=== PATIENT | male | born 1960 | race Caucasian/White ===

== ENCOUNTER 2023-02-22 21:52 | Inpatient (IN) | payer OTHER, MEDICAID, SELFPAY ==
[2023-02-22 21:55] VITALS: BP 183/88; PULSE 87; RESP 20; TEMP 36.4; O2SAT 98; BMI 38.7
[2023-02-22 22:08] VITALS: BP 125/80; PULSE 72; RESP 19; O2SAT 96
--- NOTE | 2023-02-22 22:08 | ED.VIS.DYS ---
HPI History of Present Illness Chief Complaint: Shortness of Breath Narrative Narrative: Patient presents with exertional dyspnea for the past few months its been slowly getting worse. Every time he walks he has dyspnea, he gets diaphoretic and he has chest discomfort, he tells me its not pain just discomfort and it radiates to his jaw. He has no fever or chills. No back pain. No tearing sensation. He has not noticed some slight lower extremity edema recently it is bilateral. PFSH PFSH Allergy/AdvReac Type Severity Reaction Status Date / Time No Known Allergies Allergy Verified 02/22/23 21:55 Social History Smoking Status: Current every day smoker tobacco type: cigarettes ROS ROS ED ROS Narrative Past medical history: Reviewed Medications: Reviewed Social history: Noncontributory Review of systems: General: No fever Eyes: No visual changes ENT: No upper airway congestion, normal voice Neck: No neck pain Cardiovascular: No chest pain, he claims he gets discomfort Respiratory: Exertional dyspnea Gastrointestinal: No abdominal pain, nausea vomiting or diarrhea Genitourinary: No dysuria Musculoskeletal: Denies myalgias no difficulty with ambulation Skin: No rash Neurological: No memory loss, confusion or any focal weakness Psych: No recent behavioral changes Hematologic: No easy bleeding or easy bruising EXAM Physical Exam Narrative Exam Narrative: Physical exam General: Well nourished, Well developed, No Acute Distress Head: Normocephalic, Atraumatic Eyes: Conjunctiva not pale ENT: Moist mucous membranes Neck: Supple, Nontender, No lymphadenopathy Cardiovascular: Regular rate, Regular rhythm Respiratory: No distress, CTA bilaterally Abdomen: Soft, Nontender, Nondistended Back: Nontender, Normal Inspection. Negative for: CVA tenderness Extremities: Nontender, No edema Skin: Normal color, No rash Neurological: Alert, Normal Strength, Normal Sensation Psychological: Normal affect Const Vital Signs: 02/22/23 21:55 02/22/23 22:02 02/22/23 22:08 Temperature 97.6 F L Temperature Source Temporal Pulse Rate 87 Respiratory Rate 20 H Respiratory Effort Normal Respiratory Pattern Normal Blood Pressure 183/88 H Blood Pressure Mean 119 Pulse Ox 98 Oxygen Delivery Method Room Air Room Air 02/22/23 22:08 02/22/23 22:09 Temperature Temperature Source Pulse Rate 72 Respiratory Rate 19 H Respiratory Effort Short of Breath Respiratory Pattern Normal Blood Pressure 125/80 H Blood Pressure Mean 95 Pulse Ox 96 Oxygen Delivery Method Room Air MDM MDM MDM Narrative Medical decision making narrative: Patient has exertional chest discomfort with diaphoresis and dyspnea and radiation to his jaw. In talking to him he has no medical problems however his tells me that he has been diagnosed with hypertriglyceridemia and he is not on any medications for it. He also has obstructive sleep apnea and he had hypertension initially in the ED, he may have some undiagnosed hypertension if he does have hypertension his heart score be a 5 if he does not have before either way he is high risk due to his history and I cannot use the troponin rule out to send him home. Patient will be admitted for stress test. I talked to him and his . I am not worried about pulmonary embolism, he has no pleuritic chest pain he has no risk factors. He has no evidence of pneumonia or any other lung etiologies and his lungs sound clear therefore I do not believe this is a lung issue. Lab Data Labs: Laboratory Results - last 24 hr 02/22/23 22:10 WBC 6.0 RBC 4.34 L Hgb 13.6 Hct 41.0 MCV 94.5 H MCH 31.3 MCHC 33.2 RDW Std Deviation 45.8 H RDW Coeff of Tracie 13.2 Plt Count 229 MPV 9.3 Immature Gran % (Auto) 0.200 Neut % (Auto) 52.5 Lymph % (Auto) 33.2 [place] % (Auto) 9.6 Eos % (Auto) 3.8 Baso % (Auto) 0.7 Absolute Neuts (auto) 3.2 Absolute Lymphs (auto) 2.00 Nucleated RBC % 0 Sodium 141 Potassium 3.8 Chloride 113 H Carbon Dioxide 24.0 Anion Gap 4 L BUN 18 Creatinine 0.96 Estim Creat Clear Calc 82.80 Est GFR (MDRD) Af Amer 102 Est GFR (MDRD) Non-Af 84 BUN/Creatinine Ratio 18.8 Glucose 123 H Calcium 8.3 L Troponin I High Sens 21 Radiography Diagnostic Testing: Clinical Impression(s) from Imaging Studies Chest X-Ray 02/22/23 22:45 IMPRESSION: No active disease. Electronically Signed: Ricardo Khoury MD at 22:55 EDT , Chest x-ray interpreted by me as normal. Rhythm Strip Rhythm Strip: Sinus Rhythm Rate: 70 Ectopy: None EKG Initial EKG: Comments: Sinus rhythm with a rate of 70. Normal VA and QTc intervals. Nonspecific intraventricular conduction delay. No acute ischemic changes. Interpreted by emergency doctor Discharge Plan Triage Chief Complaint: Shortness of Breath ED Provider: Garrett Calhoun Dx/Rx/DC Orders Clinical Impression: MOHIT (obstructive sleep apnea), Acute dyspnea, Chest pain Primary Care Provider: Ho Clark Referrals: Ho Clark DO [Primary Care Provider] - Disposition Disposition: Acute Care Hospital [facility]
[2023-02-22] MEDS: Aspirin 81 MG TAB.CHEW 324 MG PO (22:15)
[2023-02-22 22:16] LABS: Absolute Neutrophil Count 3.2 X10^3/uL (2.0-7.7); Basophil# 0.04 X10^3/uL; Basophil% 0.7 % (0-1); Eosinophil# 0.23 X10^3/uL; Eosinophils% 3.8 % (0-5); Hemoglobin 13.6 g/dL (13.0-16.5); Lymphocyte % 33.2 % (19-41); Mean Corp Hgb Conc 33.2 g/dL (32-36); Mean Corpuscular Hgb 31.3 pg (27.0-32.0); Mean Corpuscular Volume 94.5 fL (80-94); Mean Platelet Vol. 9.3 fl (6.2-12.0); Monocyte# 0.58 X10^3/uL; Monocyte% 9.6 % (0-10); NRBC Flagged by Analyzer 0 % (0-5); Neutrophil # 3.17 X10^3/uL (2.7-7.7); Neutrophil % 52.5 % (47-70); Platelet Count 229 K/mm3 (150-450); RBC Distribution Width CV 13.2 % (11.6-14.6); RBC Distribution Width SD 45.8 fl (35.1-43.9); Red Blood Count 4.34 M/mm3 (4.6-6.2)
[2023-02-22 22:37] LABS: Anion Gap 4 (5-15); BUN 18 mg/dL (7-18); BUN/Creat Ratio 18.8 RATIO (10-20); Calcium,Total 8.3 mg/dL (8.5-10.1); Chloride 113 mmol/L (98-107); Creatinine, Serum 0.96 mg/dL (0.70-1.30); EST Glomerular Filtration Rate 84 mL/min (>60); Est Glom Filt Rate - Afr Amer 102 mL/min (>60); Glucose 123 mg/dL (74-106); Potassium 3.8 mmol/L (3.5-5.1); Sodium Level 141 mmol/L (136-145); Troponin-I HS (w/2H Reflex) 21 pg/mL (3.0-78.0)
--- NOTE | 2023-02-22 22:45 | RAD_ITS ---
STUDY: X-RAY CHEST REASON FOR EXAM: Male, 63 years old. chest pain TECHNIQUE: Single AP portable view of the chest. COMPARISON: None. FINDINGS: Electronic device in the right side of the chest. The lungs are clear and expanded. There is no demonstrated pleural abnormality. Normal size heart. Normal mediastinum and shandra. Normal visualized pulmonary arteries. Normal visualized aortic arch and descending thoracic aorta. Normal visualized thoracic spine. Normal visualized ribs, clavicles, and shoulders. There is no demonstrated abnormality of the visualized soft tissue structures of the upper abdomen. RAD/Chest 1 View (Portable) IMPRESSION: No active disease. Electronically Signed: Ricardo Khoury MD at 22:55 EDT ,
--- NOTE | 2023-02-22 23:39 | EKG12_ITS ---
Test Reason : CP ADMIT Blood Pressure : / mmHG Vent. Rate : 059 BPM Atrial Rate : 059 BPM P-R Int : 172 ms QRS Dur : 122 ms QT Int : 402 ms P-R-T Axes : 047 020 054 degrees QTc Int : 397 ms Sinus bradycardia Non-specific intra-ventricular conduction delay Nonspecific T wave abnormality Abnormal ECG When compared with ECG of 13-FEB-2014 10:16, Non-specific intra-ventricular conduction delay has replaced Incomplete right bundle branch block Confirmed by DAX GROVE, NASRIN ([id number]), medical transcription editor JULIA GARNICA ([id number]) on 02/24/2023 7:16:48 AM Referred By: DR MONTESINOS Confirmed By:NASRIN VERDUZCO MD
--- NOTE | 2023-02-22 23:42 | HP.PCM.HOS_ITS ---
HPI - General General Date of Admission: 02/22/23 Date of Service: 02/22/23 Chief Complaint: Shortness of breath HPI Narrative GUALBERTO SHARP, is a 63 M with a significant history of sleep apnea; tobacco abuse and hypercholesterolemia who presents to emergency department with a 6- month history of progressively worsening shortness of breath. Shortness of breath increases markedly with mild exertion. Associated with symptom is fatigue, and lightheadedness. Also in the past 3 weeks he has been flushed in his face. Further he has a pressure in his head. He categorically denies any chest pain. [facility] Medical History History of skin cancer Sleep apnea Home Medications flaxseed oil 1,000 mg capsule 1,000 mg PO DAILY 02/23/23 [History Last Taken Unknown] modafinil 200 mg tablet 400 mg PO DAILY 02/23/23 [History Last Taken 02/22/23] Allergy/AdvReac Type Severity Reaction Status Date / Time No Known Allergies Allergy Verified 02/22/23 21:55 Family History Other Heart disease no significant family history Surgical History History of knee surgery Social History Smoking Status: Current every day smoker tobacco type: cigarettes ROS ROS Narrative Pertinent positives and pertinent negatives as noted in HPI. All other systems were reviewed and are negative Vital Signs Vital Signs Vital Signs: 02/22/23 21:55 02/22/23 22:02 02/22/23 22:08 Temperature 97.6 F L Temperature Source Temporal Pulse Rate 87 Respiratory Rate 20 H Respiratory Effort Normal Respiratory Pattern Normal Blood Pressure 183/88 H Blood Pressure Mean 119 Pulse Ox 98 Oxygen Delivery Method Room Air Room Air 02/22/23 22:08 02/22/23 22:09 Temperature Temperature Source Pulse Rate 72 Respiratory Rate 19 H Respiratory Effort Short of Breath Respiratory Pattern Normal Blood Pressure 125/80 H Blood Pressure Mean 95 Pulse Ox 96 Oxygen Delivery Method Room Air Weight Weight: 125.872 kg Body Mass Index (BMI) 38.7 Physical Exam Narrative Physical exam: General: Well-nourished, well-developed. Head: Normocephalic, atraumatic, no tenderness Eyes: Vision is grossly intact. EOMI ENT, no trauma, moist mucous membranes, no rhinorrhea Neck: Nontender, No thyromegaly. CVS: Regular rate and rhythm. S1-S2 present. No murmur, gallop or rub. Respiratory : Increased work of breathing. Clear to auscultation bilaterally, chest wall nontender Abdomen: Soft, nontender, nondistended, normal bowel sounds, no masses : Deferred Back: Nontender, no CVA tenderness, no midline spinal tenderness, deformities, step-offs Extremities: Nontender full range of motion, no trauma Skin: Normal color, no trauma, abrasions Neuro: Alert, oriented, cranial nerves II through XII grossly intact. Psychiatry: Normal mood. Normal affect. Not depressed. Not anxious. Results Lab / Micro Data 02/22/23 22:10 02/22/23 22:10 Labs: Laboratory Results - last 24 hr 02/22/23 22:10: WBC 6.0, RBC 4.34 L, Hgb 13.6, Hct 41.0, MCV 94.5 H, MCH 31.3, MCHC 33.2, RDW Std Deviation 45.8 H, RDW Coeff of Tracie 13.2, Plt Count 229, MPV 9.3, Immature Gran % (Auto) 0.200, Neut % (Auto) 52.5, Lymph % (Auto) 33.2, [place] % (Auto) 9.6, Eos % (Auto) 3.8, Baso % (Auto) 0.7, Absolute Neuts (auto) 3.2, Absolute Lymphs (auto) 2.00, Nucleated RBC % 0, Sodium 141, Potassium 3.8, Chloride 113 H, Carbon Dioxide 24.0, Anion Gap 4 L, BUN 18, Creatinine 0.96, Estim Creat Clear Calc 82.80, Est GFR (MDRD) Af Amer 102, Est GFR (MDRD) Non-Af 84, BUN/Creatinine Ratio 18.8, Glucose 123 H, Calcium 8.3 L, Troponin I High Sens 21 Rhythm Strip Rhythm Strip: Sinus Rhythm Rate: 70 Ectopy: None Radiology Impression Chest X-Ray 02/22/23 22:45 IMPRESSION: No active disease. Electronically Signed: Ricardo Khoury MD at 22:55 EDT , Assessment & Plan Assessment/Plan (1) Acute dyspnea: PLAN: Acute dyspnea BNP ordered Radiologist interpretation of chest x-ray: No active disease Actual CXR image was independently visualized. No acute cardiopulmonary process was noted. Initial blood pressure elevation of 183/88 at the ED Sodium of 141 on presentation. Chloride 113. ASA 81 mg p.o. daily ordered We will check lipid panel. Check TSH. Trend CBC and BMP. Initial high sensitivity troponin was unremarkable. Trend Stat EKG as needed for chest pain Chemical stress test in the AM if the cardiac enzymes are negative. Of note a candidate of treadmill stress test since he has had knee surgery placement x2. DVT prophylaxis ordered. Time spent in the patient's overall evaluation,decision-making process, review of diagnostic data, adjustment of management, discussion with other providers, nursing nursing and ancillary staff involved in patient's care documentation, 450minutes. Charges/Coding Visit Charges Inpatient E&M: 35843 Init Hosp L2
[2023-02-22 23:44] VITALS: BP 121/73; PULSE 65; RESP 18; TEMP 36.2; O2SAT 95
--- NOTE | 2023-02-23 00:12 | EKG12_ITS ---
Test Reason : SOB Blood Pressure : / mmHG Vent. Rate : 070 BPM Atrial Rate : 070 BPM P-R Int : 168 ms QRS Dur : 120 ms QT Int : 380 ms P-R-T Axes : 040 023 050 degrees QTc Int : 410 ms Normal sinus rhythm Non-specific intra-ventricular conduction delay Borderline ECG Confirmed by DAX GROVE, NASRIN ([id number]), newspaper editor JULIA GARNICA ([id number]) on 02/25/2023 9:11:04 AM Referred By: Confirmed By:NASRIN VERDUZCO MD
--- NOTE | 2023-02-23 00:12 | ECHOCS_ITS ---
Reason For Study: CHEST PAIN Procedure This was a 2D Doppler, Color Flow transthoracic echocardiogram. The study was technically difficult. Contrast injection was performed. Exam performed portable in patient room. Left Ventricle Normal LV size. Mild concentric left ventricular hypertrophy. Left ventricular systolic function is normal. The estimated ejection fraction is 65 %. No regional wall motion abnormalities noted. Right Ventricle Normal RV size. Normal systolic function. Atria Normal left atrium. Normal right atrium. Mitral Valve Normal mitral valve. Tricuspid Valve Normal tricuspid valve. Mild tricuspid valve insufficiency. Pulmonary artery systolic pressure is 24 mmHg. Aortic Valve Trisinus/trileaflet aortic valve. Pulmonic Valve The pulmonic valve is not well visualized. Great Vessels Normal aortic root. The pulmonary artery is normal size. Normal inferior vena cava. Pericardium/Pleural No pericardial effusion. Medication Diluted definity 2ml given slow IV push to enhance endocardial definition. MMode/2D Measurements & Calculations LVIDd: 5.2 cm IVSd: 1.2 cm Ao root diam: 3.6 cm LVIDs: 3.1 cm LVPWd: 1.4 cm RVDd: 3.5 cm FS: 40.2 % LAV(MOD-bp): 78.0 ml LVAd ap4: 41.7 cm2 SV(MOD-sp4): 101.3 ml LAV(MOD-bp) Indexed: 32.3 ml/m2 LVLd ap4: 9.2 cm LAV(MOD-sp2): 68.5 ml EDV(MOD-sp4): 153.4 ml LAV(MOD-sp4): 84.0 ml EDV(sp4-el): 160.1 ml LVAs ap4: 21.8 cm2 LVLs ap4: 7.6 cm ESV(MOD-sp4): 52.1 ml ESV(sp4-el): 53.3 ml EF(MOD-sp4): 66.0 % EF(sp4-el): 66.7 % SV(sp4-el): 106.9 ml LA A4 area: 23.8 cm2 LA dimension(2D): 5.1 cm RA A4 area: 23.4 cm2 TAPSE: 2.2 cm Time Measurements MV dec time: 0.21 sec Doppler Measurements & Calculations MV E max jose david: 102.3 cm/sec Lat Peak E' Jose David: 10.8 cm/sec Med Peak E' Jose David: 6.5 cm/sec MV A max jose david: 87.9 cm/sec E/E' lat: 9.5 E/E' med: 15.8 MV E/A: 1.2 MV V2 max: 106.6 cm/sec MV dec slope: 488.1 cm/sec2 Ao V2 max: 169.5 cm/sec MV max P.6 mmHg Ao max P.5 mmHg MV V2 mean: 63.2 cm/sec Ao V2 mean: 108.6 cm/sec MV mean P.9 mmHg Ao mean P.5 mmHg MV V2 VTI: 40.0 cm Ao V2 VTI: 37.6 cm AV (velocity ratio): 0.97 LV V1 max: 159.8 cm/sec PA V2 max: 96.8 cm/sec TR max jose david: 233.7 cm/sec LV V1 max P.2 mmHg PA V2 mean: 69.7 cm/sec TR max P.8 mmHg LV V1 mean P.9 mmHg LV V1 mean: 104.0 cm/sec LV V1 VTI: 36.5 cm ECHO/Echo Complete W/ Contrast Interpretation Summary Normal LV size. Mild concentric left ventricular hypertrophy. Left ventricular systolic function is normal. The estimated ejection fraction is 65 %. Contrast injection was performed. Ordering Physician: Schuyler Davila Referring Physician: HILARY MARIE Performed By: [facility]
[2023-02-23 00:14] LABS: Reflex Troponin-HS? (from REC) Y
[2023-02-23 00:15] VITALS: BP 129/78; PULSE 63; RESP 17; TEMP 36.6; O2SAT 96
[2023-02-23 00:33] VITALS: BMI 38.3
[2023-02-23 01:09] LABS: Troponin-I HS 24 pg/mL (3.0-78.0)
[2023-02-23 04:52] LABS: Absolute Lymphocyte Count 2.01 X10^3/uL (0.83-4.51); Absolute Neutrophil Count 2.9 X10^3/uL (2.0-7.7); Basophil# 0.04 X10^3/uL; Basophil% 0.7 % (0-1); Eosinophils% 3.5 % (0-5); Hematocrit 42.7 % (40-54); Hemoglobin 13.8 g/dL (13.0-16.5); Lymphocyte # 2.01 X10^3/ul (0.83-4.51); Lymphocyte % 35.1 % (19-41); Mean Corp Hgb Conc 32.3 g/dL (32-36); Mean Corpuscular Hgb 30.5 pg (27.0-32.0); Mean Corpuscular Volume 94.3 fL (80-94); Mean Platelet Vol. 9.2 fl (6.2-12.0); Monocyte# 0.52 X10^3/uL; Monocyte% 9.1 % (0-10); NRBC Flagged by Analyzer 0 % (0-5); Neutrophil # 2.93 X10^3/uL (2.7-7.7); Neutrophil % 51.3 % (47-70); Platelet Count 210 K/mm3 (150-450); RBC Distribution Width CV 13.4 % (11.6-14.6); RBC Distribution Width SD 46.4 fl (35.1-43.9); Red Blood Count 4.53 M/mm3 (4.6-6.2); White Blood Count 5.7 K/mm3 (4.4-11.0)
[2023-02-23 05:18] LABS: Troponin-I HS 25 pg/mL (3.0-78.0)
[2023-02-23] MEDS: Aspirin E.C. 81 MG Tablet PO (05:27)
[2023-02-23 05:52] LABS: Anion Gap 4 (5-15); BUN 18 mg/dL (7-18); Calcium,Total 8.3 mg/dL (8.5-10.1); Chloride 113 mmol/L (98-107); Cholesterol 172 mg/dL (200); Creatinine, Serum 0.78 mg/dL (0.70-1.30); EST Glomerular Filtration Rate 106 mL/min (>60); Est Glom Filt Rate - Afr Amer 128 mL/min (>60); Glucose 119 mg/dL (74-106); High Density Lipoprotein 31 mg/dL; Potassium 4.3 mmol/L (3.5-5.1); Sodium Level 141 mmol/L (136-145); Thyroid Stim Hormone (TSH) 1.36 uIU/mL (0.358-3.74); Triglycerides 93 mg/dL; Very Low Density Lipoprotein 19 mg/dL (5-40)
[2023-02-23 06:22] VITALS: BP 125/85; PULSE 60; RESP 18; TEMP 36.3; O2SAT 95
[2023-02-23] MEDS: 0.9% Saline Lock 10 ML Syringe IV (06:29)
[2023-02-23 06:56] VITALS: O2SAT 96
--- NOTE | 2023-02-23 07:13 | PN.HOSP_ITS ---
Reason for Visit Reason for Visit: Diagnoses Dyspnea, unspecified (02/22/23) Subjective Subjective Patient denies any acute events overnight per self or per nursing report. Patient denies any further chest discomfort or exertional dyspnea has not been exerting himself since his presentation. Reviewed current work-up which included unremarkable cardiac enzymes as well as stable telemetry monitoring with plan for a.m. cardiac stress testing still underway. Patient denies fevers, chills, nausea, emesis, abdominal pain, chest pain or dyspnea. Objective Data Objective Data Vital Signs: Vital Signs Temp Pulse Resp BP Pulse Ox O2 Del Method 97.3 F L 60 18 125/85 H 95 Room Air 02/23/23 06:22 02/23/23 06:22 02/23/23 06:22 02/23/23 06:22 02/23/23 06:22 02/23/23 06:22 Oxygen Delivery Method Room Air Weight: 274 lb 14.663 oz Body Mass Index (BMI) 38.3 Lab / Micro Data 02/23/23 04:35 02/23/23 04:35 Labs: Laboratory Results - last 24 hr 02/22/23 22:10: WBC 6.0, RBC 4.34 L, Hgb 13.6, Hct 41.0, MCV 94.5 H, MCH 31.3, MCHC 33.2, RDW Std Deviation 45.8 H, RDW Coeff of Tracie 13.2, Plt Count 229, MPV 9.3, Immature Gran % (Auto) 0.200, Neut % (Auto) 52.5, Lymph % (Auto) 33.2, [place] % (Auto) 9.6, Eos % (Auto) 3.8, Baso % (Auto) 0.7, Absolute Neuts (auto) 3.2, Absolute Lymphs (auto) 2.00, Nucleated RBC % 0, Sodium 141, Potassium 3.8, Chloride 113 H, Carbon Dioxide 24.0, Anion Gap 4 L, BUN 18, Creatinine 0.96, Estim Creat Clear Calc 82.80, Est GFR (MDRD) Af Amer 102, Est GFR (MDRD) Non-Af 84, BUN/Creatinine Ratio 18.8, Glucose 123 H, Calcium 8.3 L, Troponin I High Sens 02/23/23 00:34: Troponin I High Sens 02/23/23 04:35: WBC 5.7, RBC 4.53 L, Hgb 13.8, Hct 42.7, MCV 94.3 H, MCH 30.5, MCHC 32.3, RDW Std Deviation 46.4 H, RDW Coeff of Tracie 13.4, Plt Count 210, MPV 9.2, Immature Gran % (Auto) 0.300, Neut % (Auto) 51.3, Lymph % (Auto) 35.1, [place] % (Auto) 9.1, Eos % (Auto) 3.5, Baso % (Auto) 0.7, Absolute Neuts (auto) 2.9, Absolute Lymphs (auto) 2.01, Nucleated RBC % 0, Sodium 141, Potassium 4.3, Chloride 113 H, Carbon Dioxide 24.0, Anion Gap 4 L, BUN 18, Creatinine 0.78, Estim Creat Clear Calc 101.90, Est GFR (MDRD) Af Amer 128, Est GFR (MDRD) Non-Af 106, BUN/Creatinine Ratio 23.0 H, Glucose 119 H, Calcium 8.3 L, Troponin I High Sens 25, Triglycerides 93, Cholesterol 172, LDL Cholesterol 122, VLDL Cholesterol 19, HDL Cholesterol 31 L, TSH 1.36 Radiography Diagnostic Testing: Radiology Impression Chest X-Ray 02/22/23 22:45 IMPRESSION: No active disease. Electronically Signed: Ricardo Khoury MD at 22:55 EDT , Rhythm Strip Rhythm Strip: Sinus Rhythm Rate: 70 Ectopy: None Physical Exam Narrative Physical Examination: General: Awake, alert, oriented x 3 and cooperative, laying in the PCU bed, no acute distress, denies any current chest pain or dyspnea. Skin: Normal color, normal turgor, no icterus, no cyanosis. HEENT: AT/NC, EOMI, PERRLA, MMM. Lungs: CTA bilaterally, moderate effort, mild decrease BL bases, no rales, ronchi or wheezing. Heart: Regular rate and rhythm; no gallop, rub audible. Abdomen: Soft, obese, NTTP, ND, mildly hyperactive BS. Extremities: No cyanosis, no clubbing nor any peripheral edema noted despite patient concern for swelling. Neurological: Patient awake, alert, oriented as noted, cognitive function intact; pupils equally reactive to light and accommodation, cranial nerves II- XII grossly normal, moving all 4 extremities, no focal deficits, strength preserved. Psychiatric: Affect appears normal, no acute evidence of depressive or anxiety feelings. Assessment & Plan Assessment/Plan (1) Chest pain: PLAN: Plan The patient is a 63 y/o M w/ PMHx: Obesity, Tobacco use who presents to the [facility] ED on 02/22/23 with history of onset of exertional dyspnea progressively worseni ng for the last few months more pronounced over the last week now with notable diaphoresis as well as chest discomfort with radiation toward his jaw and recent mild lower extremity swelling per his spouse prompting eventual ED evaluation. #1. Exertional dyspnea, chest pain, bilateral lower extremity swelling concerning for angina: EKG in ED sinus rhythm with no acute evidence of ischemia, CXR w/ no acute cardiopulmonary findings, initial trop 21. Admitted to PCU, maintained on a monitored bed to assure no acute myocardial infarction with serial cardiac enzymes and EKGs with initial troponin as noted 21-> 24-> 25. Given repeat serial cardiac enzymes and EKGs remain unremarkable pending a. m. cardiac stress testing. FLP with HDL 31 otherwise total cholesterol 172, LDL 122, VLDL 19, triglycerides 93. ASA. If cardiac stress testing is negative for usable ischemia would plan discharge to home with follow-up with PCP for further evaluation outpatient. #2. Tobacco Abuse: Encouraged cessation, inpatient consultation per RT, NR if desired. #3. Obesity: Weight loss and lifestyle changes encouraged. #4. MOHIT: CPAP nightly. #5. DVT prophylaxis: Low risk given observation admission, encourage ambulation. Charges/Coding Visit Charges Inpatient E&M: 21397 Init Hosp L2
--- NOTE | 2023-02-23 11:36 | DCINST_ITS ---
Discharge Instructions Diet Discharge Diet: Low fat / Low cholesterol Activity Discharge Activity: - (Recommended continued outpatient evaluation of your complaints with your primary care and activity as tolerated.) May resume sexual activity in: No Restrictions Dressing / Incision Call your doctor if you observe: Fever of 101 or Higher, Numbness or Tingling, Inability to urinate, Shortness of breath, Dizziness, Fainting spells, Swelling in the ankles, Chest pain, Prolonged hiccupping, Increased palpitations (irregular heartbeat), Calf discomfort and Uncontrolled pain Follow Up Care Test Results: Test results from this visit will be discussed in further detail at your follow- up appointment, if applicable. Discharge Plan Admission Admit Date/Time: 02/22/23 23:26 Primary Reason for Your Visit: Chest pain, exertional dyspnea Attending Provider: Demetria Johnson Primary Care Provider: Ho Clark Consulting Providers: Schuyler Davila Instructions Additional Instructions / Restrictions: ADDITIONAL FOLLOW-UP/DISCHARGE INSTRUCTIONS: The chest pain you experienced is not from your heart. The stress test is negative and your heart squeezed normally. The cardiac rehabilitation program director you wore showed no problem with the rhythm of your heart. Additionally, the cardiac enzyme series performed remained normal. Sometimes chest pain can come from a problem with the muscles or skeleton and/or associated with straining or doing some strenuous activity you do not normally perform. Generally Aleve or Motrin will help alleviate this discomfort if these medications are appropriate for you to take. Chest pain can also be associated with anxiety and with this you frequently have racing heart, trouble sleeping and irritability. It can also come from gastroesophageal reflux disease or heartburn. People who smoke experience increased heartburn because nicotine decreases the pressure in the lower esophageal sphincter and causes reflux. This type of discomfort is well treated with drinking a large glass of cold water which strips the acid out of the esophagus or taking Mylanta, Maalox or Pepto-Bismol. Other foods to avoid if you have reflux are chocolate, peppermint and calcium containing products such as Tums. Discharge Orders/Prescriptions Prescriptions: New aspirin 81 mg Tablet,Delayed Release (Dr/Ec) 81 mg PO BREAKFAST 30 Days Qty: 30 0RF Continued flaxseed oil 1,000 mg capsule 1,000 mg PO DAILY modafinil 200 mg tablet 400 mg PO DAILY Patient Comments: TAKE 2 TABLETS BY MOUTH EVERY DAY Referrals / Follow Up: Ho lCark DO [Primary Care Provider] - (Follow-up to review admission and continued outpatient evaluation for symptoms within 3-5 days.) Disposition Disposition (needs filled in before D/C Order can be placed): Home, Self Care
--- NOTE | 2023-02-23 11:38 | PCM.DC.SUM ---
Providers Date of Admission: 02/22/23 Date of Discharge: 02/23/23 Primary Care Physician: Dr. Ho Clark DO Reason For Visit: STABLE ANGINA Diagnosis Discharge Diagnosis (1) Chest pain: Status: Acute Code(s): R07.9 - Chest pain, unspecified Plan: Discharge Diagnoses: #1. Exertional dyspnea, chest pain with negative stress testing #2. Tobacco Abuse #3. Obesity #4. MOHIT Medications at Discharge Home Medications aspirin 81 mg tablet,delayed release 81 mg PO BREAKFAST 30 days #30 tabs 02/23/23 flaxseed oil 1,000 mg capsule 1,000 mg PO DAILY 02/23/23 modafinil 200 mg tablet 400 mg PO DAILY 02/23/23 Hospital Course Operations None Procedures EKG and Stress test Summary of Care Provided Minutes Spent on Discharge: 35 Hospital Course: The patient is a 63 y/o M w/ PMHx: Obesity, Tobacco use who presented to the [facility] ED on 02/22/23 with history of onset of exertional dyspnea progressively worsening for the last few months more pronounced over the last week now with notable diaphoresis as well as chest discomfort with radiation toward his jaw and recent mild lower extremity swelling per his spouse prompting eventual ED evaluation. In the ED work-up included EKG sinus rhythm without evidence of acute ischemia, CXR without acute process, unremarkable CBC and chemistry, cardiac enzyme set x 1 normal. The patient was admitted to PCU, maintained on cardiac telemetry, serial cardiac enzymes were obtained as well as serial EKGs which remained unremarkable. Patient underwent AM cardiac stress testing which was noted to be negative for inducible ischemia. FLP was obtained during admission and noted to be not marked appearing aside HDL mildly decreased 31. Patient was discharged to home in stable condition with recommendation for follow-up with primary care physician within 3-5 days. Weight / BMI Weight Weight: 274 lb 14.663 oz Body Mass Index (BMI) 38.3 ABG / Lab / Microbiology Data 02/23/23 04:35 02/23/23 04:35 Laboratory: Laboratory Results - last 24 hr 02/22/23 22:10: WBC 6.0, RBC 4.34 L, Hgb 13.6, Hct 41.0, MCV 94.5 H, MCH 31.3, MCHC 33.2, RDW Std Deviation 45.8 H, RDW Coeff of Tracie 13.2, Plt Count 229, MPV 9.3, Immature Gran % (Auto) 0.200, Neut % (Auto) 52.5, Lymph % (Auto) 33.2, [place] % (Auto) 9.6, Eos % (Auto) 3.8, Baso % (Auto) 0.7, Absolute Neuts (auto) 3.2, Absolute Lymphs (auto) 2.00, Nucleated RBC % 0, Sodium 141, Potassium 3.8, Chloride 113 H, Carbon Dioxide 24.0, Anion Gap 4 L, BUN 18, Creatinine 0.96, Estim Creat Clear Calc 82.80, Est GFR (MDRD) Af Amer 102, Est GFR (MDRD) Non-Af 84, BUN/Creatinine Ratio 18.8, Glucose 123 H, Calcium 8.3 L, Troponin I High Sens 02/23/23 00:34: Troponin I High Sens 02/23/23 04:35: WBC 5.7, RBC 4.53 L, Hgb 13.8, Hct 42.7, MCV 94.3 H, MCH 30.5, MCHC 32.3, RDW Std Deviation 46.4 H, RDW Coeff of Tracie 13.4, Plt Count 210, MPV 9.2, Immature Gran % (Auto) 0.300, Neut % (Auto) 51.3, Lymph % (Auto) 35.1, [place] % (Auto) 9.1, Eos % (Auto) 3.5, Baso % (Auto) 0.7, Absolute Neuts (auto) 2.9, Absolute Lymphs (auto) 2.01, Nucleated RBC % 0, Sodium 141, Potassium 4.3, Chloride 113 H, Carbon Dioxide 24.0, Anion Gap 4 L, BUN 18, Creatinine 0.78, Estim Creat Clear Calc 101.90, Est GFR (MDRD) Af Amer 128, Est GFR (MDRD) Non-Af 106, BUN/Creatinine Ratio 23.0 H, Glucose 119 H, Calcium 8.3 L, Magnesium 2.0, Troponin I High Sens 25, Triglycerides 93, Cholesterol 172, LDL Cholesterol 122, VLDL Cholesterol 19, HDL Cholesterol 31 L, TSH 1.36 Radiography Diagnostic Testing: Radiology Impression Chest X-Ray 02/22/23 22:45 IMPRESSION: No active disease. Electronically Signed: Ricardo Khoury MD at 22:55 EDT , D/C Instructions Discharge Diet: Low fat / Low cholesterol May resume sexual activity in: No Restrictions Call your doctor if you observe: Fever of 101 or Higher, Numbness or Tingling, Inability to urinate, Shortness of breath, Dizziness, Fainting spells, Swelling in the ankles, Chest pain, Prolonged hiccupping, Increased palpitations (irregular heartbeat), Calf discomfort and Uncontrolled pain Meaningful Use Info Meaningful Use Diagnoses (Choose all that apply): None applicable Discharge Plan Admission Admit Date/Time: 02/22/23 23:26 Primary Reason for Your Visit: Chest pain, exertional dyspnea Attending Provider: Demetria Johnson Primary Care Provider: Ho Clark Consulting Providers: Schuyler Davila Instructions Additional Instructions / Restrictions: ADDITIONAL FOLLOW-UP/DISCHARGE INSTRUCTIONS: The chest pain you experienced is not from your heart. The stress test is negative and your heart squeezed normally. The archivist you wore showed no problem with the rhythm of your heart. Additionally, the cardiac enzyme series performed remained normal. Sometimes chest pain can come from a problem with the muscles or skeleton and/or associated with straining or doing some strenuous activity you do not normally perform. Generally Aleve or Motrin will help alleviate this discomfort if these medications are appropriate for you to take. Chest pain can also be associated with anxiety and with this you frequently have racing heart, trouble sleeping and irritability. It can also come from gastroesophageal reflux disease or heartburn. People who smoke experience increased heartburn because nicotine decreases the pressure in the lower esophageal sphincter and causes reflux. This type of discomfort is well treated with drinking a large glass of cold water which strips the acid out of the esophagus or taking Mylanta, Maalox or Pepto-Bismol. Other foods to avoid if you have reflux are chocolate, peppermint and calcium containing products such as Tums. Discharge Orders/Prescriptions Prescriptions: New aspirin 81 mg Tablet,Delayed Release (Dr/Ec) 81 mg PO BREAKFAST 30 Days Qty: 30 0RF Continued flaxseed oil 1,000 mg capsule 1,000 mg PO DAILY modafinil 200 mg tablet 400 mg PO DAILY Patient Comments: TAKE 2 TABLETS BY MOUTH EVERY DAY Referrals / Follow Up: Ho Clark DO [Primary Care Provider] - (Follow-up to review admission and continued outpatient evaluation for symptoms within 3-5 days.) Disposition Disposition (needs filled in before D/C Order can be placed): Home, Self Care Charges/Coding Visit Charges Inpatient E&M: 16549 Disch Hosp >30min
--- NOTE | 2023-02-23 12:05 | PHA.DC_ITS ---
Pharmacy [facility] Pharm[facility] Service has performed discharge medication reconciliation and counseling for this patient. 1. ASPIRIN 81MG PO BREAKFAST The patient's discharge medication list was reviewed for discrepancies and discrepancies were resolved. The patient was counseled on the following discharge medications and changes in medications for homegoing were reviewed. The Reason for Use, instructions for use, and potential side effects were reviewed for all new medications. The patient's questions regarding all of their medications were answered. The patient was able to verbally demonstrate an understanding of their discharge medications. Patient counseled by pharmacy benefit managerJose Ramon. Medications at Discharge Home Medications aspirin 81 mg tablet,delayed release 81 mg PO BREAKFAST 30 days #30 tabs 02/23/23 flaxseed oil 1,000 mg capsule 1,000 mg PO DAILY 02/23/23 modafinil 200 mg tablet 400 mg PO DAILY 02/23/23
--- NOTE | 2023-02-23 12:05 | STRESSREP ---
Stress Test Report In pharmacologic myocardial perfusion stress test. 63-year-old man with a history of chest pain Resting EKG demonstrates sinus rhythm with a rate of 62 bpm. Resting blood pressure is 130/78 mmHg. 0.4 mg of regadenoson was infused per usual protocol followed by rapid intravenous saline flush injection. Continuous EKG monitoring was performed. The maximum heart rate was 83 bpm which was 53% of max impacted heart rate the maximum workload was 1 metabolic equivalent. At rest there were no ST or T wave changes noted to suggest ischemia and at peak infusion nonspecific ST changes were noted which did not meet the criteria for ischemia. No clinical angina is noted. The final blood pressure was 122/78 mmHg. Myocardial perfusion protocol. 14.7 mCi of technetium 99m sestamibi was injected at rest. 0.4 mg of regadenoson was infused per usual protocol. At peak infusion 45 mCi of technetium 99m sestamibi was injected stress images were obtained stress and rest images were reconstructed and compared in the short axis vertical long and horizontal long axis. Gated images were also obtained. Perfusion SPECT analysis: Review of the stress images demonstrate normal uptake of tracer noted in all areas of the myocardium except for the mid to distal anterior wall with a medium size perfusion defect.. The resting images similar demonstrated improvement in uptake in the anterior wall suggesting mid to distal anterior ischemia and a medium sized zone. A previous apical infarct cannot be completely excluded. Gated SPECT analysis: The gated ejection fraction is 64%. Conclusion: Abnormal pharmacologic myocardial perfusion stress test with a medium size anterior apical perfusion defect. Preserved ejection fraction.
--- NOTE | 2023-02-23 12:15 | CASEMGMT ---
IVON BARAJAS met with pt and his at bedside, introduced self and role at [facility]. Pt alert, oriented and appropriate. 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 Pt denies any discharge needs at this time and plans to return home with the support of his . Will continue to monitor and assist with DC needs as identified. Fatmata Lemos RN CM
--- NOTE | 2023-02-23 14:46 | PCM.CONS.C ---
Assessment & Plan Assessment/Plan (1) Abnormal stress test: PLAN: Patient presents with atypical symptoms and is noted to have an abnormal stress test involving anterior ischemia. My recommendation is for him to pursue a left heart catheterization. The risk benefits alternatives have been explained to him he understands and agrees to proceed. Depending on the findings further recommendations will be made. Thank you for allowing me to participate in the care of your patient. Please don't hesitate to call if any issues arise. HPI Consult Data Date of Consult: 02/23/23 HPI Narrative HPI Narrative: GUALBERTO SHARP, is a 63 M who presents to the emergency room complaining of facial pain. He had also had some shortness of breath with exertion which he says has been going on for the last few months. He decided to present to the emergency room on a Thursday because his made him. His EKG in the emergency room was unremarkable blood work and enzymes were noted to be normal. He was scheduled for and underwent a pharmacologic myocardial perfusion stress test which demonstrated evidence of anterior ischemia and cardiology was called for further evaluation and management. He denies any neck arm or jaw discomfort suggest angina no dizziness or diaphoresis no near syncope or syncope. [facility] Medical History History of skin cancer Sleep apnea Home Medications aspirin 81 mg tablet,delayed release 81 mg PO BREAKFAST 30 days #30 tabs 02/23/23 [Rx Last Taken Unknown] flaxseed oil 1,000 mg capsule 1,000 mg PO DAILY 02/23/23 [History Last Taken Unknown] modafinil 200 mg tablet 400 mg PO DAILY 02/23/23 [History Last Taken 02/22/23] Allergy/AdvReac Type Severity Reaction Status Date / Time No Known Allergies Allergy Verified 02/22/23 21:55 Family History Other Heart disease Family History no significant family his Surgical History History of knee surgery Social History Smoking Status: Current every day smoker tobacco type: cigarettes ROS Constitutional Constitutional: Denies fever(s) or weight loss Eyes Eyes: Reports systems reviewed and no addt'l complaints, except as documented ENT HEENT: Reports systems reviewed and no addt'l complaints, except as documented Cardiovascular Cardiovascular: Denies chest pain at rest, chest pain with activity, dyspnea at rest, dyspnea on exertion, edema, palpitations or paroxysmal nocturnal dyspnea Respiratory/Chest Respiratory/Chest: Denies dyspnea on exertion, productive cough, shortness of breath at rest or shortness of breath with exertion Gastrointestinal Gastrointestinal: Denies change in bowel habits, nausea, vomiting or weight changes Genitourinary Genitourinary: Denies difficulty urinating Musculoskeletal Musculoskeletal: Denies joint stiffness or muscle weakness Integumentary Integumentary: Denies lesions Neurologic Neurologic: Denies dizziness or syncope Psychiatric Psychiatric: Denies anxiety Endocrine Endocrinology: Denies excessive sweating or fatigue Hematologic/Lymphatic Hematologic/Lymphatic: Denies anemia Allergic/Immunologic Allergic/Immunologic: Denies seasonal rhinorrhea Physical Exam Const alert, oriented x3 and no apparent distress General Appearance: cooperative HEENT hearing grossly normal bilaterally Head and Scalp: atraumatic Eyes EOMs intact bilaterally Neck General: normal visual inspection Chest inspection of chest normal and palpation of chest normal Resp normal respiratory effort Auscultation: clear to auscultation bilaterally Cardio regular rate, regular rhythm, S1 normal heart sound and S2 normal heart sound Jugular Venous Distention: JVD GI normal to inspection, nondistended, normoactive bowel sounds Extremity normal capillary refill and no pedal edema Peripheral Pulses: Yes pulses 2+ throughout and femoral pulses present Skin no rashes or lesions noted Neuro oriented x3 and CN's II-XII intact bilaterally Psych Appearance: grossly normal and appropriate Risk Stratification Risk Stratification Applicable: Yes Age >/= 65: No >/= 3 CAD Risk Factors (HTN, HLD, DM, family hx of CAD, or current smoker): No Aspirin Use in the Past 7 Days: No Severe Angina (>/= episodes in 24 hours): No EKG ST Changes >/= 0.5mm: No Positive Cardiac Marker: No CHADD Risk Stratification Score: 0 CHADD % Risk: 5% Risk Objective Data Vital Signs: Vital Signs Temp Pulse Resp BP Pulse Ox O2 Del Method 97.3 F L 60 18 125/85 H 96 Room Air 02/23/23 06:22 02/23/23 06:22 02/23/23 06:22 02/23/23 06:22 02/23/23 06:56 02/23/23 06:56 Oxygen Delivery Method Room Air Weight: 274 lb 14.663 oz Body Mass Index (BMI) 38.3 Intake & Output: Intake and Output for Last 24 Hours 02/21/23 02/22/23 02/23/23 23:59 23:59 23:59 Intake Total 360 / 360 Balance 360 / 360 Lab / Micro Data 02/23/23 04:35 02/23/23 04:35 Labs: Laboratory Results - last 24 hr 02/22/23 22:10: WBC 6.0, RBC 4.34 L, Hgb 13.6, Hct 41.0, MCV 94.5 H, MCH 31.3, MCHC 33.2, RDW Std Deviation 45.8 H, RDW Coeff of Tracie 13.2, Plt Count 229, MPV 9.3, Immature Gran % (Auto) 0.200, Neut % (Auto) 52.5, Lymph % (Auto) 33.2, [place] % (Auto) 9.6, Eos % (Auto) 3.8, Baso % (Auto) 0.7, Absolute Neuts (auto) 3.2, Absolute Lymphs (auto) 2.00, Nucleated RBC % 0, Sodium 141, Potassium 3.8, Chloride 113 H, Carbon Dioxide 24.0, Anion Gap 4 L, BUN 18, Creatinine 0.96, Estim Creat Clear Calc 82.80, Est GFR (MDRD) Af Amer 102, Est GFR (MDRD) Non-Af 84, BUN/Creatinine Ratio 18.8, Glucose 123 H, Calcium 8.3 L, Troponin I High Sens 02/23/23 00:34: Troponin I High Sens 02/23/23 04:35: WBC 5.7, RBC 4.53 L, Hgb 13.8, Hct 42.7, MCV 94.3 H, MCH 30.5, MCHC 32.3, RDW Std Deviation 46.4 H, RDW Coeff of Tracie 13.4, Plt Count 210, MPV 9.2, Immature Gran % (Auto) 0.300, Neut % (Auto) 51.3, Lymph % (Auto) 35.1, [place] % (Auto) 9.1, Eos % (Auto) 3.5, Baso % (Auto) 0.7, Absolute Neuts (auto) 2.9, Absolute Lymphs (auto) 2.01, Nucleated RBC % 0, Sodium 141, Potassium 4.3, Chloride 113 H, Carbon Dioxide 24.0, Anion Gap 4 L, BUN 18, Creatinine 0.78, Estim Creat Clear Calc 101.90, Est GFR (MDRD) Af Amer 128, Est GFR (MDRD) Non-Af 106, BUN/Creatinine Ratio 23.0 H, Glucose 119 H, Calcium 8.3 L, Magnesium 2.0, Troponin I High Sens 25, Triglycerides 93, Cholesterol 172, LDL Cholesterol 122, VLDL Cholesterol 19, HDL Cholesterol 31 L, TSH 1.36 Rhythm Strip Rhythm Strip: Sinus Rhythm Rate: 70 Ectopy: None Cardiology Labs/Tests 02/22/23 22:10: WBC 6.0, RBC 4.34 L, Hgb 13.6, Hct 41.0, MCV 94.5 H, MCH 31.3, MCHC 33.2, Plt Count 229, MPV 9.3, Immature Gran % (Auto) 0.200, Neut % (Auto) 52.5, Lymph % (Auto) 33.2, [place] % (Auto) 9.6, Eos % (Auto) 3.8, Baso % (Auto) 0.7, Absolute Neuts (auto) 3.2, Nucleated RBC % 0, Sodium 141, Potassium 3.8, Chloride 113 H, Carbon Dioxide 24.0, Anion Gap 4 L, BUN 18, Creatinine 0.96, Est GFR (MDRD) Af Amer 102, Est GFR (MDRD) Non-Af 84, BUN/Creatinine Ratio 18.8, Glucose 123 H, Calcium 8.3 L 02/23/23 04:35: WBC 5.7, RBC 4.53 L, Hgb 13.8, Hct 42.7, MCV 94.3 H, MCH 30.5, MCHC 32.3, Plt Count 210, MPV 9.2, Immature Gran % (Auto) 0.300, Neut % (Auto) 51.3, Lymph % (Auto) 35.1, [place] % (Auto) 9.1, Eos % (Auto) 3.5, Baso % (Auto) 0.7, Absolute Neuts (auto) 2.9, Nucleated RBC % 0, Sodium 141, Potassium 4.3, Chloride 113 H, Carbon Dioxide 24.0, Anion Gap 4 L, BUN 18, Creatinine 0.78, Est GFR (MDRD) Af Amer 128, Est GFR (MDRD) Non-Af 106, BUN/Creatinine Ratio 23.0 H, Glucose 119 H, Calcium 8.3 L, Magnesium 2.0, Triglycerides 93, Cholesterol 172, LDL Cholesterol 122, VLDL Cholesterol 19, HDL Cholesterol 31 L Rhythm: EKG: ECHO: Stress Test: Cardiac Cath: PCI: CT Surgery: Holter monitor: EPS: PPM: CXR: Chest CT Scan: Radiography Diagnostic Testing: Radiology Impression Chest X-Ray 02/22/23 22:45 IMPRESSION: No active disease. Electronically Signed: Ricardo Khoury MD at 22:55 EDT , Echocardiogram 02/23/23 00:12 Interpretation Summary Normal LV size. Mild concentric left ventricular hypertrophy. Left ventricular systolic function is normal. The estimated ejection fraction is 65 %. Contrast injection was performed. Ordering Physician: Schuyler Davila Referring Physician: HILARY CYNTHIA Performed By: [facility] RCS
--- NOTE | 2023-02-23 15:33 | CASEMGMT ---
In-network tertiary facilities per [facility] website: [facility] Fatmata Lemos RN CM
--- NOTE | 2023-02-23 15:42 | CASEMGMT ---
Patient has a Healthcare Power of Vp Strategy, however they are not on file at [facility]. Patient is aware documents are not on file. [facility]
[2023-02-23 20:53] VITALS: BP 124/70; PULSE 64; RESP 16; TEMP 36.8; O2SAT 97
[2023-02-23 21:52] VITALS: O2SAT 98
[2023-02-24] VITALS (14 sets, daily range): BP systolic 114–162; BP diastolic 72–99; PULSE 64–83; RESP 16–18; TEMP 36.1–36.7; O2SAT 94–100
[2023-02-24] MEDS: 0.9% Normal Saline 1,000 ML 75 ML IV (00:26)
[2023-02-24] MEDS: 0.9% Saline Lock 10 ML Syringe IV (00:26)
[2023-02-24 04:47] LABS: Absolute Lymphocyte Count 1.74 X10^3/uL (0.83-4.51); Absolute Neutrophil Count 4.2 X10^3/uL (2.0-7.7); Basophil# 0.04 X10^3/uL; Basophil% 0.6 % (0-1); Eosinophils% 2.9 % (0-5); Hematocrit 43.8 % (40-54); Hemoglobin 14.2 g/dL (13.0-16.5); Lymphocyte # 1.74 X10^3/ul (0.83-4.51); Lymphocyte % 25.4 % (19-41); Mean Corp Hgb Conc 32.4 g/dL (32-36); Mean Corpuscular Hgb 30.7 pg (27.0-32.0); Mean Corpuscular Volume 94.6 fL (80-94); Mean Platelet Vol. 9.2 fl (6.2-12.0); Monocyte# 0.63 X10^3/uL; Monocyte% 9.2 % (0-10); NRBC Flagged by Analyzer 0 % (0-5); Neutrophil # 4.21 X10^3/uL (2.7-7.7); Neutrophil % 61.5 % (47-70); Platelet Count 219 K/mm3 (150-450); RBC Distribution Width CV 13.4 % (11.6-14.6); RBC Distribution Width SD 46.5 fl (35.1-43.9); Red Blood Count 4.63 M/mm3 (4.6-6.2); White Blood Count 6.9 K/mm3 (4.4-11.0)
[2023-02-24 05:14] LABS: ALB/GLOB Ratio 1.1 RATIO (0.9-2.4); AST(SGOT) 20 U/L (15-37); Alanine Aminotransfer ALT/SGPT 27 U/L (16-61); Albumin, Serum 3.1 g/dL (3.2-5.0); Alkaline Phosphatase 66 U/L (45-117); Anion Gap 5 (5-15); BUN 15 mg/dL (7-18); BUN/Creat Ratio 16.5 RATIO (10-20); Calcium,Total 7.8 mg/dL (8.5-10.1); Chloride 109 mmol/L (98-107); Creatinine, Serum 0.91 mg/dL (0.70-1.30); EST Glomerular Filtration Rate 90 mL/min (>60); Est Glom Filt Rate - Afr Amer 108 mL/min (>60); Estimated Creatinine Clearance 87.34 ml/min; Globulin 2.9 g/dL (2.2-4.2); Glucose 114 mg/dL (74-106); Sodium Level 140 mmol/L (136-145); Total Bilirubin < 0.10 mg/dL (0.20-1.00)
--- NOTE | 2023-02-24 05:55 | EKG12_ITS ---
Test Reason : PRE PCI Blood Pressure : / mmHG Vent. Rate : 067 BPM Atrial Rate : 067 BPM P-R Int : 166 ms QRS Dur : 116 ms QT Int : 412 ms P-R-T Axes : 039 003 056 degrees QTc Int : 435 ms Normal sinus rhythm Normal ECG When compared with ECG of 23-FEB-2023 00:48, MANUAL COMPARISON REQUIRED, DATA IS UNCONFIRMED Confirmed by DAX GROVE, NASRIN ([id number]), legal editor JULIA GARNICA ([id number]) on 02/25/2023 9:34:05 AM Referred By: JANAE Confirmed By:NASRIN VERDUZCO MD
[2023-02-24] MEDS: Aspirin E.C. 81 MG Tablet PO (06:05)
--- NOTE | 2023-02-24 11:45 | EKG12_ITS ---
Test Reason : Blood Pressure : / mmHG Vent. Rate : 072 BPM Atrial Rate : 072 BPM P-R Int : 170 ms QRS Dur : 118 ms QT Int : 394 ms P-R-T Axes : 031 -02 041 degrees QTc Int : 431 ms Normal sinus rhythm Non-specific intra-ventricular conduction delay Borderline ECG When compared with ECG of 25-FEB-2023 05:33, MANUAL COMPARISON REQUIRED, DATA IS UNCONFIRMED Confirmed by DAX GROVE, NASRIN ([id number]), video editor JULIA GARNICA ([id number]) on 02/26/2023 1:35:09 PM Referred By: Confirmed By:NASRIN VERDUZCO MD
--- NOTE | 2023-02-24 11:46 | CRPHASE1 ---
Patient Communication Patient Information PHII Cardiac Rehab Discussed with Patient:: Yes Guide to Cardiac Rehab Given to Patient:: Yes Cardiac Rehab Facility Choice List Given to Patient:: Yes Communication to Cardiac Rehab Choice Program [facility] CR PHII:: Communication Given to CR Choice Program Other:: Communication Given to CR Barking Machine Feeder:: Beka Hernandez Refer Phase II Cardiac Rehab:: Yes Sessions:: 36 sessions - 3 days/wk, 12 weeks Cardiac Rehabilitation Info Program Information Cardiac Rehabilitation Program Information: Cardiac Rehab The cardiac rehab team at [facility] consists of highly skilled exercise physiologists, nurses, respiratory therapists and physicians working together with you. Our purpose is to help you have a full recovery and achieve the goals you set for yourself. Over the years many of our patients have returned to activities they assumed they would never do again! We can help restore your confidence and motivation to make lifestyle changes that can have a significant impact on your health and quality of life! We can help answer questions and concerns you may have about exercise, lifestyle, medications, diet, stress and anxiety which are common following a hospitalization. WE monitor ECG and vital signs during exercise and discuss your progress with you and report to your physician(s). Cardiac Rehab is proven to help reduce readmissions, improve functional capacity and lower recurrence of problems with your heart. Our Cardiac Rehab program is Certified by the [place] [employer] Pulmonary [employer] (AACVPR) and Accredited by the [place] [employer] through our [facility]. You can contact us at . We invite you to call us with your questions or to get started in our program. If you have other questions or concerns be sure to ask your physician/provider during your follow-up visit. WE look forward to seeing you!
--- NOTE | 2023-02-24 11:48 | CRPH1.INSTRU ---
General Education Discussed with Patient CAD and cardiac anatomy and function:: Patient communicates acknowledgment Explanation of diagnoses and procedures:: Patient communicates acknowledgment Sign/Symptoms of NH:: Patient communicates acknowledgment Antiplatelet therapy: Patient communicates acknowledgment Proper use of NTG-SL: Patient communicates acknowledgment Emergency procedures and activation of EMS: Patient communicates acknowledgment Compliance of all prescribed medications: Patient communicates acknowledgment Smoking Risk Factors Patient Nicotine/Smoking Risk Factors Are:: Never smoked Dyslipidemia Response Code Dyslipidemia Response Code:: Not instructed Overweight/Obesity Response Code Overweight/Obesity:: Patient communicates acknowledgment Hypertension Response Code Hypertension:: Not instructed Heart Disease Response Code Heart Disease Response Code:: Patient communicates acknowledgment Diabetes Response Code Diabetes:: Not instructed Metabolic Syndrome Response Code Metabolic Syndrome Response Code:: Not instructed Sedentary Recommendations Recommendations Include:: Aerobic exercise 5-7 times/week for 20-30 minutes continuously Response Code Sedentary Response Code:: Patient communicates acknowledgment Stress Risk Factors Patient Stress Risk Factors Are:: Patient denies stress as a risk factor Recommendations Recommendations Include:: Identification of stressors, and assessment of coping skills Response Code Stress Response Code:: Patient communicates acknowledgment
--- NOTE | 2023-02-24 12:08 | CL.D_ITS ---
Patient Name: GUALBERTO SHARP Study Date: 02/24/2023 Performing: Yakov Go MD Ht: 71 inches 180.34 cm : 1960 Wt: 275.3 lbs 124.7 kg Age: 63 Gender: male BSA: 2.41 PROCEDURE(S) PERFORMED DC01-(43606)LHC/COR/LV IC12-(98982/C9600)TRACY W/WO PTCA, SINGLE CORONARY ARTERY IC12-(19593/C9600)TRACY W/WO PTCA, SINGLE CORONARY ARTERY CLINICAL PROFILE AND INDICATIONS Indications: Suspected CAD Heart Failure: None Stress/Imaging Date: 02/22/23Stress Test with SPECT MPI: Positive High Risk CAD Presentations: Symptom unlikely to be ischemic. CONCLUSIONS Severe two-vessel disease involving LAD and obtuse marginal vessel RECOMMENDATIONS Referred for immediate PCI DESCRIPTION OF PROCEDURE The patient arrived to the procedure lab. The risks and benefits of the procedure as well as a full description of our services here and current unavailability of surgical backup were fully explained to the patient and/or their significant other prior to the catheterization. The Timeout was completed, verifying the correct patient and procedure. The patient's procedural site was prepped and draped in the usual fashion. Local anesthetic was given subcutaneously to right radial region with Lidocaine 2%. Using a modified Seldinger technique, arterial access was obtained via the right radial artery, a 6Fr sheath was inserted. Left Coronary Artery selective angiography was performed in multiple views using a 5 Fr. 4.0 [place] catheter. Right Coronary Artery selective angiography was then performed in multiple views using a 5 Fr. 4.0 [place] catheter. Left Ventriculography was performed in [place] projection using a 5 Fr. Pigtail catheter. LV to AO pullback pressures were then recorded.The arterial sheath was pulled and a TR Band was applied for hemostasis w/ 13 ml air CORONARY ANGIOGRAPHY DOMINANCE: Right Dominant LEFT HEART ASSESSMENT Left Ventricular Ejection Fraction: by LV Gram 60 % Normal LV wall motion Normal Left Ventricular systolic function LEFT MAIN: Angiographically normal LEFT ANTERIOR DESCENDING ARTERY: Mid LAD demonstrating mild calcification and 95% stenosis and mild to moderate diffuse distal stenosis noted. CIRCUMFLEX ARTERY: Nondominant vessel with large first obtuse marginal branch with long 80% stenosis in the proximal to mid region. RIGHT CORONARY ARTERY: Mild diffuse disease noted and moderate mid segment luminal irregularities up to 50% noted COMPLICATIONS No Complications PROCEDURE MEDICATIONS Versed 1 mg IV Fentanyl 50 mcg IV Versed 1 mg IV Oxygen: 2 L/min via nasal cannula Brilinta 180 mg PO @ 02/24/2023 10:46:49 Heparin given IA 02/24/2023 10:20:44 Heparin 6000 unit(s) IV 02/24/2023 10:51:43 Verapamil 2.5mg, Ntg 100mcgs, 3000 units of Heparin given IA 02/24/2023 10:20:44 SUMMARY OF HEMODYNAMIC DATA Time AIR REST ECG 10:02:07 Art 125/76 (93) 10:20:30 AO 139/84 (105) SA 10:39:11 LV 120/14, 18 10:45:06 LV 120/13, 19 10:45:12 LV 127/9, 16 10:45:53 LV 125/10, 18 10:46:00 LVp 127/18, 24 10:46:04 AOp 132/78 (102) 10:46:09 Signed By Yakov Go MD On 02/24/2023 12:08:56 Signed By Yakov Go MD On 02/24/2023 12:07:58 Yakov Go MD
[2023-02-24] MEDS: Modafinil 200 MG Tablet 400 MG PO (12:40)
--- NOTE | 2023-02-24 13:13 | CL.I_ITS ---
Patient Name: GUALBERTO SHARP Study Date: 02/24/2023 Performing: Lauren Hernandez MD Ht: 71 inches 180.34 cm : 1960 Wt: 275.3 lbs 124.7 kg Age: 63 Gender: male BSA: 2.41 PROCEDURE(S) PERFORMED IC12-(15728/C9600)TRACY W/WO PTCA, SINGLE CORONARY ARTERY IC12-(51801/C9600)TRACY W/WO PTCA, SINGLE CORONARY ARTERY CLINICAL PROFILE AND CO-MORBIDITIES Indications: Suspected CAD Heart Failure: None Stress/Imaging Date: 02/22/23 Stress Test with SPECT MPI: Positive High Risk CAD Presentations: Symptom unlikely to be ischemic. CONCLUSIONS Successful TRACY to mLAD and proximal OM1 RECOMMENDATIONS DESCRIPTION OF PROCEDURE The patient arrived to the procedure lab. The risks and benefits of the procedure as well as a full description of our services here and current unavailability of surgical backup were fully explained to the patient and/or their significant other prior to the catheterization. The Timeout was completed, verifying the correct patient and procedure. The patient's procedural site was prepped and draped in the usual fashion. Local anesthetic was given subcutaneously to right radial region with Lidocaine 2% Using a modified Seldinger technique,arterial access was obtained via the right radial artery, a 6Fr sheath was inserted. Left Coronary Artery selective angiography was performed in multiple views using a 5 Fr. 4.0 [place] catheter. Right Coronary Artery selective angiography was then performed in multiple views using a 5 Fr. 4.0 [place] catheter. Left Ventriculography was performed in [place] projection using a 5 Fr. Pigtail catheter. LV to AO pullback pressures were then recorded.The images were reviewed and options discussed. A decision was then made to proceed with an Intervention, IVUS or other adjunct procedure. XB 3.0 Guide catheter was inserted and engaged into the LCA. BMW Guide wire was advanced to the LAD. Emerge 2.50x15 Balloon catheter was inserted. PTCA balloon inflated at 6 atms for 7 secs. PTCA balloon inflated at 12 atms for 13 secs. Angiogram performed post balloon dilatation. Resolute [place] 3.0x18 Drug Eluting stent was inserted. Angiogram performed post stent deployment. Guide wire was repositioned to the 1st OM Resolute [place] 2.75x22 Drug Eluting stent was inserted. Angiogram performed post stent deployment. The arterial sheath was pulled and a TR Band was applied for hemostasis w/ 13 ml air INTERVENTION INFORMATION LESION SITE: LAD (Mid) Lesion Complexity: High/C, chronic total occlusion: No, lesion at bifurcation: No, thrombus present: No, lesion length: 15 mm, culprit lesion: Yes, Previously treated lesion: No Pre Stenosis: 95 % Pre intervention CHADD flow: 3 PROCEDURE: Drug Eluting Stent with pre dilatation. Post Stenosis: 0 % Post intervention CHADD flow: 3 Lesion Devices: Cordis 6 Fr XB3.0 100cm Guide Catheter [place] .014 190cm BMW Crimora Straight Ethan Sci EMERGE MR 2.50x15 BALLOON Medtronic Resolute [place] RX TRACY 3.0x18 LESION SITE: 1st OM (Proximal) Lesion Complexity: High/C, chronic total occlusion: No, lesion at bifurcation: Yes, thrombus present: No, lesion length: 20 mm, culprit lesion: Yes, Previously treated lesion: No Pre Stenosis: 80 % Pre intervention CHADD flow: 3 PROCEDURE: Drug Eluting Stent Post Stenosis: 0 % Post intervention CHADD flow: 3 Lesion Devices: Cordis 6 Fr XB3.0 100cm Guide Catheter [place] .014 190cm BMW Crimora Straight Medtronic Resolute [place] RX TRACY 2.75x22 COMPLICATIONS No Complications PROCEDURE MEDICATIONS Versed 1 mg IV Fentanyl 50 mcg IV Versed 1 mg IV Oxygen: 2 L/min via nasal cannula Brilinta 180 mg PO @ 02/24/2023 10:46:49 Heparin given IA 02/24/2023 10:20:44 Heparin 6000 unit(s) IV 02/24/2023 10:51:43 Verapamil 2.5mg, Ntg 100mcgs, 3000 units of Heparin given IA 02/24/2023 10:20:44 SUMMARY OF HEMODYNAMIC DATA Time AIR REST ECG 10:02:07 Art 125/76 (93) 10:20:30 AO 139/84 (105) SA 10:39:11 LV 120/14, 18 10:45:06 LV 120/13, 19 10:45:12 LV 127/9, 16 10:45:53 LV 125/10, 18 10:46:00 LVp 127/18, 24 10:46:04 AOp 132/78 (102) 10:46:09 Signed By Lauren Hernandez MD On 02/24/2023 13:12:48 Lauren Hernandez MD
[2023-02-24] MEDS: 0.9% Normal Saline 1,000 ML 100 ML IV (13:46)
--- NOTE | 2023-02-24 14:44 | PN_ITS ---
Subjective Subjective Patient seen and examined. He had no complaints today. His was by his bedside. He had an uneventful night and review of systems otherwise negative. He is for cardiac cath today. Objective Data Objective Data Vital Signs: Vital Signs Temp Pulse Resp BP Pulse Ox O2 Del Method 97.5 F L 72 18 156/87 H 98 Room Air 02/24/23 13:25 02/24/23 13:25 02/24/23 13:25 02/24/23 13:25 02/24/23 13:25 02/24/23 13:25 Oxygen Delivery Method Room Air Weight: 274 lb 14.663 oz Body Mass Index (BMI) 38.3 Intake & Output: Intake and Output for Last 24 Hours 02/22/23 02/23/23 02/24/23 23:59 23:59 23:59 Intake Total 720 / 1220 1437.5 / 1437.5 Balance 720 / 1220 1437.5 / 1437.5 Lab / Micro Data 02/24/23 04:40 02/24/23 04:40 Labs: Laboratory Results - last 24 hr 02/24/23 04:40: WBC 6.9, RBC 4.63, Hgb 14.2, Hct 43.8, MCV 94.6 H, MCH 30.7, MCHC 32.4, RDW Std Deviation 46.5 H, RDW Coeff of Tracie 13.4, Plt Count 219, MPV 9.2, Immature Gran % (Auto) 0.400, Neut % (Auto) 61.5, Lymph % (Auto) 25.4, [place] % (Auto) 9.2, Eos % (Auto) 2.9, Baso % (Auto) 0.6, Absolute Neuts (auto) 4.2, Absolute Lymphs (auto) 1.74, Nucleated RBC % 0, Sodium 140, Potassium 4.0, Chloride 109 H, Carbon Dioxide 26.0, Anion Gap 5, BUN 15, Creatinine 0.91, Estim Creat Clear Calc 87.34, Est GFR (MDRD) Af Amer 108, Est GFR (MDRD) Non-Af 90, BUN/Creatinine Ratio 16.5, Glucose 114 H, Calcium 7.8 L, Total Bilirubin < 0.10 L, AST 20, ALT 27, Alkaline Phosphatase 66, Total Protein 6.0 L, Albumin 3.1 L, Globulin 2.9, Albumin/Globulin Ratio 1.1 Rhythm Strip Rhythm Strip: Sinus Rhythm Rate: 70 Ectopy: None Physical Exam Const alert, oriented x3 and no apparent distress General Appearance: cooperative HEENT normocephalic, head/scalp atraumatic and moist oral mucous membranes Eyes PERRL and EOMs intact bilaterally Neck no lymphadenopathy and supple Lymph Lymphatic: no lymphadenopathy noted and no lymphedema noted Resp normal respiratory effort, normal air movement and clear to auscultation bilaterally Cardio regular rate, regular rhythm, S1 normal heart sound, S2 normal heart sound and no murmurs GI normal to inspection, nondistended, normoactive bowel sounds, soft to palpation, non-tender and non-distended Extremity normal capillary refill and no clubbing, cyanosis or edema General Extremity: no tenderness to palpation of joints or extremities Skin General Skin Exam: no breakdown and turgor normal Neuro CN's II-XII intact bilaterally, no focal motor deficits, no sensory deficits n oted and deep tendon reflexes 2+ bilaterally Motor Exam: strength 5/5 throughout Psych thought process normal, cooperative and affect normal Appearance: appropriate Assessment & Plan Assessment/Plan (1) Chest pain: (2) Abnormal stress test: PLAN: Plan #CAD * admitted with exertional chest pain and shortness of breath. * Stress test as abnormal and showed a reversible anterior wall defect * for cardiac cath today: cardiac cath showed a 95% steosis of the mid LAD and 80% stenosis of the first obtuse marginal branch in the proximal to mid region.He had PCI with insertion of Drug eluting stent in the mid LAD and first obtuse marginal artery * on aspirin 81mg daily and high intensity statin as well as brilinta * #Nicotine dependence: counseled to quit. NIcotine patch 21mg daily #MOHIT: CPAP qhs DVT prophylaxis: lovenox Charges/Coding Visit Charges Inpatient E&M: 12698 Subs Hosp L2
--- NOTE | 2023-02-24 14:49 | CASEMGMT ---
IVON BARAJAS Discharge Planning Assessment: Face to Face with pt for initial transition planning/care coordination assessment. IVON BARAJAS introduced self and role at [facility], pt voices understanding and consents to assessment. Pt is A/O x4 and answers all questions appropriately at this time. Care providers, pharmacy, and demographics verified/updated. Admitting Dx: Angina, CAD PCP: Amber Specialists: none Preferred Pharmacy: [facility] Insurance: [employer], [facility] Prescription Benefit: yes LNOK: Uzma Living Arrangements: Pt lives with his and states he is independent with all ADLs. 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 Transportation: Pt drives self and denies concerns with transportation. DME/HHC/SNF: none Pt states no concerns with going home at time of dc. Pt states no further concerns/needs. CM to follow. Advised pt to ask CM if any further question/concerns/needs arise, voices understanding. Pt Goal: return home Plan: Return home with support of his . [email or web address] savings card provided. Will continue to monitor and assist with DC needs as identified. Fatmata Lemos RN CM
[2023-02-24] MEDS: TICAGRELOR 90 MG TABLET PO (22:18)
[2023-02-24] MEDS: Atorvastatin Calcium 40 MG Tablet PO (22:19)
[2023-02-25 04:11] VITALS: BP 134/80; PULSE 80; RESP 16; TEMP 36.6; O2SAT 97
[2023-02-25 06:10] LABS: Hematocrit 43.5 % (40-54); Hemoglobin 14.2 g/dL (13.0-16.5); Mean Corp Hgb Conc 32.6 g/dL (32-36); Mean Corpuscular Hgb 30.7 pg (27.0-32.0); Mean Corpuscular Volume 94.2 fL (80-94); Mean Platelet Vol. 9.6 fl (6.2-12.0); Platelet Count 230 K/mm3 (150-450); RBC Distribution Width CV 13.3 % (11.6-14.6); Red Blood Count 4.62 M/mm3 (4.6-6.2); White Blood Count 8.1 K/mm3 (4.4-11.0)
[2023-02-25 06:58] VITALS: PULSE 41
--- NOTE | 2023-02-25 07:16 | PN.CARD_ITS ---
Subjective Subjective Patient seen and evaluated. Appears to be doing well. Underwent PCI yesterday. Objective Data Vital Signs: Vital Signs Temp Pulse Resp BP Pulse Ox O2 Del Method 98 F 80 16 134/80 H 97 CPAP 02/25/23 04:11 02/25/23 04:11 02/25/23 04:11 02/25/23 04:11 02/25/23 04:11 02/25/23 04:11 Oxygen Delivery Method CPAP Weight: 274 lb 14.663 oz Body Mass Index (BMI) 38.3 Intake & Output: Intake and Output for Last 24 Hours 02/23/23 02/24/23 02/25/23 23:59 23:59 23:59 Intake Total 720 / 1220 2780.83 / 2780.83 0 / 0 Balance 720 / 1220 2780.83 / 2780.83 0 / 0 Lab / Micro Data 02/25/23 05:04 02/24/23 04:40 Labs: Laboratory Results - last 24 hr 02/25/23 05:04: WBC 8.1, RBC 4.62, Hgb 14.2, Hct 43.5, MCV 94.2 H, MCH 30.7, MCHC 32.6, RDW Std Deviation 46.0 H, RDW Coeff of Tracie 13.3, Plt Count 230, MPV 9.6 Rhythm Strip Rhythm Strip: Sinus Rhythm Rate: 70 Ectopy: None Cardiology Labs/Tests 02/25/23 05:04: WBC 8.1, RBC 4.62, Hgb 14.2, Hct 43.5, MCV 94.2 H, MCH 30.7, MCHC 32.6, Plt Count 230, MPV 9.6 Rhythm: EKG: ECHO: Stress Test: Cardiac Cath: PCI: CT Surgery: Holter monitor: EPS: PPM: CXR: Chest CT Scan: Physical Exam Const alert, oriented x3 and no apparent distress General Appearance: cooperative HEENT hearing grossly normal bilaterally Head and Scalp: atraumatic Eyes EOMs intact bilaterally Neck General: normal visual inspection Chest inspection of chest normal and palpation of chest normal Resp normal respiratory effort Auscultation: clear to auscultation bilaterally Cardio regular rate, regular rhythm, S1 normal heart sound and S2 normal heart sound Jugular Venous Distention: JVD GI normal to inspection, nondistended, normoactive bowel sounds Extremity normal capillary refill and no pedal edema Peripheral Pulses: Yes pulses 2+ throughout and femoral pulses present Skin no rashes or lesions noted Neuro oriented x3 and CN's II-XII intact bilaterally Psych Appearance: grossly normal and appropriate Assessment & Plan Assessment/Plan (1) Abnormal stress test: PLAN: Patient presents with atypical symptoms and is noted to have an abnormal stress test involving anterior ischemia. Cardiac catheterization demonstrated a high-grade LAD lesion as well as a moderately severe left circumflex OM lesion. Both were angioplastied and stented. He has done well overnight and the plan to be for him to continue the current m edical therapy including dual antiplatelet agents statin and beta-vincent. He can be discharged for outpatient follow-up in my office in 4 to 6 weeks. Cardiac rehabilitation recommended. Thank you for allowing me to participate in the care of your patient. Please don't hesitate to call if any issues arise.
[2023-02-25 07:35] LABS: ALB/GLOB Ratio 1.1 RATIO (0.9-2.4); AST(SGOT) 18 U/L (15-37); Alanine Aminotransfer ALT/SGPT 29 U/L (16-61); Albumin, Serum 3.2 g/dL (3.2-5.0); Alkaline Phosphatase 62 U/L (45-117); Anion Gap 4 (5-15); BUN 14 mg/dL (7-18); BUN/Creat Ratio 14.5 RATIO (10-20); Calcium,Total 8.5 mg/dL (8.5-10.1); Chloride 111 mmol/L (98-107); Creatinine, Serum 0.97 mg/dL (0.70-1.30); EST Glomerular Filtration Rate 83 mL/min (>60); Est Glom Filt Rate - Afr Amer 101 mL/min (>60); Estimated Creatinine Clearance 81.94 ml/min; Glucose 124 mg/dL (74-106); Potassium 3.9 mmol/L (3.5-5.1); Protein, Total 6.2 g/dL (6.4-8.2); Sodium Level 141 mmol/L (136-145)
[2023-02-25 08:51] VITALS: BP 148/81; PULSE 77; RESP 16; TEMP 36.7; O2SAT 98
[2023-02-25 08:58] VITALS: PULSE 77
[2023-02-25] MEDS: Metoprolol(XL)Succ 25 MG Tablet PO (08:58)
[2023-02-25] MEDS: Aspirin E.C. 81 MG Tablet PO (08:58)
[2023-02-25] MEDS: Modafinil 200 MG Tablet 400 MG PO (08:58)
[2023-02-25] MEDS: TICAGRELOR 90 MG TABLET PO (08:58)
--- NOTE | 2023-02-25 09:21 | EKG12_ITS ---
Test Reason : PCI Blood Pressure : / mmHG Vent. Rate : 069 BPM Atrial Rate : 069 BPM P-R Int : 166 ms QRS Dur : 116 ms QT Int : 400 ms P-R-T Axes : 042 017 040 degrees QTc Int : 428 ms Normal sinus rhythm Normal ECG When compared with ECG of 24-FEB-2023 05:54, MANUAL COMPARISON REQUIRED, DATA IS UNCONFIRMED Confirmed by DAX GROVE, NASRIN ([id number]), features editor JULIA GARNICA ([id number]) on 02/26/2023 1:36:48 PM Referred By: JANAE Confirmed By:NASRIN VERDUZCO MD
--- NOTE | 2023-02-25 10:00 | EKG12_ITS ---
Test Reason : AM EKG Blood Pressure : / mmHG Vent. Rate : 063 BPM Atrial Rate : 063 BPM P-R Int : 176 ms QRS Dur : 114 ms QT Int : 398 ms P-R-T Axes : 045 -03 048 degrees QTc Int : 407 ms Normal sinus rhythm Incomplete right bundle branch block Borderline ECG When compared with ECG of 24-FEB-2023 13:16, MANUAL COMPARISON REQUIRED, DATA IS UNCONFIRMED Confirmed by DAX GROVE, NASRIN ([id number]), news assignment editor JULIA GARNICA ([id number]) on 02/26/2023 1:35:32 PM Referred By: Confirmed By:NASRIN VERDUZCO MD
--- NOTE | 2023-02-25 10:23 | DS.PCM_ITS ---
Providers Date of Admission: 02/23/23 Date of Discharge: 02/25/23 Primary Care Physician: Dr. Ho Clark, Consultations 02/23/23 12:10 Consult: Cardiology Routine Consulting Provider: Yakov Go Reason for Consult: Abnormal stress testing, admitted with CP EMERGENT Consult: No MD Notified: Yes Date Notified: 02/23/23 Time Notified: 12:10 Method of Notification: Verbal Reason For Visit: STABLE ANGINA Diagnosis Discharge Diagnosis (1) Abnormal stress test: Status: Acute Code(s): R94.39 - Abnormal result of other cardiovascular function study Plan #CAD * admitted with exertional chest pain and shortness of breath. * Stress test as abnormal and showed a reversible anterior wall defect * for cardiac cath today: cardiac cath showed a 95% steosis of the mid LAD and 80% stenosis of the first obtuse marginal branch in the proximal to mid region.He had PCI with insertion of Drug eluting stent in the mid LAD and first obtuse marginal artery * on aspirin 81mg daily and high intensity statin as well as brilinta * #Nicotine dependence: counseled to quit. NIcotine patch 21mg daily #MOHIT: CPAP qhs DVT prophylaxis: lovenox Medications at Discharge Home Medications aspirin 81 mg tablet,delayed release 81 mg PO BREAKFAST 30 days #30 tabs 02/23/23 flaxseed oil 1,000 mg capsule 1,000 mg PO DAILY 02/23/23 modafinil 200 mg tablet 400 mg PO DAILY 02/23/23 atorvastatin 40 mg tablet 40 mg PO QHS #30 tabs 02/25/23 metoprolol succinate 25 mg tablet,extended release 24 hr 25 mg PO DAILY #30 tabs 02/25/23 ticagrelor 90 mg tablet (Brilinta) 90 mg PO BID #60 tabs 02/25/23 Hospital Course Operations None Procedures 2-D Echocardiogram and Cardiac catheterization Summary of Care Provided Minutes Spent on Discharge: 50 Hospital Course: Patient is a 63 y/o male with a PMH as outlined which includes nicotine dependence, sleep apnea and hypercholesterolemia. He presented to the ED with a complaint of 6 month history of progressively worsening shortness of breath which worsened with exertion. He had associated fatigue and weakness as well as lightheadedness. He denied any chest pain. Review of systems is otherwise nega tive. He was admitted and managed for shortness of breath assumed to be an angina equivalent. CXR showed no acute cardiopulmonary pathology and EKG showed no acute ST changes. initial high sensitivity troponin was also negative. He had a stress test which showed evidence of a reversible anterior wall defect. 2D echo showed EF of 65%, with normal LV size and mild concentric LV hypertrophy and no regional motion abnormalities noted. Cardiology was consulted and he had a cardiac cath which showed a 95% steosis of the mid LAD and 80% stenosis of the first obtuse marginal branch in the proximal to mid region.He had PCI with insertion of Drug eluting stent in the mid LAD and first obtuse marginal artery. He was placed on aspirin, brilinta, metoprolol and high intensity statin. He was counseled to quit smoking. Hospital cause was complicated by mild transient bradycardia, with HR going to the 40s just once. EKG showed normal sinus rhythm and HR was 71. This was discussed with cardiology (Dr Go) who was ok with patient being discharged on PO metoprolol XL 25mg daily. He is to follow up with his PCP and cardiology within 1-2 weeks. Patient seen and examined prior to discharge. He had no complaints and had no active complaints. Review of systems is otherwise negative. Labs and vitals r eviewed, home meds reviewed and reconciled. Physical Exam Const alert, oriented x3 and no apparent distress General Appearance: cooperative and comfortable HEENT normocephalic, head/scalp atraumatic, hearing grossly normal bilaterally and moist oral mucous membranes Mouth: oral and palatal mucosa normal Eyes PERRL and EOMs intact bilaterally Neck no lymphadenopathy and supple Lymph Lymphatic: no lymphadenopathy noted and no lymphedema noted Resp normal respiratory effort, normal air movement, no retractions and clear to auscultation bilaterally Cardio regular rate, regular rhythm, S1 normal heart sound, S2 normal heart sound and no murmurs GI normal to inspection, nondistended, normoactive bowel sounds, soft to palpation, non-tender and non-distended Extremity normal capillary refill and no clubbing, cyanosis or edema General Extremity: no tenderness to palpation of joints or extremities Skin no rashes or lesions noted General Skin Exam: no breakdown and turgor normal Neuro oriented x3, CN's II-XII intact bilaterally, moves all extremities, no focal motor deficits, no sensory deficits noted and deep tendon reflexes 2+ bilaterally Sensorium / Orientation: awake and alert Motor Exam: strength 5/5 throughout Psych thought process normal, cooperative and affect normal Appearance: appropriate Weight / BMI Weight Weight: 274 lb 14.663 oz Body Mass Index (BMI) 38.3 ABG / Lab / Microbiology Data 02/25/23 05:04 02/25/23 05:04 Laboratory: Laboratory Results - last 24 hr 02/25/23 05:04: WBC 8.1, RBC 4.62, Hgb 14.2, Hct 43.5, MCV 94.2 H, MCH 30.7, MCHC 32.6, RDW Std Deviation 46.0 H, RDW Coeff of Tracie 13.3, Plt Count 230, MPV 9.6, Sodium 141, Potassium 3.9, Chloride 111 H, Carbon Dioxide 26.0, Anion Gap 4 L, BUN 14, Creatinine 0.97, Estim Creat Clear Calc 81.94, Est GFR (MDRD) Af Amer 101, Est GFR (MDRD) Non-Af 83, BUN/Creatinine Ratio 14.5, Glucose 124 H, Calcium 8.5, Total Bilirubin 0.30, AST 18, ALT 29, Alkaline Phosphatase 62, Total Protein 6.2 L, Albumin 3.2, Globulin 3.0, Albumin/Globulin Ratio 1.1 D/C Instructions Discharge Diet: Low fat / Low cholesterol Discharge Activity: Return to Normal Activity Weight Bearing Status: Weight bearing as tolerated Call your doctor if you observe: Fever of 101 or Higher, Shortness of breath, Dizziness, Swelling in the ankles and Chest pain Meaningful Use Info Meaningful Use Diagnoses (Choose all that apply): AMI AMI/Post PCI/Angioplasty Aspirin given w/in 24hrs of arrival?: Yes ASA at discharge?: Yes Antiplatelet Therapy at Discharge:: Yes Statins at discharge?: Yes Austen/ARB at discharge?: No Reason Austen/ARB not ordered:: Not indicated Beta Timoteo at discharge?: Yes Done w/ Acute MN measure.: Yes Documented LVEF (%): 65 Discharge Plan Admission Admit Date/Time: 02/23/23 12:10 Primary Reason for Your Visit: Chest pain, exertional dyspnea Attending Provider: Shannon Landry Primary Care Provider: Ho Clark Consulting Providers: Schuyler Davila; Yakov Go; Demetria Johnson Instructions Patient Instructions: Heart Attack Dc, Heart Attack Meds Discharge Orders/Prescriptions Prescriptions: New aspirin 81 mg Tablet,Delayed Release (Dr/Ec) 81 mg PO BREAKFAST 30 Days Qty: 30 0RF atorvastatin 40 mg Tablet 40 mg PO QHS Qty: 30 2RF Brilinta 90 mg Tablet 90 mg PO BID Qty: 60 2RF metoprolol succinate 25 mg Tablet Extended Release 24 Hr 25 mg PO DAILY Qty: 30 2RF Continued flaxseed oil 1,000 mg capsule 1,000 mg PO DAILY modafinil 200 mg tablet 400 mg PO DAILY Patient Comments: TAKE 2 TABLETS BY MOUTH EVERY DAY Referrals / Follow Up: Ho Clark DO [Primary Care Provider] - Within 2 Weeks (Follow-up to review admission and continued outpatient evaluation for symptoms within 3-5 days.) Yakov Go MD [Med Staff - Active Staff] - Within 2 Weeks Disposition Disposition (needs filled in before D/C Order can be placed): Home, Self Care Charges/Coding Visit Charges Inpatient E&M: 12872 Disch Hosp >30min
== END 2023-02-25 12:25 | disposition home or self-care (01) | DRG 247 ==
LOC: ED 23:06 → PCU 23:46
PROVIDERS: Family Medicine; Specialist; Admitting Provider Hospitalist; Emergency Provider Emergency Medicine; PCP Family Medicine; Visit Provider Student in an Organized Health Care Education/Training Program
DX: R07.9 Chest pain, unspecified (principal); E78.00 Pure hypercholesterolemia, unspecified; I25.10 Atherosclerotic heart disease of native coronary artery without angina pectoris; F17.210 Nicotine dependence, cigarettes, uncomplicated; G47.33 Obstructive sleep apnea (adult) (pediatric); R06.00 Dyspnea, unspecified; Z79.82 Long term (current) use of aspirin; Z95.5 Presence of coronary angioplasty implant and graft; R94.39 Abnormal result of other cardiovascular function study
CPT/HCPCS: 36415; 71045; 78452; 80048; 80053; 80061; 83735; 84443; 84484; 85025; 85027; 92928; 93005; 93017; 93306; 93458; 99152; 99153; 99285; 99406; A9500; J7030; J7040; Q9957; Q9967; A4216; C1725; C1769; C1874; C1887; C1894; C8929; C9600; J1327; J2785

== ENCOUNTER 2023-02-28 20:20 | Emergency (ER) | payer OTHER, MEDICAID, SELFPAY ==
[2023-02-28 20:20] VITALS: BP 126/80; PULSE 69; RESP 16; TEMP 36.5; O2SAT 97; BMI 38.7
--- NOTE | 2023-02-28 20:45 | EKG12_ITS ---
Test Reason : CP Blood Pressure : / mmHG Vent. Rate : 067 BPM Atrial Rate : 067 BPM P-R Int : 168 ms QRS Dur : 108 ms QT Int : 390 ms P-R-T Axes : 034 -04 047 degrees QTc Int : 412 ms Normal sinus rhythm Normal ECG Confirmed by SANTIAGO GROVE, JOSHUA ([id number]), international editorial producer JULIA GARNICA ([id number]) on 03/05/2023 8:32:52 AM Referred By: TERRI Confirmed By:CHELSEA HENDERSON MD
[2023-02-28] MEDS: 0.9% Normal Saline 1,000 ML 150 ML IV (21:02)
[2023-02-28] MEDS: Aspirin 81 MG TAB.CHEW 324 MG PO (21:02)
[2023-02-28 21:12] LABS: Absolute Lymphocyte Count 2.16 X10^3/uL (0.83-4.51); Absolute Neutrophil Count 5.2 X10^3/uL (2.0-7.7); Basophil# 0.05 X10^3/uL; Basophil% 0.6 % (0-1); Eosinophil# 0.27 X10^3/uL; Eosinophils% 3.1 % (0-5); Hemoglobin 14.3 g/dL (13.0-16.5); Lymphocyte # 2.16 X10^3/ul (0.83-4.51); Lymphocyte % 25.1 % (19-41); Mean Corp Hgb Conc 32.5 g/dL (32-36); Mean Corpuscular Hgb 30.2 pg (27.0-32.0); Mean Platelet Vol. 9.2 fl (6.2-12.0); Monocyte% 10.5 % (0-10); NRBC Flagged by Analyzer 0 % (0-5); Neutrophil # 5.21 X10^3/uL (2.7-7.7); Neutrophil % 60.5 % (47-70); Platelet Count 232 K/mm3 (150-450); RBC Distribution Width CV 13.2 % (11.6-14.6); RBC Distribution Width SD 45.1 fl (35.1-43.9); Red Blood Count 4.73 M/mm3 (4.6-6.2); White Blood Count 8.6 K/mm3 (4.4-11.0)
--- NOTE | 2023-02-28 21:15 | RAD_ITS ---
EXAM: XR CHEST, 1 VIEW CLINICAL INDICATION: chest pain TECHNIQUE: Frontal view of the chest. COMPARISON: February 22, 2023 FINDINGS: LUNGS AND PLEURAL SPACES: Unremarkable. No consolidation or edema. No pneumothorax. No effusion. HEART: Unremarkable. Cardiac silhouette not enlarged. MEDIASTINUM: Central airways and mediastinal contour are unremarkable. BONES/JOINTS: Unremarkable. SOFT TISSUES: Grouping of surgical clips projects over the left lateral chest wall. RAD/Chest 1 View (Portable) IMPRESSION: No radiographic evidence of acute cardiopulmonary disease. Electronically Signed: Owen Trujillo MD at 22:17 EDT ,
[2023-02-28 21:20] VITALS: BP 130/76; PULSE 63; RESP 19
[2023-02-28 21:29] LABS: Anion Gap 4 (5-15); BUN 13 mg/dL (7-18); BUN/Creat Ratio 16.2 RATIO (10-20); Calcium,Total 8.1 mg/dL (8.5-10.1); Chloride 111 mmol/L (98-107); EST Glomerular Filtration Rate 103 mL/min (>60); Est Glom Filt Rate - Afr Amer 125 mL/min (>60); Estimated Creatinine Clearance 99.35 ml/min; Glucose 108 mg/dL (74-106); Potassium 4.1 mmol/L (3.5-5.1); Sodium Level 141 mmol/L (136-145); Troponin-I HS (w/2H Reflex) 86 pg/mL (3.0-78.0)
[2023-02-28 21:38] LABS: BNP,B-Type NATRIURETIC PEPTIDE 34.4 pg/mL (0-100)
--- NOTE | 2023-02-28 21:57 | EX.ED.DYSGE1 ---
HPI History of Present Illness Chief Complaint: Chest Pain Narrative Narrative: Patient is a 63-year-old male who is presenting to the ER today with chief complaint of a fluttering feeling that started this morning. Patient also has had intermittent lightheaded dizziness, no vertigo throughout the day. Patient has had flushed cheeks. Patient says that he just has not felt right today. Patient just had [address] Go last week. Patient is currently taking a baby aspirin a day, has started Brilinta, takes metoprolol, and a statin. No other sick contacts at home. is at bedside. Patient has had no abdominal pain, nausea or vomiting. No diarrhea. Patient's been rubbing his chest throughout the evening, finally talked him into coming into the ER this evening for evaluation. No other acute complaints or concerns, no chest pain, tightness, no shortness of breath. [facility] Medical History History of skin cancer Sleep apnea Home Medications aspirin 81 mg tablet,delayed release 81 mg PO BREAKFAST 30 days #30 tabs 02/23/23 [Rx Last Taken Unknown] flaxseed oil 1,000 mg capsule 1,000 mg PO DAILY 02/23/23 [History Last Taken Unknown] modafinil 200 mg tablet 400 mg PO DAILY 02/23/23 [History Last Taken 02/22/23] atorvastatin 40 mg tablet 40 mg PO QHS #30 tabs 02/25/23 [Rx Last Taken Unknown] metoprolol succinate 25 mg tablet,extended release 24 hr 25 mg PO DAILY #30 tabs 02/25/23 [Rx Last Taken Unknown] ticagrelor 90 mg tablet (Brilinta) 90 mg PO BID #60 tabs 02/25/23 [Rx Last Taken Unknown] Allergy/AdvReac Type Severity Reaction Status Date / Time No Known Allergies Allergy Verified 02/28/23 20:24 Family History Other Heart disease Family History no significant family his Surgical History History of knee surgery Social History Smoking Status: Current every day smoker tobacco type: cigarettes ROS ROS ED ROS Narrative REVIEW OF SYSTEMS: Unless otherwise stated in this report the patient's positive and negative responses for review of systems for constitutional, eyes, ENT, cardiovascular, respiratory, gastrointestinal, neurological, , musculoskeletal, and integument systems and related systems to the presenting problem are either stated in the history of present illness or were not pertinent or were negative for the symptoms and/or complaints related to the presenting medical problem. EXAM Physical Exam Narrative Exam Narrative: Vital signs reviewed and patient is not hypoxic. General: The patient appears well and in no apparent distress. Patient is resting comfortably on cart. Not toxic, lethargic, or listless. Skin: Warm, dry, no pallor noted. There is no rash noted. Head: Normocephalic, atraumatic Eye: Normal conjunctiva, no drainage, EOMI. PERRL. Ears, Nose, Mouth, and Throat: oral mucosa is moist. Nares patent. Mouth without vesicles. Cardiovascular: Regular Rate and Rhythm, no murmurs, gallops, or rubs; no reproducible tenderness to palpation; Respiratory: Patient is in no distress, no accessory muscle use, lungs are clear to auscultation, no wheezing, rales or rhonchi Back: non-tender, no CVA tenderness bilaterally to percussion. NO CTLS midline or paraspinal tenderness to palpation. GI: Soft, obese, no tenderness to palpation, no masses appreciated. No rebound, guarding, or rigidity noted. Musculoskeletal: The patient has full range of motion of all extremities and joints with no difficulty. Patient has no motor, no sensory deficits. Neurological: A&O x4, normal speech, no focal neurological deficits. Psychiatric: Cooperative Const Vital Signs: 02/28/23 20:20 02/28/23 20:54 Temperature 97.7 F L Temperature Source Temporal Pulse Rate 69 Respiratory Rate 16 Blood Pressure 126/80 H Blood Pressure Mean 95 Pulse Ox 97 Oxygen Delivery Method Room Air Room Air MDM MDM MDM Narrative Medical decision making narrative: Patient had a mild headache. Patient was given Tylenol. Patient was given 1 L of IV fluid. Patient's EKG showed no acute changes. Patient's troponin was 86. 2200 Patient has a second troponin that will be run to compare to the first. [address] Go, he is currently unavailable and will call back when available. This message was given to ER at [phone]. [id number] Go, patient's initial troponin was 86, repeat troponin was 87. He stated this is normal after a cath, patient can be discharged with no other recommendations. Patient is aware of this, any other acute concerns they will call the senior it project manager on Thursday. Patient does feel slightly better after IV fluids and Tylenol. No questions at discharge. Chest x-ray and lab work shows no other acute changes Lab Data Attestation: I reviewed the patient's lab results. Labs: Laboratory Results - last 24 hr 02/28/23 02/28/23 21:00 22:14 WBC 8.6 RBC 4.73 Hgb 14.3 Hct 44.0 MCV 93.0 MCH 30.2 MCHC 32.5 RDW Std Deviation 45.1 H RDW Coeff of Tracie 13.2 Plt Count 232 MPV 9.2 Immature Gran % (Auto) 0.200 Neut % (Auto) 60.5 Lymph % (Auto) 25.1 [place] % (Auto) 10.5 H Eos % (Auto) 3.1 Baso % (Auto) 0.6 Absolute Neuts (auto) 5.2 Absolute Lymphs (auto) 2.16 Nucleated RBC % 0 Sodium 141 Potassium 4.1 Chloride 111 H Carbon Dioxide 26.0 Anion Gap 4 L BUN 13 Creatinine 0.80 Estim Creat Clear Calc 99.35 Est GFR (MDRD) Af Amer 125 Est GFR (MDRD) Non-Af 103 BUN/Creatinine Ratio 16.2 Glucose 108 H Calcium 8.1 L Troponin I High Sens 86 H 87 H B-Natriuretic Peptide 34.4 Radiography Diagnostic Testing: Clinical Impression(s) from Imaging Studies Chest X-Ray 02/28/23 21:15 IMPRESSION: No radiographic evidence of acute cardiopulmonary disease. Electronically Signed: Owen Trujillo MD at 22:17 EDT , EKG Initial EKG: Attestation: I personally reviewed and interpreted this EKG as follows: Comments: EKG #1. EKG interpretation. Normal sinus rhythm at 67 beats a minute. Normal axis deviation. No acute ST elevation, no acute ectopy. QTc 412 Discharge Plan Triage Chief Complaint: Chest Pain ED Provider: Abhishek Pavon Dx/Rx/DC Orders Clinical Impression: Facial flushing, Heart palpitations, Light-headedness Instructions: ED Palpitations Prescriptions: No Action flaxseed oil 1,000 mg capsule 1,000 mg PO DAILY modafinil 200 mg tablet 400 mg PO DAILY Patient Comments: TAKE 2 TABLETS BY MOUTH EVERY DAY aspirin 81 mg Tablet,Delayed Release (Dr/Ec) 81 mg PO BREAKFAST 30 Days Qty: 30 0RF atorvastatin 40 mg Tablet 40 mg PO QHS Qty: 30 2RF Brilinta 90 mg Tablet 90 mg PO BID Qty: 60 2RF metoprolol succinate 25 mg Tablet Extended Release 24 Hr 25 mg PO DAILY Qty: 30 2RF Primary Care Provider: Ho Clark Referrals: Ho Clark DO [Primary Care Provider] - Yakov Go MD [Med Staff - Active Staff] - Activity Restrictions/Additional Instructions: Your 2 sets of troponins were elevated but appropriate for just having a heart cath on Thursday. I have spoken to your senior it project manager, Dr Go; he recommended to continue to follow-up with your schedule appointment or call Thursday for any other acute concerns. Increase fluids. Continue taking medication as prescribed. Disposition Disposition: Home, Self Care
[2023-02-28] MEDS: Acetaminophen 325 MG Tablet 650 MG PO (22:15)
[2023-02-28 22:20] VITALS: BP 126/76; PULSE 61; RESP 16
[2023-02-28 22:38] LABS: Troponin-I HS 87 pg/mL (3.0-78.0)
[2023-02-28 23:08] LABS: Reflex Troponin-HS? (from REC) Y
== END 2023-02-28 23:16 | disposition home or self-care (01) ==
PROVIDERS: Emergency Provider Emergency Medicine; PCP Family Medicine; Visit Provider Emergency Medicine
DX: R00.2 Palpitations (principal); R42 Dizziness and giddiness; F17.210 Nicotine dependence, cigarettes, uncomplicated; G47.30 Sleep apnea, unspecified; Z79.899 Other long term (current) drug therapy; R51.9 Headache, unspecified; R23.2 Flushing
CPT/HCPCS: 71045; 80048; 83880; 84484; 85025; 93005; 96360; 96361; 99285; J7030; A4216

== ENCOUNTER 2023-08-05 00:19 | Emergency (ER) | payer OTHER, MEDICAID, SELFPAY ==
[2023-08-05 00:20] VITALS: BP 159/92; PULSE 83; RESP 17; TEMP 36.1; O2SAT 97; BMI 40.2
--- NOTE | 2023-08-05 00:29 | ED.VIS.CHEST ---
HPI History of Present Illness Chief Complaint: Chest Pain Informant: patient Onset/Context/Timing Onset: Yesterday Activity at onset: gradual Quality: Positive for Stabbing and Tightness Location: Substernal Current Severity: Gone Maximum Severity: Moderate Associated Symptoms: Positive for - (Radiation to left arm, tingling of left hand) Narrative Narrative: Patient presents secondary to chest pain. He was admitted to the hospital in January of last year for chest pain and had an abnormal stress test. His cardiac cath showed 2 blockages requiring stents, 95% blockage to the mid LAD and 80% blockage of the first OM. Patient states around 11 PM last evening he developed a rather sharp tight chest pressure in the substernal region. He felt that it radiated to his left arm and his left hand felt tingly. He believes the pressure itself lasted about 30 minutes. He did not do anything specific to make it go away. He states overall he did not feel well yesterday. 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) History of skin cancer MOHIT (obstructive sleep apnea) Sleep apnea Home Medications modafinil 200 mg tablet 400 mg PO DAILY 02/23/23 [History Last Taken 02/22/23] ticagrelor 90 mg tablet (Brilinta) 90 mg PO BID #180 tabs 03/20/23 [Rx Last Taken Unknown] atorvastatin 40 mg tablet 40 mg PO QHS #90 tabs 03/24/23 [Rx Last Taken Unknown] aspirin 81 mg tablet,delayed release 81 mg PO BREAKFAST #90 tabs 03/25/23 [Rx Last Taken Unknown] metoprolol succinate 25 mg tablet,extended release 24 hr 25 mg PO DAILY #90 tabs 05/25/23 [Rx Last Taken Unknown] multivitamin (Daily Multi-Vitamin tablet) 1 tab PO DAILY 06/17/23 [History Last Taken Unknown] Allergy/AdvReac Type Severity Reaction Status Date / Time No Known Allergies Allergy Verified 08/05/23 00:20 Family History Other Heart disease Surgical History History of knee surgery Stented coronary artery (02/24/23) Social History Smoking Status: Current every day smoker tobacco type: cigarettes ROS ROS ED Constitutional Constitutional ED: Denies chills or fever(s) Eyes Eyes: Denies change in vision or discharge from eye(s) ENT ENT ED: Denies discharge from eye(s), rhinorrhea or sore throat Cardiovascular Cardiovascular: Reports chest pain; Denies palpitations or racing heartbeat Respiratory/Chest Respiratory/Chest: Denies cough or dyspnea Gastrointestinal Gastrointestinal: Denies abdominal pain, nausea or vomiting Genitourinary Genitourinary ED: Denies dysuria Musculoskeletal Musculoskeletal: Reports extremity pain; Denies back pain Integumentary Denies Abrasions or rash Neurologic Neurologic: Reports paresthesias; Denies headache(s) or weakness Psychiatric Psychiatric: Denies anxiety or depression Allergic/Immunologic Allergic/Immunologic ED: Denies lip swelling or urticaria EXAM Physical Exam Const Vital Signs: 08/05/23 00:20 08/05/23 00:22 08/05/23 00:45 Temperature 97 F L Temperature Source Temporal Pulse Rate 83 Respiratory Rate 17 Respiratory Effort Normal Blood Pressure 159/92 H Blood Pressure Mean 114 Pulse Ox 97 Oxygen Delivery Method Room Air Positive well nourished and well developed General Appearance ED: well developed HEENT Reports moist mucous membranes Eyes EOMs intact bilaterally Chest Wall inspection of chest normal and palpation of chest normal Resp normal respiratory effort and clear to auscultation bilaterally Cardio regular rate and regular rhythm GI soft to palpation and non-tender Extremity normal to inspection Neuro oriented x3 and no sensory deficits noted Motor Exam: strength 5/5 throughout Psych mental status grossly normal Skin no rashes or lesions noted Heart Score History: Moderately Suspicious ECG: Normal Age: >45 - <65 years Risk Factors: >/= 3 Risk Factors or History of CAD Troponin: </= Normal Limit Score: 4 MDM MDM MDM Narrative Medical decision making narrative: Patient did take 1 baby aspirin at bedtime tonight. He is given 3 additional baby aspirin here. Patient is placed on motion picture set grip. IV line initiated. EKG obtained to evaluate for cardiac arrhythmia/ischemia. Chest x-ray obtained to evaluate for acute lung pathology, cardiac size, or mediastinal abnormality. Labwork obtained to evaluate for leukocytosis, anemia, and electrolyte derangement. History & Record Review Discussion w/independent historian: Patient and Family Additional record(s) reviewed:: Prior inpatient record, Prior outpatient record, Prior ED visit and Prior labs Lab Data Attestation: I reviewed the patient's lab results. Labs: Laboratory Results - last 24 hr 08/05/23 08/05/23 00:20 02:55 WBC 10.2 RBC 4.81 Hgb 14.4 Hct 44.2 MCV 91.9 MCH 29.9 MCHC 32.6 RDW Std Deviation 45.7 H RDW Coeff of Tracie 13.4 Plt Count 239 MPV 9.4 Immature Gran % (Auto) 0.400 Neut % (Auto) 63.3 Lymph % (Auto) 23.8 [place] % (Auto) 9.3 Eos % (Auto) 2.7 Baso % (Auto) 0.5 Absolute Neuts (auto) 6.5 Absolute Lymphs (auto) 2.42 Nucleated RBC % 0 Sodium 141 Potassium 4.1 Chloride 111 H Carbon Dioxide 27.0 Anion Gap 3 L BUN 17 Creatinine 1.44 H Estim Creat Clear Calc 55.20 Est GFR (MDRD) Af Amer 63 Est GFR (MDRD) Non-Af 52 L BUN/Creatinine Ratio 11.8 Glucose 100 Calcium 8.4 L Troponin I High Sens 7 7 Radiography Chest X-Ray - ED: 1 View, Read by ED Physician, Chronic Changes and No Infiltrates Diagnostic Testing: Clinical Impression(s) from Imaging Studies Chest X-Ray 08/05/23 00:35 IMPRESSION: Mild bilateral linear atelectasis/scarring. Electronically Signed: Dave Mazariegos MD at 3:16 EST , EKG Initial EKG: Attestation: I personally reviewed and interpreted this EKG as follows: Interpretation: Sinus Rhythm (Sinus 86 with no acute ischemia.) Treatment and Re-Evaluation :: CBC was normal white count of 10.2 with a hemoglobin of 14.4. Normal differential. Chemistry studies unremarkable other than a creatinine 1.44. This is increased when compared to prior value of 0.8 in January. Initial troponin is 7 with a 2-hour repeat of 7. Portable chest x-ray reveals chronic changes with no focal infiltrate per my interpretation. Radiology interpretation reviewed and agrees. On repeat evaluation patient resting comfortably. He has had no recurrent pain since being in the emergency room. With 2 negative troponins he does feel comfortable with discharge to home and close follow-up. He has been compliant with his medications including aspirin and Brilinta. He will call cardiology today for follow-up. Return instructions are given. Discharge Plan Triage Chief Complaint: Chest Pain ED Provider: Haylee Mcgrath Dx/Rx/DC Orders Clinical Impression: Chest pain Instructions: ED Chest Pain, Uncertain Cause Prescriptions: No Action Brilinta 90 mg tablet 90 mg PO BID Qty: 180 3RF multivitamin [Daily Multi-Vitamin] Tablet 1 tab PO DAILY modafinil 200 mg tablet 400 mg PO DAILY Patient Comments: TAKE 2 TABLETS BY MOUTH EVERY DAY atorvastatin 40 mg tablet 40 mg PO QHS Qty: 90 3RF aspirin 81 mg tablet,delayed release (DR/EC) 81 mg PO BREAKFAST Qty: 90 3RF metoprolol succinate 25 mg tablet extended release 24 hr 25 mg PO DAILY Qty: 90 3RF Primary Care Provider: Ho Clark Referrals: Ho Clark DO [Primary Care Provider] - Yakov Go MD [Med Staff - Active Staff] - 5-7 Days Disposition Disposition: Home, Self Care
--- OUTSIDE RECORDS SUMMARY | 2023-08-05 00:33 | XMS RPT_ITS | CCD ---
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 Name Role Phone Unavailable Primary Care Provider Unavailabl e AMBER DO, DR RICHARD A Primary Care Physician Ariana Ross PT Unavailable Unavailable AMBER DO, DR HILARY Jack Primary Care Physician AMBER DO, DR HILARY Jack Primary Care Physician [phone] Ariella Mas MD Primary Care Provider Amber DO, Hilary Eckert Primary Care Provider Ariella Mas MD Primary Care Provider 1( [phone] SELF Referring Unavailable AMBERHILARY Herrmann TATO Primary Care Unavailable ARIANA KOROMA Attending Unavailable AMBER [facility] Primary Care Unavailable NANCY PATEL Attending Unavailable Amber Hilary HALE Primary Care Provider [phone] MARIELA MIRANDA Admitting Unavailable MARIELA MIRANDA Attending Unavailable [facility] Primary Care Unavailable AMBER, HILARY Attending Unavailable MARIELA MIRANDA Referring Unavailable [facility] Primary Care Unavailable MARIELA MIRANDA Attending Unavailable [facility] Primary Care Unavailable MARIELA MIRANDA Attending Unavailable [facility] Primary Care Unavailable MARIELA MIRANDA Attending Unavailable [facility] Primary Care Unavailable FRED PAYNE Attending Unavailable MISBAH LIPSCOMB Referring Unavailable AMBER, [facility] Primary Care Unavailable MARIELA MIRANDA Attending Unavailable SANDRA DILL Referring Unavailable MARIELA MIRANDA Attending Unavailable MAREILA MIRANDA Referring Unavailable AMBER, [facility] Primary Care Unavailable AMBER DO, DR HILARY Jack Primary Care Unavailabl e SIVA AZEVEDO, MARCY Mock Attending Unavailabl anay PAYNE MD, FRED King Attending Unavailable AMBER DO, DR HILARY Jack Primary Care Unavailabl e AMBER DO, DR HILARY Jack Primary Care Unavailabl e AMBER DO, DR HILARY Jack Attending Unavailsanna HU MD, DR STEVENSON Attending Unavailabl e AMBER DO, DR HILARY Jack Primary Care Unavailabl e AMBER DO, DR HILARY Jack Primary Care Unavailsanna DILL MD, SANDRA Attending Unavailable AMBER DO, DR HILARY Jack Attending Unavailabl e AMBER DO, DR HILARY Jack Primary Care Unavailabl e AMBER DO, DR HILARY Jack Primary Care Unavailabl anay LUO MD, YA Attending Unavailable LEXIE MORAN MD Attending Unavailable AMBER DO, DR HILARY Jack Primary Care Unavailabl e AMBER DO, DR HILARY Jack Primary Care Unavailsanna DILL MD, SANDRA Attending Unavailable DAX GROVE, MR ALEXANDRA S Attending Unavailable AMBER DO, DR HILARY Jack Primary Care Unavailabl e AMBER DO, DR HILARY Jack Attending Unavailabl e AMBER DO, DR HILARY Jack Primary Care Unavailabl e Allergies Allergy Classification Reported Allergen(s) Allergy Type Date of Onset Reaction(s) Facility (4 sources) Cholestatin Propensity to adverse reactions 12-23-2022 Other [facility] (4 sources) Octacosanol Propensity to adverse reactions 12-23-2022 Other [facility] Medications Current Medications Medication Drug Class(es) Dates Sig (Normalized) Sig (Original) acetaminophen 325 mg / HYDROcodone bitartrate 5 mg oral tablet (3 sources) Opioid Agonist Start: 12-30-2022 End: 01-04-2023 take 1 tablet by mouth every six hours as needed for pain HYDROcodone-acet aminophen ([place]) 5-325 MG tablet Indications: Post-op pain Take 1 tablet by mouth every 6 hours as needed for severe pain (7-10) for up to 5 days. 20 tablet 0 12/30/2022 01/04/2023 Active acetaminophen 325 mg / oxyCODONE hydrochloride 5 mg oral tablet (2 sources) Opioid Agonist Start: 08-25-2022 End: 08-28-2022 take 1 tablet by mouth every six hours as needed for pain Percocet 5 mg-325 mg oral tablet Dose = 1 tab(s), Oral, q6h, PRN for pain, X 3 day(s), # 12 tab(s), 0 Refill(s), Knee joint injury, 126 Start Date: 08/25/22 Stop Date: 08/28/22 Status: Ordered amoxicillin 875 mg / clavulanate 125 mg oral tablet (1 source) Penicillin-class Antibacterial Start: 11-14-2022 End: 11-21-2022 take 1 tablet by mouth every twelve hours amoxicillin-clav ulanic acid (AUGMENTIN) 875-125 mg per tablet Indications: Acute bacterial sinusitis Take 1 tablet by mouth every 12 hours for 7 days. 14 tablet 0 11/14/2022 11/21/2022 Active Completed/Discontinued Medications Medication Drug Class(es) Dates Sig (Normalized) Sig (Original) acetaminophen 500 mg oral tablet (3 sources) Start: 12-30-2022 End: 12-30-2022 acetaminophen (Tylenol) tablet 1,000 mg Problems Active Problems Problem Classification Problem Date Documented Date Episodic/Chronic Acute and chronic tonsillitis (2 sources) Hypertrophy of tonsils; Translations: [Hypertrophy of tonsils] Onset: 10-01-2022 Chronic Bacterial infection; unspecified site (1 source) Other specified bacterial agents as the cause of diseases classified elsewhere; Translations: [Acute bacterial sinusitis] Onset: 11-14-2022 Episodic Blindness and vision defects (3 sources) Eye / vision finding; Translations: [Unspecified visual disturbance] Onset: 05-05-2023 05-05-2023 Episodic Coronary atherosclerosis and other heart disease (5 sources) Coronary arteriosclerosis 03-12-2023 Chronic Disorders of lipid metabolism (20 sources) Hypercholesterolemia; Translations: [Pure hypercholesterolemia, unspecified] Onset: 10-01-2022 05-03-2019 Chronic Disorders of teeth and jaw (2 sources) Toothache; Translations: [Other specified disorders of teeth and supporting structures] Onset: 01-28-2023 Episodic Essential hypertension (1 source) Essential hypertension; Translations: [Essential (primary) hypertension] Onset: 11-15-2022 Chronic Headache; including migraine (1 source) Headache; Translations: [Headache, unspecified] Onset: 11-15-2022 Episodic Headache; including migraine (2 sources) Headache; including migraine; Translations: [Headache, unspecified] Onset: 07-20-2023 Inflammation; infection of eye (except that caused by tuberculosis or sexually transmitteddisease) (2 sources) Bacterial conjunctivitis; Translations: [Unspecified conjunctivitis] Onset: 11-14-2022 Episodic Other aftercare (1 source) Surgical follow-up; Translations: [Encounter for follow-up examination after completed treatment for conditions other than malignant neoplasm] 01-07-2023 Episodic Other connective tissue disease (10 sources) Artificial knee joint present; Translations: [Presence of left artificial knee joint] Onset: 10-01-2022 Chronic Other connective tissue disease (1 source) Medial epicondylitis; Translations: [Medial epicondylitis, unspecified elbow] Episodic Other connective tissue disease (1 source) Medial epicondylitis, unspecified elbow; Translations: [Medial epicondylitis of elbow, unspecified laterality] Onset: 01-28-2023 Episodic Other nervous system disorders (2 sources) Postoperative pain ; Translations: [Other acute postprocedural pain] Episodic Other skin disorders (13 sources) Skin lesion 04-18-2020 Episodic Other upper respiratory infections (6 sources) Chronic sinusitis; Translations: [Chronic sinusitis, unspecified] Onset: 11-15-2022 Chronic Other upper respiratory infections (2 sources) Acute bacterial sinusitis; Translations: [Acute sinusitis, unspecified] Onset: 11-14-2022 Episodic Residual codes; unclassified (20 sources) Obstructive sleep apnea syndrome; Translations: [Obstructive sleep apnea (adult) (pediatric)] Onset: 08-19-2022 05-03-2019 Chronic Residual codes; unclassified (9 sources) Hypersomnia with sleep apnea; Translations: [Hypersomnia, unspecified] Onset: 08-19-2022 10-01-2022 Chronic Residual codes; unclassified (2 sources) Obstructive sleep apnea (adult) (pediatric); Translations: [Obstructive sleep apnea (adult) (pediatric)] Onset: 10-13-2022 Chronic Respiratory failure; insufficiency; arrest (adult) (20 sources) Dependence on continuous positive airway pressure ventilation; Translations: [Dependence on other enabling machines and devices] Onset: 10-01-2022 05-20-2021 Chronic Superficial injury; contusion (1 source) Injury of eye region; Translations: [Injury of conjunctiva and corneal abrasion without foreign body, unspecified eye, initial encounter] Onset: 06-08-2023 Episodic Unclassified (13 sources) Malignant melanoma, no ICD-O subtype (morphologic abnormality) Onset: 08-03-2019 05-01-2020 Past or Other Problems Problem Classification Problem Date Documented Date Episodic/Chronic Other injuries and conditions due to external causes (10 sources) Injury of lower leg; Translations: [Unspecified injury of unspecified lower leg, initial encounter] Onset: 08-25-2022 Episodic Other nervous system disorders (2 sources) Other acute postprocedural pain; Translations: [Other acute postprocedural pain] Onset: 12-30-2022 Episodic Other screening for suspected conditions (not mental disorders or infectious disease) (11 sources) Raised prostate specific antigen; Translations: [Elevated prostate specific antigen [PSA]] Onset: 05-28-2022 Episodic Results Test Name Value Interpretation Reference Range Facil ity Vital Signs Date Time Vital Sign Value Performing Clinician Facility 06-08-2023 21:54-[address] ELVA HU MD [facility] 06-08-2023 21:54-0500 Body height 180.[address] ELVA HU MD [facility] 06-08-2023 21:54-0500 Body temperature 98.24 [degF] DR ELVA HU MD [facility] 06-08-2023 21:54-0500 Body weight 120.[address] ELVA HU MD [facility] 06-08-2023 21:54-0500 Diastolic Blood Pressure Non-Invasive [address] ELVA HU MD [facility] 06-08-2023 21:54-0500 Heart rate 77 /min DR ELVA HU MD [facility] 06-08-2023 21:54-0500 Respiratory rate 18 /min DR ELVA HU MD [facility] 06-08-2023 21:54-0500 Systolic Blood Pressure Non-Invasive [address] ELVA HU MD [facility] 05-05-2023 09:32-0400 Body height 180.3 cm Mariela Miranda MD Work Phone: [facility] 05-05-2023 09:32-0400 Body mass index (BMI) [Ratio] 37.8 kg/m2 Mariela Miranda MD Work Phone: [facility] 05-05-2023 09:32-0400 Body weight 122.92 kg Mariela Miranda MD Work Phone: [facility] 01-28-2023 16:40-0400 Body temperature 98.29 [degF] Ariana Koroma DO Work Phone: [facility] 01-28-2023 16:40-0400 Body weight 124.29 kg Ariana Koroma DO Work Phone: [facility] 01-28-2023 16:40-0400 Diastolic blood pressure 78 mm[Hg] Ariana Koroma DO Work Phone: [facility] 01-28-2023 16:40-0400 Heart rate 89 /min Ariana Koroma DO Work Phone: [facility] 01-28-2023 16:40-0400 Respiratory rate 17 /min Ariana Koroma DO Work Phone: [facility] 01-28-2023 16:40-0400 SaO2% (BldA) [Mass fraction] 95 % Ariana Koroma DO Work Phone: [facility] 01-28-2023 16:40-0400 Systolic blood pressure 120 mm[Hg] Ariana Koroma DO Work Phone: [facility] 12-30-2022 15:00-0400 Diastolic blood pressure 77 mm[Hg] Mariela Miranda MD Work Phone: [facility] 12-30-2022 15:00-0400 Heart rate 72 /min Mariela Miranda MD Work Phone: [facility] 12-30-2022 15:00-0400 Respiratory rate 16 /min Mariela Miranda MD Work Phone: [facility] 12-30-2022 15:00-0400 SaO2% (BldA) [Mass fraction] 94 % Mariela Miranda MD Work Phone: [facility] 12-30-2022 15:00-0400 Systolic blood pressure 149 mm[Hg] Mariela Miranda MD Work Phone: [facility] 12-30-2022 13:22-0400 Body temperature 97.9 [degF] Mariela Miranda MD Work Phone: [facility] 12-30-2022 09:05-0400 Body height 180.3 cm Mariela Miranda MD Work Phone: [facility] 12-30-2022 09:05-0400 Body mass index (BMI) [Ratio] 37.8 kg/m2 Mariela Miranda MD Work Phone: [facility] 12-30-2022 09:05-0400 Body weight 122.92 kg Mariela Miranda MD Work Phone: [facility] 11-15-2022 16:52-0400 Body temperature 97.7 [degF] LEXIE MORAN MD [facility] 11-15-2022 16:52-0400 Body weight 123.7 kg LEXIE MORAN MD [facility] 11-15-2022 16:52-0400 Diastolic Blood Pressure Non-Invasive 84 1 LEXIE MORAN MD [facility] 11-15-2022 16:52-0400 Heart rate 78 /min LEXIE MORAN MD [facility] 11-15-2022 16:52-0400 Respiratory rate 18 /min LEXIE MORAN MD [facility] 11-15-2022 16:52-0400 Systolic Blood Pressure Non-Invasive 145 1 LEXIE MORAN MD [facility] 11-14-2022 18:11-0400 Body temperature 98.29 [degF] Nancy Patel MD Work Phone: [facility] 11-14-2022 18:11-0400 Body weight 124.83 kg Nancy Patel MD Work Phone: [facility] 11-14-2022 18:11-0400 Diastolic blood pressure 81 mm[Hg] Nancy Patel MD Work Phone: [facility] 11-14-2022 18:11-0400 Heart rate 78 /min Nancy Patel MD Work Phone: [facility] 11-14-2022 18:11-0400 Respiratory rate 18 /min Nancy Patel MD Work Phone: [facility] 11-14-2022 18:11-0400 SaO2% (BldA) [Mass fraction] 96 % Nancy Patel MD Work Phone: [facility] 11-14-2022 18:11-0400 Systolic blood pressure 137 mm[Hg] Nancy Patel MD Work Phone: [facility] 10-13-2022 14:05-0400 Diastolic blood pressure 76 mm[Hg] Ariella Mas MD Work Phone: [facility] 10-13-2022 14:05-0400 Systolic blood pressure 114 mm[Hg] Ariella Mas MD Work Phone: [facility] 10-13-2022 13:50-0400 Body temperature 97.81 [degF] Ariella Mas MD Work Phone: [facility] 10-13-2022 13:50-0400 Heart rate 68 /min Ariella Mas MD Work Phone: [facility] [facility] 10-13-2022 13:50-0400 Respiratory rate 20 /min Ariella Mas MD Work Phone: [facility] 10-13-2022 13:50-0400 SaO2% (BldA) [Mass fraction] 100 % Ariella Mas MD Work Phone: [facility] 10-13-2022 11:59-0400 Body height 180.3 cm Ariella Mas MD Work Phone: [facility] 10-13-2022 11:59-0400 Body mass index (BMI) [Ratio] 33.47 kg/m2 Ariella Mas MD Work Phone: [facility] 10-13-2022 11:59-0400 Body weight 108.86 kg Ariella Mas MD Work Phone: [facility] 08-25-2022 00:39-0500 Diastolic Blood Pressure Non-Invasive 62 1 YA LUO MD [facility] 08-25-2022 00:39-0500 Heart rate 81 /min YA LUO MD [facility] 08-25-2022 00:39-0500 Respiratory rate 16 /min YA LUO MD [facility] 08-25-2022 00:39-0500 Systolic Blood Pressure Non-Invasive 123 1 YA LUO MD [facility] 08-24-2022 23:20-0500 Body temperature 97.88 [degF] YA LUO MD [facility] 08-24-2022 23:20-0500 Diastolic Blood Pressure Non-Invasive 80 1 YA LUO MD [facility] 08-24-2022 23:20-0500 Heart rate 81 /min YA LUO MD [facility] 08-24-2022 23:20-0500 Respiratory rate 16 /min YA LUO MD [facility] 08-24-2022 23:20-0500 Systolic Blood Pressure Non-Invasive 165 1 YA LUO MD [facility] Encounters Encounter Date Encounter Type Care Provider Facility Start: 07-29-2023 ambulatory NASRIN VERDUZCO MD Fac ility:B Start: 07-24-2023 End: 07-25-2023 ambulatory FRED PAYNE MD Facility:B Start: 07-24-2023 End: 07-24-2023 Patient encounter procedure FRED PAYNE MD [facility] Start: 07-20-2023 End: 07-20-2023 ambulatory FRED PAYNE [facility] Start: 07-13-2023 End: 07-14-2023 ambulatory HILARY CLARK [facility] Start: 07-13-2023 End: 07-13-2023 Subsequent hospital visit by physician Hilary Clark DO Work Phone: [facility] Procedures Date Procedure Procedure Detail Performing Clinician Start: 02-23-2023 Stent, device (physi monica object) DR ELVA HU MD Plan of Treatment Date Care Activity Detail Author Start: 02-06-2028 DTaP/Tdap/Td Vaccines (3 - Td or Tdap) DTaP/Tdap/Td Vaccines (3 - Td or Tdap) [facility] Start: 09-11-2023 End: 09-11-2023 Patient encounter procedure 09/11/2023 9:30 AM EST Office Visit [facility] [address] [place] [address] Haylee Gibbons MD [address] [place] [address] [facility] Start: 07-20-2023 End: 07-20-2023 Patient encounter procedure 07/20/2023 1:30 PM EST Office Visit [facility] [address] [place] [address] [place] [address] Fred Payne MD [address] [place] [address] [place] [address] [facility] Start: 07-03-2023 End: 07-03-2023 Patient encounter procedure 07/03/2023 9:30 AM EST Office Visit [facility] [address] [place] [id number] Haylee Gibbons MD [address] [place] [address] [facility] Start: 05-06-2023 End: 05-06-2023 Patient encounter procedure 05/06/2023 11:00 AM EDT Office Visit [facility] [address] [place] [address] Mariela Miranda MD [address] [place] [address] [facility] Start: 05-05-2023 End: 05-05-2024 CT Maxillofacial region WO and W contrast IV CT maxillofacial wo IV contrast Imaging Routine Chronic maxillary sinusitis Expected: 05/05/2023, Expires: 05/05/[address] [facility] Work Phone: Immunizations Immunization Date Immunization Notes Care Provider Fa [facility] 05-18-2023 influenza, injectabl e, quadrivalent, contains preservative; Translations: [Fluarix PF Quadrivalent ] DR ELVA UH MD [facility] 02-25-2022 Covid-19, Pfizer Gra y Top, Do Not Dilute, (Age 12 Y+), Im, L Ariella Mas MD Work Phone: [facility] 07-01-2021 influenza, injectabl e, quadrivalent, preservative free Ariella Mas MD Work Phone: [facility] 07-01-2021 influenza, injectabl e, quadrivalent, contains preservative; Translations: [Fluarix PF Quadrivalent ] DR QUIN CELIS DO [facility] 07-01-2021 influenza virus vaccine, unspecified formulation Ariella Mas MD Work Phone: [facility] 06-18-2021 COVID-19, mRNA, LNP- S, PF, 100 mcg or 50 mcg dose; Translations: [Moderna COVID-19 Vaccine] DR QUIN CELIS DO [facility] 11-09-2020 SARS-CoV-2 (COVID-19 ) mRNA-[address] HILARY CLARK DO [facility] Payers Date Payer Category Payer Medicaid [id number] 2022 Medicaid [id number] 2019 Unknown [facility] [employer] [id number] 2019-Present PPO [id number] 2019 Unknown [id number] 2019 Unknown [id number] 1959 Unknown [id number] 1959 Unknown [id number] 1959 Unknown [id number] 1959 Unknown [id number] 1959 Unknown [id number] 1959 Unknown [id number] 1959 Unknown [id number] [id number]. 1959 Unknown [id number] 1959 Unknown [id number] [id number]. 1959 Unknown [id number] [id number]. 1959 Unknown [id number]. Social History Date Type Detail Facility Tobacco smoking stat us NYIS Unknown if ever smoked [facility] Start: 1960 Sex Assigned At Not on file [facility] Start: 05-02-2020 Heavy tobacco smoker (finding) [facility] Sex Assigned At Male [facility] Start: 10-13-2022 End: 12-23-2022 Tobacco smoking status NYIS Smokes tobacco daily [facility] History of tobacco use Cigarette Smoker S [facility] Start: 10-13-2022 End: 12-23-2022 Tobacco use and exposure Smokeless tobacco non-user [facility] Start: 10-13-2022 End: 05-05-2023 Alcohol intake Current drinker of alcohol (finding) [facility] Start: 10-13-2022 Tobacco Comment Last smoked prior to drug induced sleep endoscopy [facility] Start: 10-01-2022 Alcohol Comment social [facility] Start: 10-03-2022 End: 12-30-2022 Exposure to SARS-CoV-2 (event) Not sure [facility] Start: 11-14-2022 End: 05-05-2023 Cigarettes smoked current (pack per day) - Reported 0.3 [facility] Start: 12-30-2022 End: 05-05-2023 Tobacco use panel [facility] Start: 05-18-2023 Tobacco smoking status Light t obacco smoker (finding) [facility] Medical Equipment Procedure Code Equipment Code Equipment Origin al Text Equipment Identifier Dates Lead Sensing Res p Inspire - [id number] - [id number] Start: 12-30-2022 Generator Pulse Inspire - [id number] - [id number] Start: 12-30-2022 Functional Status Date Assessment Result Facility 06-08-2023 Functional Status Assistive Device None A [facility] 06-08-2023 Functional Status Room check performed [facility] 11-15-2022 Functional Status Independent [facility] 11-15-2022 Functional Status Standard Safet y ID band on, Call device within reach, Bed in low position, Wheels locked, Upper/Half-Length side-rails up, Phone within reach [facility] 08-24-2022 Functional Status ID band on, Call device within reach, Bed in low position, Wheels locked, Visitor at bedside [facility] Mental Status Date Assessment Result Facility 06-08-2023 Mental Status Orientation Oriented x 4 [facility] 06-08-2023 Mental Status [facility] 11-15-2022 Mental Status Orientation Oriented x 4 [facility] 11-15-2022 Mental Status [facility] 08-24-2022 Mental Status Oriented x 4 [facility] Clinical Notes 05-30-2022 to 07-24-2023 Mariela Miranda MD - 05/05/2023 9:30 AM Sudarshan Koroma DO - 01/28/2023 4:56 PM Karen Miranda MD - 01/07/2023 11:00 AM EDTTelephone Encounter - Georgette Pratt RN - 01/01/2023 2:16 PM EDT Note Date & Type Note Facility 07-24-2023 Note ORIGINAL HISTORY: Facial pain, chronic headache COMPARISON: 15 November 2022 TECHNIQUE: Routine non-contrast head CT with sagittal and coronal reconstructions This exam was performed according to our departmental dose optimization program, and includes the following measures where applicable: automated exposure control, adjustment of the mAs and/or kVp according to patient size and/or exam, and an iterative reconstruction algorithm. FINDINGS: The ventricles and sulci are normal in size and configuration. There are no abnormal intra or extra-axial fluid collections. Arroyo-white matter differentiation is maintained. The calvaria and the bones of the base of the skull are intact. The visualized portions of the paranasal sinuses are clear. The orbital contents are unremarkable in appearance. IMPRESSION: Unremarkable examination. Interpreted by: Kin Frederick MD Preliminary Report By: Kin Frederick MD Electronically signed By Kin Frederick MD Dictated Date: 07/24/2023 8:55:24 AM Prelim Date: 07/24/2023 8:56:25 AM Sign Date: 07/24/2023 8:56:25 AM Ordering Provider: [facility] 06-09-2023 Hospital Discharge instructions Patient Education 06/08/2023 22:42:03 Corneal Abrasion Corneal Abrasion You have received a scratch or scrape (abrasion) to your cornea. The cornea is the clear part in the front of the eye. This sensitive area is very painful when injured. You may make tears frequently, and your vision may be blurry until the injury heals. You may be sensitive to light. This part of the body heals quickly. You can expect the pain to go away within 24 to 48 hours. If the abrasion is large or deep, your doctor may apply an eye patch, although this is not always done. An antibiotic ointment or eye drops may also be used to prevent infection. Numbing drops may be used to relieve the pain temporarily so that your eyes can be examined. But these drops can t be prescribed for home use because that would prevent healing and lead to more serious problems. Also, if you can t feel your eye, there is a chance of accidentally injuring it further without knowing it. Home care A cold pack may be applied over the eye (or eye patch) for 20 minutes at a time, to reduce pain. To make a cold pack, put ice cubes in a plastic bag that seals at the top. Wrap the bag in a clean, thin towel or cloth. You may use acetaminophen or ibuprofen to control pain, unless another pain medicine was prescribed. Note: If you have chronic liver or kidney disease or have ever had a stomach ulcer or GI bleeding, talk with your doctor before using these medicines. Rest your eyes and don t read until symptoms are gone. If you use contact lenses, don t wear them until all symptoms are gone. If your vision is affected by the corneal abrasion or if an eye patch was applied, don t drive a motor vehicle or operate machinery until all symptoms are gone. You may have trouble judging distances using only one eye. If your eyes are sensitive to light, try wearing sunglasses, or stay indoors until symptoms go away. Follow-up care Follow up with your healthcare provider, or as advised. If no patch was put on your eye and the pain continues for more than 48 hours, you should have another exam. Contact your healthcare provider to arrange this. If your eye was patched and you were asked to remove the patch yourself, see your healthcare provider. Contact your healthcare provider if you still have pain after the patch is removed. If you were given a return appointment for patch removal and re-examination, be sure to keep the appointment. Leaving the patch in place longer than advised could be harmful. When to seek medical advice Call your healthcare provider right away if any of these occur. Increasing eye pain or pain that does not improve after 24 hours Discharge from the eye Increasing redness of the eye or swelling of the eyelids Worsening vision Symptoms get worse after the abrasion has healed [id number] [employer]. [address] [place] [address]. All rights reserved. This information is not intended as a substitute for professional medical care. Always follow your healthcare professional's instructions. Follow Up Care 06/08/2023 21:45:34 With:[facility] Address: [facility] [place] [address]- Business (1) When:2-4 days [facility] 06-08-2023 Emergency department Discharge summary Discharge Instructions Thank you for allowing [facility] to assist you with your healthcare needs. The following is important discharge information regarding your hospital visit. Diagnosis from Today's Visit Corneal abrasion Eye pain What to Do Next Instructions from Your Care Team No qualifying data available. Post Acute Orders No qualifying data available. You Need to Schedule the Following Appointments Follow Up with [facility] When Within 2-4 days Where: [address] [place] [id number]- [facility] (1) Allergies NKA Medications Please ask your primary doctor or pharmacist before taking any other medication not listed, including over the counter drugs, herbal medications, vitamins and or supplements as they may interact with your home medications. What How Much When Instructions Last Dose New polymyxin B-trimethoprim ophthalmic (Polytrim 10,000 units-1 mg/ mL ophthalmic solution) 1 Drops Both eyes Every 3 hours Duration: 7 Days Printed Prescription Unchanged aspirin (Aspirin Enteric Coated 81 mg oral delayed release tablet) 1 tab(s) by mouth Once a day Unchanged atorvastatin (atorvastatin 40 mg oral tablet) 1 tab(s) by mouth Daily at bedtime Unchanged metoprolol (Metoprolol Succinate ER 25 mg oral TABLET extended release) 1 tab(s) by mouth Once a day Unchanged modafinil (modafinil 200 mg oral tablet) 2 tab(s) by mouth Once a day (in the morning) Unchanged multivitamin (Multiple Vitamins oral tablet) 1 tab(s) by mouth Once a day (in the morning) Unchanged ticagrelor (Brilinta (ticagrelor) 90 mg oral tablet) 1 tab(s) by mouth Two (2) times a day Please take this list to your next doctor s visit. Bring all medications you take, including over the counter medications, herbals and other supplements with you to your doctor s visit. Patients and families are reminded to discard old lists and to update any records with all medication providers or retail pharmacies. Education Materials Corneal Abrasion You have received a scratch or scrape (abrasion) to your cornea. The cornea is the clear part in the front of the eye. This sensitive area is very painful when injured. You may make tears frequently, and your vision may be blurry until the injury heals. You may be sensitive to light. This part of the body heals quickly. You can expect the pain to go away within 24 to 48 hours. If the abrasion is large or deep, your doctor may apply an eye patch, although this is not always done. An antibiotic ointment or eye drops may also be used to prevent infection. Numbing drops may be used to relieve the pain temporarily so that your eyes can be examined. But these drops can t be prescribed for home use because that would prevent healing and lead to more serious problems. Also, if you can t feel your eye, there is a chance of accidentally injuring it further without knowing it. Home care A cold pack may be applied over the eye (or eye patch) for 20 minutes at a time, to reduce pain. To make a cold pack, put ice cubes in a plastic bag that seals at the top. Wrap the bag in a clean, thin towel or cloth. You may use acetaminophen or ibuprofen to control pain, unless another pain medicine was prescribed. Note: If you have chronic liver or kidney disease or have ever had a stomach ulcer or GI bleeding, talk with your doctor before using these medicines. Rest your eyes and don t read until symptoms are gone. If you use contact lenses, don t wear them until all symptoms are gone. If your vision is affected by the corneal abrasion or if an eye patch was applied, don t drive a motor vehicle or operate machinery until all symptoms are gone. You may have trouble judging distances using only one eye. If your eyes are sensitive to light, try wearing sunglasses, or stay indoors until symptoms go away. Follow-up care Follow up with your healthcare provider, or as advised. If no patch was put on your eye and the pain continues for more than 48 hours, you should have another exam. Contact your healthcare provider to arrange this. If your eye was patched and you were asked to remove the patch yourself, see your healthcare provider. Contact your healthcare provider if you still have pain after the patch is removed. If you were given a return appointment for patch removal and re-examination, be sure to keep the appointment. Leaving the patch in place longer than advised could be harmful. When to seek medical advice Call your healthcare provider right away if any of these occur. Increasing eye pain or pain that does not improve after 24 hours Discharge from the eye Increasing redness of the eye or swelling of the eyelids Worsening vision Symptoms get worse after the abrasion has healed [id number] [employer]. [address] [place] [address], [place] [address]. All rights reserved. This information is not intended as a substitute for professional medical care. Always follow your healthcare professional's instructions. Additional Information VACCINATE! IT SAVES LIVES! Members of the community who have not yet received the COVID-19 vaccine and would like to receive it can visit one of [facility] vaccine clinics. There are many vaccine clinic locations within the [facility]. For locations and available times, please visit [email or web address] It is important to note that some COVID mobile vaccine clinics are held outdoors and may be canceled in rainy or stormy conditions. To learn more about pediatric vaccinations (ages 5-11), we invite you to visit the [facility] webpage. [email or web address] To learn more about the COVID-19 vaccine, we invite you to visit the CDC website for a list of frequently asked questions. https://www.cdc.gov/coronavirus/ 19-ncov/vaccines/faq.html [facility] Patient Portal Access Instructions: Stay connected with your healthcare team and access your personal medical information anytime with the [facility] Patient Portal. If you would like a full copy of your medical records please contact the [facility] Medical Records Department Thursday through Thursday between 8a.m. and 4:30p.m. Please follow the directions below to access the portal: 1.Access the email account you provided upon registration to the [facility].2.Look for an invitation email from [facility].3.Open the email and access the invitation link: Accept Invitation to [facility].Fill in the required jackson to create your account. Sign into [email or web address] with your username and password that you created in the above steps to stay up to date. You can then view a summary of results, a summary of your visits, and the ability to download your summaries to your computer or send the information securely to a physician. Remember that your healthcare information is confidential, so carefully consider who you will allow to register on the [facility] Patient Portal for access to your information. You can also access the [facility] Patient Portal on the [employer] mercedes. Simply click on Health Records under Health Data and then click on the [employer] logo. HOW TO SAFELY DISPOSE OF PRESCRIPTION MEDICATIONS Please use one of the following methods to safely dispose of your unused medications. 1.Use a drug disposal kit: the drug disposal pouch allows you to safely discard your old and unused drugs. Ask your nurse to give you one when you are discharged.2.Visit a local take-back location: Many local pharmacies and police departments have programs that collect old and unwanted prescription drugs. Call your local pharmacy or go to [email or web address].[facility]/2H4Vm2e to find one close to you.3.Make use of household items: Use cat litter or old coffee grounds to dispose medications if other options are not available. Mix your drugs with these household products, seal them in an airtight container and throw it into the garbage. Call [facility]: [phone] to be sure your drugs can be disposed of in this way. Some medicines may require a different approach.4.Never flush your medications down the toilet. IF YOU HAVE BEEN PRESCRIBED AN OPIOIDS FOR PAIN If you have been prescribed an opioid (such as hydrocodone, oxycodone or morphine), it is critical to understand the possible side effects and risks of opioid pain medications. Even when taken as directed, opioids can have several side effects including: Tolerance, meaning you might need to take more of a medication for the same pain relief. Nausea, vomiting and/or constipation. Sleepiness, dizziness, dry mouth, confusion, depression or itching. Physical dependence, meaning you have withdrawal symptoms when a medication is stopped ? this can develop within a few days. KNOW YOUR RESPONSIBILITIES It is important to know exactly how much and how often to take the opioid pain medications you are prescribed. Never take opioids in higher amounts or more often than prescribed. Do not combine opioids with alcohol or other drugs that cause drowsiness, such as benzodiazepines, also known as benzos, including diazepam and alprazolam, muscle relaxants or sleep aids. Never sell or share prescription opioids. This is illegal. Store opioids in a secure place and out of reach of others (including children, family, friends and visitors). The last page(s) of this document has been signed and retained as a CHART COPY Signatures Patient Education Materials Corneal Abrasion Medication Leaflets My discharge plan and instructions have been reviewed and explained to me and ILILA KEITH A understand my current condition and have read and understand these discharge instructions. I have received a written copy of the plan/instructions. If I have questions, I am aware that I should contact my doctor. Patient/[employer] Consultant Signature: Date/Time: Relationship to Patient: ___ Witness Name/Signature: Date/Time: [facility] 05-05-2023 History of Present illness Narrative Assessment and Recommendations: Gualberto Sharp is a 63 y.o. male here for 4-month follow-up from inspire implantation with chronic maxillary sinusitis and vision change From an inspire standpoint and pleased with his result he shown good response to treatment can follow-up as necessary In regards to his chronic sinusitis we will further evaluate with a CT scan of the sinuses-and see him back for review Also placing referral to ophthalmology given his change in vision and dry eye symptoms Otolaryngology Head and Neck Surgery Clinic Note HPI: Gualberto Sharp is a 63 y.o. yo male who presents to clinic today for 4-month follow-up from inspire implantation. Overall patient is doing well states he is happy with the device he is sleeping much better and has no concerns at this time. He does state that he has been having issues with the sinuses with greater than 3 months of facial pain and pressure fullness and difficulty breathing through the nose at times. He denies any headaches no significant relief with Flonase or saline sprays and is here for follow-up he also notes he has been having issues with dry eyes and vision changes well has been seen by ophthalmology in [place] but is not happy with management there PMH: Past Medical History: Diagnosis Date Cancer (CMS/HCC) (HCC) melanoma on back Delayed emergence from general anesthesia Sleep apnea uses cpap Allergies: Allergies Allergen Reactions Seasonal Ic [Octacosanol] Other sinus Medications: Current Outpatient Medications: Aspirin Low Dose 81 MG EC tablet, TAKE 1 TABLET BY MOUTH WITH BREAKFAST, Disp: , Rfl: Brilinta 90 MG tablet, Take 90 mg by mouth 2 times daily., Disp: , Rfl: cetirizine (ZyrTEC) 10 MG chewable tablet, Chew daily., Disp: , Rfl: modafinil (Provigil) 200 MG tablet, Take 400 mg by mouth daily., Disp: , Rfl: Multiple Vitamins-Minerals (multivitamin with minerals) tablet, Take 1 tablet by mouth daily., Disp: , Rfl: PSH: Past Surgical History: Procedure Laterality Date JOINT REPLACEMENT KNEE ARTHROPLASTY Bilateral SKIN CANCER EXCISION melanoma of back STIMULATOR SURGERY (HISTORICAL) 12/30/2022 Hypoglossal nerve STIMULATOR PLACEMENT INSPIRE - Bilateral UMBILICAL HERNIA REPAIR FH: No family history on file. SH: Social History Socioeconomic History Marital status: Spouse name: Not on file Number of children: Not on file Years of education: Not on file Highest education level: Not on file Occupational History Not on file Tobacco Use Smoking status: Every Day Packs/day: 0.25 Years: 40.00 Additional pack years: 0.00 Total pack years: 10.00 Types: Cigarettes Smokeless tobacco: Never Tobacco comments: Last smoked 10/13/2022 prior to drug induced sleep endoscopy Vaping Use Vaping Use: Never used Substance and Sexual Activity Alcohol use: Yes Alcohol/week: 2.0 standard drinks of alcohol Types: 2 Shots of liquor per week Comment: social Drug use: Never Sexual activity: Not on file Other Topics Concern Not on file Social History Narrative Not on file Social Determinants of Health Financial Resource Strain: Not on file Food Insecurity: Not on file Transportation Needs: Not on file Physical Activity: Not on file Stress: Not on file Social Connections: Not on file Intimate Partner Violence: Not on file Housing Stability: Not on file Physical Exam: Constitutional: General: Patient is not in acute distress. Appearance: Patient is well-developed. Eyes: Conjunctiva/sclera: Conjunctivae normal. Pupils: Pupils are equal, round, and reactive to light. HENT: Jaw: No trismus. Nose: No nasal deformity, mucosal edema or rhinorrhea. Mouth: Mucous membranes are not pale, not dry and not cyanotic. No oral lesions. Tongue movement is within normal limits Pharynx: Uvula midline. No oropharyngeal exudate or uvula swelling. Tonsils: No tonsillar exudate. No abnormal masses or lesions Thyroid: No significant thyromegaly. Trachea: Trachea and phonation normal. No tracheal deviation. Pulmonary: Effort: Pulmonary effort is normal. No respiratory distress. Breath sounds: No stridor. Musculoskeletal: Head: Normocephalic and atraumatic. Neck: Full passive range of motion without pain, neck supple. Neck incision clean dry and intact with some ecchymosis in the submental region chest incision clean dry and intact as well Skin: General: Skin is warm and dry. Findings: No erythema or rash. Neurological: Cranial Nerves: No cranial nerve deficit. Sensory: No sensory deficit. Coordination: Coordination normal. Extremities: No significant peripheral edema or varicosities Psychiatric: Mood and Affect: Mood and affect normal. Cognition and Memory: Cognition and memory normal. documented in this encounter [facility] 01-28-2023 Note HNO ID: [id number] Author: Ariana Koroma, DO Service: ? Author Type: Physician Type: Progress Notes Filed: 01/28/2023 5:01 PM Note Text: Gualberto Sharp is a 62 year old MALE who presents with Pain (Elbow Pain) (Started about 2 months ago /Left elbow /Patient states its sore/Denies recent injury or fall /Denies hx of gout ) and Dental Problem (Left side upper /Started 3 days ago //Going up into left eyeball//Patient states it could also be sinus /) HPI History reviewed. No pertinent past medical history. There is no problem list on file for this patient. Current Outpatient Medications Medication Sig Dispense Refill modafinil (PROVIGIL) 200 mg tablet Take 200 mg by mouth once daily. dexAMETHasone (DECADRON) 4 mg tablet Take 1 tablet by mouth once daily for 4 days. 4 tablet 0 clindamycin (CLEOCIN) 300 mg capsule Take 1 capsule by mouth three times daily for 10 days. 30 capsule 0 dexAMETHasone 0.1 % ophthalmic solution Use 1 Drop in both eyes every 6 hours. (Patient not taking: Reported on 01/28/2023) 5 mL 0 No current facility-administered medications for this visit. Social History Tobacco Use Smoking status: Every Day Packs/day: 0.25 Types: Cigarettes Smokeless tobacco: Never Vaping Use Vaping Use: Never used Substance Use Topics Alcohol use: Yes Alcohol/week: 6.0 standard drinks Types: 6 Cans of beer per week Drug use: Never Alcohol Use: Approximately 3.6 oz/week [which includes 6 Cans of beer per week] Tobacco Use: 0.25 packs/day Types: Cigarettes History reviewed. No pertinent family history. Review of Systems HENT: Patient is complaining of tooth #15 being sensitive 15 and 16 both are bothering him both are sensitive to tapping he states that he had a root canal done on one of them and he does remember which one. He does have a dentist and is going to follow-up with that dentist states that it is sensitive and does not tolerate any pressure against it. Musculoskeletal: Positive for joint pain. 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 He is right-handed but the pain is mainly in the left and has been getting sore over the last few days. 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 BP 120/78 Pulse 89 Temp (Src) 98.3 (Temporal) Resp 17 Wt 274 lb (124.3kg) SpO2 95% Physical Exam Vitals and nursing note reviewed. Constitutional: Appearance: Normal appearance. HENT: Head: Normocephalic and atraumatic. Mouth/Throat: Mouth: Mucous membranes are moist. Comments: Examination shows tooth #15 and 16 are both sensitive to tapping with an abscess on the gum up above 15. The tooth appears to be intact so I do not know if they did a root canal and left part of the tooth then like one of the roots was missed or if he is just got a an abscess around the tooth that has not had the root canal but he needs to see a dentist at this point we will get him on some medication Cardiovascular: Rate and Rhythm: Normal rate and regular rhythm. Pulses: Normal pulses. Heart sounds: Normal heart sounds. Pulmonary: Effort: Pulmonary effort is normal. Abdominal: General: Abdomen is flat. Musculoskeletal: General: Swelling and tenderness present. Comments: .. The patient has epicondylitis tenderness at the medial epicondyles. 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 Skin: General: Skin is warm. Capillary Refill: Capillary refill takes less than 2 seconds. Neurological: General: No focal deficit present. Mental Status: He is alert and oriented to person, place, and time. Psychiatric: Mood and Affect: Mood normal. ASSESSMENT/PLAN: 1. Odontalgia - ICD9: 525.9, ICD10: K08.89 (primary diagnosis) - CLINDAMYCIN HCL 300 MG CAPSULE 2. Medial epicondylitis of elbow, unspecified laterality - ICD9: 726.31, ICD10: M77.00 - DEXAMETHASONE 4 MG TABLET Ariana D [facility] 01-28-2023 History of Present illness Narrative Gualberto Sharp is a 62 year old MALE who presents with Pain (Elbow Pain) (Started about 2 months ago /Left elbow /Patient states its sore/Denies recent injury or fall /Denies hx of gout ) and Dental Problem (Left side upper /Started 3 days ago //Going up into left eyeball//Patient states it could also be sinus /) HPI History reviewed. No pertinent past medical history. There is no problem list on file for this patient. Current Outpatient Medications Medication Sig Dispense Refill modafinil (PROVIGIL) 200 mg tablet Take 200 mg by mouth once daily. dexAMETHasone (DECADRON) 4 mg tablet Take 1 tablet by mouth once daily for 4 days. 4 tablet 0 clindamycin (CLEOCIN) 300 mg capsule Take 1 capsule by mouth three times daily for 10 days. 30 capsule 0 dexAMETHasone 0.1 % ophthalmic solution Use 1 Drop in both eyes every 6 hours. (Patient not taking: Reported on 01/28/2023) 5 mL 0 No current facility-administered medications for this visit. Social History Tobacco Use Smoking status: Every Day Packs/day: 0.25 Types: Cigarettes Smokeless tobacco: Never Vaping Use Vaping Use: Never used Substance Use Topics Alcohol use: Yes Alcohol/week: 6.0 standard drinks Types: 6 Cans of beer per week Drug use: Never Alcohol Use: Approximately 3.6 oz/week [which includes 6 Cans of beer per week] Tobacco Use: 0.25 packs/day Types: Cigarettes History reviewed. No pertinent family history. Review of Systems HENT: Patient is complaining of tooth #15 being sensitive 15 and 16 both are bothering him both are sensitive to tapping he states that he had a root canal done on one of them and he does remember which one. He does have a dentist and is going to follow-up with that dentist states that it is sensitive and does not tolerate any pressure against it. Musculoskeletal: Positive for joint pain. 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 He is right-handed but the pain is mainly in the left and has been getting sore over the last few days. 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 BP 120/78 Pulse 89 Temp (Src) 98.3 (Temporal) Resp 17 Wt 274 lb (124.3kg) SpO2 95% Physical Exam Vitals and nursing note reviewed. Constitutional: Appearance: Normal appearance. HENT: Head: Normocephalic and atraumatic. Mouth/Throat: Mouth: Mucous membranes are moist. Comments: Examination shows tooth #15 and 16 are both sensitive to tapping with an abscess on the gum up above 15. The tooth appears to be intact so I do not know if they did a root canal and left part of the tooth then like one of the roots was missed or if he is just got a an abscess around the tooth that has not had the root canal but he needs to see a dentist at this point we will get him on some medication Cardiovascular: Rate and Rhythm: Normal rate and regular rhythm. Pulses: Normal pulses. Heart sounds: Normal heart sounds. Pulmonary: Effort: Pulmonary effort is normal. Abdominal: General: Abdomen is flat. Musculoskeletal: General: Swelling and tenderness present. Comments: .. The patient has epicondylitis tenderness at the medial epicondyles. 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 Skin: General: Skin is warm. Capillary Refill: Capillary refill takes less than 2 seconds. Neurological: General: No focal deficit present. Mental Status: He is alert and oriented to person, place, and time. Psychiatric: Mood and Affect: Mood normal. ASSESSMENT/PLAN: 1. Odontalgia - ICD9: 525.9, ICD10: K08.89 (primary diagnosis) - CLINDAMYCIN HCL 300 MG CAPSULE 2. Medial epicondylitis of elbow, unspecified laterality - ICD9: 726.31, ICD10: M77.00 - DEXAMETHASONE 4 MG TABLET Ariana Koroma documented in this encounter [facility] 01-07-2023 History of Present illness Narrative Assessment and Recommendations: Gualberto Sharp is a 62 y.o. male here for 1 week follow-up from hypoglossal nerve implantation -Patient is doing well and pleased with his result -We will facilitate activation appointment All of his question concerns were answered and expressed understanding- Otolaryngology Head and Neck Surgery Clinic Note HPI: Gualberto Sharp is a 62 y.o. yo male who presents to clinic today for 1 week follow-up from hypoglossal nerve implantation. Overall patient is doing well has had some swelling in the neck region some slight difficulty weakness with the tongue but overall is doing well and has no significant concerns at this time. PMH: Past Medical History: Diagnosis Date Cancer (CMS/HCC) (HCC) melanoma on back Delayed emergence from general anesthesia Sleep apnea uses cpap Allergies: Allergies Allergen Reactions Seasonal Ic [Cholestatin] Other sinus Medications: Current Outpatient Medications: cefdinir (Omnicef) 300 MG capsule, Take 1 capsule (300 mg) by mouth 2 times daily for 10 days., Disp: 20 capsule, Rfl: 0 cetirizine (ZyrTEC) 10 MG chewable tablet, Chew daily., Disp: , Rfl: modafinil (Provigil) 200 MG tablet, Take 400 mg by mouth daily., Disp: , Rfl: Multiple Vitamins-Minerals (multivitamin with minerals) tablet, Take 1 tablet by mouth daily., Disp: , Rfl: PSH: Past Surgical History: Procedure Laterality Date JOINT REPLACEMENT KNEE ARTHROPLASTY Bilateral SKIN CANCER EXCISION melanoma of back STIMULATOR SURGERY (HISTORICAL) 12/30/2022 Hypoglossal nerve STIMULATOR PLACEMENT INSPIRE - Bilateral UMBILICAL HERNIA REPAIR FH: No family history on file. SH: Social History Socioeconomic History Marital status: Spouse name: Not on file Number of children: Not on file Years of education: Not on file Highest education level: Not on file Occupational History Not on file Tobacco Use Smoking status: Every Day Packs/day: 0.25 Years: 40.00 Pack years: 10.00 Types: Cigarettes Smokeless tobacco: Never Tobacco comments: Last smoked 10/13/2022 prior to drug induced sleep endoscopy Vaping Use Vaping Use: Never used Substance and Sexual Activity Alcohol use: Yes Alcohol/week: 2.0 standard drinks of alcohol Types: 2 Shots of liquor per week Comment: social Drug use: Never Sexual activity: Not on file Other Topics Concern Not on file Social History Narrative Not on file Social Determinants of Health Financial Resource Strain: Not on file Food Insecurity: Not on file Transportation Needs: Not on file Physical Activity: Not on file Stress: Not on file Social Connections: Not on file Intimate Partner Violence: Not on file Housing Stability: Not on file Physical Exam: Constitutional: General: Patient is not in acute distress. Appearance: Patient is well-developed. Eyes: Conjunctiva/sclera: Conjunctivae normal. Pupils: Pupils are equal, round, and reactive to light. HENT: Jaw: No trismus. Nose: No nasal deformity, mucosal edema or rhinorrhea. Mouth: Mucous membranes are not pale, not dry and not cyanotic. No oral lesions. Tongue movement is within normal limits Pharynx: Uvula midline. No oropharyngeal exudate or uvula swelling. Tonsils: No tonsillar exudate. No abnormal masses or lesions Thyroid: No significant thyromegaly. Trachea: Trachea and phonation normal. No tracheal deviation. Pulmonary: Effort: Pulmonary effort is normal. No respiratory distress. Breath sounds: No stridor. Musculoskeletal: Head: Normocephalic and atraumatic. Neck: Full passive range of motion without pain, neck supple. Neck incision clean dry and intact with some ecchymosis in the submental region chest incision clean dry and intact as well Skin: General: Skin is warm and dry. Findings: No erythema or rash. Neurological: Cranial Nerves: No cranial nerve deficit. Sensory: No sensory deficit. Coordination: Coordination normal. Extremities: No significant peripheral edema or varicosities Psychiatric: Mood and Affect: Mood and affect normal. Cognition and Memory: Cognition and memory normal. 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 Recommendations for bandage or care to the area? 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 Recommendations for bandage or care to the area? documented in this encounter [facility] 12-30-2022 Note Patient: Gualberto Mckeon ich Procedure Summary Date: 12/30/22 Room / Location: [facility] OR [address] [place] [address] Operating Room Anesthesia Start: 1110 Anesthesia Stop: Procedure: Hypoglossal nerve STIMULATOR PLACEMENT INSPIRE (Bilateral: Neck) Diagnosis: Obstructive sleep apnea (adult) (pediatric) (Obstructive sleep apnea (adult) (pediatric) [G47.33]) Surgeons: Mariela Miranda MD Responsible Provider: JERMAINE Mahmood CRNA Anesthesia Type: general ASA Status: 2 Anesthesia Type: general Vitals Value Taken Time BP 171/98 12/30/22 1322 Temp 97.9 12/30/22 1325 Pulse 77 12/30/22 1325 Resp 21 12/30/22 1325 SpO2 95 % 12/30/22 1325 Vitals shown include unvalidated device data. Anesthesia Post Evaluation Patient location during evaluation: PACU Patient participation: complete - patient participated Level of consciousness: awake and alert Pain management: satisfactory to patient Airway patency: patent Dental Injury: no Cardiovascular status: acceptable, blood pressure returned to baseline and hemodynamically stable Respiratory status: acceptable and spontaneous ventilation Hydration status: euvolemic Nausea/Vomiting: controlled No notable events documented. Patient can be discharged once all PACU criteria has been met. [facility] 12-30-2022 Note Patient: Gualberto diallo Procedure Summary Date: 12/30/22 Room / Location: [address] Operating Room Anesthesia Start: 1110 Anesthesia Stop: Procedure: Hypoglossal nerve STIMULATOR PLACEMENT INSPIRE (Bilateral: Neck) Diagnosis: Obstructive sleep apnea (adult) (pediatric) (Obstructive sleep apnea (adult) (pediatric) [G47.33]) Surgeons: Mariela Miranda MD Responsible Provider: JERMAINE Mahmood CRNA Anesthesia Type: general ASA Status: 2 Anesthesia Type: general Vitals Value Taken Time BP 171/98 12/30/22 1322 Temp 97.9 12/30/22 1324 Pulse 77 12/30/22 1324 Resp 15 12/30/22 1324 SpO2 95 % 12/30/22 1324 Vitals shown include unvalidated device data. Anesthesia Post Evaluation Patient location during evaluation: PACU Patient participation: complete - patient participated Level of consciousness: awake and alert Pain score: 0 Pain management: satisfactory to patient Multimodal analgesia pain management approach Airway patency: patent Two or more strategies used to mitigate risk of obstructive sleep apnea Cardiovascular status: acceptable and hemodynamically stable Respiratory status: acceptable Hydration status: acceptable No notable events documented. MIPS #430 PONV Patient received an inhalational anesthetic (4554F) Patient exhibits three or more risk factors for PONV (4556F) Patient received at [facility] 2 prophylactic Rx PONV anti-emtic agents of different classes preop and/or intraop (G9775) MIPS # 424 Perioperative Temperature Management Anesthesia time was 60 minutes or longer (4255F) Anesthesai administered was General (inhalational or TIVA) or Neuraxial block (X0424) At least one body temperature greater than 95.8F/35.5C achieved within the 30 mins immediately prior to or the 15 minutes immediately following anesthesia end time (G9771) MIPS #477 Multimodal Pain Management Not emergent case Patient was administered multimodal pain management (two or more drugs and/or interventions excluding systemic opioids) in the periopeartive period occurring at some time between 6 hours prior to anesthesia start time until discharged from PACU (G2148) MIPS #404 Anesthesiology Smoking Abstinence The patient is a current smoker (G9642) (e.g. cigarette, cigar, pipe, e-cigarette/vaping/marijuana) The patient underwent an elective surgery or procedure requiring anesthesia (G9643) The patient received preop smoking cessation instructions prior to the day of surgery or procedure by MD, APC nut dehydrator operator proxy staff (G9497) The patient did not smoke the day of the procedure (G9644) The patient did not smoked the day of the procedure (X0404) I completed my handoff to the receiving clinician during which we: 1. Identified the patient 2. Identified the responsible provider 3. Reviewed the pertinent medical history 4. Discussed the surgical course 5. Reviewed intra-op anesthesia management and issues during anesthesia 6. Set expectations for post-procedure period 7. Allowed opportunity for questions and acknowledgement of understanding. [facility] 12-30-2022 Miscellaneous Notes Patient and family verbalized understanding of information. All questions were answered before discharge. Patient ambulated, denies dizziness or nausea. Tolerating PO fluids and crackers. Vital signs are stable. Patient has changed and is being discharged home in a wheelchair with valuables. Discharge instructions reviewed with the patient and the fiance, patient to follow up with md after discharge. No further questions. Fiance called to the room Fiance updated Date: 12/30/2022 Location: [facility] OR Name: Gualberto Sharp, : 1960, Diagnosis Pre-op Diagnosis * Obstructive sleep apnea (adult) (pediatric) [G47.33] Post-op Diagnosis * Obstructive sleep apnea (adult) (pediatric) [G47.33] Procedures Hypoglossal nerve STIMULATOR PLACEMENT INSPIRE 32202 - CT OPEN IMPLTJ HPGLSL NRV NSTIM RA PG&RESPIR SENSOR Surgeons * Mariela Miranda - Primary Procedure Summary Anesthesia: General ASA: II Estimated Blood Loss: Minimal Drains: * None in log * Implants Type Name Action Serial No. Surgical Vessel Loop LOOP VESSEL MAXI RADIOPAQ BLUE - [id number] Used, Not Implanted Surgical Vessel Loop LOOP VESSEL MINI RADIOPAQ BLUE - [id number] Used, Not Implanted Implant LEAD SENSING RESP INSPIRE - [id number] - [id number] Implanted [id number] Neuro Interventional Implant LEAD STIM INSPIRE - [id number] - [id number] Implanted [id number] Neuro Interventional Implant GENERATOR PULSE INSPIRE - [id number] - [id number] Implanted [id number] Staff: Chief Of Safety And Protection: Jeffrey Bird RN Relief Chief Of Safety And Protection: Carlos Jones RN Relief Scrub: Tasneem Escobedo Scrub Person: Kateryna Freeman RN [place] to Circ: Lolis Monroy RN Findings: inspire implant placed successfully Complications: None; patient tolerated the procedure well. Specimens Collected: Order Name Source Comment Collection Info Order Time HEMOGLOBIN AND HEMATOCRIT, BLOOD Blood, Venous Collected By: Tara Tavera RN 12/30/2022 9:02 AM Wound Class: Class II: Clean-Contaminated Blood Products: None Prophylactic Antibiotics: Procedure appropriate prophylactic antibiotic(s) given within 1 hour of surgical incision (two hours if receiving Vancomycin or flouroquinolone) Procedure in Detail: Patient was seen and evaluated in the pre-operative area. Informed consent was obtained after discussing the risks, benefits and indications for the procedure. The patient was taken back to the operating room by the anesthesia team. General anesthesia was induced and patient was orotracheally intubated. Appropriate timeout was performed. Table was turned 180 degrees and patient appropriately positioned. Patient was prepped and draped in the usual fashion. A shoulder roll was placed and the patient was prepped and draped in usual sterile fashion with the head turned to the left. Prior to prepping and draping, electrodes were placed in the genioglossus and styloglossus muscle and connected to the NIM box for intraoperative nerve monitoring. A modified sub-mandibular incision was made in the right upper neck approximately 2 cm below the mandible in the natural skin crease. Dissection was carried down through the subcutaneous tissue and platysma. The inferior border of the submandibular gland was identified as well as the digastric tendon. The submandibular gland and the overlying fascia with the marginal mandibular nerve were retracted superiorly. The digastric was retracted inferiorly. Dissection was carried down into the digastric triangle where the hypoglossal nerve was identified in its usual fashion. The mylohyoid muscle was retracted anteriorly, and the hypoglossal nerve was dissected up towards the floor of the mouth. The lateral branches to retrusor muscles were identified, and tested intra-operatively using the NIM stimulator. The cuff electrode for the hypoglossal nerve stimulator was placed distally to these branches on the medial nerve branch to the genioglossus muscle. The stimulation electrode was then looped under and secured to the digastric tendon on its lateral surface with the provided anchor. Extra lead length was tucked deep to the SMG. A second 5 cm incision was made in the right upper chest approximately 5 cm below the clavicle and 3 cm lateral to the sternum. Dissection was carried down through skin and subcutaneous tissue to the pectoralis muscle. An inferior pocket was created deep to the subcutaneous layer and superficial to the pectoralis muscle. 2 2-0 silk sutures were placed superiorly overlying the 2nd rib approximately 3 cm apart for later use to secure the IPG. Dissection was then performed bluntly through the pectoralis major muscle to the fat overlying the external intercostal muscles. The fat was swept off until we were able to visualize the external intercostals and the internal intercostals medially. Careful blunt dissection through the externals ~5 mm posterior to the anterior edge of the external intercostal was performed until the fiber change was seen. The sense lead was then held in the grasping zone and advanced between the external and internals. A 2-0 silk was sutured into the anterior aspect of the externals and tied to the groove around the anchor. 2 2-0 silk sutures were then used to suture the wings of the anchor to the surrounding tissue. The pectoralis major muscle was then gently released covering the sense lead and first anchor. The second anchor was then sutured to the fascia overlying the pectoralis major. We then tunneled the stimulation lead from the neck into the chest. Blunt dissection was first performed in a subplatysmal plane from the neck down to the level of the clavicle. The stimulation lead was then tunneled in a subplatysmal plane and brought out into the chest incision above the clavicle. Both the sense lead and the stimulation lead were carefully cleaned with a clean wet and dry sponge. The IPG was removed from its packaging and the sense lead and stimulation lead were each inserted separately into the IPG and secured into place and noted to be secure. Examination of the lead showed that it was in proper position past the second block. The excess lead was then carefully gathered together and placed deep to the IPG and the IPG was placed into the pocket above the pec fascia inferior to the incision. At least 4 cm of extra slack was left within the neck to allow for movement. The IPG was gently sutured into place with the previous silk stitches using air knots. Diagnostic evaluation confirmed activation of the genioglossus nerve, resulting in genioglossal activation and tongue protrusion, confirmed visually. This was first stimulated at 1.5 mA and then decreased until 0.5 with good tongue protrusion at each step. Assessment of the sense lead showed excellent waveforms with respiration. The wounds were then closed in layers with deep 3-0 vicryl sutures and a 4-0 running subcuticular monocryl for the skin. Mastasol was applied followed by steri strips. This concluded the procedure and the patient was turned over to anesthesia for wake up. Patient was extubated and sent to the PACU in stable condition having tolerated the procedure well. All counts were correct at the end of case. A postop CXR was obtained in PACU noting no pneumothorax. Date: 12/30/2022 Location: [facility] OR Name: Gualberto Sharp, : 1960, Diagnosis Pre-op Diagnosis * Obstructive sleep apnea (adult) (pediatric) [G47.33] Post-op Diagnosis * Obstructive sleep apnea (adult) (pediatric) [G47.33] Procedures Hypoglossal nerve STIMULATOR PLACEMENT INSPIRE 74349 - CT OPEN IMPLTJ HPGLSL NRV NSTIM RA PG&RESPIR SENSOR Surgeons * Mariela Miranda - Primary Procedure Summary Anesthesia: General ASA: II Estimated Blood Loss: Minimal Drains: * None in log * Implants Type Name Action Serial No. Surgical Vessel Loop LOOP VESSEL MAXI RADIOPAQ BLUE - [id number] Used, Not Implanted Surgical Vessel Loop LOOP VESSEL MINI RADIOPAQ BLUE - [id number] Used, Not Implanted Implant LEAD SENSING RESP INSPIRE - [id number] - [id number] Implanted [id number] Neuro Interventional Implant LEAD STIM INSPIRE - [id number] - [id number] Implanted [id number] Neuro Interventional Implant GENERATOR PULSE INSPIRE - [id number] - [id number] Implanted [id number] Staff: Chief Of Safety And Protection: Jeffrey Bird RN Relief Chief Of Safety And Protection: Carlos Jones RN Relief Scrub: Tasneem Escobedo Scrub Person: Kateryna Freeman RN [place] to Circ: Lolis Monroy RN Findings: inspire implant placed successfully Complications: None; patient tolerated the procedure well. Specimens Collected: Order Name Source Comment Collection Info Order Time HEMOGLOBIN AND HEMATOCRIT, BLOOD Blood, Venous Collected By: Tara Tavera RN 12/30/2022 9:02 AM Wound Class: Class II: Clean-Contaminated Blood Products: None Prophylactic Antibiotics: Procedure appropriate prophylactic antibiotic(s) given within 1 hour of surgical incision (two hours if receiving Vancomycin or flouroquinolone) PRE-PROCEDURE ROUNDING COMPLETE. documented in this encounter [facility] 12-30-2022 Note Formatting of this n ote might be different from the original. Patient and family verbalized understanding of information. All questions were answered before discharge. Patient ambulated, denies dizziness or nausea. Tolerating PO fluids and crackers. Vital signs are stable. Patient has changed and is being discharged home in a wheelchair with valuables. [facility] 12-30-2022 Note Formatting of this n ote might be different from the original. Patient and family verbalized understanding of information. All questions were answered before discharge. Patient ambulated, denies dizziness or nausea. Tolerating PO fluids and crackers. Vital signs are stable. Patient has changed and is being discharged home in a wheelchair with valuables. [facility] 12-30-2022 Note Formatting of this n ote might be different from the original. Discharge instructions reviewed with the patient and the fiance, patient to follow up with md after discharge. No further questions. [facility] 12-30-2022 Note Formatting of this n ote might be different from the original. Discharge instructions reviewed with the patient and the fiance, patient to follow up with md after discharge. No further questions. [facility] 12-30-2022 Note Formatting of this n ote might be different from the original. Fiance called to the room [facility] 12-30-2022 Note Formatting of this n ote might be different from the original. Fiance called to the room [facility] 12-30-2022 Note Formatting of this n ote might be different from the original. Fiance updated [facility] 12-30-2022 Note Formatting of this n ote might be different from the original. Fiance updated [facility] 12-30-2022 Note Airway Date/Time: 12/30/2022 11:19 AM Urgency: scheduled Airway not difficult General Information and Staff Patient location during procedure: Procedural Resident/HAMMER SETTER: Taylor Adler APRN - HAMMER SETTER Performed: HAMMER SETTER Indications and Patient Condition Indications for airway management: anesthesia and airway protection Sedation level: Asleep Preoxygenated: yes Patient position: sniffing MILS maintained throughout Mask difficulty assessment: 2 - vent by mask + OA or adjuvant +/- NMBA Final Airway Details Final airway type: endotracheal airway Successful airway: ETT Cuffed: yes Successful intubation technique: direct laryngoscopy Facilitating devices/methods: intubating stylet Endotracheal tube insertion site: oral Blade: Khalif Blade size: #4 ETT size (mm): 8.0 Cormack-Lehane Classification: grade IIa - partial view of glottis Placement verified by: chest auscultation and capnometry Measured from: lips ETT to lips (cm): 22 Number of attempts at approach: 1 [facility] 12-30-2022 Hospital Discharge instructions Mariela Miranda MD - 12/30/2022 1:06 PM EDT [facility] [place] INSPIRE / Hypoglossal Nerve Stimulator Post-Operative Instructions What to expect for your procedure: Implantation procedure: The procedure to implant Inspire is typically an outpatient procedure lasting about 3 hours. For some special circumstances, your physician may recommend a single night stay in the hospital. Pain after the procedure varies but for most patients is not severe. Pain will usually resolve within 7-14 days after the procedure and pain medication will be provided along with a prescription for antibiotic and sometimes a steroid to help reduce swelling if the physicians deems appropriate. (This is not required- up to physician discretion) Two incisions will be made: one at the upper neck and one just below the collarbone. All wounds will have Steri strips placed over them which can be left in place until you are seen for your first postoperative appointment. Additionally, pressure dressings will be placed on the chest incision and should be left place for 48 hours after the procedure after which they may be removed (leaving the Steri strips in place). You may shower after the pressure dressings are removed. An arm sling may be placed at the time of surgery. This is to provide comfort and limit arm movement. You may remove the sling 24 hours after surgery but may continue to use it if it is more comfortable to do so. Swelling at incision sites is expected and will typically improve over the first 2 weeks. Most patients can expect some swelling under the jaw that will give the appearance of a double chin. This will improve over 2-4 weeks. For the first week after surgery please do not perform any strenuous activity or heavy lifting. Your physician also asks that you do not lift the right arm above your shoulder for 1 month after surgery. You may resume a normal diet after surgery. Please call the office if you have any of the following symptoms: fever higher than 100.5, excessive swelling at any of the incision sites, bleeding from incisions, slurred speech, difficulty swallowing, or shortness of breath. A physician can be reached at all times at the main office number. A postoperative appointment should be made for 1 week following the procedure. If one has not been previously scheduled, please call the office to arrange. It is important to know that the stimulator device will NOT be active in the immediate postoperative period. Therefore, no sensations of stimulation should be expected. 2 What to expect in the time period after the procedure: Week 1: At the first postoperative visit, sutures that were placed will be removed and incisions will be checked by the physician. Please note that the device will still remain inactive. Between Weeks 4-6: Patient Remote At the 1-month visit post-surgery, you will come to the sleep medicine office for activation of the device. You will need no special preparation but please wear a shirt/blouse that can be unbuttoned so that the physician can check all incisions and access the implant. Your physician will use a ict programmer to check the device for proper function and turn it on for you to begin using it. The process of activation is not painful and typically takes less than hour. At this visit you will be given a remote control and given instructions on how to use it. A range of therapy will be programmed for you to start at a low level of stimulation and gradually increase it over the next several weeks. Usually, it is advisable to increase the stimulation every 3 days. If you find that the stimulation level is too high, you may decrease the setting to one that is more comfortable and then try to increase again after several days. A manual for details about the remote will be provided. 3 Once activated, you should begin using the device every time you go to sleep (including naps). When you turn the device on, you should expect an initial pulse of tongue motion to let you know that the device is working. The device will then delay any further stimulation for hour; allowing you to fall asleep without feeling any sensations. Your physician can modify this delay period at any time if you require more or less time to fall asleep. There is also a pause feature that allows the device to be temporarily shut off for 15 minutes. This can be used if you need to get up in the middle of the night. Between weeks 4-12 You will receive several check-in calls from the office to check on your acclimation to Insp[facility]. They will assist with any questions you may have as well as helping to assure that you are utilizing the therapy All Night, Every Night, as well as increasing the amplitude as appropriate. If you have any questions or feedback, do not hesitate to call the office at any time. Between Weeks 12-18: 2-3 months post activation, you will return to the sleep center for a sleep study and additional programming of the device. This will consist of a routine sleep study (without a CPAP mask) where the device will be set to a level to optimize control of your sleep apnea. A limited range of stimulation will be programmed to allow you to adjust your device to your comfort. You should continue to use the device every time you sleep. A visit will be set up with your physician shortly after this study to go over the results, to follow up on how you are doing, and make any necessary adjustments. Please note that at any time, your physician can reprogram the device for your comfort. Subsequent visits: Your physician will want to see you periodically. In the first year, there will be several visits scheduled to check in on how you are doing with your Inspire treatment. At each visit, the device will be checked to see how often you are using your device and to trouble shoot any problems. If you have any technical problems, you may also call [facility] at any time [phone] Option #3 The battery life on the Inspire device is roughly 10 years. When the battery is low, there will be indicators on your remote to let you know to come in to see your physician. The battery change will require a minor procedure, which can be performed under local anesthesia (or sedation). The battery on the remote control is a 9-volt standard battery. Please make sure to use a high quality non-rechargeable battery. Because of changes in sleep and changes in weight that may occur over time, adjustments may need to be made periodically. If you experience changes in how the device seems to be functioning for you should call your physician and potentially arrange a follow up appointment. If at any time you have any concerns or questions, please call your physician. Timeline Overview: Initial evaluation: Office assessment of sleep apnea. Drug induced sleep endoscopy: Diagnostic procedure to identify the mechanism and sites of airway collapse. This is a critical component to the evaluation, to determine candidacy for Inspire. Implantation: Surgical procedure to place the implant. First postop visit (1-week post implantation): First visit in the office after implantation to check incisions and recovery. THIS VISIT WILL BE IN THE ENT OFFICE. Activation (1 month post implantation): Office visit to turn device on and assess for proper function. THIS VISIT WILL BE SCHEDULED at the Sleep Medicine office Sleep study with device adjustment (2-3 months post implantation): Routine sleep study at which time the device will be adjusted to identify the best settings to control the sleep apnea. THIS OVERNIGHT VISIT WILL BE IN THE SLEEP LAB. Routine follow up visits: visits to monitor status of sleep apnea, sleep quality and assess for device function and use. Throughout the process the [facility] Reimbursement team will be working on the Insurance approvals needed for your procedure. If at anytime you have a question specific to the status of the submission, please call the prior authorization team at: If there are any issues at any time, either send Dr. Miranda a message at mychart or call the office at [phone] during business hours. If after hours and there is concern, go to the emergency room. documented in this encounter [facility] 12-30-2022 Note H&P reviewed. The brooks puentes was examined and there are no changes to the H&P. [facility] 12-30-2022 Note PRE-PROCEDURE ROUNDING COMPLETE. [facility] 12-30-2022 Note Formatting of this n ote is different from the original. Date: 12/30/2022 Location: [facility] OR Name: Gualberto Sharp, : 1960, Diagnosis Pre-op Diagnosis * Obstructive sleep apnea (adult) (pediatric) [G47.33] Post-op Diagnosis * Obstructive sleep apnea (adult) (pediatric) [G47.33] Procedures Hypoglossal nerve STIMULATOR PLACEMENT INSPIRE [id number] - CT OPEN IMPLTJ HPGLSL NRV NSTIM RA PG&RESPIR SENSOR Surgeons * Mariela Miranda - Primary Procedure Summary Anesthesia: General ASA: II Estimated Blood Loss: Minimal Drains: * None in log * Implants Type Name Action Serial No. Surgical Vessel Loop LOOP VESSEL MAXI RADIOPAQ BLUE - [id number] Used, Not Implanted Surgical Vessel Loop LOOP VESSEL MINI RADIOPAQ BLUE - [id number] Used, Not Implanted Implant LEAD SENSING RESP INSPIRE - [id number] - [id number] Implanted [id number] Neuro Interventional Implant LEAD STIM INSPIRE - [id number] - [id number] Implanted [id number] Neuro Interventional Implant GENERATOR PULSE INSPIRE - [id number] - [id number] Implanted [id number] Staff: Chief Of Safety And Protection: Jeffrey Bird RN Relief Chief Of Safety And Protection: Carlos Jones RN Relief Scrub: Tasneem Escobedo Scrub Person: Kateryna Freeman RN [place] to Circ: Lolis Monroy RN Findings: inspire implant placed successfully Complications: None; patient tolerated the procedure well. Specimens Collected: Order Name Source Comment Collection Info Order Time HEMOGLOBIN AND HEMATOCRIT, BLOOD Blood, Venous Collected By: Tara Tavera RN 12/30/2022 9:02 AM Wound Class: Class II: Clean-Contaminated Blood Products: None Prophylactic Antibiotics: Procedure appropriate prophylactic antibiotic(s) given within 1 hour of surgical incision (two hours if receiving Vancomycin or flouroquinolone) Procedure in Detail: Patient was seen and evaluated in the pre-operative area. Informed consent was obtained after discussing the risks, benefits and indications for the procedure. The patient was taken back to the operating room by the anesthesia team. General anesthesia was induced and patient was orotracheally intubated. Appropriate timeout was performed. Table was turned 180 degrees and patient appropriately positioned. Patient was prepped and draped in the usual fashion. A shoulder roll was placed and the patient was prepped and draped in usual sterile fashion with the head turned to the left. Prior to prepping and draping, electrodes were placed in the genioglossus and styloglossus muscle and connected to the NIM box for intraoperative nerve monitoring. A modified sub-mandibular incision was made in the right upper neck approximately 2 cm below the mandible in the natural skin crease. Dissection was carried down through the subcutaneous tissue and platysma. The inferior border of the submandibular gland was identified as well as the digastric tendon. The submandibular gland and the overlying fascia with the marginal mandibular nerve were retracted superiorly. The digastric was retracted inferiorly. Dissection was carried down into the digastric triangle where the hypoglossal nerve was identified in its usual fashion. The mylohyoid muscle was retracted anteriorly, and the hypoglossal nerve was dissected up towards the floor of the mouth. The lateral branches to retrusor muscles were identified, and tested intra-operatively using the NIM stimulator. The cuff electrode for the hypoglossal nerve stimulator was placed distally to these branches on the medial nerve branch to the genioglossus muscle. The stimulation electrode was then looped under and secured to the digastric tendon on its lateral surface with the provided anchor. Extra lead length was tucked deep to the SMG. A second 5 cm incision was made in the right upper chest approximately 5 cm below the clavicle and 3 cm lateral to the sternum. Dissection was carried down through skin and subcutaneous tissue to the pectoralis muscle. An inferior pocket was created deep to the subcutaneous layer and superficial to the pectoralis muscle. 2 2-0 silk sutures were placed superiorly overlying the 2nd rib approximately 3 cm apart for later use to secure the IPG. Dissection was then performed bluntly through the pectoralis major muscle to the fat overlying the external intercostal muscles. The fat was swept off until we were able to visualize the external intercostals and the internal intercostals medially. Careful blunt dissection through the externals ~5 mm posterior to the anterior edge of the external intercostal was performed until the fiber change was seen. The sense lead was then held in the grasping zone and advanced between the external and internals. A 2-0 silk was sutured into the anterior aspect of the externals and tied to the groove around the anchor. 2 2-0 silk sutures were then used to suture the wings of the anchor to the surrounding tissue. The pectoralis major muscle was then gently released covering the sense lead and first anchor. The second anchor was then sutured to the fascia overlying the pectoralis major. We then tunneled the stimulation lead from the neck into the chest. Blunt dissection was first performed in a subplatysmal plane from the neck down to the level of the clavicle. The stimulation lead was then tunneled in a subplatysmal plane and brought out into the chest incision above the clavicle. Both the sense lead and the stimulation lead were carefully cleaned with a clean wet and dry sponge. The IPG was removed from its packaging and the sense lead and stimulation lead were each inserted separately into the IPG and secured into place and noted to be secure. Examination of the lead showed that it was in proper position past the second block. The excess lead was then carefully gathered together and placed deep to the IPG and the IPG was placed into the pocket above the pec fascia inferior to the incision. At least 4 cm of extra slack was left within the neck to allow for movement. The IPG was gently sutured into place with the previous silk stitches using air knots. Diagnostic evaluation confirmed activation of the genioglossus nerve, resulting in genioglossal activation and tongue protrusion, confirmed visually. This was first stimulated at 1.5 mA and then decreased until 0.5 with good tongue protrusion at each step. Assessment of the sense lead showed excellent waveforms with respiration. The wounds were then closed in layers with deep 3-0 vicryl sutures and a 4-0 running subcuticular monocryl for the skin. Mastasol was applied followed by steri strips. This concluded the procedure and the patient was turned over to anesthesia for wake up. Patient was extubated and sent to the PACU in stable condition having tolerated the procedure well. All counts were correct at the end of case. A postop CXR was obtained in PACU noting no pneumothorax. [facility] 12-30-2022 Note Formatting of this n ote is different from the original. Date: 12/30/2022 Location: [facility] OR Name: Gualberto Sharp, : 1960, Diagnosis Pre-op Diagnosis * Obstructive sleep apnea (adult) (pediatric) [G47.33] Post-op Diagnosis * Obstructive sleep apnea (adult) (pediatric) [G47.33] Procedures Hypoglossal nerve STIMULATOR PLACEMENT INSPIRE [id number] - CT OPEN IMPLTJ HPGLSL NRV NSTIM RA PG&RESPIR SENSOR Surgeons * Mariela Miranda - Primary Procedure Summary Anesthesia: General ASA: II Estimated Blood Loss: Minimal Drains: * None in log * Implants Type Name Action Serial No. Surgical Vessel Loop LOOP VESSEL MAXI RADIOPAQ BLUE - [id number] Used, Not Implanted Surgical Vessel Loop LOOP VESSEL MINI RADIOPAQ BLUE - [id number] Used, Not Implanted Implant LEAD SENSING RESP INSPIRE - [id number] - [id number] Implanted [id number] Neuro Interventional Implant LEAD STIM INSPIRE - [id number] - [id number] Implanted [id number] Neuro Interventional Implant GENERATOR PULSE INSPIRE - [id number] - [id number] Implanted [id number] Staff: Chief Of Safety And Protection: Jeffrey Bird RN Relief Chief Of Safety And Protection: Carlos Jones RN Relief Scrub: Tasneem Escobedo Scrub Person: Kateryna Freeman RN [place] to Circ: Lolis Monroy RN Findings: inspire implant placed successfully Complications: None; patient tolerated the procedure well. Specimens Collected: Order Name Source Comment Collection Info Order Time HEMOGLOBIN AND HEMATOCRIT, BLOOD Blood, Venous Collected By: Tara Tavera RN 12/30/2022 9:02 AM Wound Class: Class II: Clean-Contaminated Blood Products: None Prophylactic Antibiotics: Procedure appropriate prophylactic antibiotic(s) given within 1 hour of surgical incision (two hours if receiving Vancomycin or flouroquinolone) [facility] 12-30-2022 Note Formatting of this n ote is different from the original. Date: 12/30/2022 Location: [facility] OR Name: Gualberto Sharp, : 1960, Diagnosis Pre-op Diagnosis * Obstructive sleep apnea (adult) (pediatric) [G47.33] Post-op Diagnosis * Obstructive sleep apnea (adult) (pediatric) [G47.33] Procedures Hypoglossal nerve STIMULATOR PLACEMENT INSPIRE 79504 - CT OPEN IMPLTJ HPGLSL NRV NSTIM RA PG&RESPIR SENSOR Surgeons * Mariela Miranda - Primary Procedure Summary Anesthesia: General ASA: II Estimated Blood Loss: Minimal Drains: * None in log * Implants Type Name Action Serial No. Surgical Vessel Loop LOOP VESSEL MAXI RADIOPAQ BLUE - [id number] Used, Not Implanted Surgical Vessel Loop LOOP VESSEL MINI RADIOPAQ BLUE - [id number] Used, Not Implanted Implant LEAD SENSING RESP INSPIRE - [id number] - [id number] Implanted [id number] Neuro Interventional Implant LEAD STIM INSPIRE - [id number] - [id number] Implanted [id number] Neuro Interventional Implant GENERATOR PULSE INSPIRE - [id number] - [id number] Implanted [id number] Staff: Chief Of Safety And Protection: Jeffrey Bird RN Relief Chief Of Safety And Protection: Carlos Jones RN Relief Scrub: Tasneem Escobedo Scrub Person: Kateryna Freeman RN [place] to Circ: Lolis Monroy RN Findings: inspire implant placed successfully Complications: None; patient tolerated the procedure well. Specimens Collected: Order Name Source Comment Collection Info Order Time HEMOGLOBIN AND HEMATOCRIT, BLOOD Blood, Venous Collected By: Tara Tavera RN 12/30/2022 9:02 AM Wound Class: Class II: Clean-Contaminated Blood Products: None Prophylactic Antibiotics: Procedure appropriate prophylactic antibiotic(s) given within 1 hour of surgical incision (two hours if receiving Vancomycin or flouroquinolone) Procedure in Detail: Patient was seen and evaluated in the pre-operative area. Informed consent was obtained after discussing the risks, benefits and indications for the procedure. The patient was taken back to the operating room by the anesthesia team. General anesthesia was induced and patient was orotracheally intubated. Appropriate timeout was performed. Table was turned 180 degrees and patient appropriately positioned. Patient was prepped and draped in the usual fashion. A shoulder roll was placed and the patient was prepped and draped in usual sterile fashion with the head turned to the left. Prior to prepping and draping, electrodes were placed in the genioglossus and styloglossus muscle and connected to the NIM box for intraoperative nerve monitoring. A modified sub-mandibular incision was made in the right upper neck approximately 2 cm below the mandible in the natural skin crease. Dissection was carried down through the subcutaneous tissue and platysma. The inferior border of the submandibular gland was identified as well as the digastric tendon. The submandibular gland and the overlying fascia with the marginal mandibular nerve were retracted superiorly. The digastric was retracted inferiorly. Dissection was carried down into the digastric triangle where the hypoglossal nerve was identified in its usual fashion. The mylohyoid muscle was retracted anteriorly, and the hypoglossal nerve was dissected up towards the floor of the mouth. The lateral branches to retrusor muscles were identified, and tested intra-operatively using the NIM stimulator. The cuff electrode for the hypoglossal nerve stimulator was placed distally to these branches on the medial nerve branch to the genioglossus muscle. The stimulation electrode was then looped under and secured to the digastric tendon on its lateral surface with the provided anchor. Extra lead length was tucked deep to the SMG. A second 5 cm incision was made in the right upper chest approximately 5 cm below the clavicle and 3 cm lateral to the sternum. Dissection was carried down through skin and subcutaneous tissue to the pectoralis muscle. An inferior pocket was created deep to the subcutaneous layer and superficial to the pectoralis muscle. 2 2-0 silk sutures were placed superiorly overlying the 2nd rib approximately 3 cm apart for later use to secure the IPG. Dissection was then performed bluntly through the pectoralis major muscle to the fat overlying the external intercostal muscles. The fat was swept off until we were able to visualize the external intercostals and the internal intercostals medially. Careful blunt dissection through the externals ~5 mm posterior to the anterior edge of the external intercostal was performed until the fiber change was seen. The sense lead was then held in the grasping zone and advanced between the external and internals. A 2-0 silk was sutured into the anterior aspect of the externals and tied to the groove around the anchor. 2 2-0 silk sutures were then used to suture the wings of the anchor to the surrounding tissue. The pectoralis major muscle was then gently released covering the sense lead and first anchor. The second anchor was then sutured to the fascia overlying the pectoralis major. We then tunneled the stimulation lead from the neck into the chest. Blunt dissection was first performed in a subplatysmal plane from the neck down to the level of the clavicle. The stimulation lead was then tunneled in a subplatysmal plane and brought out into the chest incision above the clavicle. Both the sense lead and the stimulation lead were carefully cleaned with a clean wet and dry sponge. The IPG was removed from its packaging and the sense lead and stimulation lead were each inserted separately into the IPG and secured into place and noted to be secure. Examination of the lead showed that it was in proper position past the second block. The excess lead was then carefully gathered together and placed deep to the IPG and the IPG was placed into the pocket above the pec fascia inferior to the incision. At least 4 cm of extra slack was left within the neck to allow for movement. The IPG was gently sutured into place with the previous silk stitches using air knots. Diagnostic evaluation confirmed activation of the genioglossus nerve, resulting in genioglossal activation and tongue protrusion, confirmed visually. This was first stimulated at 1.5 mA and then decreased until 0.5 with good tongue protrusion at each step. Assessment of the sense lead showed excellent waveforms with respiration. The wounds were then closed in layers with deep 3-0 vicryl sutures and a 4-0 running subcuticular monocryl for the skin. Mastasol was applied followed by steri strips. This concluded the procedure and the patient was turned over to anesthesia for wake up. Patient was extubated and sent to the PACU in stable condition having tolerated the procedure well. All counts were correct at the end of case. A postop CXR was obtained in PACU noting no pneumothorax. [facility] 12-30-2022 Note Formatting of this n ote is different from the original. Date: 12/30/2022 Location: [facility] OR Name: Gualberto Sharp, : 1960, Diagnosis Pre-op Diagnosis * Obstructive sleep apnea (adult) (pediatric) [G47.33] Post-op Diagnosis * Obstructive sleep apnea (adult) (pediatric) [G47.33] Procedures Hypoglossal nerve STIMULATOR PLACEMENT INSPIRE 10390 - CT OPEN IMPLTJ HPGLSL NRV NSTIM RA PG&RESPIR SENSOR Surgeons * Mariela Miranda - Primary Procedure Summary Anesthesia: General ASA: II Estimated Blood Loss: Minimal Drains: * None in log * Implants Type Name Action Serial No. Surgical Vessel Loop LOOP VESSEL MAXI RADIOPAQ BLUE - [id number] Used, Not Implanted Surgical Vessel Loop LOOP VESSEL MINI RADIOPAQ BLUE - [id number] Used, Not Implanted Implant LEAD SENSING RESP INSPIRE - [id number] - [id number] Implanted [id number] Neuro Interventional Implant LEAD STIM INSPIRE - [id number] - [id number] Implanted [id number] Neuro Interventional Implant GENERATOR PULSE INSPIRE - [id number] - [id number] Implanted [id number] Staff: Chief Of Safety And Protection: Jeffrey Bird RN Relief Chief Of Safety And Protection: Carlos Jones RN Relief Scrub: Tasneem Escobedo Scrub Person: Kateryna Freeman RN [place] to Circ: Lolis Monroy RN Findings: inspire implant placed successfully Complications: None; patient tolerated the procedure well. Specimens Collected: Order Name Source Comment Collection Info Order Time HEMOGLOBIN AND HEMATOCRIT, BLOOD Blood, Venous Collected By: Tara Tavera RN 12/30/2022 9:02 AM Wound Class: Class II: Clean-Contaminated Blood Products: None Prophylactic Antibiotics: Procedure appropriate prophylactic antibiotic(s) given within 1 hour of surgical incision (two hours if receiving Vancomycin or flouroquinolone) [facility] 12-30-2022 Attending History and physical note H&P reviewed. The patient was examined and there are no changes to the H&P. Source Note - Jennifer Monge, JERMAINE - CEMENT OR CONCRETE FINISHING SUPERVISOR - 12/23/2022 10:00 AM EDT Comprehensive PreSurgical History and Physical Name: Gualberto Sharp : 1960 (Age-62 y.o.) Date of Service: Pt seen/examined on 12/23/2022 ASSESSMENT/PLAN: Patient is considered low risk for this low risk procedure/surgery 1) Obstructive sleep apnea (adult) (pediatric) [G47.33]: deferred to surgeon; no workup per PAT protocol 2) Tobacco abuse: instructed to not smoke DOS, verbalizes understanding Chief Complaint: Sleep apnea History Of Present Illness: 62 y.o. male who we are asked to see/evaluate for pre-operative evaluation prior to Hypoglossal nerve STIMULATOR PLACEMENT INSPIRE (Bilateral: Neck) [48413 CPT(R)] - 120 MINS Has sleep apnea, proceeding with above procedure. Denies pain, f/c, cp, sob, n/v/d Delayed emergence >4 mets Past Medical History: Past Medical History: No date: Cancer (CMS/HCC) (HCC) Comment: melanoma on back No date: Delayed emergence from general anesthesia No date: Sleep apnea Comment: uses cpap Past Surgical History: Past Surgical History: No date: JOINT REPLACEMENT No date: KNEE ARTHROPLASTY; Bilateral No date: SKIN CANCER EXCISION Comment: melanoma of back No date: UMBILICAL HERNIA REPAIR Medications Prior to Admission: Prior to Admission medications Medication Sig Start Date End Date Taking? Authorizing Provider cetirizine (ZyrTEC) 10 MG chewable tablet Chew daily. Yes Historical Provider, modafinil (Provigil) 200 MG tablet Take 400 mg by mouth daily. 11/17/22 Yes Historical Provider, Multiple Vitamins-Minerals (multivitamin with minerals) tablet Take 1 tablet by mouth daily. Yes Historical Provider, ANTICOAGULATION: No CHRONIC STEROID USE: No CHRONIC NARCOTIC USE: No Allergies: Seasonal ic [cholestatin] Can pt take Acetaminophen: Yes Social History: TOBACCO: reports that he has been smoking cigarettes. He has a 10.00 pack-year smoking history. He has never used smokeless tobacco. ETOH: reports current alcohol use of about 2.0 standard drinks per week. Social History Substance and Sexual Activity Drug Use Never Family History: No family history on file. REVIEW OF SYSTEMS: Pertinent positives as noted in the HPI. All other systems reviewed and negative. PHYSICAL EXAM: Vitals: BP (!) 148/86 Pulse 67 Temp 36.4 C (97.6 F) (Temporal) Resp 20 Ht 1.803 m (5' 11 ) Wt 123 kg (271 lb 9.6 oz) SpO2 97% BMI 37.88 kg/m BMI Classification: Obese (BMI 30.0-39.9) General appearance: No apparent distress, appears stated age and cooperative. HEENT: Normal cephalic, atraumatic without obvious deformity. Pupils equal, round, and reactive to light. Extra ocular muscles intact. Conjunctivae/corneas clear. Neck: No jugular venous distention. Trachea midline. Respiratory: Normal respiratory effort. Clear to auscultation, bilaterally without Rales/Wheezes/Rhonchi. Cardiovascular: Regular rate and rhythm with normal S1/S2 without murmurs, rubs or gallops. Abdomen: Soft, non-tender, non-distended with normal bowel sounds. Musculoskeletal: No clubbing, cyanosis or edema bilaterally. Full ROM of all extremities. Skin: Skin color, texture, turgor normal. No rashes or lesions. Neurologic: Neurovascularly intact without any focal sensory/motor deficits. Cranial nerves: II-XII intact, grossly non-focal. Psychiatric: Alert and oriented, thought content appropriate, normal insight Labs: No results found for: WBC, HGB, HCT, MCV, PLT No results found for: NA, K, CL, CO2, BUN, CREATININE, GLUCOSE, CALCIUM, PROT, BILITOT, ALKPHOS, AST, ALT, LABGLOM, AGRATIO, GLOB EKG: I have reviewed the EKG if indicated and there is no concern for ischemic changes or significant heart block. ECHO and EF:None on file Rodríguez's Simple Cardiac Risk Index: High-risk surgery (intraperitoneal, intrathoracic or suprainguinal vascular surgery): no Coronary artery disease: no Congestive heart failure: no History of cerebrovascular disease: no Insulin treatment for diabetes mellitus: no Preoperative serum creatinine > 2.0mg/dL: no Total: Interpretation: 0 Points Class I 1 Point Class II 2 Points Class III >=3 Points Class IV Labs Ordered: NO - NOT INDICATED FOR THIS PROCEDURE ECG Ordered: NO - NOT INDICATED FOR THIS PROCEDURE Sleep Referral Ordered: NO - ALREADY DIAGNOSED WITH MOHIT AND PATIENT IS NOT COMPLIANT WITH CPAP Electronically signed by: JERMAINE Umaña CNP Date: 12/23/2022 at 11:25 AM PAT Protocol referenced includes: Anesthesia Lab Protocol Orders Perioperative Cardiovascular Risk Assessment Anesthesia Assessment Pain Assessment and Acute Pain Service Consult (if appropriate) Medical Clearance/Consult from Internal Medicine (IMS) Shower/Wash Order (for designated surgeries) MOHIT Screen and Sleep Clinic Referral (if appropriate) [facility] 12-30-2022 History and physical note H&P reviewed. The patient was examined and there are no changes to the H&P. Source Note - JERMAINE Umaña CNP - 12/23/2022 10:00 AM EDT Comprehensive PreSurgical History and Physical Name: Gualberto Sharp : 1960 (Age-62 y.o.) Date of Service: Pt seen/examined on 12/23/2022 ASSESSMENT/PLAN: Patient is considered low risk for this low risk procedure/surgery 1) Obstructive sleep apnea (adult) (pediatric) [G47.33]: deferred to surgeon; no workup per PAT protocol 2) Tobacco abuse: instructed to not smoke DOS, verbalizes understanding Chief Complaint: Sleep apnea History Of Present Illness: 62 y.o. male who we are asked to see/evaluate for pre-operative evaluation prior to Hypoglossal nerve STIMULATOR PLACEMENT INSPIRE (Bilateral: Neck) [48169 CPT(R)] - 120 MINS Has sleep apnea, proceeding with above procedure. Denies pain, f/c, cp, sob, n/v/d Delayed emergence >4 mets Past Medical History: Past Medical History: No date: Cancer (CMS/HCC) (HCC) Comment: melanoma on back No date: Delayed emergence from general anesthesia No date: Sleep apnea Comment: uses cpap Past Surgical History: Past Surgical History: No date: JOINT REPLACEMENT No date: KNEE ARTHROPLASTY; Bilateral No date: SKIN CANCER EXCISION Comment: melanoma of back No date: UMBILICAL HERNIA REPAIR Medications Prior to Admission: Prior to Admission medications Medication Sig Start Date End Date Taking? Authorizing Provider cetirizine (ZyrTEC) 10 MG chewable tablet Chew daily. Yes Historical Provider, modafinil (Provigil) 200 MG tablet Take 400 mg by mouth daily. 11/17/22 Yes Historical Provider, Multiple Vitamins-Minerals (multivitamin with minerals) tablet Take 1 tablet by mouth daily. Yes Historical Provider, ANTICOAGULATION: No CHRONIC STEROID USE: No CHRONIC NARCOTIC USE: No Allergies: Seasonal ic [cholestatin] Can pt take Acetaminophen: Yes Social History: TOBACCO: reports that he has been smoking cigarettes. He has a 10.00 pack-year smoking history. He has never used smokeless tobacco. ETOH: reports current alcohol use of about 2.0 standard drinks per week. Social History Substance and Sexual Activity Drug Use Never Family History: No family history on file. REVIEW OF SYSTEMS: Pertinent positives as noted in the HPI. All other systems reviewed and negative. PHYSICAL EXAM: Vitals: BP (!) 148/86 Pulse 67 Temp 36.4 C (97.6 F) (Temporal) Resp 20 Ht 1.803 m (5' 11 ) Wt 123 kg (271 lb 9.6 oz) SpO2 97% BMI 37.88 kg/m BMI Classification: Obese (BMI 30.0-39.9) General appearance: No apparent distress, appears stated age and cooperative. HEENT: Normal cephalic, atraumatic without obvious deformity. Pupils equal, round, and reactive to light. Extra ocular muscles intact. Conjunctivae/corneas clear. Neck: No jugular venous distention. Trachea midline. Respiratory: Normal respiratory effort. Clear to auscultation, bilaterally without Rales/Wheezes/Rhonchi. Cardiovascular: Regular rate and rhythm with normal S1/S2 without murmurs, rubs or gallops. Abdomen: Soft, non-tender, non-distended with normal bowel sounds. Musculoskeletal: No clubbing, cyanosis or edema bilaterally. Full ROM of all extremities. Skin: Skin color, texture, turgor normal. No rashes or lesions. Neurologic: Neurovascularly intact without any focal sensory/motor deficits. Cranial nerves: II-XII intact, grossly non-focal. Psychiatric: Alert and oriented, thought content appropriate, normal insight Labs: No results found for: WBC, HGB, HCT, MCV, PLT No results found for: NA, K, CL, CO2, BUN, CREATININE, GLUCOSE, CALCIUM, PROT, BILITOT, ALKPHOS, AST, ALT, LABGLOM, AGRATIO, GLOB EKG: I have reviewed the EKG if indicated and there is no concern for ischemic changes or significant heart block. ECHO and EF:None on file Rodríguez's Simple Cardiac Risk Index: High-risk surgery (intraperitoneal, intrathoracic or suprainguinal vascular surgery): no Coronary artery disease: no Congestive heart failure: no History of cerebrovascular disease: no Insulin treatment for diabetes mellitus: no Preoperative serum creatinine > 2.0mg/dL: no Total: Interpretation: 0 Points Class I 1 Point Class II 2 Points Class III >=3 Points Class IV Labs Ordered: NO - NOT INDICATED FOR THIS PROCEDURE ECG Ordered: NO - NOT INDICATED FOR THIS PROCEDURE Sleep Referral Ordered: NO - ALREADY DIAGNOSED WITH MOHIT AND PATIENT IS NOT COMPLIANT WITH CPAP Electronically signed by: Jennifer Monge APRN - CEMENT OR CONCRETE FINISHING SUPERVISOR Date: 12/23/2022 at 11:25 AM PAT Protocol referenced includes: Anesthesia Lab Protocol Orders Perioperative Cardiovascular Risk Assessment Anesthesia Assessment Pain Assessment and Acute Pain Service Consult (if appropriate) Medical Clearance/Consult from Internal Medicine (IMS) Shower/Wash Order (for designated surgeries) MOHIT Screen and Sleep Clinic Referral (if appropriate) documented in this encounter [facility] 12-30-2022 Note Formatting of this n ote might be different from the original. PRE-PROCEDURE ROUNDING COMPLETE. [facility] 12-30-2022 Note Formatting of this n ote might be different from the original. PRE-PROCEDURE ROUNDING COMPLETE. [facility] 12-23-2022 Note Patient: Gualberto Mckeon ich Procedure Information Date/Time: 12/30/22 1300 Procedure: Hypoglossal nerve STIMULATOR PLACEMENT INSPIRE (Bilateral: Neck) - 120 MINS Location: [address] Operating Room Surgeons: Mariela Miranda MD Past Medical History: Past Medical History: No date: Cancer (CMS/HCC) (HCC) Comment: melanoma on back No date: Delayed emergence from general anesthesia No date: Sleep apnea Comment: uses cpap Past Surgical History: Past Surgical History: No date: JOINT REPLACEMENT No date: KNEE ARTHROPLASTY; Bilateral No date: SKIN CANCER EXCISION Comment: melanoma of back No date: UMBILICAL HERNIA REPAIR Social History: TOBACCO: reports that he has been smoking cigarettes. He has a 10.00 pack-year smoking history. He has never used smokeless tobacco. ETOH: reports current alcohol use of about 2.0 standard drinks per week. Social History Substance and Sexual Activity Drug Use Never Family History: No family history on file. Screening: unknown Clinical information reviewed: Tobacco Allergies Meds Surg Hx Fam Hx Physical Exam Airway Mallampati: IV TM distance: >3 FB Neck ROM: full Mouth Open: normalendotracheal tube not in place Cardiovascular Dental dentition normal Pulmonary Abdominal Anesthesia Plan ASA 2 general The patient is a current smoker. Patient was previously instructed to abstain from smoking on day of procedure. Patient did not smoke on day of procedure. Anesthetic plan and risks discussed with patient (walt). patient is NPO Short ERAS Delayed emergence from general anesthesia MOHIT Screening diagnosed, proceeding with above procedure Labs: No results found for: WBC, HGB, HCT, MCV, PLT No results found for: NA, K, CL, CO2, BUN, CREATININE, GLUCOSE, CALCIUM, PROT, BILIRUBINFL, ALKPHOS, AST, ALT, EGFR, GLOB No echocardiogram results found for the past 14 days No results found for this or any previous visit. [facility] 12-23-2022 Note Comprehensive PreSur gical History and Physical Name: Gualberto Sharp : 1960 (Age-62 y.o.) Date of Service: Pt seen/examined on 12/23/2022 ASSESSMENT/PLAN: Patient is considered low risk for this low risk procedure/surgery 1) Obstructive sleep apnea (adult) (pediatric) [G47.33]: deferred to surgeon; no workup per PAT protocol 2) Tobacco abuse: instructed to not smoke DOS, verbalizes understanding Chief Complaint: Sleep apnea History Of Present Illness: 62 y.o. male who we are asked to see/evaluate for pre-operative evaluation prior to Hypoglossal nerve STIMULATOR PLACEMENT INSPDIEGO (Bilateral: Neck) [08944 CPT(R)] - 120 MINS Has sleep apnea, proceeding with above procedure. Denies pain, f/c, cp, sob, n/v/d Delayed emergence >4 mets Past Medical History: Past Medical History: No date: Cancer (CMS/HCC) (HCC) Comment: melanoma on back No date: Delayed emergence from general anesthesia No date: Sleep apnea Comment: uses cpap Past Surgical History: Past Surgical History: No date: JOINT REPLACEMENT No date: KNEE ARTHROPLASTY; Bilateral No date: SKIN CANCER EXCISION Comment: melanoma of back No date: UMBILICAL HERNIA REPAIR Medications Prior to Admission: Prior to Admission medications Medication Sig Start Date End Date Taking? Authorizing Provider cetirizine (ZyrTEC) 10 MG chewable tablet Chew daily. Yes Historical Provider, modafinil (Provigil) 200 MG tablet Take 400 mg by mouth daily. 11/17/22 Yes Historical Provider, Multiple Vitamins-Minerals (multivitamin with minerals) tablet Take 1 tablet by mouth daily. Yes Historical Provider, ANTICOAGULATION: No CHRONIC STEROID USE: No CHRONIC NARCOTIC USE: No Allergies: Seasonal ic [cholestatin] Can pt take Acetaminophen: Yes Social History: TOBACCO: reports that he has been smoking cigarettes. He has a 10.00 pack-year smoking history. He has never used smokeless tobacco. ETOH: reports current alcohol use of about 2.0 standard drinks per week. Social History Substance and Sexual Activity Drug Use Never Family History: No family history on file. REVIEW OF SYSTEMS: Pertinent positives as noted in the HPI. All other systems reviewed and negative. PHYSICAL EXAM: Vitals: BP (!) 148/86 Pulse 67 Temp 36.4 ?C (97.6 ?F) (Temporal) Resp 20 Ht 1.803 m (5' 11 ) Wt 123 kg (271 lb 9.6 oz) SpO2 97% BMI 37.88 kg/m? BMI Classification: Obese (BMI 30.0-39.9) General appearance: No apparent distress, appears stated age and cooperative. HEENT: Normal cephalic, atraumatic without obvious deformity. Pupils equal, round, and reactive to light. Extra ocular muscles intact. Conjunctivae/corneas clear. Neck: No jugular venous distention. Trachea midline. Respiratory: Normal respiratory effort. Clear to auscultation, bilaterally without Rales/Wheezes/Rhonchi. Cardiovascular: Regular rate and rhythm with normal S1/S2 without murmurs, rubs or gallops. Abdomen: Soft, non-tender, non-distended with normal bowel sounds. Musculoskeletal: No clubbing, cyanosis or edema bilaterally. Full ROM of all extremities. Skin: Skin color, texture, turgor normal. No rashes or lesions. Neurologic: Neurovascularly intact without any focal sensory/motor deficits. Cranial nerves: II-XII intact, grossly non-focal. Psychiatric: Alert and oriented, thought content appropriate, normal insight Labs: No results found for: WBC, HGB, HCT, MCV, PLT No results found for: NA, K, CL, CO2, BUN, CREATININE, GLUCOSE, CALCIUM, PROT, BILITOT, ALKPHOS, AST, ALT, LABGLOM, AGRATIO, GLOB EKG: I have reviewed the EKG if indicated and there is no concern for ischemic changes or significant heart block. ECHO and EF:None on file Rodríguez's Simple Cardiac Risk Index: High-risk surgery (intraperitoneal, intrathoracic or suprainguinal vascular surgery): no Coronary artery disease: no Congestive heart failure: no History of cerebrovascular disease: no Insulin treatment for diabetes mellitus: no Preoperative serum creatinine > 2.0mg/dL: no Total: Interpretation: 0 Points Class I 1 Point Class II 2 Points Class III >=3 Points Class IV Labs Ordered: NO - NOT INDICATED FOR THIS PROCEDURE ECG Ordered: NO - NOT INDICATED FOR THIS PROCEDURE Sleep Referral Ordered: NO - ALREADY DIAGNOSED WITH MOHIT AND PATIENT IS NOT COMPLIANT WITH CPAP Electronically signed by: Jennifer Monge APRN - RAMEZ Date: 12/23/2022 at 11:25 AM PAT Protocol referenced includes: Anesthesia Lab Protocol Orders Perioperative Cardiovascular Risk Assessment Anesthesia Assessment Pain Assessment and Acute Pain Service Consult (if appropriate) Medical Clearance/Consult from Internal Medicine (IMS) Shower/Wash Order (for designated surgeries) MOHIT Screen and Sleep Clinic Referral (if appropriate) [facility] 12-23-2022 Note Comprehensive PreSur gical History and Physical Name: Gualberto Sharp : 1960 (Age-62 y.o.) Date of Service: Pt seen/examined on 12/23/2022 ASSESSMENT/PLAN: Patient is considered low risk for this low risk procedure/surgery 1) Obstructive sleep apnea (adult) (pediatric) [G47.33]: deferred to surgeon; no workup per PAT protocol 2) Tobacco abuse: instructed to not smoke DOS, verbalizes understanding Chief Complaint: Sleep apnea History Of Present Illness: 62 y.o. male who we are asked to see/evaluate for pre-operative evaluation prior to Hypoglossal nerve STIMULATOR PLACEMENT INSPIRE (Bilateral: Neck) [48528 CPT(R)] - 120 MINS Has sleep apnea, proceeding with above procedure. Denies pain, f/c, cp, sob, n/v/d Delayed emergence >4 mets Past Medical History: Past Medical History: No date: Cancer (CMS/HCC) (HCC) Comment: melanoma on back No date: Delayed emergence from general anesthesia No date: Sleep apnea Comment: uses cpap Past Surgical History: Past Surgical History: No date: JOINT REPLACEMENT No date: KNEE ARTHROPLASTY; Bilateral No date: SKIN CANCER EXCISION Comment: melanoma of back No date: UMBILICAL HERNIA REPAIR Medications Prior to Admission: Prior to Admission medications Medication Sig Start Date End Date Taking? Authorizing Provider cetirizine (ZyrTEC) 10 MG chewable tablet Chew daily. Yes Historical Provider, modafinil (Provigil) 200 MG tablet Take 400 mg by mouth daily. 11/17/22 Yes Historical Provider, Multiple Vitamins-Minerals (multivitamin with minerals) tablet Take 1 tablet by mouth daily. Yes Historical Provider, ANTICOAGULATION: No CHRONIC STEROID USE: No CHRONIC NARCOTIC USE: No Allergies: Seasonal ic [cholestatin] Can pt take Acetaminophen: Yes Social History: TOBACCO: reports that he has been smoking cigarettes. He has a 10.00 pack-year smoking history. He has never used smokeless tobacco. ETOH: reports current alcohol use of about 2.0 standard drinks per week. Social History Substance and Sexual Activity Drug Use Never Family History: No family history on file. REVIEW OF SYSTEMS: Pertinent positives as noted in the HPI. All other systems reviewed and negative. PHYSICAL EXAM: Vitals: BP (!) 148/86 Pulse 67 Temp 36.4 ?C (97.6 ?F) (Temporal) Resp 20 Ht 1.803 m (5' 11 ) Wt 123 kg (271 lb 9.6 oz) SpO2 97% BMI 37.88 kg/m? BMI Classification: Obese (BMI 30.0-39.9) General appearance: No apparent distress, appears stated age and cooperative. HEENT: Normal cephalic, atraumatic without obvious deformity. Pupils equal, round, and reactive to light. Extra ocular muscles intact. Conjunctivae/corneas clear. Neck: No jugular venous distention. Trachea midline. Respiratory: Normal respiratory effort. Clear to auscultation, bilaterally without Rales/Wheezes/Rhonchi. Cardiovascular: Regular rate and rhythm with normal S1/S2 without murmurs, rubs or gallops. Abdomen: Soft, non-tender, non-distended with normal bowel sounds. Musculoskeletal: No clubbing, cyanosis or edema bilaterally. Full ROM of all extremities. Skin: Skin color, texture, turgor normal. No rashes or lesions. Neurologic: Neurovascularly intact without any focal sensory/motor deficits. Cranial nerves: II-XII intact, grossly non-focal. Psychiatric: Alert and oriented, thought content appropriate, normal insight Labs: No results found for: WBC, HGB, HCT, MCV, PLT No results found for: NA, K, CL, CO2, BUN, CREATININE, GLUCOSE, CALCIUM, PROT, BILITOT, ALKPHOS, AST, ALT, LABGLOM, AGRATIO, GLOB EKG: I have reviewed the EKG if indicated and there is no concern for ischemic changes or significant heart block. ECHO and EF:None on file Rodríguez's Simple Cardiac Risk Index: High-risk surgery (intraperitoneal, intrathoracic or suprainguinal vascular surgery): no Coronary artery disease: no Congestive heart failure: no History of cerebrovascular disease: no Insulin treatment for diabetes mellitus: no Preoperative serum creatinine > 2.0mg/dL: no Total: Interpretation: 0 Points Class I 1 Point Class II 2 Points Class III >=3 Points Class IV Labs Ordered: NO - NOT INDICATED FOR THIS PROCEDURE ECG Ordered: NO - NOT INDICATED FOR THIS PROCEDURE Sleep Referral Ordered: NO - ALREADY DIAGNOSED WITH MOHIT AND PATIENT IS NOT COMPLIANT WITH CPAP Electronically signed by: Jennifer Monge APRN - RAMEZ Date: 12/23/2022 at 11:25 AM PAT Protocol referenced includes: Anesthesia Lab Protocol Orders Perioperative Cardiovascular Risk Assessment Anesthesia Assessment Pain Assessment and Acute Pain Service Consult (if appropriate) Medical Clearance/Consult from Internal Medicine (IMS) Shower/Wash Order (for designated surgeries) MOHIT Screen and Sleep Clinic Referral (if appropriate) [facility] 11-15-2022 Hospital Discharge instructions Patient Education 11/15/2022 21:35:08 Headache, Unspecified Headache, Unspecified A number of things can cause headaches. The cause of your headache isn t clear. But it doesn t seem to be a sign of any serious illness. Headache affects almost everyone at some time. It is the most common reason people miss days from work or school. You could have a tension headache or a migraine headache. Stress can cause a tension headache. This can happen if you tense the muscles of your shoulders, neck, and scalp without knowing it. If this stress lasts long enough, you may develop a tension headache. It is not clear why migraines occur, but certain things called triggers can raise the risk of having a migraine attack. Migraine triggers may include emotional stress or depression, or by hormone changes during the menstrual cycle. Other triggers include control pills and other medicines, alcohol or caffeine, foods with tyramine (such as aged cheese, wine), eyestrain, weather changes, missed meals, and lack of sleep or oversleeping. Other causes of headache include: Viral illness with high fever Head injury with concussion Sinus, ear, or throat infection Dental pain and jaw joint (TMJ) pain More serious but less common causes of headache include stroke, brain hemorrhage, brain tumor, meningitis, and encephalitis. Home care Follow these tips when taking care of yourself at home: Don t drive yourself home if you were given pain medicine for your headache. Instead, have someone else drive you home. Try to sleep when you get home. You should feel much better when you wake up. Apply heat to the back of your neck to ease a neck muscle spasm. Take care of a migraine headache by putting an ice pack on your forehead or at the base of your skull. If you have nausea or vomiting, eat a light diet until your headache eases. If you have a migraine headache, use sunglasses when in the daylight or around bright indoor lighting until your symptoms get better. Bright glaring light can make this type of headache worse. Follow-up care Follow up with your healthcare provider, or as advised. Talk with your provider if you have frequent headaches. He or she can help figure out a treatment plan. By knowing the earliest signs of headache, and starting treatment right away, you may be able to stop the pain yourself. When to seek medical advice Call your healthcare provider right away if any of these occur: Your head pain suddenly gets worse after sexual intercourse or strenuous activity Your head pain doesn t get better within 24 hours You aren t able to keep liquids down (repeated vomiting) Fever of 100.4 F (38 C) or higher, or as directed by your healthcare provider Stiff neck Extreme drowsiness, confusion, or fainting Dizziness or dizziness with spinning sensation (vertigo) Weakness in an arm or leg or one side of your face You have trouble talking or seeing [id number] [employer]. [address] [place] [address]. All rights reserved. This information is not intended as a substitute for professional medical care. Always follow your healthcare professional's instructions. 11/15/2022 21:35:00 Hypertension, To Be Confirmed High Blood Pressure, To Be Confirmed, No Treatment Your blood pressure today was higher than normal. Sometimes anxiety or pain can cause a temporary rise in blood pressure. It later returns to normal. Blood pressure that is high only one time doesn t mean that you have high blood pressure (hypertension). High blood pressure is a chronic illness. But you should have your blood pressure measured again within the next few days to find out if it s still high. Blood pressure measurements are given as 2 numbers. Systolic blood pressure is the upper number. This is the pressure when the heart contracts. Diastolic blood pressure is the lower number. This is the pressure when the heart relaxes between beats. You will see your blood pressure readings written together. For example, a person with a systolic pressure of 118 and a diastolic pressure of 78 will have 118/78 written in the medical record. Blood pressure is categorized as normal, elevated, or stage 1 or stage 2 high blood pressure: Normal blood pressure is systolic of less than 120 and diastolic of less than 80 (120/80) Elevated blood pressure is systolic of 120 to 129 and diastolic less than 80 Stage 1 high blood pressure is systolic is 130 to 139 or diastolic between 80 to 89 Stage 2 high blood pressure is when systolic is 140 or higher or the diastolic is 90 or higher Lifestyle changes such as weight loss, exercise, and quitting smoking, can help manage your blood pressure. Have your blood pressure checked regularly to be sure it is under control. Home care To track your blood pressure, your provider may ask you to come into the office at different times and on different days. If your healthcare provider asks you to check your readings at home, ask him or her what times of the day to test and for how many days. Before you leave the office, ask your provider to show you how to take your blood pressure and be sure to ask questions if you don't understand something. Consider buying an automatic blood pressure monitor. Ask your provider for a recommendation as well as the proper size cuff to fit your arm. You can buy blood pressure monitors at most pharmacies. The [place] [employer] recommends the following guidelines for home blood pressure monitoring: Don't smoke or drink coffee or other caffeinated drinks for 30 minutes before taking your blood pressure. Go to the bathroom before the test. Relax for 5 minutes before taking the measurement. Sit with your back supported (don't sit on a couch or soft chair); keep your feet on the floor uncrossed. Place your arm on a solid flat surface (like a table) with the upper part of the arm at heart level. Place the middle of the cuff directly above the bend of the elbow. Check the monitor's instruction manual for an illustration. Take multiple readings. When you measure, take 2 to 3 readings one minute apart and record all of the results. Take your blood pressure at the same time every day, or as your healthcare provider recommends. Record the date, time, and blood pressure reading. Take the record with you to your next medical appointment. If your blood pressure monitor has a built-in memory, simply take the monitor with you to your next appointment. Call your provider if you have several high readings. Don't be frightened by a single high blood pressure reading, but if you get several high readings, check in with your healthcare provider. Note: When blood pressure reaches a systolic (top number) of 180 or higher OR diastolic (bottom number) of 110 or higher, seek emergency medical treatment. Follow-up care Keep all of your follow up appointments. If your blood pressure is more than 120 over 80 on 2 out of 3 days, you will need to follow up with your healthcare provider for more evaluation and treatment. Don t put this off! High blood pressure can be treated. High blood pressure that s not treated raises your risk for heart attack, heart failure, and stroke. When to seek medical advice Call your healthcare provider right away if any of these occur: Blood pressure reaches a systolic (top number) of 180 or higher, OR diastolic (bottom number) of 110 or higher Chest pain or shortness of breath Severe headache Throbbing or rushing sound in the ears Nosebleed Sudden severe pain in your belly (abdomen) Extreme drowsiness, confusion, or fainting Dizziness or dizziness with spinning sensation (vertigo) Weakness of an arm or leg or one side of the face You have problems speaking or seeing [id number] [employer]. [address] [place] [address], [place] [address]. All rights reserved. This information is not intended as a substitute for professional medical care. Always follow your healthcare professional's instructions. 11/15/2022 21:34:56 SINUSITIS, Abx Tx Sinusitis [Abx Tx] The sinuses are air-filled spaces within the bones of the face. They connect to the inside of the nose. Sinusitis is an inflammation of the tissue lining the sinus cavity. Sinus inflammation can occur during a cold or hay-fever (allergies to pollens and other particles in the air) and cause symptoms of sinus congestion and fullness. A sinus infection causes fever, headache and facial pain. There is usually green or yellow drainage from the nose or into the back of the throat (post-nasal drip). Antibiotics are prescribed to treat this condition. Home Care: Drink plenty of water, hot tea, and other liquids to stay well hydrated. This thins the mucus and promotes sinus drainage. Apply heat to the painful areas of the face. Use a towel soaked in hot water. Or, casino cashier the shower and direct the hot spray onto your face. This is a good way to inhale warm water vapor and get heat on your face at the same time. (Cover your mouth and nose with your hands so you can still breathe as you do this.) Use a vaporizer with products such as Vicks VapoRub (contains menthol) at night. Suck on peppermint, menthol or eucalyptus hard candies during the day. An expectorant containing guaifenesin (such as Robitussin), helps to thin the mucus and promote drainage from the sinuses. Rmci-kyu-lsdwpyv decongestants may be used unless a similar medicine was prescribed. Nasal sprays work the fastest. Use one that contains phenylephrine (Bhavik-synephrine, Sinex and others) or oxymetazoline (Afrin). First blow the nose gently to remove mucus, then apply the drops. Do not use these medicines more often than directed on the label or for more than three days or symptoms may worsen. You may also use tablets containing pseudoephedrine (Sudafed). Many sinus remedies combine ingredients, which may increase side effects. Read the labels or ask the pharmacist for help. NOTE: Persons with high blood pressure should not use decongestants. They can raise blood pressure. Antihistamines are useful if allergies are a cause of your sinusitis. The mildest one is chlorpheniramine (available without a prescription). The dose for adults is 8-12mg three times a day. [NOTE: Do not use chlorpheniramine if you have glaucoma or if you are a man with trouble urinating due to an enlarged prostate.] Claritin (loratidine) is an antihistamine that causes less drowsiness and is a good alternative for daytime use. Do not use nasal rinses or irrigation during an acute sinus infection, unless advised by your doctor. Rinsing may spread the infection to other sinuses. You may use acetaminophen (Tylenol) or ibuprofen (Motrin, Advil) to control pain, unless another pain medicine was prescribed. [ NOTE: If you have chronic liver or kidney disease or ever had a stomach ulcer, talk with your doctor before using these medicines.] (Aspirin should never be used in anyone under 18 years of age who is ill with a fever. It may cause severe liver damage.) Finish the full course, even if you are feeling better after a few days. Follow Up with your doctor or this facility in one week or as instructed by our staff if not improving. Get Prompt Medical Attention if any of the following occur: Facial pain or headache becomes more severe Stiff neck Unusual drowsiness or confusion, or not acting like your normal self Swelling of the forehead or eyelids Vision problems including blurred or double vision Fever of 100.4 F (38 C) or higher, or as directed by your healthcare provider Seizure [id number] [employer]. [address] [place] [address]. All rights reserved. This information is not intended as a substitute for professional medical care. Always follow your healthcare professional's instructions. 11/15/2022 21:34:55 Sinus Headache Sinus Headache The sinuses are air-filled spaces within the bones of the face. They connect to the inside of the nose. Sinusitis is an inflammation of the tissue lining the sinus cavity. Sinus inflammation can occur during a cold or hay fever (allergies to pollens and other particles in the air) and cause symptoms of sinus congestion and fullness and perhaps a low-grade fever. An infection is usually present when there is also facial pain or headache and green or yellow drainage from the nose or into the back of the throat (postnasal drip). Antibiotics are often prescribed to treat this condition. Sinus headache may cause pain in different places, depending on which sinuses are infected. There may be pain in the temples, forehead, top of the head, behind or around the eye, across the cheekbone, or into the upper teeth. You may find that changing your position, sitting upright or lying down, will bring some relief. Home care The following guidelines will help you care for yourself at home: Drink plenty of water, hot tea, and other liquids to stay well hydrated. This thins the mucus and helps your sinuses drain. Apply heat to the painful areas of the face. Use a towel soaked in hot water. Or casino cashier the shower with the hot spray on your face. This is a good way to inhale warm water vapor and get heat on your face at the same time. Cover your mouth and nose with your hands so you can still breathe as you do this. Use a cool mist vaporizer at night. Suck on peppermint, menthol, or eucalyptus hard candies during the day. An expectorant containing guaifenesin helps thin the mucus. It also helps your sinuses drain. You may use xvab-grl-nrzrvjk decongestants unless a similar medicine was prescribed. Nasal sprays or drops work the fastest. Use one that contains phenylephrine or oxymetazoline. First blow your nose gently to remove mucus. Then apply the spray or drops. Don't use decongestant nasal sprays or drops more often than the label says or for more than 3 days. This can make symptoms worse. Nasal sprays or drops prescribed by your doctor typically do not have these limits. Check with your doctor or pharmacist. You may also use oral tablets containing pseudoephedrine. Side effects from oral decongestants tend to be worse than with nasal sprays or drops, and may keep you from using them. Many sinus remedies combine ingredients, which may increase side effects. Also, if you are taking a combination medicine with another medicine, be sure you are not taking a double dose of anything by mistake. Read the labels or ask the pharmacist for help. Talk with your doctor before using decongestants if you have high blood pressure, heart disease, glaucoma, or prostate trouble. Antihistamines may help if allergies are causing your sinusitis. You can get chlorpheniramine and diphenhydramine over the counter, but these can cause drowsiness. Don't use these if you have glaucoma or if you are a man with trouble urinating due to an enlarged prostate. Hgbf-rsy-rqirqnz antihistamines containing loratidine and cetirizine cause less drowsiness and may be a better choice for daytime use. When allergies cause your sinusitis, a saline nasal rinse may give relief. A saline nasal rinse reduces swelling and clears excess mucus. This allows sinuses to drain. Prepackaged kits are available at most drugstores. These contain premixed salt packets and an irrigation device. If antibiotics have been prescribed to treat an acute sinus infection, talk with your doctor before using a nasal rinse to be sure it is safe for you. You may use lfms-gyd-fyfqnuz medicine to control pain and fever, unless another pain medicine was prescribed. Talk with your doctor before using acetaminophen or ibuprofen if you have chronic liver or kidney disease. Also talk with your doctor if you have ever had a stomach ulcer. Aspirin should never be used in anyone under 18 years of age who has a fever. It may cause a life-threatening condition called Eron syndrome. If antibiotics were given, finish all of them, even if you are feeling better after a few days. Follow-up care Follow up with your healthcare provider, or as advised if your symptoms aren't better in 1 week. Call 911 Call 911 if any of these occur: Unusual drowsiness or confusion Swelling of the forehead or eyelids Vision problems including blurred or double vision Seizure When to seek medical advice Call your healthcare provider right away if any of these occur: Facial pain or headache becomes more severe Stiff neck Fever of 100.4 F (38 C) or higher, or as directed by your healthcare provider Bleeding from the nose or throat [id number] [employer]. [address] [place] [address]. All rights reserved. This information is not intended as a substitute for professional medical care. Always follow your healthcare professional's instructions. Follow Up Care 11/15/2022 16:51:43 With:HILARY CLARK Address: [place] [address]- [phone] Business (1) When:2-4 days Comments:Schedule appointment as soon as possibleReturn to ED if symptoms worsenVaporizor. Steam showers and warm soaks for draiunage. Take regular 1200mg mucinex 2x/day. Afrin 12hr nasal 2x/day x 3 days [facility] 11-15-2022 Emergency department Discharge summary Discharge Instructions Thank you for allowing [facility] to assist you with your healthcare needs. The following is important discharge information regarding your hospital visit. Diagnosis from Today's Visit Headache Sinusitis Hypertension Eye pain Headache What to Do Next Instructions from Your Care Team No qualifying data available. Post Acute Orders No qualifying data available. You Need to Schedule the Following Appointments Follow Up with HILARY CLARK When Within 2-4 days Why: Schedule appointment as soon as possible Return to ED if symptoms worsen [employer]. Steam showers and warm soaks for draiunage. Take regular 1200mg mucinex 2x/day. Afrin 12hr nasal 2x/day x 3 days Where: [place] [address] [phone] Business (1) Allergies [facility] Medications Please ask your primary doctor or pharmacist before taking any other medication not listed, including over the counter drugs, herbal medications, vitamins and or supplements as they may interact with your home medications. What How Much When Why Instructions Last Dose New predniSONE (predniSONE 10 mg oral tablet) 3 by mouth Two (2) times a day Headache Sinusitis 1st dose in am Printed Prescription Unchanged multivitamin (Multiple Vitamins oral tablet) 1 tab(s) by mouth Once a day (in the morning) Please take this list to your next doctor s visit. Bring all medications you take, including over the counter medications, herbals and other supplements with you to your doctor s visit. Patients and families are reminded to discard old lists and to update any records with all medication providers or retail pharmacies. [employer] Headache, Unspecified A number of things can cause headaches. The cause of your headache isn t clear. But it doesn t seem to be a sign of any serious illness. Headache affects almost everyone at some time. It is the most common reason people miss days from work or school. You could have a tension headache or a migraine headache. Stress can cause a tension headache. This can happen if you tense the muscles of your shoulders, neck, and scalp without knowing it. If this stress lasts long enough, you may develop a tension headache. It is not clear why migraines occur, but certain things called triggers can raise the risk of having a migraine attack. Migraine triggers may include emotional stress or depression, or by hormone changes during the menstrual cycle. Other triggers include control pills and other medicines, alcohol or caffeine, foods with tyramine (such as aged cheese, wine), eyestrain, weather changes, missed meals, and lack of sleep or oversleeping. Other causes of headache include: Viral illness with high fever Head injury with concussion Sinus, ear, or throat infection Dental pain and jaw joint (TMJ) pain More serious but less common causes of headache include stroke, brain hemorrhage, brain tumor, meningitis, and encephalitis. Home care Follow these tips when taking care of yourself at home: Don t drive yourself home if you were given pain medicine for your headache. Instead, have someone else drive you home. Try to sleep when you get home. You should feel much better when you wake up. Apply heat to the back of your neck to ease a neck muscle spasm. Take care of a migraine headache by putting an ice pack on your forehead or at the base of your skull. If you have nausea or vomiting, eat a light diet until your headache eases. If you have a migraine headache, use sunglasses when in the daylight or around bright indoor lighting until your symptoms get better. Bright glaring light can make this type of headache worse. Follow-up care Follow up with your healthcare provider, or as advised. Talk with your provider if you have frequent headaches. He or she can help figure out a treatment plan. By knowing the earliest signs of headache, and starting treatment right away, you may be able to stop the pain yourself. When to seek medical advice Call your healthcare provider right away if any of these occur: Your head pain suddenly gets worse after sexual intercourse or strenuous activity Your head pain doesn t get better within 24 hours You aren t able to keep liquids down (repeated vomiting) Fever of 100.4 F (38 C) or higher, or as directed by your healthcare provider Stiff neck Extreme drowsiness, confusion, or fainting Dizziness or dizziness with spinning sensation (vertigo) Weakness in an arm or leg or one side of your face You have trouble talking or seeing [id number] [employer]. [address] [place] [address]. All rights reserved. This information is not intended as a substitute for professional medical care. Always follow your healthcare professional's instructions. High Blood Pressure, To Be Confirmed, No Treatment Your blood pressure today was higher than normal. Sometimes anxiety or pain can cause a temporary rise in blood pressure. It later returns to normal. Blood pressure that is high only one time doesn t mean that you have high blood pressure (hypertension). High blood pressure is a chronic illness. But you should have your blood pressure measured again within the next few days to find out if it s still high. Blood pressure measurements are given as 2 numbers. Systolic blood pressure is the upper number. This is the pressure when the heart contracts. Diastolic blood pressure is the lower number. This is the pressure when the heart relaxes between beats. You will see your blood pressure readings written together. For example, a person with a systolic pressure of 118 and a diastolic pressure of 78 will have 118/78 written in the medical record. Blood pressure is categorized as normal, elevated, or stage 1 or stage 2 high blood pressure: Normal blood pressure is systolic of less than 120 and diastolic of less than 80 (120/80) Elevated blood pressure is systolic of 120 to 129 and diastolic less than 80 Stage 1 high blood pressure is systolic is 130 to 139 or diastolic between 80 to 89 Stage 2 high blood pressure is when systolic is 140 or higher or the diastolic is 90 or higher Lifestyle changes such as weight loss, exercise, and quitting smoking, can help manage your blood pressure. Have your blood pressure checked regularly to be sure it is under control. Home care To track your blood pressure, your provider may ask you to come into the office at different times and on different days. If your healthcare provider asks you to check your readings at home, ask him or her what times of the day to test and for how many days. Before you leave the office, ask your provider to show you how to take your blood pressure and be sure to ask questions if you don't understand something. Consider buying an automatic blood pressure monitor. Ask your provider for a recommendation as well as the proper size cuff to fit your arm. You can buy blood pressure monitors at most pharmacies. The [place] [employer] recommends the following guidelines for home blood pressure monitoring: Don't smoke or drink coffee or other caffeinated drinks for 30 minutes before taking your blood pressure. Go to the bathroom before the test. Relax for 5 minutes before taking the measurement. Sit with your back supported (don't sit on a couch or soft chair); keep your feet on the floor uncrossed. Place your arm on a solid flat surface (like a table) with the upper part of the arm at heart level. Place the middle of the cuff directly above the bend of the elbow. Check the monitor's instruction manual for an illustration. Take multiple readings. When you measure, take 2 to 3 readings one minute apart and record all of the results. Take your blood pressure at the same time every day, or as your healthcare provider recommends. Record the date, time, and blood pressure reading. Take the record with you to your next medical appointment. If your blood pressure monitor has a built-in memory, simply take the monitor with you to your next appointment. Call your provider if you have several high readings. Don't be frightened by a single high blood pressure reading, but if you get several high readings, check in with your healthcare provider. Note: When blood pressure reaches a systolic (top number) of 180 or higher OR diastolic (bottom number) of 110 or higher, seek emergency medical treatment. Follow-up care Keep all of your follow up appointments. If your blood pressure is more than 120 over 80 on 2 out of 3 days, you will need to follow up with your healthcare provider for more evaluation and treatment. Don t put this off! High blood pressure can be treated. High blood pressure that s not treated raises your risk for heart attack, heart failure, and stroke. When to seek medical advice Call your healthcare provider right away if any of these occur: Blood pressure reaches a systolic (top number) of 180 or higher, OR diastolic (bottom number) of 110 or higher Chest pain or shortness of breath Severe headache Throbbing or rushing sound in the ears Nosebleed Sudden severe pain in your belly (abdomen) Extreme drowsiness, confusion, or fainting Dizziness or dizziness with spinning sensation (vertigo) Weakness of an arm or leg or one side of the face You have problems speaking or seeing [id number] [employer] [place], [place] [id number]. All rights reserved. This information is not intended as a substitute for professional medical care. Always follow your healthcare professional's instructions. Sinusitis [Abx Tx] The sinuses are air-filled spaces within the bones of the face. They connect to the inside of the nose. Sinusitis is an inflammation of the tissue lining the sinus cavity. Sinus inflammation can occur during a cold or hay-fever (allergies to pollens and other particles in the air) and cause symptoms of sinus congestion and fullness. A sinus infection causes fever, headache and facial pain. There is usually green or yellow drainage from the nose or into the back of the throat (post-nasal drip). Antibiotics are prescribed to treat this condition. Home Care: Drink plenty of water, hot tea, and other liquids to stay well hydrated. This thins the mucus and promotes sinus drainage. Apply heat to the painful areas of the face. Use a towel soaked in hot water. Or, casino cashier the shower and direct the hot spray onto your face. This is a good way to inhale warm water vapor and get heat on your face at the same time. (Cover your mouth and nose with your hands so you can still breathe as you do this.) Use a vaporizer with products such as VicCNZZ VapoRub (contains menthol) at night. Suck on peppermint, menthol or eucalyptus hard candies during the day. An expectorant containing guaifenesin (such as Robitussin), helps to thin the mucus and promote drainage from the sinuses. Jehl-eff-opyksvk decongestants may be used unless a similar medicine was prescribed. Nasal sprays work the fastest. Use one that contains phenylephrine (Bhavik-synephrine, Sinex and others) or oxymetazoline (Afrin). First blow the nose gently to remove mucus, then apply the drops. Do not use these medicines more often than directed on the label or for more than three days or symptoms may worsen. You may also use tablets containing pseudoephedrine (Sudafed). Many sinus remedies combine ingredients, which may increase side effects. Read the labels or ask the pharmacist for help. NOTE: Persons with high blood pressure should not use decongestants. They can raise blood pressure. Antihistamines are useful if allergies are a cause of your sinusitis. The mildest one is chlorpheniramine (available without a prescription). The dose for adults is 8-12mg three times a day. [NOTE: Do not use chlorpheniramine if you have glaucoma or if you are a man with trouble urinating due to an enlarged prostate.] Claritin (loratidine) is an antihistamine that causes less drowsiness and is a good alternative for daytime use. Do not use nasal rinses or irrigation during an acute sinus infection, unless advised by your doctor. Rinsing may spread the infection to other sinuses. You may use acetaminophen (Tylenol) or ibuprofen (Motrin, Advil) to control pain, unless another pain medicine was prescribed. [ NOTE: If you have chronic liver or kidney disease or ever had a stomach ulcer, talk with your doctor before using these medicines.] (Aspirin should never be used in anyone under 18 years of age who is ill with a fever. It may cause severe liver damage.) Finish the full course, even if you are feeling better after a few days. Follow Up with your doctor or this facility in one week or as instructed by our staff if not improving. Get Prompt Medical Attention if any of the following occur: Facial pain or headache becomes more severe Stiff neck Unusual drowsiness or confusion, or not acting like your normal self Swelling of the forehead or eyelids Vision problems including blurred or double vision Fever of 100.4 F (38 C) or higher, or as directed by your healthcare provider Seizure [id number] [employer]. [address] [place] [address], [place] [address]. All rights reserved. This information is not intended as a substitute for professional medical care. Always follow your healthcare professional's instructions. Sinus Headache The sinuses are air-filled spaces within the bones of the face. They connect to the inside of the nose. Sinusitis is an inflammation of the tissue lining the sinus cavity. Sinus inflammation can occur during a cold or hay fever (allergies to pollens and other particles in the air) and cause symptoms of sinus congestion and fullness and perhaps a low-grade fever. An infection is usually present when there is also facial pain or headache and green or yellow drainage from the nose or into the back of the throat (postnasal drip). Antibiotics are often prescribed to treat this condition. Sinus headache may cause pain in different places, depending on which sinuses are infected. There may be pain in the temples, forehead, top of the head, behind or around the eye, across the cheekbone, or into the upper teeth. You may find that changing your position, sitting upright or lying down, will bring some relief. Home care The following guidelines will help you care for yourself at home: Drink plenty of water, hot tea, and other liquids to stay well hydrated. This thins the mucus and helps your sinuses drain. Apply heat to the painful areas of the face. Use a towel soaked in hot water. Or casino cashier the shower with the hot spray on your face. This is a good way to inhale warm water vapor and get heat on your face at the same time. Cover your mouth and nose with your hands so you can still breathe as you do this. Use a cool mist vaporizer at night. Suck on peppermint, menthol, or eucalyptus hard candies during the day. An expectorant containing guaifenesin helps thin the mucus. It also helps your sinuses drain. You may use zyvq-ydm-bdnbtfc decongestants unless a similar medicine was prescribed. Nasal sprays or drops work the fastest. Use one that contains phenylephrine or oxymetazoline. First blow your nose gently to remove mucus. Then apply the spray or drops. Don't use decongestant nasal sprays or drops more often than the label says or for more than 3 days. This can make symptoms worse. Nasal sprays or drops prescribed by your doctor typically do not have these limits. Check with your doctor or pharmacist. You may also use oral tablets containing pseudoephedrine. Side effects from oral decongestants tend to be worse than with nasal sprays or drops, and may keep you from using them. Many sinus remedies combine ingredients, which may increase side effects. Also, if you are taking a combination medicine with another medicine, be sure you are not taking a double dose of anything by mistake. Read the labels or ask the pharmacist for help. Talk with your doctor before using decongestants if you have high blood pressure, heart disease, glaucoma, or prostate trouble. Antihistamines may help if allergies are causing your sinusitis. You can get chlorpheniramine and diphenhydramine over the counter, but these can cause drowsiness. Don't use these if you have glaucoma or if you are a man with trouble urinating due to an enlarged prostate. Lgpj-pwq-ayneqnp antihistamines containing loratidine and cetirizine cause less drowsiness and may be a better choice for daytime use. When allergies cause your sinusitis, a saline nasal rinse may give relief. A saline nasal rinse reduces swelling and clears excess mucus. This allows sinuses to drain. Prepackaged kits are available at most [facility]. These contain premixed salt packets and an irrigation device. If antibiotics have been prescribed to treat an acute sinus infection, talk with your doctor before using a nasal rinse to be sure it is safe for you. You may use nbkn-tiy-nmxtrpq medicine to control pain and fever, unless another pain medicine was prescribed. Talk with your doctor before using acetaminophen or ibuprofen if you have chronic liver or kidney disease. Also talk with your doctor if you have ever had a stomach ulcer. Aspirin should never be used in anyone under 18 years of age who has a fever. It may cause a life-threatening condition called Eron syndrome. If antibiotics were given, finish all of them, even if you are feeling better after a few days. Follow-up care Follow up with your healthcare provider, or as advised if your symptoms aren't better in 1 week. Call 911 Call 911 if any of these occur: Unusual drowsiness or confusion Swelling of the forehead or eyelids Vision problems including blurred or double vision Seizure When to seek medical advice Call your healthcare provider right away if any of these occur: Facial pain or headache becomes more severe Stiff neck Fever of 100.4 F (38 C) or higher, or as directed by your healthcare provider Bleeding from the nose or throat [id number] [employer]. [address] [place] [address]. All rights reserved. This information is not intended as a substitute for professional medical care. Always follow your healthcare professional's instructions. Additional Information VACCINATE! IT SAVES LIVES! Members of the community who have not yet received the COVID-19 vaccine and would like to receive it can visit one of [facility] vaccine clinics. There are many vaccine clinic locations within the [facility]. For locations and available times, please visit [email or web address] It is important to note that some COVID mobile vaccine clinics are held outdoors and may be canceled in rainy or stormy conditions. To learn more about pediatric vaccinations (ages 5-11), we invite you to visit the [facility] webpage. [email or web address] To learn more about the COVID-19 vaccine, we invite you to visit the CDC website for a list of frequently asked questions. https://www.cdc.gov/coronavirus/20 19-ncov/vaccines/faq.html [facility] Patient Portal Access Instructions: Stay connected with your healthcare team and access your personal medical information anytime with the [facility] Patient Portal. If you would like a full copy of your medical records please contact the [facility] Medical Records Department Thursday through Thursday between 8a.m. and 4:30p.m. Please follow the directions below to access the portal: 1.Access the email account you provided upon registration to the [facility].2.Look for an invitation email from [facility].3.Open the email and access the invitation link: Accept Invitation to [facility]4.Fill in the required jackson to create your account. Sign into [email or web address] with your username and password that you created in the above steps to stay up to date. You can then view a summary of results, a summary of your visits, and the ability to download your summaries to your computer or send the information securely to a physician. Remember that your healthcare information is confidential, so carefully consider who you will allow to register on the [facility] Patient Portal for access to your information. You can also access the [employer] Patient Portal on the [employer]. Simply click on Health Records under Health Data and then click on the [employer] logo. HOW TO SAFELY DISPOSE OF PRESCRIPTION MEDICATIONS Please use one of the following methods to safely dispose of your unused medications. 1.Use a drug disposal kit: the drug disposal pouch allows you to safely discard your old and unused drugs. Ask your nurse to give you one when you are discharged.2.Visit a local take-back location: Many local pharmacies and police departments have programs that collect old and unwanted prescription drugs. Call your local pharmacy or go to http://[employer].[facility]/7U3Ex0t to find one close to you.3.Make use of household items: Use cat litter or old coffee grounds to dispose medications if other options are not available. Mix your drugs with these household products, seal them in an airtight container and throw it into the garbage. Call [facility]: [phone] to be sure your drugs can be disposed of in this way. Some medicines may require a different approach.4.Never flush your medications down the toilet. IF YOU HAVE BEEN PRESCRIBED AN OPIOIDS FOR PAIN If you have been prescribed an opioid (such as hydrocodone, oxycodone or morphine), it is critical to understand the possible side effects and risks of opioid pain medications. Even when taken as directed, opioids can have several side effects including: Tolerance, meaning you might need to take more of a medication for the same pain relief. Nausea, vomiting and/or constipation. Sleepiness, dizziness, dry mouth, confusion, depression or itching. Physical dependence, meaning you have withdrawal symptoms when a medication is stopped ? this can develop within a few days. KNOW YOUR RESPONSIBILITIES It is important to know exactly how much and how often to take the opioid pain medications you are prescribed. Never take opioids in higher amounts or more often than prescribed. Do not combine opioids with alcohol or other drugs that cause drowsiness, such as benzodiazepines, also known as benzos, including diazepam and alprazolam, muscle relaxants or sleep aids. Never sell or share prescription opioids. This is illegal. Store opioids in a secure place and out of reach of others (including children, family, friends and visitors). The last page(s) of this document has been signed and retained as a CHART COPY Signatures Patient Education Materials Headache, Unspecified Hypertension, To Be Confirmed SINUSITIS, Abx Tx Sinus Headache Medication Leaflets My discharge plan and instructions have been reviewed and explained to me and I,GUALBERTO SHARP understand my current condition and have read and understand these discharge instructions. I have received a written copy of the plan/instructions. If I have questions, I am aware that I should contact my doctor. Patient/[employer] Consultant Signature: Date/Time: Relationship to Patient: ___ Witness Name/Signature: Date/Time: [facility] 11-15-2022 Note ORIGINAL EXAMINATION: CT OF THE SINUS WITHOUT CONTRAST 11/15/2022 8:24 pm TECHNIQUE: CT of the sinuses was performed without the administration of intravenous contrast. Multiplanar reformatted images are provided for review. Automated exposure control, iterative reconstruction, and/or weight based adjustment of the mA/kV was utilized to reduce the radiation dose to as low as reasonably achievable. COMPARISON: None HISTORY: ORDERING SYSTEM PROVIDED HISTORY: Reason for Exam: acute sinusitis FINDINGS: SINUSES/MASTOIDS: Scattered areas of mucosal thickening in the paranasal sinuses. Otherwise, the maxillary, sphenoid, ethmoid and frontal sinuses are predominantly clear. The bilateral ostiomeatal units are patent. Ethmoid roofs are symmetric. The mastoid air cells are well aerated. SOFT TISSUES: Visualized soft tissues demonstrate no acute abnormality. The visualized portion of the intracranial contents demonstrate no gross acute abnormality. IMPRESSION: No acute findings. RECOMMENDATIONS: Unavailable Interpreted by: Abiodun Conklin Preliminary Report By: Abiodun Conklin Electronically signed By Abiodun Conklin Dictated Date: 11/15/2022 8:29:36 PM Prelim Date: 11/15/2022 8:32:44 PM Sign Date: 11/15/2022 8:32:44 PM Ordering Provider: [facility] 11-15-2022 Note ORIGINAL EXAMINATION: CT OF THE HEAD WITHOUT CONTRAST 11/15/2022 8:24 pm TECHNIQUE: CT of the head was performed without the administration of intravenous contrast. Automated exposure control, iterative reconstruction, and/or weight based adjustment of the mA/kV was utilized to reduce the radiation dose to as low as reasonably achievable. COMPARISON: MRI of the brain May 30, 2018 HISTORY: ORDERING SYSTEM PROVIDED HISTORY: Reason for Exam: pain FINDINGS: BRAIN/VENTRICLES: There is no acute intracranial hemorrhage, mass effect or midline shift. No abnormal extra-axial fluid collection. The arroyo-white differentiation is maintained without evidence of an acute infarct. There is no evidence of hydrocephalus. There are nonspecific hypoattenuating foci in the subcortical and periventricular white matter that most likely represent chronic microangiopathic ischemic changes in a patient of this age. ORBITS: The visualized portion of the orbits demonstrate no acute abnormality. SINUSES: Please see CT of the sinuses performed the same day. SOFT TISSUES/SKULL: No acute abnormality of the visualized skull or soft tissues. IMPRESSION: No acute intracranial hemorrhage or acute large vessel territory infarct. RECOMMENDATIONS: Unavailable Interpreted by: Abiodun Conklin Preliminary Report By: Abiodun Conklin Electronically signed By Abiodun Conklin Dictated Date: 11/15/2022 8:27:39 PM Prelim Date: 11/15/2022 8:29:29 PM Sign Date: 11/15/2022 8:29:29 PM Ordering Provider: [facility] 11-15-2022 Note ORIGINAL EXAMINATION: CT OF THE SINUS WITHOUT CONTRAST 11/15/2022 8:24 pm TECHNIQUE: CT of the sinuses was performed without the administration of intravenous contrast. Multiplanar reformatted images are provided for review. Automated exposure control, iterative reconstruction, and/or weight based adjustment of the mA/kV was utilized to reduce the radiation dose to as low as reasonably achievable. COMPARISON: None HISTORY: ORDERING SYSTEM PROVIDED HISTORY: Reason for Exam: acute sinusitis FINDINGS: SINUSES/MASTOIDS: Scattered areas of mucosal thickening in the paranasal sinuses. Otherwise, the maxillary, sphenoid, ethmoid and frontal sinuses are predominantly clear. The bilateral ostiomeatal units are patent. Ethmoid roofs are symmetric. The mastoid air cells are well aerated. SOFT TISSUES: Visualized soft tissues demonstrate no acute abnormality. The visualized portion of the intracranial contents demonstrate no gross acute abnormality. IMPRESSION: No acute findings. RECOMMENDATIONS: Unavailable Interpreted by: Abiodun Conklin Preliminary Report By: Abiodun Conklin Electronically signed By Abiodun Conklin Dictated Date: 11/15/2022 8:29:36 PM Prelim Date: 11/15/2022 8:32:44 PM Sign Date: 11/15/2022 8:32:44 PM Ordering Provider: [facility] 11-15-2022 Note ORIGINAL EXAMINATION: CT OF THE HEAD WITHOUT CONTRAST 11/15/2022 8:24 pm TECHNIQUE: CT of the head was performed without the administration of intravenous contrast. Automated exposure control, iterative reconstruction, and/or weight based adjustment of the mA/kV was utilized to reduce the radiation dose to as low as reasonably achievable. COMPARISON: MRI of the brain May 30, 2018 HISTORY: ORDERING SYSTEM PROVIDED HISTORY: Reason for Exam: pain FINDINGS: BRAIN/VENTRICLES: There is no acute intracranial hemorrhage, mass effect or midline shift. No abnormal extra-axial fluid collection. The arroyo-white differentiation is maintained without evidence of an acute infarct. There is no evidence of hydrocephalus. There are nonspecific hypoattenuating foci in the subcortical and periventricular white matter that most likely represent chronic microangiopathic ischemic changes in a patient of this age. ORBITS: The visualized portion of the orbits demonstrate no acute abnormality. SINUSES: Please see CT of the sinuses performed the same day. SOFT TISSUES/SKULL: No acute abnormality of the visualized skull or soft tissues. IMPRESSION: No acute intracranial hemorrhage or acute large vessel territory infarct. RECOMMENDATIONS: Unavailable Interpreted by: Abiodun Conklin Preliminary Report By: Abiodun Conklin Electronically signed By Abiodun Conklin Dictated Date: 11/15/2022 8:27:39 PM Prelim Date: 11/15/2022 8:29:29 PM Sign Date: 11/15/2022 8:29:29 PM Ordering Provider: [facility] 11-14-2022 Note HNO ID: [id number] Author: Jil Garcia LPN Service: ? Author Type: LICENSED NURSE Type: Progress Notes Filed: 11/14/2022 7:32 PM Note Text: Patient monitored 20 minutes after ATB injection patient voices no concerns. Provider aware and patient discharged. Jil Garcia LPN [facility] 11-14-2022 Note HNO ID: [id number] Author: Nancy Patel MD Service: ? 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 He reports eye pain, sinus congestion and headache for two weeks. Notes symptoms have worsened significantly over the past two days. No past medical history on file. There is no problem list on file for this patient. Current Outpatient Medications Medication Sig Dispense Refill modafinil (PROVIGIL) 200 mg tablet Take 200 mg by mouth once daily. ofloxacin (OCUFLOX) 0.3 % ophthalmic solution Use 1 Drop in both eyes four times daily for 7 days. 10 mL 0 amoxicillin-clavulanic acid (AUGMENTIN) 875-125 mg per tablet Take 1 tablet by mouth every 12 hours for 7 days. 14 tablet 0 dexAMETHasone 0.1 % ophthalmic solution Use 1 Drop in both eyes every 6 hours. 5 mL 0 No current facility-administered medications for this visit. Social History Tobacco Use Smoking status: Every Day Packs/day: 0.25 Types: Cigarettes Smokeless tobacco: Never Vaping Use Vaping Use: Never used Substance Use Topics Alcohol use: Yes Alcohol/week: 6.0 standard drinks Types: 6 Cans of beer per week Drug use: Never Alcohol Use: Approximately 3.6 oz/week [which includes 6 Cans of beer per week] Tobacco Use: 0.25 packs/day Types: Cigarettes No family history on file. Review of Systems Constitutional: Negative. HENT: Negative. Eyes: Positive for pain. Respiratory: Negative. Cardiovascular: Negative. Gastrointestinal: Negative. Genitourinary: Negative. Musculoskeletal: Negative. Skin: Negative. Neurological: Positive for headaches. Endo/Heme/Allergies: Negative. Psychiatric/Behavioral: Negative. BP 137/81 Pulse 78 Temp (Src) 98.3 (Temporal) Resp 18 Wt 275 lb 3.2 oz (124.8kg) SpO2 96% Physical Exam Constitutional: Appearance: Normal appearance. He is not toxic-appearing. HENT: Head: Normocephalic and atraumatic. Comments: Tenderness of frontal and maxillary sinuses. With right maxillary sinus worse than left. Right Ear: Hearing and external ear normal. Left Ear: Hearing and external ear normal. Nose: Nose normal. Eyes: General: Lids are normal. Conjunctiva/sclera: Right eye: Right conjunctiva is injected. Exudate present. Left eye: Left conjunctiva is injected. Exudate present. Comments: Erythema with exudates worse on the right than the left. Swelling and erythema of right upper eyelid. Exquisite tenderness of the right maxillary sinus. Cardiovascular: Rate and Rhythm: Normal rate and regular rhythm. Heart sounds: Normal heart sounds. Pulmonary: Effort: Pulmonary effort is normal. Breath sounds: Normal breath sounds. Musculoskeletal: General: Normal range of motion. Cervical back: Normal range of motion. No edema. Skin: General: Skin is warm and dry. Neurological: Mental Status: He is alert and oriented to person, place, and time. Gait: Gait is intact. Psychiatric: Mood and Affect: Affect normal. Mood is not anxious. Behavior: Behavior is cooperative. Cognition and Memory: Memory normal. ASSESSMENT/PLAN: 1. Acute bacterial sinusitis - ICD9: 461.9, ICD10: J01.90, B96.89 (primary diagnosis) - Will begin treatment with as per antibiotic as written, see orders - Supportive care with plenty of fluids, rest, and analgesia prn. - CEFTRIAXONE 1 GRAM SOLUTION FOR INJECTION - AMOXICILLIN 875 MG-POTASSIUM CLAVULANATE 125 MG TABLET 2. Bacterial conjunctivitis - ICD9: 372.39, 041.9, ICD10: H10.9 - see medication orders - course and contagiousness issues discussed, including hand washing. - Instructed to call if high fever, development of periorbital redness or swelling, eye pain, visual changes, concerns or if symptoms persist. - TOBRAMYCIN 0.3 %-DEXAMETHASONE 0.1 % EYE DROPS,SUSPENSION - OFLOXACIN 0.3 % EYE DROPS I am concerned about possible progression to wm-orbital cellulitis. As a result, Patient understands to present to the hospital for prompt evaluation and possible IV antibiotic therapy if symptoms worsen in the next few hours. Nancy Patel MD [facility] 11-14-2022 History of Present illness Narrative Patient monitored 20 minutes after ATB injection patient voices no concerns. Provider aware and patient discharged. Jil Garcia LPN Images from the original note were not included. 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 He reports eye pain, sinus congestion and headache for two weeks. Notes symptoms have worsened significantly over the past two days. No past medical history on file. There is no problem list on file for this patient. Current Outpatient Medications Medication Sig Dispense Refill modafinil (PROVIGIL) 200 mg tablet Take 200 mg by mouth once daily. ofloxacin (OCUFLOX) 0.3 % ophthalmic solution Use 1 Drop in both eyes four times daily for 7 days. 10 mL 0 amoxicillin-clavulanic acid (AUGMENTIN) 875-125 mg per tablet Take 1 tablet by mouth every 12 hours for 7 days. 14 tablet 0 dexAMETHasone 0.1 % ophthalmic solution Use 1 Drop in both eyes every 6 hours. 5 mL 0 No current facility-administered medications for this visit. Social History Tobacco Use Smoking status: Every Day Packs/day: 0.25 Types: Cigarettes Smokeless tobacco: Never Vaping Use Vaping Use: Never used Substance Use Topics Alcohol use: Yes Alcohol/week: 6.0 standard drinks Types: 6 Cans of beer per week Drug use: Never Alcohol Use: Approximately 3.6 oz/week [which includes 6 Cans of beer per week] Tobacco Use: 0.25 packs/day Types: Cigarettes No family history on file. Review of Systems Constitutional: Negative. HENT: Negative. Eyes: Positive for pain. Respiratory: Negative. Cardiovascular: Negative. Gastrointestinal: Negative. Genitourinary: Negative. Musculoskeletal: Negative. Skin: Negative. Neurological: Positive for headaches. Endo/Heme/Allergies: Negative. Psychiatric/Behavioral: Negative. BP 137/81 Pulse 78 Temp (Src) 98.3 (Temporal) Resp 18 Wt 275 lb 3.2 oz (124.8kg) SpO2 96% Physical Exam Constitutional: Appearance: Normal appearance. He is not toxic-appearing. HENT: Head: Normocephalic and atraumatic. Comments: Tenderness of frontal and maxillary sinuses. With right maxillary sinus worse than left. Right Ear: Hearing and external ear normal. Left Ear: Hearing and external ear normal. Nose: Nose normal. Eyes: General: Lids are normal. Conjunctiva/sclera: Right eye: Right conjunctiva is injected. Exudate present. Left eye: Left conjunctiva is injected. Exudate present. Comments: Erythema with exudates worse on the right than the left. Swelling and erythema of right upper eyelid. Exquisite tenderness of the right maxillary sinus. Cardiovascular: Rate and Rhythm: Normal rate and regular rhythm. Heart sounds: Normal heart sounds. Pulmonary: Effort: Pulmonary effort is normal. Breath sounds: Normal breath sounds. Musculoskeletal: General: Normal range of motion. Cervical back: Normal range of motion. No edema. Skin: General: Skin is warm and dry. Neurological: Mental Status: He is alert and oriented to person, place, and time. Gait: Gait is intact. Psychiatric: Mood and Affect: Affect normal. Mood is not anxious. Behavior: Behavior is cooperative. Cognition and Memory: Memory normal. ASSESSMENT/PLAN: 1. Acute bacterial sinusitis - ICD9: 461.9, ICD10: J01.90, B96.89 (primary diagnosis) - Will begin treatment with as per antibiotic as written, see orders - Supportive care with plenty of fluids, rest, and analgesia prn. - CEFTRIAXONE 1 GRAM SOLUTION FOR INJECTION - AMOXICILLIN 875 MG-POTASSIUM CLAVULANATE 125 MG TABLET 2. Bacterial conjunctivitis - ICD9: 372.39, 041.9, ICD10: H10.9 - see medication orders - course and contagiousness issues discussed, including hand washing. - Instructed to call if high fever, development of periorbital redness or swelling, eye pain, visual changes, concerns or if symptoms persist. - TOBRAMYCIN 0.3 %-DEXAMETHASONE 0.1 % EYE DROPS,SUSPENSION - OFLOXACIN 0.3 % EYE DROPS I am concerned about possible progression to wm-orbital cellulitis. As a result, Patient understands to present to the hospital for prompt evaluation and possible IV antibiotic therapy if symptoms worsen in the next few hours. Nancy Patel MD documented in this encounter [facility] 10-13-2022 Note Patient: Gualberto Mckeon ich Procedure Summary Date: 10/13/22 Room / Location: [facility] [facility] [facility] 3 / [facility] OR Anesthesia Start: 1328 Anesthesia Stop: 1340 Procedure: Drug induced sleep endoscopy (Bilateral) Diagnosis: Obstructive sleep apnea (adult) (pediatric) (Obstructive sleep apnea (adult) (pediatric) [G47.33]) Surgeons: Mariela Miranda MD Responsible Provider: No Anesthesiologist - Rodrigo/MD Rich Anesthesia Type: TIVA ASA Status: 2 Anesthesia Type: TIVA Vitals Value Taken Time BP 104/72 10/13/22 1343 Temp 37 10/13/22 1343 Pulse 80 10/13/22 1343 Resp 14 10/13/22 1343 SpO2 98 10/13/22 1343 Anesthesia Post Evaluation Patient location during evaluation: PACU Patient participation: complete - patient participated Level of consciousness: awake and alert Pain management: satisfactory to patient Multimodal analgesia pain management approach Airway patency: patent Two or more strategies used to mitigate risk of obstructive sleep apnea Cardiovascular status: acceptable and hemodynamically stable Respiratory status: acceptable Hydration status: acceptable No notable events documented. MIPS #430 PONV Patient received an inhalational anesthetic (4554F) Patient exhibits three or more risk factors for PONV (4556F) Patient received at leaset 2 prophylactic Rx PONV anti-emtic agents of different classes preop and/or intraop (G9775) MIPS # 424 Perioperative Temperature Management Anesthesia time was 60 minutes or longer (4255F) Anesthesai administered was General (inhalational or TIVA) or Neuraxial block (X0424) At least one body temperature greater than 95.8F/35.5C achieved within the 30 mins immediately prior to or the 15 minutes immediately following anesthesia end time (G9771) MIPS #477 Multimodal Pain Management Not emergent case Patient was administered multimodal pain management (two or more drugs and/or interventions excluding systemic opioids) in the periopeartive period occurring at some time between 6 hours prior to anesthesia start time until discharged from PACU (G2148) MIPS #404 Anesthesiology Smoking Abstinence The patient is not a current smoker (e.g. cigarette, cigar, pipe, e-cigarette/vaping/marijuana) I completed my handoff to the receiving clinician during which we: 1. Identified the patient 2. Identified the responsible provider 3. Reviewed the pertinent medical history 4. Discussed the surgical course 5. Reviewed intra-op anesthesia management and issues during anesthesia 6. Set expectations for post-procedure period 7. Allowed opportunity for questions and acknowledgement of understanding. [facility] 10-13-2022 Note Patient: Gualberto Mckeon ich Procedure Summary Date: 10/13/22 Room / Location: [place] [facility] / [facility] OR Anesthesia Start: 1328 Anesthesia Stop: 1340 Procedure: Drug induced sleep endoscopy (Bilateral) Diagnosis: Obstructive sleep apnea (adult) (pediatric) (Obstructive sleep apnea (adult) (pediatric) [G47.33]) Surgeons: Mariela Miranda MD Responsible Provider: No Anesthesiologist - Sb/MD Rich Anesthesia Type: TIVA ASA Status: 2 Anesthesia Type: TIVA Vitals Value Taken Time BP 104/72 10/13/22 1340 Temp 37 10/13/22 1340 Pulse 80 10/13/22 1340 Resp 14 10/13/22 1340 SpO2 98 10/13/22 1340 Anesthesia Post Evaluation Patient location during evaluation: PACU Patient participation: complete - patient participated Level of consciousness: awake and alert Pain management: satisfactory to patient Airway patency: patent Dental Injury: no Cardiovascular status: acceptable, blood pressure returned to baseline and hemodynamically stable Respiratory status: acceptable and spontaneous ventilation Hydration status: euvolemic Nausea/Vomiting: controlled No notable events documented. Patient can be discharged once all PACU criteria has been met. [facility] 10-13-2022 Note [facility] - Patient Pre-procedure Instructions Sleep Apnea: If yes, please bring CPAP machine May shower/brush teeth. Leave valuables/jewelry at home. No makeup, lotion, powder, deodorant or body sprays. No contact lenses No makeup, contact lenses, piercings, or dark nail andorran No solid food after midnight before procedure. Clear liquids only - up to 2 hours prior to your arrival time (water, clear juice, Gatorade, coffee/tea with no milk/sugar, no mints gum or candy If of age, you may need to undergo a test Medications to take the morning of surgery Take the following medications: na Do not take the following medications: vitamins, nsaids No Motrin, ibuprofen or Advil in 24 hours prior to surgery, longer if directed by your surgeon No Aleve or Naprosyn for 3 days prior to surgery or longer if instructed by your surgeon. If you take blood thinners or aspirin, follow instructions given to you by your surgeon You may take your prescription pain medication, you may take Tylenol for pain. Do not use/smoke THC or drink alcohol in the 24 hours prior to your arrival time. Please Bring your Operations Leader's license/photo ID, insurance card, eye drops/sunglasses, inhalers if applicable If you have a Medical Power of Religious Education Director, living will, or an advanced directive, please bring a copy with you. We are required to resuscitate and transfer you to the hospital along with your directive. [facility] 10-13-2022 Note H&P reviewed. The pa deloris was examined and there are no changes to the H&P. [facility] 10-13-2022 Note Patient: Gualberto Mckeon ich Procedure Information Date/Time: 10/13/22 1230 Procedure: Drug induced sleep endoscopy (Bilateral) - 30 mins Location: [place] [facility] / [facility] Surgeons: Mariela Miranda MD Relevant Problems Anesthesia (+) Obstructive sleep apnea syndrome Cardio (+) Hypercholesterolemia Pulmonary (+) Dependence on continuous positive airway pressure ventilation (+) Obstructive sleep apnea syndrome Past Medical History: Past Medical History: No date: Delayed emergence from general anesthesia No date: Sleep apnea Past Surgical History: Past Surgical History: No date: KNEE ARTHROPLASTY; Bilateral Social History: TOBACCO: reports that he has been smoking cigarettes. He has never used smokeless tobacco. ETOH: reports current alcohol use. Social History Substance and Sexual Activity Drug Use Never Family History: No family history on file. Screening: unknown Clinical information reviewed: Tobacco Allergies Meds Med Hx Surg Hx Fam Hx Soc Hx Physical Exam Airway Mallampati: II TM distance: >3 FB Neck ROM: full Mouth Open: normalendotracheal tube not in place Cardiovascular - normal exam Dental Pulmonary Abdominal Anesthesia Plan ASA 2 TIVA Anesthetic plan and risks discussed with patient. Use of blood products discussed with who consented to blood products. patient is NPO MOHIT Screening Labs: No results found for: WBC, HGB, HCT, MCV, PLT No results found for: NA, K, CL, CO2, BUN, CREATININE, GLUCOSE, CALCIUM, PROT, BILIRUBINFL, ALKPHOS, AST, ALT, EGFR, GLOB Pain Score: 0 - No pain No echocardiogram results found for the past 14 days No results found for this or any previous visit. [facility] 10-13-2022 Hospital Discharge instructions Ana Mckinley RN - 10/13/2022 1:34 PM EDT Can resume normal activities Will follow up to schedule/gain insurance approval for Inspire therapy. Anesthesia and Activity: For the first [address], operate heavy or dangerous machinery Do not drink any alcohol or take sleeping pills. Do not make major decisions or sign important papers. You may not be able to think clearly. You are at a higher risk of falling for at least 24 hours. Take extra care when you get up. Do not change positions quickly. Ask for help if you feel unsteady when you try to walk. Start with a light diet when you are fully awake. This includes things that are easy to swallow like soups, pudding, jello, toast and eggs. Slowly progress to your normal diet. Call the doctor if you Have trouble breathing Upset stomach or vomiting more than 3 times in the next 2 days Dizziness documented in this encounter [facility] 10-13-2022 Miscellaneous Notes Date: 10/13/2022 Location: [facility] OR Name: Gualberto Sharp, : 1960, Diagnosis Pre-op Diagnosis * Obstructive sleep apnea (adult) (pediatric) [G47.33] Post-op Diagnosis * Obstructive sleep apnea (adult) (pediatric) [G47.33] Procedures Drug induced sleep endoscopy 86487 - CT DISE DYN EVAL SLEEP DISORDERED BREATHING FLX DX Surgeons * Mariela Miranda - Primary Procedure Summary Anesthesia: General ASA: II Estimated Blood Loss: None Drains: * None in log * Staff: Chief Of Safety And Protection: Renee Mason RN Scrub Person: Francine Lane RN Findings: A-P collapse at level of velum and mild obstruction of base of tongue Complications: None; patient tolerated the procedure well. Specimens Collected: No specimens collected during this procedure. Wound Class: Class II: Clean-Contaminated Blood Products: None Prophylactic Antibiotics: Pre-operative antibiotics were not given because antibiotics are not indicated for this procedure. Patient was seen and evaluated in the pre-operative area. Informed consent was obtained after discussing the risks, benefits and indications for the procedure. The patient was taken back to the operating room by the anesthesia team. Appropriate timeout was performed. Table was kept supine and patient appropriately positioned. Patient was prepped and draped in the usual fashion. Anesthesia began the propofol infusion per protocol at 100 mcg/kg/min and uptitrated by 25 mcg/kg/min until patient at appropriate plane of simulated sleep with snoring and desaturations. The flexible laryngoscope was advanced into the nasal cavity and we subsequently evaluated the velum, oropharynx, tongue base, and epiglottis. Sites of obstruction as reported above. Video documentation was obtained. Once a satisfactory evaluation was obtained, care of the patient was turned to anesthesia and patient was awoken without issue and taken to PACU in stable condition having tolerated the procedure well. Date: 10/13/2022 Location: [facility] OR Name: Gualberto Sharp, : 1960, Diagnosis Pre-op Diagnosis * Obstructive sleep apnea (adult) (pediatric) [G47.33] Post-op Diagnosis * Obstructive sleep apnea (adult) (pediatric) [G47.33] Procedures Drug induced sleep endoscopy 02003 - CT DISE DYN EVAL SLEEP DISORDERED BREATHING FLX DX Surgeons * Mariela Miranda - Primary Procedure Summary Anesthesia: General ASA: II Estimated Blood Loss: None Drains: * None in log * Staff: Chief Of Safety And Protection: Renee Mason RN Scrub Person: Francine Lane RN Findings: A-P collapse at level of velum and mild obstruction of base of tongue Complications: None; patient tolerated the procedure well. Specimens Collected: No specimens collected during this procedure. Wound Class: Class II: Clean-Contaminated Blood Products: None Prophylactic Antibiotics: Pre-operative antibiotics were not given because antibiotics are not indicated for this procedure. [facility] - Patient Pre-procedure Instructions Sleep Apnea: If yes, please bring CPAP machine May shower/brush teeth. Leave valuables/jewelry at home. No makeup, lotion, powder, deodorant or body sprays. No contact lenses No makeup, contact lenses, piercings, or dark nail andorran No solid food after midnight before procedure. Clear liquids only - up to 2 hours prior to your arrival time (water, clear juice, Gatorade, coffee/tea with no milk/sugar, no mints gum or candy If of age, you may need to undergo a test Medications to take the morning of surgery Take the following medications: na Do not take the following medications: vitamins, nsaids No Motrin, ibuprofen or Advil in 24 hours prior to surgery, longer if directed by your surgeon No Aleve or Naprosyn for 3 days prior to surgery or longer if instructed by your surgeon. If you take blood thinners or aspirin, follow instructions given to you by your surgeon You may take your prescription pain medication, you may take Tylenol for pain. Do not use/smoke THC or drink alcohol in the 24 hours prior to your arrival time. Please Bring your Operations Leader's license/photo ID, insurance card, eye drops/sunglasses, inhalers if applicable If you have a Medical Power of Religious Education Director, living will, or an advanced directive, please bring a copy with you. We are required to resuscitate and transfer you to the hospital along with your directive. Discharge instruction given to spouse with understanding documented in this encounter [facility] 10-13-2022 Note Formatting of this n ote is different from the original. Date: 10/13/2022 Location: [facility] OR Name: Gualberto Sharp, : 1960, Diagnosis Pre-op Diagnosis * Obstructive sleep apnea (adult) (pediatric) [G47.33] Post-op Diagnosis * Obstructive sleep apnea (adult) (pediatric) [G47.33] Procedures Drug induced sleep endoscopy 35115 - CT DISE DYN EVAL SLEEP DISORDERED BREATHING FLX DX Surgeons * Mariela Miranda - Primary Procedure Summary Anesthesia: General ASA: II Estimated Blood Loss: None Drains: * None in log * Staff: Chief Of Safety And Protection: Renee Mason RN Scrub Person: Francine Lane RN Findings: A-P collapse at level of velum and mild obstruction of base of tongue Complications: None; patient tolerated the procedure well. Specimens Collected: No specimens collected during this procedure. Wound Class: Class II: Clean-Contaminated Blood Products: None Prophylactic Antibiotics: Pre-operative antibiotics were not given because antibiotics are not indicated for this procedure. Patient was seen and evaluated in the pre-operative area. Informed consent was obtained after discussing the risks, benefits and indications for the procedure. The patient was taken back to the operating room by the anesthesia team. Appropriate timeout was performed. Table was kept supine and patient appropriately positioned. Patient was prepped and draped in the usual fashion. Anesthesia began the propofol infusion per protocol at 100 mcg/kg/min and uptitrated by 25 mcg/kg/min until patient at appropriate plane of simulated sleep with snoring and desaturations. The flexible laryngoscope was advanced into the nasal cavity and we subsequently evaluated the velum, oropharynx, tongue base, and epiglottis. Sites of obstruction as reported above. Video documentation was obtained. Once a satisfactory evaluation was obtained, care of the patient was turned to anesthesia and patient was awoken without issue and taken to PACU in stable condition having tolerated the procedure well. [facility] 10-13-2022 Note Formatting of this n ote is different from the original. Date: 10/13/2022 Location: [facility] OR Name: Gualberto Sharp, : 1960, Diagnosis Pre-op Diagnosis * Obstructive sleep apnea (adult) (pediatric) [G47.33] Post-op Diagnosis * Obstructive sleep apnea (adult) (pediatric) [G47.33] Procedures Drug induced sleep endoscopy 22103 - CT DISE DYN EVAL SLEEP DISORDERED BREATHING FLX DX Surgeons * Mariela Miranda - Primary Procedure Summary Anesthesia: General ASA: II Estimated Blood Loss: None Drains: * None in log * Staff: Chief Of Safety And Protection: Renee Mason RN Scrub Person: Francine Lane RN Findings: A-P collapse at level of velum and mild obstruction of base of tongue Complications: None; patient tolerated the procedure well. Specimens Collected: No specimens collected during this procedure. Wound Class: Class II: Clean-Contaminated Blood Products: None Prophylactic Antibiotics: Pre-operative antibiotics were not given because antibiotics are not indicated for this procedure. T [facility] 10-13-2022 Note Formatting of this n ote might be different from the original. [facility] - Patient Pre-procedure Instructions Sleep Apnea: If yes, please bring CPAP machine May shower/brush teeth. Leave valuables/jewelry at home. No makeup, lotion, powder, deodorant or body sprays. No contact lenses No makeup, contact lenses, piercings, or dark nail andorran No solid food after midnight before procedure. Clear liquids only - up to 2 hours prior to your arrival time (water, clear juice, Gatorade, coffee/tea with no milk/sugar, no mints gum or candy If of age, you may need to undergo a test Medications to take the morning of surgery Take the following medications: na Do not take the following medications: vitamins, nsaids No Motrin, ibuprofen or Advil in 24 hours prior to surgery, longer if directed by your surgeon No Aleve or Naprosyn for 3 days prior to surgery or longer if instructed by your surgeon. If you take blood thinners or aspirin, follow instructions given to you by your surgeon You may take your prescription pain medication, you may take Tylenol for pain. Do not use/smoke THC or drink alcohol in the 24 hours prior to your arrival time. Please Bring your Operations Leader's license/photo ID, insurance card, eye drops/sunglasses, inhalers if applicable If you have a Medical Power of Religious Education Director, living will, or an advanced directive, please bring a copy with you. We are required to resuscitate and transfer you to the hospital along with your directive. [facility] 10-13-2022 Attending History and physical note H&P reviewed. The patient was examined and there are no changes to the H&P. Source Note - Mariela Miranda MD - 10/01/2022 3:00 PM EST Assessment and Recommendations: Gualberto Sharp is a 62 y.o. male here for severe obstructive sleep apnea and tonsillar hypertrophy -I counseled the patient on the findings we will work on retrieving his most latest sleep study which was done 2 months ago. Otherwise he meets criteria for potential inspire therapy. I discussed with the patient the criteria as well as neck steps including drug-induced sleep endoscopy which she is interested in I explained the risks and benefits of the procedure the patient for which she expressed understanding willingness to proceed we will schedule this in the near future The risks and benefits of DISE were discussed. Risks include but not limited to bleeding, infection, dysphagia, voice changes, chipped/broken teeth, rarely the need for emergency tracheotomy, and risks of general anesthesia such as heart attack, stroke, rarely . All potential outcomes were discussed in layman's terms and all questions were answered. Patient verbalized understanding and elected to proceed. Electronically signed by Mariela Miranda MD [facility] Note HPI: Gualberto Sharp is a 62 y.o. yo male who presents to clinic today for evaluation of obstructive sleep apnea. States for the past 5 years he has trialed CPAP machine with multiple masks but is unable to tolerate. States it is very uncomfortable. Does removed the mask subconsciously throughout the night. Frequently wakes up feeling un-rested. Complains of daytime fatigue and somnolence. AHI on sleep study dated: working on retrieval of those records> Within the past couple of months. Was told it was severe. principal technologist woke him up? No need for serial MRIs. BMI today 33.47. Has history of high cholesterol, otherwise no CV history. Occasionally smokes cigarettes but states not regularly. No other history of substance abuse. No history of bleeding disorders or anticoagulant use. PMH: Past Medical History: Diagnosis Date Sleep apnea Allergies: No Known Allergies Medications: No current outpatient medications on file. PSH: History reviewed. No pertinent surgical history. FH: No family history on file. SH: Social History Socioeconomic History Marital status: Spouse name: Not on file Number of children: Not on file Years of education: Not on file Highest education level: Not on file Occupational History Not on file Tobacco Use Smoking status: Every Day Types: Cigarettes Smokeless tobacco: Never Substance and Sexual Activity Alcohol use: Yes Comment: social Drug use: Never Sexual activity: Not on file Other Topics Concern Not on file Social History Narrative Not on file Social Determinants of Health Financial Resource Strain: Not on file Food Insecurity: Not on file Transportation Needs: Not on file Physical Activity: Not on file Stress: Not on file Social Connections: Not on file Intimate Partner Violence: Not on file Housing Stability: Not on file Physical Exam: Constitutional: General: Patient is not in acute distress. Appearance: Patient is well-developed. Eyes: Conjunctiva/sclera: Conjunctivae normal. Pupils: Pupils are equal, round, and reactive to light. HENT: Ears: Microscope brought in for exam. Bilateral external ears normal. Right EAC normal, TM clear with normal middle ear landmarks. Left EAC normal, TM clear with normal middle ear landmarks Jaw: No trismus. Nose: No nasal deformity, mucosal edema or rhinorrhea. Mouth: Mucous membranes are not pale, not dry and not cyanotic. No oral lesions. Pharynx: Uvula midline. No oropharyngeal exudate or uvula swelling. Tonsils: No tonsillar exudate. No abnormal masses or lesions Thyroid: No significant thyromegaly. Trachea: Trachea and phonation normal. No tracheal deviation. Pulmonary: Effort: Pulmonary effort is normal. No respiratory distress. Breath sounds: No stridor. Musculoskeletal: Head: Normocephalic and atraumatic. Neck: Full passive range of motion without pain, neck supple. Skin: General: Skin is warm and dry. Findings: No erythema or rash. Neurological: Cranial Nerves: No cranial nerve deficit. Sensory: No sensory deficit. Coordination: Coordination normal. Extremities: No significant peripheral edema or varicosities Psychiatric: Mood and Affect: Mood and affect normal. Cognition and Memory: Cognition and memory normal. Flexible laryngoscopy performed revealing no masses or lesions does have some lateral pharyngeal wall crowding from tonsillar hypertrophy airway is patent vocal cord motion is normal and symmetric bilaterally [employer] Phone: 10-13-2022 History and physical note H&P reviewed. The patient was examined and there are no changes to the H&P. Source Note - Mariela Miranda MD - 10/01/2022 3:00 PM EST Assessment and Recommendations: Gualberto Sharp is a 62 y.o. male here for severe obstructive sleep apnea and tonsillar hypertrophy -I counseled the patient on the findings we will work on retrieving his most latest sleep study which was done 2 months ago. Otherwise he meets criteria for potential inspire therapy. I discussed with the patient the criteria as well as neck steps including drug-induced sleep endoscopy which she is interested in I explained the risks and benefits of the procedure the patient for which she expressed understanding willingness to proceed we will schedule this in the near future The risks and benefits of DISE were discussed. Risks include but not limited to bleeding, infection, dysphagia, voice changes, chipped/broken teeth, rarely the need for emergency tracheotomy, and risks of general anesthesia such as heart attack, stroke, rarely . All potential outcomes were discussed in layman's terms and all questions were answered. Patient verbalized understanding and elected to proceed. Electronically signed by Mariela Miranda MD Otolaryngology Head and Ne[facility] Surgery Clinic Note HPI: Gualberto Sharp is a 62 y.o. yo male who presents to clinic today for evaluation of obstructive sleep apnea. States for the past 5 years he has trialed CPAP machine with multiple masks but is unable to tolerate. States it is very uncomfortable. Does removed the mask subconsciously throughout the night. Frequently wakes up feeling un-rested. Complains of daytime fatigue and somnolence. AHI on sleep study dated: working on retrieval of those records> Within the past couple of months. Was told it was severe. principal technologist woke him up? No need for serial MRIs. BMI today 33.47. Has history of high cholesterol, otherwise no CV history. Occasionally smokes cigarettes but states not regularly. No other history of substance abuse. No history of bleeding disorders or anticoagulant use. PMH: Past Medical History: Diagnosis Date Sleep apnea Allergies: No Known Allergies Medications: No current outpatient medications on file. PSH: History reviewed. No pertinent surgical history. FH: No family history on file. SH: Social History Socioeconomic History Marital status: Spouse name: Not on file Number of children: Not on file Years of education: Not on file Highest education level: Not on file Occupational History Not on file Tobacco Use Smoking status: Every Day Types: Cigarettes Smokeless tobacco: Never Substance and Sexual Activity Alcohol use: Yes Comment: social Drug use: Never Sexual activity: Not on file Other Topics Concern Not on file Social History Narrative Not on file Social Determinants of Health Financial Resource Strain: Not on file Food Insecurity: Not on file Transportation Needs: Not on file Physical Activity: Not on file Stress: Not on file Social Connections: Not on file Intimate Partner Violence: Not on file Housing Stability: Not on file Physical Exam: Constitutional: General: Patient is not in acute distress. Appearance: Patient is well-developed. Eyes: Conjunctiva/sclera: Conjunctivae normal. Pupils: Pupils are equal, round, and reactive to light. HENT: Ears: Microscope brought in for exam. Bilateral external ears normal. Right EAC normal, TM clear with normal middle ear landmarks. Left EAC normal, TM clear with normal middle ear landmarks Jaw: No trismus. Nose: No nasal deformity, mucosal edema or rhinorrhea. Mouth: Mucous membranes are not pale, not dry and not cyanotic. No oral lesions. Pharynx: Uvula midline. No oropharyngeal exudate or uvula swelling. Tonsils: No tonsillar exudate. No abnormal masses or lesions Thyroid: No significant thyromegaly. Trachea: Trachea and phonation normal. No tracheal deviation. Pulmonary: Effort: Pulmonary effort is normal. No respiratory distress. Breath sounds: No stridor. Musculoskeletal: Head: Normocephalic and atraumatic. Neck: Full passive range of motion without pain, neck supple. Skin: General: Skin is warm and dry. Findings: No erythema or rash. Neurological: Cranial Nerves: No cranial nerve deficit. Sensory: No sensory deficit. Coordination: Coordination normal. Extremities: No significant peripheral edema or varicosities Psychiatric: Mood and Affect: Mood and affect normal. Cognition and Memory: Cognition and memory normal. Flexible laryngoscopy performed revealing no masses or lesions does have some lateral pharyngeal wall crowding from tonsillar hypertrophy airway is patent vocal cord motion is normal and symmetric bilaterally documented in this encounter [facility] 10-13-2022 Note Formatting of this n ote might be different from the original. Discharge instruction given to spouse with understanding [facility] 10-01-2022 Note Assessment and Recom mendations: Gualberto Sharp is a 62 y.o. male here for severe obstructive sleep apnea and tonsillar hypertrophy -I counseled the patient on the findings we will work on retrieving his most latest sleep study which was done 2 months ago. Otherwise he meets criteria for potential inspire therapy. I discussed with the patient the criteria as well as neck steps including drug-induced sleep endoscopy which she is interested in I explained the risks and benefits of the procedure the patient for which she expressed understanding willingness to proceed we will schedule this in the near future The risks and benefits of DISE were discussed. Risks include but not limited to bleeding, infection, dysphagia, voice changes, chipped/broken teeth, rarely the need for emergency tracheotomy, and risks of general anesthesia such as heart attack, stroke, rarely . All potential outcomes were discussed in layman's terms and all questions were answered. Patient verbalized understanding and elected to proceed. Electronically signed by Mariela Miranda MD Otolaryngology Head and Neck Surgery Clinic Note HPI: Gualberto Sharp is a 62 y.o. yo male who presents to clinic today for evaluation of obstructive sleep apnea. States for the past 5 years he has trialed CPAP machine with multiple masks but is unable to tolerate. States it is very uncomfortable. Does removed the mask subconsciously throughout the night. Frequently wakes up feeling un-rested. Complains of daytime fatigue and somnolence. AHI on sleep study dated: working on retrieval of those records> Within the past couple of months. Was told it was severe. principal technologist woke him up? No need for serial MRIs. BMI today 33.47. Has history of high cholesterol, otherwise no CV history. Occasionally smokes cigarettes but states not regularly. No other history of substance abuse. No history of bleeding disorders or anticoagulant use. PMH: Past Medical History: Diagnosis Date Sleep apnea Allergies: No Known Allergies Medications: No current outpatient medications on file. PSH: History reviewed. No pertinent surgical history. FH: No family history on file. SH: Social History Socioeconomic History Marital status: Spouse name: Not on file Number of children: Not on file Years of education: Not on file Highest education level: Not on file Occupational History Not on file Tobacco Use Smoking status: Every Day Types: Cigarettes Smokeless tobacco: Never Substance and Sexual Activity Alcohol use: Yes Comment: social Drug use: Never Sexual activity: Not on file Other Topics Concern Not on file Social History Narrative Not on file Social Determinants of Health Financial Resource Strain: Not on file Food Insecurity: Not on file Transportation Needs: Not on file Physical Activity: Not on file Stress: Not on file Social Connections: Not on file Intimate Partner Violence: Not on file Housing Stability: Not on file Physical Exam: Constitutional: General: Patient is not in acute distress. Appearance: Patient is well-developed. Eyes: Conjunctiva/sclera: Conjunctivae normal. Pupils: Pupils are equal, round, and reactive to light. HENT: Ears: Microscope brought in for exam. Bilateral external ears normal. Right EAC normal, TM clear with normal middle ear landmarks. Left EAC normal, TM clear with normal middle ear landmarks Jaw: No trismus. Nose: No nasal deformity, mucosal edema or rhinorrhea. Mouth: Mucous membranes are not pale, not dry and not cyanotic. No oral lesions. Pharynx: Uvula midline. No oropharyngeal exudate or uvula swelling. Tonsils: No tonsillar exudate. No abnormal masses or lesions Thyroid: No significant thyromegaly. Trachea: Trachea and phonation normal. No tracheal deviation. Pulmonary: Effort: Pulmonary effort is normal. No respiratory distress. Breath sounds: No stridor. Musculoskeletal: Head: Normocephalic and atraumatic. Neck: Full passive range of motion without pain, neck supple. Skin: General: Skin is warm and dry. Findings: No erythema or rash. Neurological: Cranial Nerves: No cranial nerve deficit. Sensory: No sensory deficit. Coordination: Coordination normal. Extremities: No significant peripheral edema or varicosities Psychiatric: Mood and Affect: Mood and affect normal. Cognition and Memory: Cognition and memory normal. Flexible laryngoscopy performed revealing no masses or lesions does have some lateral pharyngeal wall crowding from tonsillar hypertrophy airway is patent vocal cord motion is normal and symmetric bilaterally [facility] 08-27-2022 Evaluation + Plan note Future Scheduled TestsProstate Specific Antigen 08/27/22Lipid Profile 08/27/22Complete Metabolic Panel 08/27/22 [facility] 08-25-2022 Hospital Discharge instructions Patient Education 08/25/2022 00:11:15 Knee Pain of Uncertain Cause Knee Pain with Uncertain Cause There are several common causes for knee pain. These can include: A sprain of the ligaments that support the joint An injury to the cartilage lining of the joint Arthritis from hqfb-ryv-utnl or inflammation There are other causes as well. There may also be swelling, reduced movement of the knee joint, and pain with walking. A definite diagnosis will still need to be made. If your symptoms don't improve, further follow-up and testing may be needed. Home care Stay off the injured leg as much as possible until pain improves. Apply an ice pack over the injured area for 15 to 20 minutes every 3 to 6 hours. You should do this for the first 24 to 48 hours. You can make an ice pack by filling a plastic bag that seals at the top with ice cubes and then wrapping it with a thin towel. Continue to use ice packs for relief of pain and swelling as needed. As the ice melts, be careful not to get your wrap, splint, or cast wet. After 48 hours, apply heat (warm shower or warm bath) for 15 to 20 minutes several times a day, or alternate ice and heat. If you have to wear a jlha-big-lxjx knee brace, you can open it to apply the ice pack, or heat, directly to the knee. Never put ice directly on the skin. Always wrap the ice in a towel or other type of cloth. You may use lnjn-asy-buhlxmw pain medicine to control pain, unless another pain medicine was prescribed. If you have chronic liver or kidney disease or ever had a stomach ulcer or gastrointestinal bleeding, talk with your healthcare provider before using these medicines. If crutches or a walker have been recommended, don't put weight on the injured leg until you can do so without pain. Check with your healthcare provider before returning to sports or full work duties. If you have a zsmp-zqe-ldge knee brace, you can remove it to bathe and sleep, unless told otherwise. Follow-up care Follow up with your healthcare provider as advised. This is usually within 1 to 2 weeks. If X-rays were taken, you will be told of any new findings that may affect your care Call 911 Call 911 if you have: Shortness of breath Chest pain When to seek medical advice Call your healthcare provider right away if any of these occur: Toes or foot becomes swollen, cold, blue, numb, or tingly Pain or swelling spreads over the knee or calf Warmth or redness appears over the knee or calf Other joints become painful Rash appears Fever of 100.4 F (38 C) or higher, or as directed by your healthcare provider Holli [id number] [employer]. [address] [place] [address]. All rights reserved. This information is not intended as a substitute for professional medical care. Always follow your healthcare professional's instructions. Follow Up Care 08/24/2022 23:20:47 With:Follow up with primary care provider Address:Unknown When:2-4 days With:Follow up with primary care provider Address:Unknown When:2-4 days [facility] 08-25-2022 Emergency department Discharge summary Discharge Instructions Thank you for allowing [facility] to assist you with your healthcare needs. The following is important discharge information regarding your hospital visit. Diagnosis from Today's Visit Fall - knee pain Knee joint injury What to Do Next Instructions from Your Care Team No qualifying data available. Post Acute Orders No qualifying data available. You Need to Schedule the Following Appointments Follow Up with Follow up with primary care provider When Within 2-4 days Follow Up with Follow up with primary care provider When Within 2-4 days Allergies NKA Medications Please ask your primary doctor or pharmacist before taking any other medication not listed, including over the counter drugs, herbal medications, vitamins and or supplements as they may interact with your home medications. What How Much When Why Instructions Last Dose New acetaminophen-oxyCODONE (Percocet 5 mg-325 mg oral tablet) 1 tab(s) by mouth Every 6 hours as needed for for pain Knee joint injury Duration: 3 Days Printed Prescription Unchanged multivitamin (Multiple Vitamins oral tablet) 1 tab(s) by mouth Once a day (in the morning) Please take this list to your next doctor s visit. Bring all medications you take, including over the counter medications, herbals and other supplements with you to your doctor s visit. Patients and families are reminded to discard old lists and to update any records with all medication providers or retail pharmacies. Education Materials Knee Pain with Uncertain Cause There are several common causes for knee pain. These can include: A sprain of the ligaments that support the joint An injury to the cartilage lining of the joint Arthritis from hpag-ozz-ncpw or inflammation There are other causes as well. There may also be swelling, reduced movement of the knee joint, and pain with walking. A definite diagnosis will still need to be made. If your symptoms don't improve, further follow-up and testing may be needed. Home care Stay off the injured leg as much as possible until pain improves. Apply an ice pack over the injured area for 15 to 20 minutes every 3 to 6 hours. You should do this for the first 24 to 48 hours. You can make an ice pack by filling a plastic bag that seals at the top with ice cubes and then wrapping it with a thin towel. Continue to use ice packs for relief of pain and swelling as needed. As the ice melts, be careful not to get your wrap, splint, or cast wet. After 48 hours, apply heat (warm shower or warm bath) for 15 to 20 minutes several times a day, or alternate ice and heat. If you have to wear a awmp-lrz-nbis knee brace, you can open it to apply the ice pack, or heat, directly to the knee. Never put ice directly on the skin. Always wrap the ice in a towel or other type of cloth. You may use mdkv-kth-jnpipiq pain medicine to control pain, unless another pain medicine was prescribed. If you have chronic liver or kidney disease or ever had a stomach ulcer or gastrointestinal bleeding, talk with your healthcare provider before using these medicines. If crutches or a walker have been recommended, don't put weight on the injured leg until you can do so without pain. Check with your healthcare provider before returning to sports or full work duties. If you have a cyux-xml-kxkr knee brace, you can remove it to bathe and sleep, unless told otherwise. Follow-up care Follow up with your healthcare provider as advised. This is usually within 1 to 2 weeks. If X-rays were taken, you will be told of any new findings that may affect your care Call 911 Call 911 if you have: Shortness of breath Chest pain When to seek medical advice Call your healthcare provider right away if any of these occur: Toes or foot becomes swollen, cold, blue, numb, or tingly Pain or swelling spreads over the knee or calf Warmth or redness appears over the knee or calf Other joints become painful Rash appears Fever of 100.4 F (38 C) or higher, or as directed by your healthcare provider Holli [phone] [employer]. [address] [place] [address]. All rights reserved. This information is not intended as a substitute for professional medical care. Always follow your healthcare professional's instructions. Additional Information VACCINATE! IT SAVES LIVES! Members of the community who have not yet received the COVID-19 vaccine and would like to receive it can visit one of [facility] vaccine clinics. There are many vaccine clinic locations within the [facility]. For locations and available times, please visit [email or web address]. It is important to note that some COVID mobile vaccine clinics are held outdoors and may be canceled in rainy or stormy conditions. To learn more about pediatric vaccinations (ages 5-11), we invite you to visit the [facility] webpage. [email or web address] [email or web address]-[email or web address].html To learn more about the COVID-19 vaccine, we invite you to visit the [employer] website for a list of frequently asked questions. [email or web address] ently_[email or web address].pdf [facility] Patient Portal Access Instructions: Stay connected with your healthcare team and access your personal medical information anytime with the [facility] Patient Portal. If you would like a full copy of your medical records please contact the [facility] Medical Records Department Thursday through Thursday between 8a.m. and 4:30p.m. Please follow the directions below to access the portal: 1.Access the email account you provided upon registration to the [facility].2.Look for an invitation email from [facility].3.Open the email and access the invitation link: Accept Invitation to [facility].Fill in the required jackson to create your account. Sign into [email or web address] with your username and password that you created in the above steps to stay up to date. You can then view a summary of results, a summary of your visits, and the ability to download your summaries to your computer or send the information securely to a physician. Remember that your healthcare information is confidential, so carefully consider who you will allow to register on the [facility] Patient Portal for access to your information. You can also access the [facility] Patient Portal on the Mr. Number. Simply click on Health Records under Health Data and then click on the [employer] logo. HOW TO SAFELY DISPOSE OF PRESCRIPTION MEDICATIONS Please use one of the following methods to safely dispose of your unused medications. 1.Use a drug disposal kit: the drug disposal pouch allows you to safely discard your old and unused drugs. Ask your nurse to give you one when you are discharged.2.Visit a local take-back location: Many local pharmacies and police departments have programs that collect old and unwanted prescription drugs. Call your local pharmacy or go to http://[employer].[facility]/6H2Tx1p to find one close to you.3.Make use of household items: Use cat litter or old coffee grounds to dispose medications if other options are not available. Mix your drugs with these household products, seal them in an airtight container and throw it into the garbage. Call [facility]: [phone] to be sure your drugs can be disposed of in this way. Some medicines may require a different approach.4.Never flush your medications down the toilet. IF YOU HAVE BEEN PRESCRIBED AN OPIOIDS FOR PAIN If you have been prescribed an opioid (such as hydrocodone, oxycodone or morphine), it is critical to understand the possible side effects and risks of opioid pain medications. Even when taken as directed, opioids can have several side effects including: Tolerance, meaning you might need to take more of a medication for the same pain relief. Nausea, vomiting and/or constipation. Sleepiness, dizziness, dry mouth, confusion, depression or itching. Physical dependence, meaning you have withdrawal symptoms when a medication is stopped ? this can develop within a few days. KNOW YOUR RESPONSIBILITIES It is important to know exactly how much and how often to take the opioid pain medications you are prescribed. Never take opioids in higher amounts or more often than prescribed. Do not combine opioids with alcohol or other drugs that cause drowsiness, such as benzodiazepines, also known as benzos, including diazepam and alprazolam, muscle relaxants or sleep aids. Never sell or share prescription opioids. This is illegal. Store opioids in a secure place and out of reach of others (including children, family, friends and visitors). The last page(s) of this document has been signed and retained as a CHART COP[employer] Patient Education Materials Knee Pain of Uncertain Cause Medication Leaflets My discharge plan and instructions have been reviewed and explained to me and ILILA KEITH A understand my current condition and have read and understand these discharge instructions. I have received a written copy of the plan/instructions. If I have questions, I am aware that I should contact my doctor. Patient/[employer] Consultant Signature: Date/Time: Relationship to Patient: ___ Witness Name/Signature: Date/Time: [facility] 08-24-2022 Note ORIGINAL EXAMINATION: THREE XRAY VIEWS OF THE LEFT KNEE 08/24/2022 11:53 pm COMPARISON: Right knee x-ray on 07/24/2019 HISTORY: ORDERING SYSTEM PROVIDED HISTORY: Reason for Exam: Pain Injury due to a fall. FINDINGS: Left total knee arthroplasty is present. The hardware is in satisfactory position with no sign of hardware malfunction. Tibiofemoral and patellofemoral alignment is normal. There is no fracture. A small joint effusion is present. Soft tissue swelling anteriorly is noted. There is no foreign body in the soft tissue. IMPRESSION: Left total knee arthroplasty, with no fracture or dislocation. Small joint effusion. Interpreted by: Luis Guallpa MD Preliminary Report By: Luis Guallpa MD Electronically signed By Luis Guallpa MD Dictated Date: 08/24/2022 11:54:59 PM Prelim Date: 08/24/2022 11:57:19 PM Sign Date: 08/24/2022 11:57:19 PM Ordering Provider: [facility] 08-24-2022 Note ORIGINAL EXAMINATION: THREE XRAY VIEWS OF THE LEFT KNEE 08/24/2022 11:53 pm COMPARISON: Right knee x-ray on 07/24/2019 HISTORY: ORDERING SYSTEM PROVIDED HISTORY: Reason for Exam: Pain Injury due to a fall. FINDINGS: Left total knee arthroplasty is present. The hardware is in satisfactory position with no sign of hardware malfunction. Tibiofemoral and patellofemoral alignment is normal. There is no fracture. A small joint effusion is present. Soft tissue swelling anteriorly is noted. There is no foreign body in the soft tissue. IMPRESSION: Left total knee arthroplasty, with no fracture or dislocation. Small joint effusion. Interpreted by: Luis Guallpa MD Preliminary Report By: Luis Guallpa MD Electronically signed By Luis Guallpa MD Dictated Date: 08/24/2022 11:54:59 PM Prelim Date: 08/24/2022 11:57:19 PM Sign Date: 08/24/2022 11:57:19 PM Ordering Provider: [facility] 05-30-2022 Evaluation + Plan note Future Scheduled TestsProstate Specific Antigen 05/30/22 [facility] Evaluation + Plan note Future Appointments Appointment Date:05/27/2021 11:00:00 AM Scheduled Provider: Location:[facility] Appointment Type:PT Outpatient Evaluation Appointment Date:10/10/2021 08:30:00 AM Scheduled Provider: Location:[facility] Appointment Type:PC Nurse Lab Appointment Date:10/25/2021 08:20:00 AM Scheduled Provider:HILARY CLARK DO Location:[facility] Appointment Type:PC Wellness Annual Future Scheduled TestsLipid Profile 11/18/21Complete Metabolic Panel 11/18/21 [facility] Evaluation + Plan note Future Appointments Appointment Date:10/10/2021 08:30:00 AM Scheduled Provider: Location:[facility] Appointment Type:PC Nurse Lab Appointment Date:10/25/2021 08:20:00 AM Scheduled Provider:HILARY CLARK DO Location:[facility] Appointment Type:PC Wellness Annual Future Scheduled TestsLipid Profile 11/18/21Complete Metabolic Panel 11/18/21 [facility] Evaluation + Plan note Future Appointments Appointment Date:10/25/2021 08:35:00 AM Scheduled Provider:HILARY CLARK DO Location:[facility] Appointment Type:PC Wellness Annual [facility] Evaluation + Plan note Future Appointments Appointment Date:05/18/2023 08:35:00 AM Scheduled Provider:HILARY CLARK DO Location:[facility] Appointment Type:PC OV Future Scheduled TestsProstate Specific Antigen 08/27/22Lipid Profile 08/27/22Complete Metabolic Panel 08/27/22 [facility] Evaluation + Plan note Future Appointments Appointment Date:05/18/2023 08:35:00 AM Scheduled Provider:HILARY CLARK DO Location:[facility] Appointment Type:PC OV Appointment Date:08/18/2023 08:00:00 PM Scheduled Provider: Location:[facility] Appointment Type:[facility] Evaluation + Plan note Future Appointments Appointment Date:08/18/2023 08:00:00 PM Scheduled Provider: Location:[facility] Appointment Type:[facility] Appointment Date:05/09/2024 08:30:00 AM Scheduled Provider: Location:[facility] Appointment Type:PC Nurse Lab Appointment Date:05/19/2024 08:30:00 AM Scheduled Provider:HILARY CLARK DO Location:[facility] Appointment Type:PC Wellness Medicare Future Scheduled TestsProstate Specific Antigen 05/18/24Lipid Profile 05/18/24Complete Metabolic Panel 05/18/24 [facility] Evaluation + Plan note Future Appointments Appointment Date:08/18/2023 08:00:00 PM Scheduled Provider: Location:[facility] Appointment Type:SL [facility] Appointment Date:05/09/2024 08:30:00 AM Scheduled Provider: Location:[facility] Appointment Type:PC Nurse Lab Appointment Date:05/19/2024 08:30:00 AM Scheduled Provider:HILARY CLARK DO Location:[facility] Appointment Type:PC Wellness Medicare Diagnostic Tests PendingAntinuclear Antibody Screen, Serum 07/01/23 Future Scheduled TestsProstate Specific Antigen 05/18/24Lipid Profile 05/18/24Complete Metabolic Panel 05/18/24 [facility] documented in this encounter [facility] note* Diagnosis Post-op pain- Primary Other acute postoperative pain documented in this encounter [facility] note* Diagnosis Postoperative follow-up- Primary Follow-up examination, following unspecified surgery documented in this encounter [facility] note* Diagnosis Odontalgia- Primary Unspecified disorder of the teeth and supporting structures Medial epicondylitis of elbow, unspecified laterality documented in this encounter [facility] note* Diagnosis Vision changes- Primary Chronic maxillary sinusitis documented in this encounter [facility] note* Diagnosis Chronic maxillary sinusitis [facility] Narrative No data available for this section [facility] Discharge instructions No data available for this section [facility] Progress note No data available for this section [facility] Reason for referral (narrative)* Consultation (Routine) - Pending Review Specialty Diagnoses / Procedures Referred By Contac t Referred To Contact Ophthalmology Diagnoses Vision changes Procedures CT OFFICE/OUTPATIENT NEW HIGH MDM 60-74 MINUTES Mariela Miranda MD [address] [place] [address] [facility] Ophth [address] [place] [address] Referral ID Status Reason Start Date Expiration Date Visits Requested Visits Authorized [id number] Pending Review Specialty Services Required 05/05/2023 05/04/2024 1 1 * Imaging (Routine) - Pending Review Specialty Diagnoses / Procedures Referred By Abbie rodarte Referred To Contact Radiology Diagnoses Chronic maxillary sinusitis Procedures CT maxillofacial wo IV contrast Mariela Miranda MD [address] [facility] [address] [place] [address] Referral ID Status Reason Start Date Expiration Date V isits Requested Visits Authorized [id number] Pending Review 05/05/2023 11/01/2023 1 1 [facility] note* Peg Peña N: PERFORM Event Display: Patient Summary Documents Authored Date: [id number] [facility] Medications Administered Section Inactive Administered Medications - up to 3 most recent administrations Medication Order MAR Action Action Date Dose Rate Site cefTRIAXone 1 g intramuscular injection (ROCEPHIN) 1 g, INTRAMUSCULAR, ONCE, 1 dose, On Thu11/14/22 at 1830, ., Please document the antimicrobial indication: Empiric Given 11/14/2022 6:33 PM EDT 1 g Buttocks, Left Summary Purpose Family History No Family History Records Found No data available for this section No data available for this section No data available for this section No data available for this section No Family History Records Found No data available for this section No Family History Records Found Advance Directives No Advanced Directives Records FoundNo Advanced Directives Records FoundNo Advanced Directives Records Found Reason for Referral Specialty Diagnoses / Procedures Referred By Contac t Referred To Contact Radiology Diagnoses Chronic maxillary sinusitis Procedures CT maxillofacial wo IV contrast Mariela Miranda MD [address] [place] [address] [address] [place] [address] Referral ID Status Reason Start Date Expiration Date Visits Re quested Visits Authorized [id number] Closed 05/05/2023 11/01/2023 1 1 Additional Source Comments Source Comments (unrecognize d section and content) In the event this informatio n is protected by the Federal Confidentiality of Alcohol and Drug Abuse Patient Records regulations: The Federal rules restrict any use of the information to criminally investigate or prosecute any alcohol or drug abuse patient.[facility] the event this information is protected by the Federal Confidentiality of Alcohol and Drug Abuse Patient Records regulations: The Federal rules restrict any use of the information to criminally investigate or prosecute any alcohol or drug abuse patient.[facility] the event this information is protected by the Federal Confidentiality of Alcohol and Drug Abuse Patient Records regulations: The Federal rules restrict any use of the information to criminally investigate or prosecute any alcohol or drug abuse patient.[facility] Care Team (unrecognized sect ion and content) Care Team Personnel Name: Marquis Ross Clerk Ariana PT Position: P3 Scheduling - Furniture Restorer Advanced Member Role: Other Name: HILARY CLARK DO Position: P4 Physician - Primary Care Member Role: Primary Care Physician Address: Address: [address] [place] [address]- Care Team Related Persons Name: PLEASE, ASK Care Team Personnel Name: Marquis Ross Clerk Ariana PT Position: P3 Scheduling - Furniture Restorer Advanced Member Role: Other Name: HILARY CLARK DO Position: P4 Physician - Primary Care Member Role: Primary Care Physician Address: Address: [place] [address]- Name: YA LUO MD Position: ED Physician Member Role: Attending Physician Address: Address: [address] [place] [address] Name: ABIODUN JEFFERS PAGopiC Position: ED Physician Video Producer Member Role: ED PA Address: Address: [place] [address]- Care Team Related Persons Name: RONNELL STILES Name: CANDI PERKINS Care Team Personnel Name: Marquis Ross Clerk Ariana PT Position: P3 Scheduling - Furniture Restorer Advanced Member Role: Other Name: HILARY CLARK DO Position: P4 Physician - Primary Care Member Role: Primary Care Physician Address: Address: [address] [place] [address]- Care Team Related Persons Name: RONNELL STILES Name: CANDI PERKINS Care Team Personnel Name: Marquis Ross Clerk Ariana PT Position: P3 Scheduling - Furniture Restorer Advanced Member Role: Other Name: HILARY CLARK DO Position: P4 Physician - Primary Care Member Role: Primary Care Physician Address: Address: [address] [place] [address]- Care Team Related Persons Name: RONNELL STILES Name: CANDI PERKINS Care Teams (unrecognized sec tion and content) Hadoop Software Engineer Relationship Specialty Start Date End Date Hilary Clark DO [address] [place] [address] PCP - General Family Medicine 11/14/22 Hadoop Software Engineer Relationship Specialty Start Date End Date Ariella Mas MD [address] [facility] [address] [place] [address] PCP - General Ophthalmology 10/13/22 Hadoop Software Engineer Relationship Specialty Start Date End Date Ariella Mas MD [address] [facility] [address] [place] [address] PCP - General Ophthalmology 10/13/22 Hadoop Software Engineer Relationship Specialty Start Date End Date Ariella Mas MD [facility] [address] [place] [address] PCP - General Ophthalmology 10/13/22 Hadoop Software Engineer Relationship Specialty Start Date End Date Hilary Clark DO [address] [place] [place] [address] PCP - General Family Medicine 11/14/22 Hadoop Software Engineer Relationship Specialty Start Date End Date Ariella Mas MD [facility] [address] [place] [address] PCP - General Ophthalmology 10/13/22 Hadoop Software Engineer Relationship Specialty Start Date End Date Hilary Clark DO [address] [place] [place] [address] PCP - General Family Medicine 05/06/23 Hadoop Software Engineer Relationship Specialty Start Date End Date Hilary Clark DO [address] [facility] [place] [address] PCP - General Family Medicine 05/06/23 Reason for Visit (unrecogniz ed section and content) Specialty Diagnoses / Procedures Referred By Abbie rodarte Referred To Contact Diagnoses Obstructive sleep apnea (adult) (pediatric) Obstructive sleep apnea (adult) (pediatric) [G47.33] Procedures CT OPEN IMPLTJ HPGLSL NRV NSTIM RA PG&RESPIR SENSOR Hypoglossal nerve STIMULATOR PLACEMENT INSPIRE Mariela Miranda MD [address] [place] [address] [facility] [address] [place] [address] Referral ID Status Reason Start Date Expiration Date Visits Re quested Visits Authorized [id number] 1 1 Reason Onset Date Comments Advice Only 01/01/2023 Reason Comments Post-op Having some soreness /swelling, Reason Comments Pain (Elbow Pain) Started about 2 rustam hs ago Left elbow Patient states its soreDenies recent injury or fall Denies hx of gout Dental Problem Left side upper Star alo 3 days ago Going up into left eyeballPatient states it could also be sinus Reason Comments Follow-up Espire Specialty Diagnoses / Procedures Referred By Abbie rodarte Referred To Contact Radiology Diagnoses Chronic maxillary sinusitis Procedures CT maxillofacial wo IV contrast Mariela Miranda MD [address] [place] [address] Referral ID Status Reason Start Date Expiration Date V isits Requested Visits Authorized [id number] Authorized 05/05/2023 11/01/2023 1 1 Referral ID Status Reason Start Date Expiration Date Visits Re quested Visits Authorized [id number] Closed 05/05/2023 11/01/2023 1 1 Scheduled Active and Recently Administ ered Medications (unrecognized section and content) Continuous Medication Order 12/28/2022 12/29/2022 12/30/2022 lactated Ringer's (LR) infusion 50 mL/hr, IntraVENous, Continuous, Starting on Thu12/30/22 at 0915, Preprocedure, Upon admission to sameday - please start iv if patient does not have iv access. Use 500ml NS for patients on dialysis. 0915 (New Bag - Prov ider: Tara Tavera RN)1110 (Continued by Anesthesia - Provider: JERMAINE Mahmood CRNA)1307 (Stopped - Provider: JERMAINE Mahmood CRNA) PRN Medication Order 12/28/2022 12/29/2022 12/30/2022 ALPRAZolam (Xanax) disintegrating tablet 0.25 mg 0.25 mg, Oral, PRN, anxiety, Starting on Thu12/30/22 at 0902, For 1 dose, Preprocedure, Using dry hands, place tablet on top of tongue and allow to disintegrate. Administration with water is not necessary. lidocaine-EPINEPHrine (Xylocaine W/EPI) 1 %-1:[id number] injection (CANCELED) As needed, Starting on Thu12/30/22 at 1145, Intraprocedure 1145 (Given - Provid er: Mariela Miranda MD) oxyCODONE (Roxicodone) immediate release tablet 5 mg (COMPLETED) 5 mg, Oral, PRN, moderate pain (4-6), Starting on Thu12/30/22 at 1343, For 1 dose, Recovery (only), PHASE II 1355 (Given - Provid er: Joanne Walton RN) sodium chloride 0.9 % infusion 5-250 mL/hr, IntraVENous, PRN, if patient receiving piggyback infusions and maintenance fluids are not ordered OR KVO fluids to protect IV site / prevent frequent line interruptions/ long duration, Starting on Thu12/30/22 at 0902, Preprocedure, For piggyback infusion, administer at same rate as piggyback for a total of 25 mL. Enter 25 mL into dose field and piggyback rate into rate field of order. If piggyback is infusing at a rate less than 100 mL/hr, enter 25 mL into dose field and 100 mL/hr into rate field of order. For KVO fluids, enter rate of 20 mL/hr or less into rate field of order. sodium chloride 0.9 % infusion 5-250 mL/hr, IntraVENous, PRN, if patient receiving piggyback infusions and maintenance fluids are not ordered OR KVO fluids to protect IV site / prevent frequent line interruptions / long duration, Starting on Thu12/30/22 at 0902, Preprocedure, For piggyback infusion, administer at same rate as piggyback for a total of 25 mL. Enter 25 mL into dose field and piggyback rate into rate field of order. If piggyback is infusing at a rate less than 100 mL/hr, enter 25 mL into dose field and 100 mL/hr into rate field of order. For KVO fluids, enter rate of 20 mL/hr or less into rate field of order. sodium chloride 0.9 % irrigation solution (CANCELED) As needed, Starting on Thu12/30/22 at 1143, Intraprocedure 1143 (Given - Provid er: Mariela Miranda MD) sodium chloride 0.9% (NS) flush 10 mL 10 mL, IntraVENous, PRN, line care, Starting on Thu12/30/22 at 0902, Preprocedure, After every IV line use sodium chloride 0.9% (NS) flush 5-40 mL 5-40 mL, IntraVENous, PRN, line care, After every IV line use, Starting on Thu12/30/22 at 0902, Preprocedure, For Line Patency: Peripheral IV = 5 mL; Midline or Central Line = 10 mL/lumen. If following IV push medication, administer flush at same rate as the IV push. Flush volume is determined by type of infusion therapy being given. For non-viscous solutions use: Peripheral IV = 5 mL Midline or Central Line = 10 mL/lumen For viscous solutions (i.e. blood components, parenteral nutrition, contrast media, or after obtaining blood sample) use: Peripheral IV = 10 mL Midline or Central Line = 20 mL/lumen (unrecognized sect ion and content) No Status Records FoundNo Status Records FoundNo Status Records Found INFORMATION SOURCE (unrecogn ized section and content) DATE CREATED AUTHOR AUTHOR'S ORGANIZ ATION 07/22/2023 [facility] DATE CREATED AUTHOR AUTHOR'S ORGANIZ ATION 07/31/2023 [facility] ([place]) FOR RECORDS PERTAINING TO PATIENTS WHO ARE OR HAVE BEEN ENROLLED IN A CHEMICAL DEPENDENCY/SUBSTANCEABUSE PROGRAM, SOME INFORMATION MAY BE OMITTED. This clinical summary was aggregated from multiple sources. Caution should be exercised in using it in the provision of clinical care. This summary normalizes information from multiple sources, and as a consequence, information in this document may materially change the coding, format and clinical context of patient data. In addition, data may be omitted in some cases. CLINICAL DECISIONS SHOULD BE BASED ON THE PRIMARY CLINICAL RECORDS. [employer] provides no warranty or guarantee of the accuracy or completeness of information in this document.
--- NOTE | 2023-08-05 00:35 | RAD_ITS ---
INDICATION: chest pain EXAMINATION: Frontal view of the chest COMPARISON: Chest x-ray February 28, 2023. FINDINGS: Frontal view of the chest was obtained. A pacing device projects over the right hemithorax. The cardiac silhouette is not enlarged. Mild linear atelectasis/scarring bilaterally. No confluent airspace disease. No pneumothorax. No acute fracture identified. RAD/Chest 1 View (Portable) IMPRESSION: Mild bilateral linear atelectasis/scarring. Electronically Signed: Dave Mazariegos MD at 3:16 EST ,
[2023-08-05] MEDS: 0.9% Normal Saline (1000mL) 1,000 ML 150 ML IV (00:44)
[2023-08-05] MEDS: Aspirin 81 MG TAB.CHEW 243 MG PO (00:44)
[2023-08-05 00:46] LABS: Absolute Lymphocyte Count 2.42 X10^3/uL (0.83-4.51); Absolute Neutrophil Count 6.5 X10^3/uL (2.0-7.7); Basophil# 0.05 X10^3/uL; Basophil% 0.5 % (0-1); Eosinophil# 0.27 X10^3/uL; Eosinophils% 2.7 % (0-5); Hematocrit 44.2 % (40-54); Hemoglobin 14.4 g/dL (13.0-16.5); Lymphocyte # 2.42 X10^3/ul (0.83-4.51); Lymphocyte % 23.8 % (19-41); Mean Corp Hgb Conc 32.6 g/dL (32-36); Mean Corpuscular Hgb 29.9 pg (27.0-32.0); Mean Corpuscular Volume 91.9 fL (80-94); Mean Platelet Vol. 9.4 fl (6.2-12.0); Monocyte# 0.95 X10^3/uL; Monocyte% 9.3 % (0-10); NRBC Flagged by Analyzer 0 % (0-5); Neutrophil # 6.45 X10^3/uL (2.7-7.7); Neutrophil % 63.3 % (47-70); Platelet Count 239 K/mm3 (150-450); RBC Distribution Width CV 13.4 % (11.6-14.6); RBC Distribution Width SD 45.7 fl (35.1-43.9); Red Blood Count 4.81 M/mm3 (4.6-6.2); White Blood Count 10.2 K/mm3 (4.4-11.0)
[2023-08-05 01:02] LABS: Anion Gap 3 (5-15); BUN 17 mg/dL (7-18); BUN/Creat Ratio 11.8 RATIO (10-20); Calcium,Total 8.4 mg/dL (8.5-10.1); Chloride 111 mmol/L (98-107); Creatinine, Serum 1.44 mg/dL (0.70-1.30); EST Glomerular Filtration Rate 52 mL/min (>60); Est Glom Filt Rate - Afr Amer 63 mL/min (>60); Glucose 100 mg/dL (74-106); Potassium 4.1 mmol/L (3.5-5.1); Sodium Level 141 mmol/L (136-145); Troponin-I HS (w/2H Reflex) 7 pg/mL (3.0-78.0)
[2023-08-05 02:42] LABS: Reflex Troponin-HS? (from REC) Y
[2023-08-05 03:17] LABS: Troponin-I HS 7 pg/mL (3.0-78.0)
[2023-08-05 03:36] VITALS: BP 122/86; PULSE 65; RESP 15; O2SAT 98
== END 2023-08-05 03:44 | disposition home or self-care (01) ==
PROVIDERS: Emergency Provider Emergency Medicine; PCP Family Medicine; Visit Provider Emergency Medicine
DX: R07.9 Chest pain, unspecified (principal); F17.210 Nicotine dependence, cigarettes, uncomplicated; I25.10 Atherosclerotic heart disease of native coronary artery without angina pectoris; G47.33 Obstructive sleep apnea (adult) (pediatric); Z79.899 Other long term (current) drug therapy; Z85.828 Personal history of other malignant neoplasm of skin; Z79.82 Long term (current) use of aspirin; Z95.5 Presence of coronary angioplasty implant and graft
CPT/HCPCS: 71045; 80048; 84484; 85025; 93005; 96360; 96361; 99283; J7030

== ENCOUNTER → 2023-09-21 | Outpatient (CLI) | payer OTHER, MEDICAID, SELFPAY ==
--- OUTSIDE RECORDS SUMMARY | 2023-09-21 06:19 | XMS RPT_ITS | CCD ---
Author Name Unknown Address [address] [place] [address] Organization [facility] Care Team Providers Care Peanut Butter Maker Name Role Phone Unavailable Primary Care Provider Unavailabl e AMBER DO, DR RICHARD A Primary Care Physician Ariana Ross PT Unavailable Unavailable AMBER DO, DR RICHARD A Primary Care Physician [phone] AMBER DO, DR HILARY Jack Primary Care Physician Ariella Mas MD Primary Care Provider Amber DOHilary Primary Care Provider [phone] Ariella Mas MD Primary Care Provider SELF Referring Unavailable HILARY CLARK TATO Primary Care Unavailable ARIANA KOROMA Attending Unavailable AMBER [facility] Primary Care Unavailable NANCY PATEL Attending Unavailable Amber Hilary HALE Primary Care Provider [phone] MARIELA MIRANDA Admitting Unavailable MARIELA MIRANDA Attending Unavailable [facility] Primary Care Unavailable AMBER, HILARY Attending Unavailable MARIELA MIRANDA Referring Unavailable AMBER, HILARY Primary Care Unavailable [facility] Primary Care Unavailable MARIELA MIRANDA Attending Unavailable [facility] Primary Care Unavailable MARIELA MIRANDA Attending Unavailable [facility] Primary Care Unavailable MARIELA MIRANDA Attending Unavailable [facility] Primary Care Unavailable FRED PAYNE Attending Unavailable MISBAH LIPSCOMB Referring Unavailable AMBER, HILARY Primary Care Unavailable MARIELA MIRANDA Attending Unavailable SANDRA DILL Referring Unavailable MARIELA MIRANDA Attending Unavailable MARIELA MIRANDA Referring Unavailable AMBER, HILARY Primary Care Unavailable PAYNE MD, FRED King Attending Unavailable AMBER DO, DR HILARY Jack Primary Care Unavailabl e AMBER DO, DR HILARY Jack Primary Care Unavailabl e AMBER DO, DR HILARY Jack Attending Unavailsanna HU MD, DR STEVENSON Attending Unavailabl e AMBER DO, DR HILARY Jack Primary Care Unavailabl e AMBER DO, DR HILARY Jack Primary Care UnavailSANDRA dEdy MD Attending Unavailable AMBER DO, DR HILARY Jack Attending Unavailabl e AMBER DO, DR HILARY Jack Primary Care Unavailabl e AMBER DO, DR HLIARY Jack Primary Care Unavailabl e VALERIO GROVE, YA Attending Unavailable LEXIE MORAN MD Attending Unavailable AMBER DO, DR HILARY Jack Primary Care Unavailabl e AMBER DO, DR HILARY Jack Primary Care Unavailabl anay DILL MD, SANDRA Attending Unavailable DAX GROVE, MR NASRIN Bobo Attending Unavailable AMBER DO, DR HILARY Jack Primary Care Unavailabl e AMBER DO, DR HILARY Jack Attending Unavailabl e AMBER DO, DR HILARY Jack Primary Care Unavailabl e AMBER DO, DR HILARY Jack Primary Care Unavailabl e MARCY ANDERSON Attending Unavailabl e Allergies Allergy Classification Reported Allergen(s) Allergy Type Date of Onset Reaction(s) Facility (4 sources) Cholestatin Propensity to adverse reactions 12-23-2022 Other [facility] (4 sources) Octacosanol Propensity to adverse reactions 12-23-2022 Other [facility] Medications Current Medications Medication Drug Class(es) Dates Sig (Normalized) Sig (Original) acetaminophen 325 mg / HYDROcodone bitartrate 5 mg oral tablet (3 sources) Opioid Agonist Start: 12-30-2022 End: 01-04-2023 take 1 tablet by mouth every six hours as needed for pain HYDROcodone-acet aminophen ([place]) 5-325 MG tablet Indications: Post-op pain Take [...] Blood Pressure Method DR ELVA HU MD [facility] 06-08-2023 21:54-0500 Body height 180.[address] ELVA HU MD [facility] 06-08-2023 21:54-0500 Body temperature 98.24 [degF] DR ELVA HU MD [facility] 06-08-2023 21:54-0500 Body weight 120.[address] ELVA HU MD [facility] 06-08-2023 21:54-0500 Diastolic Blood Pressure Non-Invasive [address] ELVA HU MD [facility] 06-08-2023 21:54-0500 Heart rate 77 /min DR ELVA HU MD [facility] 06-08-2023 21:54-0500 Respiratory rate 18 /min DR ELVA HU MD [facility] 06-08-2023 21:54-0500 Systolic Blood Pressure Non-Invasive [address] ELVA HU MD [facility] 05-05-2023 09:32-0400 Body height 180.3 cm Mariela Miranda MD Work Phone: [facility] 05-05-2023 09:32-0400 Body mass index (BMI) [Ratio] 37.8 kg/m2 Mariela Miranda MD Work Phone: [facility] 05-05-2023 09:32-0400 Body weight 122.92 kg Mariela Miranda MD Work Phone: [facility] 01-28-2023 16:40-0400 Body temperature 98.29 [degF] Ariana Koroma DO Work Phone: [facility] 01-28-2023 16:40-0400 Body weight 124.29 kg Ariana Koroma DO Work Phone: [facility] 01-28-2023 16:40-0400 Diastolic blood pressure 78 mm[Hg] Ariana Koroma DO Work Phone: [facility] 01-28-2023 16:40-0400 Heart rate 89 /min Ariana Koroma DO Work Phone: [facility] 01-28-2023 16:40-0400 Respiratory rate 17 /min Ariana Koroma DO Work Phone: [facility] 01-28-2023 16:40-0400 SaO2% (BldA) [Mass fraction] 95 % Ariana Koroma DO Work Phone: [facility] 01-28-2023 16:40-0400 Systolic blood pressure 120 mm[Hg] Ariana Koroma DO Work Phone: [facility] 12-30-2022 15:00-0400 Diastolic blood pressure 77 mm[Hg] Mariela Miranda MD Work Phone: [facility] 12-30-2022 15:00-0400 Heart rate 72 /min Mariela Miranda MD Work Phone: [facility] 12-30-2022 15:00-0400 Respiratory rate 16 /min Mariela Miranda MD Work Phone: [facility] 12-30-2022 15:00-0400 SaO2% (BldA) [Mass fraction] 94 % aMriela Miranda MD Work Phone: [facility] 12-30-2022 15:00-0400 Systolic blood pressure 149 mm[Hg] Mariela Miranda MD Work Phone: [facility] 12-30-2022 13:22-0400 Body temperature 97.9 [degF] Mariela Miranda MD Work Phone: [facility] 12-30-2022 09:05-0400 Body height 180.3 cm Mariela Miranda MD Work Phone: [facility] 12-30-2022 09:05-0400 Body mass index (BMI) [Ratio] 37.8 kg/m2 Mariela Miranda MD Work Phone: [facility] 12-30-2022 09:05-0400 Body weight 122.92 kg Mariela Miranda MD Work Phone: [facility] 11-15-2022 16:52-0400 Body temperature 97.7 [degF] LEXIE MORAN MD [facility] 11-15-2022 16:52-0400 Body weight 123.7 kg LEXIE MOARN MD [facility] 11-15-2022 16:52-0400 Diastolic Blood Pressure Non-Invasive 84 1 LEXIE MORAN MD [facility] 11-15-2022 16:52-0400 Heart rate 78 /min LEXIE MORAN MD [facility] 11-15-2022 16:52-0400 Respiratory rate 18 /min LEXIE MORAN MD [facility] 11-15-2022 16:52-0400 Systolic Blood Pressure Non-Invasive 145 1 LEXIE MORAN MD [facility] 11-14-2022 18:11-0400 Body temperature 98.29 [degF] Nancy Patel MD Work Phone: [facility] 11-14-2022 18:11-0400 Body weight 124.83 kg Nancy Patel MD Work Phone: [facility] 11-14-2022 18:11-0400 Diastolic blood pressure 81 mm[Hg] Nancy Patel MD Work Phone: [facility] 11-14-2022 18:11-0400 Heart rate 78 /min Nancy Patel MD Work Phone: [facility] 11-14-2022 18:11-0400 Respiratory rate 18 /min Nancy Patel MD Work Phone: [facility] 11-14-2022 18:11-0400 SaO2% (BldA) [Mass fraction] 96 % Nancy Patel MD Work Phone: [facility] 11-14-2022 18:11-0400 Systolic blood pressure 137 mm[Hg] Nancy Patel MD Work Phone: [facility] 10-13-2022 14:05-0400 Diastolic blood pressure 76 mm[Hg] Ariella Mas MD Work Phone: [facility] 10-13-2022 14:05-0400 Systolic blood pressure 114 mm[Hg] Ariella Mas MD Work Phone: [facility] 10-13-2022 13:50-0400 Body temperature 97.81 [degF] Ariella Mas MD Work Phone: [facility] 10-13-2022 13:50-0400 Heart rate 68 /min Ariella Mas MD Work Phone: [facility] 10-13-2022 13:50-0400 Respiratory rate 20 /min Ariella Mas MD Work Phone: [facility] 10-13-2022 13:50-0400 SaO2% (BldA) [Mass fraction] 100 % Ariella Mas MD Work Phone: [facility] 10-13-2022 11:59-0400 Body height 180.3 cm Ariella Mas MD Work Phone: [facility] 10-13-2022 11:59-0400 Body mass index (BMI) [Ratio] 33.47 kg/m2 Ariella Mas MD Work Phone: [facility] 10-13-2022 11:59-0400 Body weight 108.86 kg Ariella Mas MD Work Phone: [facility] 08-25-2022 00:39-0500 Diastolic Blood Pressure Non-Invasive 62 1 YA LUO MD [facility] 08-25-2022 00:39-0500 Heart rate 81 /min YA LUO MD [facility] 08-25-2022 00:39-0500 Respiratory rate 16 /min YA LUO MD [facility] 08-25-2022 00:39-0500 Systolic Blood Pressure Non-Invasive 123 1 YA LUO MD [facility] 08-24-2022 23:20-0500 Body temperature 97.88 [degF] YA LUO MD [facility] 08-24-2022 23:20-0500 Diastolic Blood Pressure Non-Invasive 80 1 YA LUO MD [facility] 08-24-2022 23:20-0500 Heart rate 81 /min YA LUO MD [facility] 08-24-2022 23:20-0500 Respiratory rate 16 /min YA LUO MD [facility] 08-24-2022 23:20-0500 Systolic Blood Pressure Non-Invasive 165 1 YA LUO MD [facility] Encounters Encounter Date Encounter Type Care Provider Facility Start: 08-18-2023 End: 08-19-[address] HILARY CLARK DO Facility:A Start: 07-29-2023 ambulatory NASRIN VERDUZCO MD Fac ility:B Start: 07-24-2023 End: 07-25-2023 ambulatory FRED PAYNE MD Facility:B Start: 07-24-2023 End: 07-24-2023 Patient encounter procedure FRED PAYNE MD [facility] Start: 07-20-2023 End: 07-20-2023 ambulatory FRED PAYNE [facility] Start: 07-13-2023 End: 07-14-2023 ambulatory HILARY CLARK [facility] Start: 07-13-2023 End: 07-13-2023 Subsequent hospital visit by physician Hilary Clark DO Work Phone: [facility] Procedures Date Procedure Procedure Detail Performing Clinician Start: 02-23-2023 Stent, device (physi monica object) DR ELVA HU MD Plan of Treatment Date Care Activity Detail Author Start: 02-06-2028 DTaP/Tdap/Td Vaccines (3 - Td or Tdap) DTaP/Tdap/Td Vaccines (3 - Td or Tdap) [facility] Start: 09-11-2023 End: 09-11-2023 Patient encounter procedure 09/11/2023 9:30 AM EST Office Visit [facility] Ophthalmology [address] [place] [address] Haylee Gibbons MD [address] [place] [address] [facility] Start: 07-20-2023 End: 07-20-2023 Patient encounter procedure 07/20/2023 1:30 PM EST Office Visit [facility] Neuroscience [address] [place] [address] Fred Payne MD [address] [place], [place] [id number] [facility] Start: 07-03-2023 End: 07-03-2023 Patient encounter procedure 07/03/2023 9:30 AM EST Office Visit [facility] Ophthalmology [address] [place] [address] Haylee Gibbons MD [address] [place] [address] [facility] Start: 05-06-2023 End: 05-06-2023 Patient encounter procedure 05/06/2023 11:00 AM EDT Office Visit [facility] ENT [address] [place] [address] Mariela Miranda MD [address] [place], [place] [id number] [facility] Start: 05-05-2023 End: 05-05-2024 CT Maxillofacial region WO and W contrast IV CT maxillofacial wo IV contrast Imaging Routine Chronic maxillary sinusitis Expected: 05/05/2023, Expires: 05/05/2024 [facility] Work Phone: Immunizations Immunization Date Immunization Notes Care Provider [facility] 05-18-2023 influenza, injectabl e, quadrivalent, contains preservative; Translations: [Fluarix PF Quadrivalent ] DR ELVA HU MD [facility] 02-25-2022 Covid-19, Pfizer Gra y Top, Do Not Dilute, (Age 12 Y+), Im, L Ariella aMs MD Work Phone: [facility] 07-01-2021 influenza, injectabl e, quadrivalent, preservative free Ariella Mas MD Work Phone: [facility] 07-01-2021 influenza, injectabl e, quadrivalent, contains preservative; Translations: [Fluarix PF Quadrivalent ] DR QUIN CELIS DO [facility] 07-01-2021 influenza virus vaccine, unspecified formulation Ariella Mas MD Work Phone: [facility] 06-18-2021 COVID-19, mRNA, LNP- S, PF, 100 mcg or 50 mcg dose; Translations: [Moderna COVID-19 Vaccine] DR QUIN CELIS DO [facility] 11-09-2020 SARS-CoV-2 (COVID-19 ) mRNA-[address] HILARY CLARK DO [facility] Payers Date Payer Category Payer Medicaid [id number] 2022 Medicaid [id number] 51944.[facility] 2019 Unknown [facility] [employer] [id number] 2019-Present PPO [id number] 2019 Unknown [id number] 2019 Unknown [id number] 1959 Unknown [id number] [id number] 1959 Unknown [id number] [id number] 1959 Unknown [id number] [id number] 1959 Unknown [id number] [id number] 1959 Unknown [id number] [id number] 1959 Unknown [id number] [id number] 1959 Unknown [id number] 2.16.840.1.138296.3.579.2. 1959 Unknown [id number] 2.16.840.1.137903.3.579.2. 1959 Unknown [id number] 2.16.840.1.537077.3.579.2. 1959 Unknown [id number] [id number]. 1959 Unknown [id number] [id number] Social History Date Type Detail Facility Tobacco smoking stat [facility] Unknown if ever smoked [facility] Start: 1960 Sex Assigned At Not on file C [facility] Start: 05-02-2020 Heavy tobacco smoker (finding) [facility] Sex Assigned At Male [facility] Start: 10-13-2022 End: 12-23-2022 Tobacco smoking status NHIS Smokes tobacco daily [facility] History of tobacco use Cigarette Smoker [facility] Start: 10-13-2022 End: 12-23-2022 Tobacco use and exposure Smokeless tobacco non-user [facility] Start: 10-13-2022 End: 05-05-2023 Alcohol intake Current drinker of alcohol (finding) [facility] Start: 10-13-2022 Tobacco Comment Last smoked prior to drug induced sleep endoscopy [facility] Start: 03-01-2023 Alcohol Comment social [facility] Start: 10-03-2022 End: 12-30-2022 Exposure to SARS-CoV-2 (event) Not sure [facility] Start: 11-14-2022 End: 05-05-2023 Cigarettes smoked current (pack per day) - Reported 0.3 [facility] Start: 12-30-2022 End: 05-05-2023 Tobacco use panel [facility] Start: 05-18-2023 Tobacco smoking status Light t obacco smoker (finding) [facility] Medical Equipment Procedure Code Equipment Code Equipment Origin al Text Equipment Identifier Dates Lead Sensing Res p Inspire - [id number] - [id number] Start: 12-30-2022 Generator Pulse Inspire - [id number] - [id number] Start: 12-30-2022 Functional Status Date Assessment Result Facility 06-08-2023 Functional Status Assistive Device None [facility] 06-08-2023 Functional Status Room check performed [facility] 11-15-2022 Functional Status Independent [facility] 11-15-2022 Functional Status Standard Safet y ID band on, Call device within reach, Bed in low position, Wheels locked, Upper/Half-Length side-rails up, Phone within reach [facility] 08-24-2022 Functional Status ID band on, Call device within reach, Bed in low position, Wheels locked, Visitor at bedside [facility] Mental Status Date Assessment Result Facility 06-08-2023 Mental Status Orientation Oriented x 4 [facility] 06-08-2023 Mental Status [facility] 11-15-2022 Mental Status Orientation Oriented x 4 [facility] 11-15-2022 Mental Status [facility] 08-24-2022 Mental Status Oriented x 4 [facility] Clinical Notes 05-30-2022 to 07-24-2023 Mariela Miranda MD - 05/05/2023 9:30 AM Sudarshan Koroma DO - 01/28/2023 4:56 PM Karen Miranda MD - 01/07/2023 11:00 AM EDTTelephone Encounter - Georgette PrattIVON - 01/01/2023 2:16 PM EDT Note Date [...] Sign Date: 07/24/2023 8:56:25 AM Ordering Provider: [facility] 06-09-2023 Hospital Discharge instructions Patient Education 06/08/2023 [...] get worse after the abrasion has healed [id number] [employer]. [address] [place] [address]. All rights reserved. This information is not intended as a substitute for professional medical care. Always follow your healthcare professional's instructions. Follow Up Care 06/08/2023 21:45:34 With:[facility] Address: [address] [place] [address]- Business (1) When:2-4 days [facility] 06-08-2023 Emergency department Discharge summary Discharge Instructions Thank you for allowing [facility] to assist you with your healthcare needs. The following is important discharge information regarding your hospital visit. Diagnosis from Today's Visit Corneal abrasion Eye pain What to Do Next Instructions from Your Care Team No qualifying data available. Post Acute Orders No qualifying data available. You Need to Schedule the Following Appointments Follow Up with [facility] When Within 2-4 days Where: [address] [place], [place] [id number] [facility] (1) Allergies NKA Medications Please [...] get worse after the abrasion has healed [id number] [employer]. [address] [place] [address], [place] [address]. All rights reserved. This information is not intended as a substitute for professional medical care. Always follow your healthcare professional's instructions. Additional Information VACCINATE! IT SAVES LIVES! Members of the community who have not yet received the COVID-19 vaccine and would like to receive it can visit one of [facility] vaccine clinics. There are many vaccine clinic locations within the [facility]. For locations and available times, please visit [email or web address] It is important to note that some COVID mobile vaccine clinics are held outdoors and may be canceled in rainy or stormy conditions. To learn more about pediatric vaccinations (ages 5-11), we invite you to visit the [facility] webpage. https://[email or web address]/pag [email or web address]-Gagaf-Cipxllobvui-[email or web address] ue-Eljby-[email or web address].html To learn more about the COVID-19 vaccine, we invite you to visit the CDC website for a list of frequently asked questions. https://www.cdc.gov/coronavirus/20 19-ncov/vaccines/faq.html [facility] Patient Portal Access Instructions: Stay connected with your healthcare team and access your personal medical information anytime with the [facility] Patient Portal. If you would like a full copy of your medical records please contact the [facility] Medical Records Department Thursday through Thursday between 8a.m. and 4:30p.m. Please follow the directions below to access the portal: 1.Access the email account you provided upon registration to the hospital.2.Look for an invitation email from [facility].3.Open the email and access the invitation link: Accept Invitation to [facility]4.Fill in the required jackson to create your account. Sign into www.[facility] with your username and password that you [...] you will allow to register on the [employer] [facility] Patient Portal for access to your information. You can also access the [employer] [facility] Patient Portal on the [facility] mercedes. Simply click on Health Records under Health Data and then click on the [employer] logo. HOW TO SAFELY DISPOSE OF PRESCRIPTION [...] Call your local pharmacy or go to [email or web address] to find one close to you.3.Make use of household items: Use cat litter or old coffee grounds to dispose medications if other options are not available. Mix your drugs with these household products, seal them in an airtight container and throw it into the garbage. Call [facility]: [phone] to be sure your drugs can be [...] aware that I should contact my doctor. 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 documented in this encounter [facility] 01-28-2023 Note HNO ID: [id number] Author: Ariana Koroma, DO Service: ? 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 He is right-handed but the pain is mainly in the left and has been getting sore over the last few days. 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 He is right-handed but the pain is mainly in the left and has been getting sore over the last few days. 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 Recommendations for bandage or care to the area? 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 Recommendations for bandage or care to the area? documented in this encounter [facility] 12-30-2022 Note Patient: Gualberto Mckeon ich Procedure Summary Date: 12/30/22 Room / Location: [facility] OR [address] [place] [address] Operating Room Anesthesia Start: 1110 Anesthesia Stop: [...] all PACU criteria has been met. [facility] 12-30-2022 Note Patient: Gualberto diallo Procedure Summary Date: 12/30/22 Room / Location: [address] Operating Room Anesthesia Start: 1110 Anesthesia [...] the day of surgery or procedure by , [facility] financial services counselor proxy staff ([id number]) The patient did not [...] for questions and acknowledgement of understanding. [facility] 12-30-2022 Miscellaneous Notes Patient and family [...] [G47.33] Procedures Hypoglossal nerve STIMULATOR PLACEMENT INSPIRE 12975 - HI OPEN IMPLTJ HPGLSL NRV NSTIM RA PG&RESPIR SENSOR Surgeons * Mariela Miranda - Primary Procedure Summary Anesthesia: General ASA: II Estimated Blood Loss: Minimal Drains: * None in log * Implants Type Name Action Serial No. Surgical Vessel Loop LOOP VESSEL MAXI [employer] BLUE - [id number] Used, Not Implanted Surgical Vessel Loop LOOP VESSEL MINI RADIOPAQ BLUE - [id number] Used, Not Implanted Implant LEAD SENSING RESP INSPIRE - [id number] - [id number] Implanted [id number] Neuro Interventional Implant LEAD STIM INSPIRE - [id number] - [id number] Implanted [id number] Neuro Interventional Implant GENERATOR PULSE INSPIRE - [id number] - [id number] Implanted [id number] Staff: Consumer Affairs Specialist: Jeffrey Bird RN Relief Consumer Affairs Specialist: Carlos Jones RN Relief Scrub: Tasneem Escobedo Scrub Person: Kateryna Freeman RN [place] to Circ: Lolis Monroy RN Findings: inspire [...] PACU noting no pneumothorax. Date: 12/30/2022 Location: [facility] OR Name: Gualberto Sharp, : 1960, Diagnosis Pre-op Diagnosis * Obstructive sleep apnea (adult) (pediatric) [G47.33] Post-op Diagnosis * Obstructive sleep apnea (adult) (pediatric) [G47.33] Procedures Hypoglossal nerve STIMULATOR PLACEMENT INSPIRE 93396 - HI OPEN IMPLTJ HPGLSL NRV NSTIM RA PG&RESPIR SENSOR Surgeons * Mariela Miranda - Primary Procedure Summary Anesthesia: General ASA: II Estimated Blood Loss: Minimal Drains: * None in log * Implants Type Name Action Serial No. Surgical Vessel Loop LOOP VESSEL MAXI RADIOPAQ BLUE - [id number] Used, Not Implanted Surgical Vessel Loop LOOP VESSEL MINI RADIOPAQ BLUE - [id number] Used, Not Implanted Implant LEAD SENSING RESP INSPIRE - [id number] - [id number] Implanted [id number] Neuro Interventional Implant LEAD STIM INSPIRE - [id number] - [id number] Implanted [id number] Neuro Interventional Implant GENERATOR PULSE INSPIRE - [id number] - [id number] Implanted [id number] Staff: Consumer Affairs Specialist: Jeffrey Bird RN Relief Consumer Affairs Specialist: Carlos Jones RN Relief Scrub: Tasneem Escobedo Scrub Person: Kateryna Freeman RN [place] to Circ: Lolis Monroy RN Findings: inspire [...] PRE-PROCEDURE ROUNDING COMPLETE. documented in this encounter [facility] 12-30-2022 Note Formatting of this n ote might be different from the original. Patient and family verbalized understanding of information. All questions were answered before discharge. Patient ambulated, denies dizziness or nausea. Tolerating PO fluids and crackers. Vital signs are stable. Patient has changed and is being discharged home in a wheelchair with valuables. [facility] 12-30-2022 Note Formatting of this n ote might be different from the original. Patient and family verbalized understanding of information. All questions were answered before discharge. Patient ambulated, denies dizziness or nausea. Tolerating PO fluids and crackers. Vital signs are stable. Patient has changed and is being discharged home in a wheelchair with valuables. [facility] 12-30-2022 Note Formatting of this n ote might be different from the original. Discharge instructions reviewed with the patient and the fiance, patient to follow up with md after discharge. No further questions. [facility] 12-30-2022 Note Formatting of this n ote might be different from the original. Discharge instructions reviewed with the patient and the fiance, patient to follow up with md after discharge. No further questions. [facility] 12-30-2022 Note Formatting of this n ote might be different from the original. Fiance called to the room [facility] 12-30-2022 Note Formatting of this n ote might be different from the original. Fiance called to the room [facility] 12-30-2022 Note Formatting of this n ote might be different from the original. Fiance updated [facility] 12-30-2022 Note Formatting of this n ote might be different from the original. Fiance updated T [facility] 12-30-2022 Note Airway Date/Time: 12/30/2022 11:19 AM Urgency: scheduled Airway not difficult General Information and Staff Patient location during procedure: Procedural Resident/CREAM SEPARATOR OPERATOR: Taylor Adler APRN - CREAM SEPARATOR OPERATOR Performed: CREAM SEPARATOR OPERATOR Indications and Patient Condition Indications for airway [...] Number of attempts at approach: [address] [facility] 12-30-2022 Hospital Discharge instructions Mariela Miranda MD - 12/30/2022 1:06 PM EDT [facility] [place] INSPIRE / Hypoglossal Nerve Stimulator Post-Operative Instructions [...] the implant. Your physician will use a senior java programmer to check the device for proper [...] may also call Inspire at any time [phone] Option #3 The battery life on [...] either send Dr. Miranda a message at [employer] or call the office at [phone] during business hours. If after hours and there is concern, go to the emergency room. documented in this encounter [facility] 12-30-2022 Note H&P reviewed. The pa deloris was examined and there are no changes to the H&P. [facility] 12-30-2022 Note PRE-PROCEDURE ROUNDING COMPLETE. [facility] 12-30-2022 Note Formatting of this n ote is different from the original. Date: 12/30/2022 Location: [facility] OR Name: Gualberto Sharp, : 1960, Diagnosis Pre-op Diagnosis * Obstructive sleep apnea (adult) (pediatric) [G47.33] Post-op Diagnosis * Obstructive sleep apnea (adult) (pediatric) [G47.33] Procedures Hypoglossal nerve STIMULATOR PLACEMENT INSPIRE 24269 - HI OPEN IMPLTJ HPGLSL NRV NSTIM RA PG&RESPIR SENSOR Surgeons * Mariela Miranda - Primary Procedure Summary Anesthesia: General ASA: II Estimated Blood Loss: Minimal Drains: * None in log * Implants Type Name Action Serial No. Surgical Vessel Loop LOOP VESSEL MAXI RADIOPAQ BLUE - [id number] Used, Not Implanted Surgical Vessel Loop LOOP VESSEL MINI RADIOPAQ BLUE - [id number] Used, Not Implanted Implant LEAD SENSING RESP INSPIRE - [id number] - [id number] Implanted [id number] Neuro Interventional Implant LEAD STIM INSPIRE - [id number] - [id number] Implanted [id number] Neuro Interventional Implant GENERATOR PULSE INSPIRE - [id number] - [id number] Implanted [id number] Staff: Consumer Affairs Specialist: Jeffrey Bird RN Relief Consumer Affairs Specialist: Carlos Jones RN Relief Scrub: Tasneem Escobedo Scrub Person: Kateryna Freeman RN [place] to Circ: Lolis Monroy RN Findings: inspire [...] was obtained in PACU noting no pneumothorax. [facility] 12-30-2022 Note Formatting of this n ote is different from the original. Date: 12/30/2022 Location: [facility] OR Name: Gualberto Sharp, : 1960, Diagnosis Pre-op Diagnosis * Obstructive sleep apnea (adult) (pediatric) [G47.33] Post-op Diagnosis * Obstructive sleep apnea (adult) (pediatric) [G47.33] Procedures Hypoglossal nerve STIMULATOR PLACEMENT INSPIRE 25878 - HI OPEN IMPLTJ HPGLSL NRV NSTIM RA PG&RESPIR SENSOR Surgeons * Mariela Miranda - Primary Procedure Summary Anesthesia: General ASA: II Estimated Blood Loss: Minimal Drains: * None in log * Implants Type Name Action Serial No. Surgical Vessel Loop LOOP VESSEL MAXI RADIOPAQ BLUE - [id number] Used, Not Implanted Surgical Vessel Loop LOOP VESSEL MINI RADIOPAQ BLUE - [id number] Used, Not Implanted Implant LEAD SENSING RESP INSPIRE - [id number] - [id number] Implanted [id number] Neuro Interventional Implant LEAD STIM INSPIRE - [id number] - [id number] Implanted [id number] Neuro Interventional Implant GENERATOR PULSE INSPIRE - [id number] - [id number] Implanted [id number] Staff: Consumer Affairs Specialist: Jeffrey Bird RN Relief Consumer Affairs Specialist: Carlos Jones RN Relief Scrub: Tasneem Escobedo Scrub Person: Kateryna Freeman RN [place] to Circ: Lolis Monroy RN Findings: inspire [...] (two hours if receiving Vancomycin or flouroquinolone) [facility] 12-30-2022 Note Formatting of this n ote is different from the original. Date: 12/30/2022 Location: [facility] OR Name: Gualberto Sharp, : 1960, Diagnosis Pre-op Diagnosis * Obstructive sleep apnea (adult) (pediatric) [G47.33] Post-op Diagnosis * Obstructive sleep apnea (adult) (pediatric) [G47.33] Procedures Hypoglossal nerve STIMULATOR PLACEMENT INSPIRE 25556 - HI OPEN IMPLTJ HPGLSL NRV NSTIM RA PG&RESPIR SENSOR Surgeons * Mariela Miranda - Primary Procedure Summary Anesthesia: General ASA: II Estimated Blood Loss: Minimal Drains: * None in log * Implants Type Name Action Serial No. Surgical Vessel Loop LOOP VESSEL MAXI RADIOPAQ BLUE - [id number] Used, Not Implanted Surgical Vessel Loop LOOP VESSEL MINI RADIOPAQ BLUE - [id number] Used, Not Implanted Implant LEAD SENSING RESP INSPIRE - [id number] - [id number] Implanted [id number] Neuro Interventional Implant LEAD STIM INSPIRE - [id number] - [id number] Implanted [id number] Neuro Interventional Implant GENERATOR PULSE INSPIRE - [id number] - [id number] Implanted [id number] Staff: Consumer Affairs Specialist: Jeffrey Bird RN Relief Consumer Affairs Specialist: Carlos Jones RN Relief Scrub: Tasneem Escobedo Scrub Person: Kateryna Freeman RN [place] to Circ: Lolis Monroy RN Findings: inspire [...] was obtained in PACU noting no pneumothorax. [facility] 12-30-2022 Note Formatting of this n ote is different from the original. Date: 12/30/2022 Location: [facility] OR Name: Gualberto Sharp, : 1960, Diagnosis Pre-op Diagnosis * Obstructive sleep apnea (adult) (pediatric) [G47.33] Post-op Diagnosis * Obstructive sleep apnea (adult) (pediatric) [G47.33] Procedures Hypoglossal nerve STIMULATOR PLACEMENT INSPIRE 01154 - HI OPEN IMPLTJ HPGLSL NRV NSTIM RA PG&RESPIR SENSOR Surgeons * Mariela Miranda - Primary Procedure Summary Anesthesia: General ASA: II Estimated Blood Loss: Minimal Drains: * None in log * Implants Type Name Action Serial No. Surgical Vessel Loop LOOP VESSEL MAXI RADIOPAQ BLUE - [id number] Used, Not Implanted Surgical Vessel Loop LOOP VESSEL MINI RADIOPAQ BLUE - [id number] Used, Not Implanted Implant LEAD SENSING RESP INSPIRE - [id number] - [id number] Implanted [id number] Neuro Interventional Implant LEAD STIM INSPIRE - [id number] - [id number] Implanted [id number] Neuro Interventional Implant GENERATOR PULSE INSPIRE - [id number] - [id number] Implanted [id number] Staff: Consumer Affairs Specialist: Jeffrey Bird RN Relief Consumer Affairs Specialist: Carlos Jones RN Relief Scrub: Tasneem Escobedo Scrub Person: Kateryna Freeman RN [place] to Circ: Lolis Monroy RN Findings: inspire [...] (two hours if receiving Vancomycin or flouroquinolone) [facility] 12-30-2022 Attending History and physical note H&P reviewed. The patient was examined and there are no changes to the H&P. Source Note - Jennifer Monge APRN - SHAREPOINT ENGINEER - 12/23/2022 10:00 AM EDT Comprehensive PreSurgical [...] Hypoglossal nerve STIMULATOR PLACEMENT INSPIRE (Bilateral: Neck) [01192 CPT(R)] - 120 MINS Has sleep apnea, [...] Screen and Sleep Clinic Referral (if appropriate) [facility] 12-30-2022 History and physical note H&P reviewed. The patient was examined and there are no changes to the H&P. Source Note - JERMANIE Umaña CNP - 12/23/2022 10:00 AM EDT [...] Hypoglossal nerve STIMULATOR PLACEMENT INSPIRE (Bilateral: Neck) [95702 CPT(R)] - 120 MINS Has sleep apnea, [...] Electronically signed by: Jennifer Monge APRN - SHAREPOINT ENGINEER Date: 12/23/2022 at 11:25 AM PAT Protocol referenced includes: Anesthesia Lab Protocol Orders Perioperative Cardiovascular Risk Assessment Anesthesia Assessment Pain Assessment and Acute Pain Service Consult (if appropriate) Medical Clearance/Consult from Internal Medicine (IMS) Shower/Wash Order (for designated surgeries) MOHIT Screen and Sleep Clinic Referral (if appropriate) documented in this encounter [facility] 12-30-2022 Note Formatting of this n ote might be different from the original. PRE-PROCEDURE ROUNDING COMPLETE. [facility] 12-30-2022 Note Formatting of this n ote might be different from the original. PRE-PROCEDURE ROUNDING COMPLETE. [facility] 12-23-2022 Note Patient: Gualberto Mckeon ich Procedure Information Date/Time: 12/30/22 1300 Procedure: Hypoglossal nerve STIMULATOR PLACEMENT INSPIRE (Bilateral: Neck) - 120 MINS Location: [facility] OR [address] [place] [address] Operating Room Surgeons: Mariela Miranda MD Past [...] for this or any previous visit. [facility] 12-23-2022 Note Comprehensive PreSur gical History [...] Hypoglossal nerve STIMULATOR PLACEMENT INSPIRE (Bilateral: Neck) [86526 CPT(R)] - 120 MINS Has sleep apnea, [...] and Sleep Clinic Referral (if appropriate) [facility] 12-23-2022 Note Comprehensive PreSur gical History [...] Hypoglossal nerve STIMULATOR PLACEMENT INSPIRE (Bilateral: Neck) [03013 CPT(R)] - 120 MINS Has sleep apnea, [...] Electronically signed by: Jennifer Monge APRN - SHAREPOINT ENGINEER Date: 12/23/2022 at 11:25 AM PAT Protocol referenced includes: Anesthesia Lab Protocol Orders Perioperative Cardiovascular Risk Assessment Anesthesia Assessment Pain Assessment and Acute Pain Service Consult (if appropriate) Medical Clearance/Consult from Internal Medicine (IMS) Shower/Wash Order (for designated surgeries) MOHIT Screen and Sleep Clinic Referral (if appropriate) [facility] 11-15-2022 Hospital Discharge instructions Patient Education [...] face You have trouble talking or seeing 7411-5928 The [employer]. [address] [place] [address]. All rights reserved. This information is not [...] blood pressure monitors at most pharmacies. The [employer] recommends the following guidelines for [...] face You have problems speaking or seeing 1335-[address] [employer] [place] [address]. All rights reserved. This information is not [...] a towel soaked in hot water. Or, engine setter the shower and direct the hot spray onto your face. This is a good way to inhale warm water vapor and get heat on your face at the same time. (Cover your mouth and nose with your hands so you can still breathe as you do this.) Use a vaporizer with products such as [employer] (contains menthol) at night. Suck on peppermint, menthol or eucalyptus hard candies during the day. An expectorant containing guaifenesin (such as Robitussin), helps to thin the mucus and promote drainage from the sinuses. Iewr-jxs-rgnnyqr decongestants may be used unless a similar [...] as directed by your healthcare provider Se[employer]ure 7856-6187 [employer]. [address] [place] [address], [place] [address]. All rights reserved. This information is not [...] a towel soaked in hot water. Or engine setter the shower with the hot spray on [...] helps your sinuses drain. You may use uvye-abn-vbqsszl decongestants unless a similar medicine was prescribed. [...] trouble urinating due to an enlarged prostate. Qtgd-pua-rprfoeu antihistamines containing loratidine and cetirizine cause less [...] is safe for you. You may use abcp-otw-rvxvjhr medicine to control pain and fever, unless [...] provider Bleeding from the nose or throat 9828-8043 [employer]. [address] [place] [address]. All rights reserved. This information is not intended as a substitute for professional medical care. Always follow your healthcare professional's instructions. [facility] 11/15/2022 16:51:43 With:HILARY CLARK Address: [place] [address]- [phone] Business (1) When:2-4 days Comments:Schedule appointment as soon as possibleReturn to ED if symptoms worsenVaporizor. Steam showers and warm soaks for draiunage. Take regular 1200mg mucinex 2x/day. Afrin 12hr nasal 2x/day x 3 days [facility] 11-15-2022 Emergency department Discharge summary Discharge Instructions Thank you for allowing [facility] to assist you with your healthcare needs. [...] nasal 2x/day x 3 days Where: [place] [address] [phone] Business (1) Allergies NKA Medications Please ask [...] face You have trouble talking or seeing 5997-4713 [employer]. [address] [place] [address]. All rights reserved. This information is not [...] blood pressure monitors at most pharmacies. The [employer] recommends the following guidelines for [...] face You have problems speaking or seeing 0921-9699 [employer]. [address] [place] [address], [place] [address]. All rights reserved. This information is not [...] a towel soaked in hot water. Or, engine setter the shower and direct the hot spray [...] mucus and promote drainage from the sinuses. Skcy-fge-baoyokx decongestants may be used unless a similar [...] as directed by your healthcare provider Se[employer]ure 3994-4097 [employer]. [address] [place] [address], [place] [address]. All rights reserved. This information is not [...] a towel soaked in hot water. Or engine setter the shower with the hot spray on [...] helps your sinuses drain. You may use nuhy-kea-xvysjgf decongestants unless a similar medicine was prescribed. [...] trouble urinating due to an enlarged prostate. Qtxw-pho-bpyoqfo antihistamines containing loratidine and cetirizine cause less [...] is safe for you. You may use zbft-wkj-hftsrww medicine to control pain and fever, unless [...] provider Bleeding from the nose or throat 9378-2539 The [employer]. [address] [place] [address], [place] [address]. All rights reserved. This information is not intended as a substitute for professional medical care. Always follow your healthcare professional's instructions. Additional Information VACCINATE! IT SAVES LIVES! Members of the community who have not yet received the COVID-19 vaccine and would like to receive it can visit one of [facility] vaccine clinics. There are many vaccine clinic locations within the [facility]. For locations and available times, please visit [email or web address].[email or web address] [email or web address] It is important to note that some COVID mobile vaccine clinics are held outdoors and may be canceled in rainy or stormy conditions. To learn more about pediatric vaccinations (ages 5-11), we invite you to visit the [facility] webpage. https://www.FrenchWebs.org/pag es/6639-Kmvzw-Pfipaupkagx-Frequent oa-Hnuoh-Qxcqotwcp.html To learn more about the COVID-19 vaccine, we invite you to visit the CDC website for a list of frequently asked questions. https://www.cdc.gov/coronavirus/20 19-ncov/vaccines/faq.html [facility] Patient Portal Access Instructions: Stay connected with your healthcare team and access your personal medical information anytime with the [facility] Patient Portal. If you would like a full copy of your medical records please contact the [facility] Medical Records Department Thursday through Thursday between 8a.m. and 4:30p.m. Please follow the directions below to access the portal: 1.Access the email account you provided upon registration to the hospital.2.Look for an invitation email from [facility].3.Open the email and access the invitation link: Accept Invitation to [facility]4.Fill in the required jackson to create your account. Sign into www.[facility] with your username and password that you [...] you will allow to register on the [employer] [facility] Patient Portal for access to your information. You can also access the [facility] Patient Portal on the [facility] mercedes. Simply click on Health Records under Health Data and then click on the [employer] logo. HOW TO SAFELY DISPOSE OF PRESCRIPTION [...] Call your local pharmacy or go to http://[email or web address].[employer]/[email or web address] to find one close to you.3.Make use of household items: Use cat litter or old coffee grounds to dispose medications if other options are not available. Mix your drugs with these household products, seal them in an airtight container and throw it into the garbage. Call [facility]: [phone] to be sure your drugs can be [...] aware that I should contact my doctor. 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: Date/Time: Relationship to Patient: ___ Witness Name/Signature: Date/Time: [facility] 11-15-2022 Note ORIGINAL EXAMINATION: CT OF [...] Interpreted by: Abiodun Conklin Preliminary Report By: Aboidun Conklin Electronically signed By Abiodun Conklin Dictated Date: 11/15/2022 8:29:36 PM Prelim Date: 11/15/2022 8:32:44 PM Sign Date: 11/15/2022 8:32:44 PM Ordering Provider: [facility] 11-15-2022 Note ORIGINAL EXAMINATION: CT OF THE [...] Sign Date: 11/15/2022 8:29:29 PM Ordering Provider: [facility] 11-15-2022 Note ORIGINAL EXAMINATION: CT OF THE [...] Sign Date: 11/15/2022 8:32:44 PM Ordering Provider: [facility] 11-15-2022 Note ORIGINAL EXAMINATION: CT OF THE [...] Sign Date: 11/15/2022 8:29:29 PM Ordering Provider: [facility] 11-14-2022 Note HNO ID: [id number] Author: Jil Garcia LPN Service: ? Author Type: LICENSED NURSE Type: Progress Notes Filed: 11/14/2022 7:32 PM Note Text: Patient monitored 20 minutes after ATB injection patient voices no concerns. Provider aware and patient discharged. Jil Garcia LPN [facility] 11-14-2022 Note HNO ID: [id number] Author: Nancy Patel MD Service: ? Author [...] the next few hours. Nancy Patel MD [facility] 11-14-2022 History of Present illness Narrative [...] Nancy Patel MD documented in this encounter [facility] 10-13-2022 Note Patient: Gualberto Mckeon ich Procedure Summary Date: 10/13/22 Room / Location: [facility] / [facility] OR Anesthesia Start: [...] for questions and acknowledgement of understanding. [facility] 10-13-2022 Note Patient: Gualberto Mckeon ich Procedure Summary Date: 10/13/22 Room / Location: [place] [address] / [facility] OR Anesthesia Start: 1328 [...] all PACU criteria has been met. [facility] 10-13-2022 Note [facility] - Patient Pre-procedure Instructions Sleep Apnea: If yes, please bring CPAP machine May shower/brush teeth. Leave valuables/jewelry at home. No makeup, lotion, powder, deodorant or body sprays. No contact lenses No makeup, contact lenses, piercings, or dark nail burkinan No solid food after midnight before procedure. [...] to your arrival time. Please Bring your Tube Depatcher's license/photo ID, insurance card, eye drops/sunglasses, inhalers if applicable If you have a Medical Power of Apparatus Repair Mechanic, living will, or an advanced directive, please bring a copy with you. We are required to resuscitate and transfer you to the hospital along with your directive. [facility] 10-13-2022 Note H&P reviewed. The pa deloris was examined and there are no changes to the H&P. [facility] 10-13-2022 Note Patient: Gualberto Mckeon ich Procedure Information Date/Time: 10/13/22 1230 Procedure: Drug induced sleep endoscopy (Bilateral) - 30 mins Location: [place] [address] / [facility] OR Surgeons: Mariela Miranda MD Relevant [...] for this or any previous visit. [facility] 10-13-2022 Hospital Discharge instructions Ana Mckinley [...] 2 days Dizziness documented in this encounter [facility] 10-13-2022 Miscellaneous Notes Date: 10/13/2022 Location: [facility] OR Name: Gualberto Sharp, : 1960, Diagnosis Pre-op Diagnosis * Obstructive sleep apnea (adult) (pediatric) [G47.33] Post-op Diagnosis * Obstructive sleep apnea (adult) (pediatric) [G47.33] Procedures Drug induced sleep endoscopy 43962 - HI DISE DYN EVAL SLEEP DISORDERED BREATHING FLX DX Surgeons * Mariela Miranda - Primary Procedure Summary Anesthesia: General ASA: II Estimated Blood Loss: None Drains: * None in log * Staff: Consumer Affairs Specialist: Renee Mason RN Scrub Person: Francine Lane [...] (pediatric) [G47.33] Procedures Drug induced sleep endoscopy 12726 - HI DISE DYN EVAL SLEEP DISORDERED BREATHING FLX DX Surgeons * Mariela Miranda - Primary Procedure Summary Anesthesia: General ASA: II Estimated Blood Loss: None Drains: * None in log * Staff: Consumer Affairs Specialist: Renee Mason RN Scrub Person: Francine Lane RN Findings: A-P collapse at level of velum and mild obstruction of base of tongue Complications: None; patient tolerated the procedure well. Specimens Collected: No specimens collected during this procedure. Wound Class: Class II: Clean-Contaminated Blood Products: None Prophylactic Antibiotics: Pre-operative antibiotics were not given because antibiotics are not indicated for this procedure. [facility] - Patient Pre-procedure Instructions Sleep Apnea: If yes, please bring CPAP machine May shower/brush teeth. Leave valuables/jewelry at home. No makeup, lotion, powder, deodorant or body sprays. No contact lenses No makeup, contact lenses, piercings, or dark nail burkinan No solid food after midnight before procedure. [...] to your arrival time. Please Bring your Tube Depatcher's license/photo ID, insurance card, eye drops/sunglasses, inhalers if applicable If you have a Medical Power of Apparatus Repair Mechanic, living will, or an advanced directive, please bring a copy with you. We are required to resuscitate and transfer you to the hospital along with your directive. Discharge instruction given to spouse with understanding documented in this encounter [facility] 10-13-2022 Note Formatting of this n ote is different from the original. Date: 10/13/2022 Location: [facility] OR Name: Gualberto Sharp, : 1960, Diagnosis Pre-op Diagnosis * Obstructive sleep apnea (adult) (pediatric) [G47.33] Post-op Diagnosis * Obstructive sleep apnea (adult) (pediatric) [G47.33] Procedures Drug induced sleep endoscopy 84921 - HI DISE DYN EVAL SLEEP DISORDERED BREATHING FLX DX Surgeons * Mariela Miranda - Primary Procedure Summary Anesthesia: General ASA: II Estimated Blood Loss: None Drains: * None in log * Staff: Consumer Affairs Specialist: Renee Mason RN Scrub Person: Francine Lane [...] stable condition having tolerated the procedure well. [facility] 10-13-2022 Note Formatting of this n ote is different from the original. Date: 10/13/2022 Location: [facility] OR Name: Gualberto Sharp, : 1960, Diagnosis Pre-op Diagnosis * Obstructive sleep apnea (adult) (pediatric) [G47.33] Post-op Diagnosis * Obstructive sleep apnea (adult) (pediatric) [G47.33] Procedures Drug induced sleep endoscopy 65044 - HI DISE DYN EVAL SLEEP DISORDERED BREATHING FLX DX Surgeons * Mariela Miranda - Primary Procedure Summary Anesthesia: General ASA: II Estimated Blood Loss: None Drains: * None in log * Staff: Consumer Affairs Specialist: Renee Mason RN Scrub Person: Francine Lane RN Findings: A-P collapse at level of velum and mild obstruction of base of tongue Complications: None; patient tolerated the procedure well. Specimens Collected: No specimens collected during this procedure. Wound Class: Class II: Clean-Contaminated Blood Products: None Prophylactic Antibiotics: Pre-operative antibiotics were not given because antibiotics are not indicated for this procedure. [facility] 10-13-2022 Note Formatting of this n ote might be different from the original. [facility] - Patient Pre-procedure Instructions Sleep Apnea: If yes, please bring CPAP machine May shower/brush teeth. Leave valuables/jewelry at home. No makeup, lotion, powder, deodorant or body sprays. No contact lenses No makeup, contact lenses, piercings, or dark nail burkinan No solid food after midnight before procedure. [...] to your arrival time. Please Bring your Tube Depatcher's license/photo ID, insurance card, eye drops/sunglasses, inhalers if applicable If you have a Medical Power of Apparatus Repair Mechanic, living will, or an advanced directive, please bring a copy with you. We are required to resuscitate and transfer you to the hospital along with your directive. [facility] 10-13-2022 Attending History and physical note H&P [...] of months. Was told it was severe. 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 No need for serial [...] cord motion is normal and symmetric bilaterally [employer] Work Phone: 10-13-2022 History and physical note [...] of months. Was told it was severe. 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 No need for serial [...] and symmetric bilaterally documented in this encounter [facility] 10-13-2022 Note Formatting of this n ote might be different from the original. Discharge instruction given to spouse with understanding [facility] 10-01-2022 Note Assessment and Recom mendations: Gualberto [...] of months. Was told it was severe. 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 No need for serial [...] motion is normal and symmetric bilaterally [facility] 08-27-2022 Evaluation + Plan note Future Scheduled TestsProstate Specific Antigen 08/27/22Lipid Profile 08/27/22Complete Metabolic Panel 08/27/22 [facility] 08-25-2022 Hospital Discharge instructions Patient Education 08/25/2022 00:11:15 Knee Pain of Uncertain Cause Knee Pain with Uncertain Cause There are several common causes for knee pain. These can include: A sprain of the ligaments that support the joint An injury to the cartilage lining of the joint Arthritis from nvck-fiv-fbfq or inflammation There are other causes as [...] heat. If you have to wear a zyqa-sbr-vjwr knee brace, you can open it to apply the ice pack, or heat, directly to the knee. Never put ice directly on the skin. Always wrap the ice in a towel or other type of cloth. You may use iwwo-qjo-kfzqlba pain medicine to control pain, unless another [...] full work duties. If you have a hjar-ipx-hxfa knee brace, you can remove it to [...] as directed by your healthcare provider Holli [phone] [employer]. [address] [place] [address]. All rights reserved. This information is not intended as a substitute for professional medical care. Always follow your healthcare professional's instructions. Follow Up Care 08/24/2022 23:20:47 With:Follow up with primary care provider Address:Unknown When:2-4 days With:Follow up with primary care provider Address:Unknown When:2-4 days [facility] 08-25-2022 Emergency department Discharge summary Discharge Instructions Thank you for allowing [facility] to assist you with your healthcare needs. [...] cartilage lining of the joint Arthritis from klhs-usa-ytin or inflammation There are other causes as [...] heat. If you have to wear a haza-kzo-fctq knee brace, you can open it to apply the ice pack, or heat, directly to the knee. Never put ice directly on the skin. Always wrap the ice in a towel or other type of cloth. You may use lztr-fve-mjsneyx pain medicine to control pain, unless another [...] full work duties. If you have a nggg-fnv-jtmk knee brace, you can remove it to [...] as directed by your healthcare provider Holli [phone] [employer]. [address] [place] [address]. All rights reserved. This information is not intended as a substitute for professional medical care. Always follow your healthcare professional's instructions. Additional Information VACCINATE! IT SAVES LIVES! Members of the community who have not yet received the COVID-19 vaccine and would like to receive it can visit one of [facility] vaccine clinics. There are many vaccine clinic locations within the [facility]. For locations and available times, please visit [email or web address] g. It is important to note that some COVID mobile vaccine clinics are held outdoors and may be canceled in rainy or stormy conditions. To learn more about pediatric vaccinations (ages 5-11), we invite you to visit the [facility] webpage. https://[email or web address].org/pag es/6974-Iamsa-Rfaavmclvtu-Frequent wa-Sdyec-Cctrogbwf.html To learn more about the COVID-19 vaccine, we invite you to visit the [employer] website for a list of frequently asked questions. [email or web address]://[facility]/assets/Patient k-nmi-Wbfuqyni/kbpag-Euskevx-Vucal ently_Asked-Questions.pdf [facility] Patient Portal Access Instructions: Stay connected with your healthcare team and access your personal medical information anytime with the [facility] Patient Portal. If you would like a full copy of your medical records please contact the [facility] Medical Records Department Thursday through Thursday between 8a.m. and 4:30p.m. Please follow the directions below to access the portal: 1.Access the email account you provided upon registration to the [facility].2.Look for an invitation email from [facility].3.Open the email and access the invitation link: Accept Invitation to [facility]4.Fill in the required jackson to create your account. Sign into www.[facility] with your username and password that you [...] you will allow to register on the [facility] Patient Portal for access to your information. You can also access the [facility] Patient Portal on the [facility] mercedes. Simply click on Health Records under Health Data and then click on the [facility] logo. HOW TO SAFELY DISPOSE OF PRESCRIPTION [...] Call your local pharmacy or go to http://bit.[email or web address]/[email or web address] to find one close to you.3.Make use of household items: Use cat litter or old coffee grounds to dispose medications if other options are not available. Mix your drugs with these household products, seal them in an airtight container and throw it into the garbage. Call [facility]: [phone] to be sure your drugs can be [...] aware that I should contact my doctor. 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: Date/Time: Relationship to Patient: ___ Witness Name/Signature: Date/Time: [facility] 08-24-2022 Note ORIGINAL EXAMINATION: THREE XRAY [...] Sign Date: 08/24/2022 11:57:19 PM Ordering Provider: [facility] 08-24-2022 Note ORIGINAL EXAMINATION: THREE XRAY VIEWS [...] Sign Date: 08/24/2022 11:57:19 PM Ordering Provider: [facility] 05-30-2022 Evaluation + Plan note Future Scheduled TestsProstate Specific Antigen 05/30/22 [facility] Evaluation + Plan note Future Appointments Appointment Date:05/27/2021 11:00:00 AM Scheduled Provider: Location:[facility] Appointment Type:PT Outpatient Evaluation Appointment Date:10/10/2021 08:30:00 AM Scheduled Provider: Location:[facility] Appointment Type:PC Nurse Lab Appointment Date:10/25/2021 08:20:00 AM Scheduled Provider:HILARY CLARK DO Location:[facility] Appointment Type:PC Wellness Annual Future Scheduled TestsLipid Profile 11/18/21Complete Metabolic Panel 11/18/21 [facility] Evaluation + Plan note Future Appointments Appointment Date:10/10/2021 08:30:00 AM Scheduled Provider: Location:[facility] Appointment Type:PC Nurse Lab Appointment Date:10/25/2021 08:20:00 AM Scheduled Provider:HILARY CLARK DO Location:[facility] Appointment Type:PC Wellness Annual Future Scheduled TestsLipid Profile 11/18/21Complete Metabolic Panel 11/18/21 [facility] Evaluation + Plan note Future Appointments Appointment Date:10/25/2021 08:35:00 AM Scheduled Provider:HILARY CLARK DO Location:[facility] Appointment Type:PC Wellness Annual [facility] Evaluation + Plan note Future Appointments Appointment Date:05/18/2023 08:35:00 AM Scheduled Provider:HILARY CLARK DO Location:[facility] Appointment Type:PC OV Future Scheduled TestsProstate Specific Antigen 08/27/22Lipid Profile 08/27/22Complete Metabolic Panel 08/27/22 [facility] Evaluation + Plan note Future Appointments Appointment Date:05/18/2023 08:35:00 AM Scheduled Provider:HILARY CLARK DO Location:[facility] Appointment Type:PC OV Appointment Date:08/18/2023 08:00:00 PM Scheduled Provider: Location:[facility] Appointment Type:SL Post Inspire PSG [facility] Evaluation + Plan note Future Appointments Appointment Date:08/18/2023 08:00:00 PM Scheduled Provider: Location:[facility] Appointment Type:SL Post Inspire PSG Appointment Date:05/09/2024 08:30:00 AM Scheduled Provider: Location:[facility] Appointment Type:PC Nurse Lab Appointment Date:05/19/2024 08:30:00 AM Scheduled Provider:HILARY CLARK DO Location:[facility] Appointment Type:PC Wellness Medicare Future Scheduled TestsProstate Specific Antigen 05/18/24Lipid Profile 05/18/24Complete Metabolic Panel 05/18/24 [facility] Evaluation + Plan note Future Appointments Appointment Date:08/18/2023 08:00:00 PM Scheduled Provider: Location:[facility] Appointment Type:SL Post Inspire PSG Appointment Date:05/09/2024 08:30:00 AM Scheduled Provider: Location:[facility] Appointment Type:PC Nurse Lab Appointment Date:05/19/2024 08:30:00 AM Scheduled Provider:HILARY CLARK DO Location:[facility] Appointment Type:PC Wellness Medicare Diagnostic Tests PendingAntinuclear Antibody Screen, Serum 07/01/23 Future Scheduled TestsProstate Specific Antigen 05/18/24Lipid Profile 05/18/24Complete Metabolic Panel 05/18/24 [facility] documented in this encounter [facility] note* Diagnosis Post-op pain- Primary Other acute postoperative pain documented in this encounter [facility] note* Diagnosis Postoperative follow-up- Primary Follow-up examination, following unspecified surgery documented in this encounter [facility] note* Diagnosis Odontalgia- Primary Unspecified disorder of the teeth and supporting structures Medial epicondylitis of elbow, unspecified laterality documented in this encounter [facility] note* Diagnosis Vision changes- Primary Chronic maxillary sinusitis documented in this encounter [facility] note* Diagnosis Chronic maxillary sinusitis [facility] Narrative No data available for this section [facility] Hospital Discharge instructions No data available for this section [facility] Progress note No data available for this section [facility] Reason for referral (narrative)* Consultation (Routine) - Pending Review Specialty Diagnoses / Procedures Referred By Contkeven t Referred To Contact Ophthalmology Diagnoses Vision changes Procedures HI OFFICE/OUTPATIENT NEW HIGH MDM 60-74 MINUTES Mariela Miranda MD [address] [facility] [address] [place] [address] [facility] Ophth [address] [place] [address] Referral ID Status Reason Start Date Expiration Date Visits Requested Visits Authorized [id number] Pending Review Specialty Services Required 05/05/2023 05/04/2024 1 1 * Imaging (Routine) - Pending Review Specialty Diagnoses / Procedures Referred By Abbie rodarte Referred To Contact Radiology Diagnoses Chronic maxillary sinusitis Procedures CT maxillofacial wo IV contrast Mariela Miranda MD [address] [place] [address] Referral ID Status Reason Start Date Expiration Date V isits Requested Visits Authorized [id number] Pending Review 05/05/2023 11/01/2023 1 1 [facility] note* Peg Peña N: PERFORM Event Display: Patient Summary Documents Authored Date: [id number] [facility] Medications Administered Section Inactive Administered Medications [...] maxillofacial wo IV contrast Mariela Miranda MD [address] [place] [id number] Referral ID Status Reason Start Date Expiration Date Visits Re quested Visits Authorized [id number] Closed 05/05/2023 11/01/2023 1 1 Additional Source Comments Source Comments (unrecognize d section and content) In the event this informatio n is protected by the Federal Confidentiality of Alcohol and Drug Abuse Patient Records regulations: The Federal rules restrict any use of the information to criminally investigate or prosecute any alcohol or drug abuse patient.[facility] the event this information is protected by the Federal Confidentiality of Alcohol and Drug Abuse Patient Records regulations: The Federal rules restrict any use of the information to criminally investigate or prosecute any alcohol or drug abuse patient.[facility] Hospital[facility] the event this information is protected by the Federal Confidentiality of Alcohol and Drug Abuse Patient Records regulations: The Federal rules restrict any use of the information to criminally investigate or prosecute any alcohol or drug abuse patient.[facility] Care Team (unrecognized sect ion and content) Care Team Personnel Name: Marquis Ross PT Position: P3 Scheduling - Perforator Operator Oil Well Advanced Member Role: Other Name: HILARY CLARK DO Position: P4 Physician - Primary Care Member Role: Primary Care Physician Address: Address: [address] [place] [address]- Care Team Related Persons Name: PLEASE, LUCY Care Team Personnel Name: Marquis Ross Clerk Ariana PT Position: P3 Scheduling - Perforator Operator Oil Well Advanced Member Role: Other Name: HILARY CLARK DO Position: P4 Physician - Primary Care Member Role: Primary Care Physician Address: Address: [address] [place] [address] Name: YA LUO MD Position: ED Physician Member Role: Attending Physician Address: Address: [address] [place] [address] Name: ABIODUN JEFFERSC Position: ED Physician Extractor Puller Member Role: ED PA Address: Address: [facility] [address] [place] [address]- Care Team Related Persons Name: RONNELL STILES Name: CANDI PERKINS Care Team Personnel Name: Marquis Ross Clerk Ariana PT Position: P3 Scheduling - Perforator Operator Oil Well Advanced Member Role: Other Name: HILARY CLARK DO Position: P4 Physician - Primary Care Member Role: Primary Care Physician Address: Address: [address] Care Team Related Persons Name: RONNELL STILES Name: CANDI PERKINS Care Team Personnel Name: Marquis Ross Clertj Lane PT Position: P3 Scheduling - Perforator Operator Oil Well Advanced Member Role: Other Name: HILARY CLARK DO Position: P4 Physician - Primary Care Member Role: Primary Care Physician Address: Address: [address] Care Team Related Persons Name: RONNELL STILES Name: CANDI PERKINS Care Teams (unrecognized sec tion and content) Peanut Butter Maker Relationship Specialty Start Date End Date Hilary Clark DO [address] [facility] [place] [address] PCP - General Family Medicine 11/14/22 Peanut Butter Maker Relationship Specialty Start Date End Date Ariella Mas MD [address] [facility] [address] [place] [address] PCP - General Ophthalmology 10/13/22 Peanut Butter Maker Relationship Specialty Start Date End Date Ariella Mas MD [address] [facility] [address] [place] [address] PCP - General Ophthalmology 10/13/22 Peanut Butter Maker Relationship Specialty Start Date End Date Ariella Mas MD [facility] [address] [facility] [address] [place] [address] PCP - General Ophthalmology 10/13/22 Peanut Butter Maker Relationship Specialty Start Date End Date Hilary Clark DO [address] [place] [address] PCP - General Family Medicine 11/14/22 Peanut Butter Maker Relationship Specialty Start Date End Date Ariella Mas MD [facility] [address] [facility] [address] [place] [address] PCP - General Ophthalmology 10/13/22 Peanut Butter Maker Relationship Specialty Start Date End Date Hilary Clark DO [address] [place] [address] PCP - General Family Medicine 10/4/23 Peanut Butter Maker Relationship Specialty Start Date End Date Amber, Hilary, DO [address] [facility] [place] [address] PCP - General Family Medicine 05/06/23 Reason for Visit (unrecogniz ed section and content) Specialty Diagnoses / Procedures Referred By Abbie t Referred To Contact Diagnoses Obstructive sleep apnea (adult) (pediatric) Obstructive sleep apnea (adult) (pediatric) [G47.33] Procedures HI OPEN IMPLTJ HPGLSL NRV NSTIM RA PG&RESPIR SENSOR Hypoglossal nerve STIMULATOR PLACEMENT INSPIRE Mariela Miranda MD [address] [facility] [address] [place] [address] [address] [facility] [place] [address] Referral ID Status Reason Start Date Expiration Date Visits Re quested Visits Authorized [id number] 1 1 Reason Onset Date Comments Advice [...] Specialty Diagnoses / Procedures Referred By Abbie t Referred To Contact Radiology Diagnoses Chronic maxillary sinusitis Procedures CT maxillofacial wo IV contrast Mariela Miranda MD [address] [place] [address] Referral ID Status Reason Start Date Expiration Date V isits Requested Visits Authorized [id number] Authorized 05/05/2023 11/01/2023 1 1 Referral ID Status Reason Start Date Expiration Date Visits Re quested Visits Authorized [id number] Closed 05/05/2023 11/01/2023 1 1 Scheduled Active [...] 0915 (New Bag - Prov ider: Tara Tavera, IVON)1110 (Continued by Anesthesia - Provider: JERMAINE Mahmood CRNA)1307 (Stopped - Provider: JERMAINE Mahmood CRNA) PRN Medication Order 12/28/2022 12/29/2022 12/30/2022 ALPRAZolam (Xanax) disintegrating tablet 0.25 mg 0.25 mg, Oral, PRN, anxiety, Starting on Thu12/30/22 at 0902, For 1 dose, Preprocedure, Using dry hands, place tablet on top of tongue and allow to disintegrate. Administration with water is not necessary. lidocaine-EPINEPHrine (Xylocaine W/EPI) 1 %-1:066153 injection (CANCELED) As needed, Starting on Thu12/30/22 [...] DATE CREATED AUTHOR AUTHOR'S ORGANIZ ATION 07/22/2023 [facility] DATE CREATED AUTHOR AUTHOR'S ORGANIZ ATION 08/21/2023 [facility] ([place]) FOR RECORDS PERTAINING TO PATIENTS [...] BE BASED ON THE PRIMARY CLINICAL RECORDS. [facility] [employer] [facility]. provides no warranty or guarantee of the accuracy or completeness of information in this document.
--- NOTE | 2023-09-21 10:47 | STRESSREP ---
Stress Test Report Pharmacologic myocardial perfusion stress test. 63-year-old man with a history of chest pain Resting EKG demonstrates sinus rhythm with a rate of 65 bpm. Resting blood pressure is 116/84 mmHg. the patient initially exercised according to the regular Rk protocol for total duration of 6 minutes and 14 seconds attaining a maximum heart rate of 116 bpm and 74% of maximum predicted heart rate at a workload of 7.6 METS. Due to inability to attain this 85% of maximum predicted heart rate the patient was switched over to a pharmacologic stress test. 0.4 mg of regadenoson was infused per usual protocol followed by rapid intravenous saline flush injection. Continuous EKG monitoring was performed. The maximum heart rate was 94 bpm which was 60% of max impacted heart rate the maximum workload was 1 metabolic equivalent. At rest there were no ST or T wave changes noted to suggest ischemia and at peak infusion nonspecific ST changes were noted which did not meet the criteria for ischemia. No clinical angina is noted. The final blood pressure was 148/84 mmHg. Myocardial perfusion protocol. 14.3 mCi of technetium 99m sestamibi was injected at rest. 0.4 mg of regadenoson was infused per usual protocol. At peak infusion 44.4 mCi of technetium 99m sestamibi was injected stress images were obtained stress and rest images were reconstructed and compared in the short axis vertical long and horizontal long axis. Gated images were also obtained. Perfusion SPECT analysis: Review of the stress images demonstrate normal uptake of tracer noted in all areas of the myocardium. The resting images similar demonstrated normal uptake of tracer noted in all areas of the myocardium. No areas of reversibility are noted to suggest ischemia and no previous infarct is noted. Gated SPECT analysis: The gated ejection fraction is 63%. Conclusion: Normal pharmacologic myocardial perfusion stress test. Preserved ejection fraction.
== END | disposition home or self-care (01) ==
LOC: CVS 06:15
PROVIDERS: PCP Family Medicine; Referring Provider Physician Assistant Medical; Visit Provider Physician Assistant Medical
DX: R07.9 Chest pain, unspecified (principal); Z95.5 Presence of coronary angioplasty implant and graft
CPT/HCPCS: 78452; 93017; A9500; A4216; J2785

== ENCOUNTER → 2024-03-01 | Outpatient (CLI) | payer OTHER, MEDICAID, SELFPAY ==
[2024-03-01 10:17] LABS: AST(SGOT) 17 U/L (15-37); Alanine Aminotransfer ALT/SGPT 30 U/L (16-61); Albumin, Serum 3.4 g/dL (3.2-5.0); Alkaline Phosphatase 60 U/L (45-117); Bilirubin, Direct 0.16 mg/dL (0.00-0.30); Cholesterol 96 mg/dL (200); Globulin 2.8 g/dL (2.2-4.2); High Density Lipoprotein 31 mg/dL; Protein, Total 6.2 g/dL (6.4-8.2); Triglycerides 71 mg/dL; Very Low Density Lipoprotein 14 mg/dL (5-40)
== END | disposition home or self-care (01) ==
LOC: LAB 09:10
PROVIDERS: PCP Family Medicine; Referring Provider Nurse Practitioner Gerontology; Visit Provider Nurse Practitioner Gerontology
DX: Z95.5 Presence of coronary angioplasty implant and graft (principal)
CPT/HCPCS: 36415; 80061; 80076

== ENCOUNTER 2024-07-02 11:40 | Emergency (ER) | payer MEDICARE, SELFPAY ==
[2024-07-02 11:40] VITALS: BP 133/81; PULSE 68; RESP 19; TEMP 36.3; O2SAT 98; BMI 39.9
--- NOTE | 2024-07-02 11:59 | RAD_ITS ---
EXAM: XR PELVIS, 1 OR 2 VIEWS CLINICAL INDICATION: pain TECHNIQUE: Frontal view of the pelvis. COMPARISON: No relevant prior studies available. FINDINGS: BONES/JOINTS: No acute abnormality. SOFT TISSUES: Normal. No soft tissue swelling or gas. RAD/Pelvis 1 or 2 Views IMPRESSION: No evidence of displaced pelvic fracture. Electronically Signed: Saul Pascual MD at 13:41 EST ,
--- NOTE | 2024-07-02 12:10 | EDS_ITS ---
HPI <ROBERTO CARLOS Hernandez - Last Filed: 07/02/24 14:40> History of Present Illness Chief Complaint: Fall Narrative Narrative: Patient presenting today due to pain in his right thumb and bilateral groin and right buttocks after a mechanical fall occurred this morning. He was herding a cow when the cow ran causing him to go into a split position and then fall onto his bottom. He did not hit his head, he denies any LOC. He is right-handed. He is able to ambulate. 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) History of skin cancer Sleep apnea MOHIT (obstructive sleep apnea) Home Medications ?Medication ?Instructions ?Recorded ?Last Taken ?Type modafinil 200 mg tablet 400 mg PO DAILY 02/23/23 02/22/23 History multivitamin (Daily Multi-Vitamin 1 tab PO DAILY 06/17/23 Unknown History tablet) nitroglycerin 0.4 mg sublingual 0.4 mg sublingual Q5-15M PRN chest 08/06/23 Unknown Rx tablet (Nitrostat) pain #25 tabs aspirin 81 mg tablet,delayed 81 mg PO QAM #90 TABLETS 02/29/24 Unknown Rx release atorvastatin 40 mg tablet 40 mg PO QHS #90 tabs 03/17/24 Unknown Rx metoprolol succinate 25 mg 25 mg PO DAILY #90 tabs 05/20/24 Unknown Rx tablet,extended release 24 hr ticagrelor 90 mg tablet (Brilinta) 90 mg PO BID #180 tabs 05/20/24 Unknown Rx isosorbide mononitrate 30 mg 30 mg PO DAILY #90 tabs 05/25/24 Unknown Rx tablet,extended release 24 hr hydrocodone-acetaminophen 5-325mg 1 tab PO Q4H PRN PRN Pain 2 days 07/02/24 Unknown Rx 5mg-325mg #8 TABLETS Allergy/AdvReac Type Severity Reaction Status Date / Time No Known Allergies Allergy Verified 03/01/24 08:48 Family History Other Heart disease Surgical History Stented coronary artery (02/24/23) History of knee surgery Social History Smoking Status: Current every day smoker tobacco type: cigarettes ROS <ROBERTO CARLOS Hernandez - Last Filed: 07/02/24 14:40> ROS ED Constitutional Constitutional ED: Denies chills or fever(s) Cardiovascular Cardiovascular: Denies chest pain Respiratory/Chest Respiratory/Chest: Denies dyspnea Gastrointestinal Gastrointestinal: Denies abdominal pain, nausea or vomiting Musculoskeletal Musculoskeletal: Reports myalgias; Denies back pain or neck pain Integumentary Denies Abrasions Neurologic Neurologic: Denies paresthesias EXAM <ROBERTO CARLOS Hernandez - Last Filed: 07/02/24 14:40> Physical Exam Const Vital Signs: 07/02/24 11:40 07/02/24 12:40 07/02/24 13:40 Temperature 97.4 F L Temperature Source Temporal Pulse Rate 68 71 Respiratory Rate 19 H 18 Respiratory Effort Normal Non-Labored Respiratory Depth Normal Respiratory Pattern Normal Blood Pressure 133/81 H 128/88 H Blood Pressure Mean 98 101 Pulse Ox 98 99 Oxygen Delivery Method Room Air Room Air 07/02/24 14:00 Temperature 97.5 F L Temperature Source Pulse Rate 71 Respiratory Rate 18 Respiratory Effort Respiratory Depth Respiratory Pattern Blood Pressure 128/88 H Blood Pressure Mean 101 Pulse Ox 99 Oxygen Delivery Method Positive well nourished, well developed and no apparent distress General Appearance ED: well developed HEENT Reports normocephalic and head/scalp atraumatic Mouth ED: Yes moist mucous membranes normal Eyes PERRL and EOMs intact bilaterally Neck full ROM and supple Chest Wall inspection of chest normal Resp normal respiratory effort and clear to auscultation bilaterally Cardio regular rate and regular rhythm GI soft to palpation, non-tender, non-distended and no masses Back/Spine normal ROM and normal to inspection Extremity normal to inspection and full ROM Extremity Narrative: Pain to palpation to the bilateral groin, no hernia palpated, pain to the right posterior thigh and buttocks along the hamstring. Neurovascularly intact. No pain to palpation to the right thumb, pain with all range of motion of the thumb, right radial pulse 2+, good cap refill, sensation intact. He is able to flex and extend at the MCP and IP joint Neuro oriented x3, CN's II-XII intact bilaterally, moves all extremities, no focal motor deficits and no sensory deficits noted Sensorium / Orientation: awake and alert Psych mental status grossly normal and thought process normal Skin no rashes or lesions noted and no wounds <Dr. Cheryl Smith DO - Last Filed: 07/02/24 13:55> Physical Exam Const Vital Signs: 07/02/24 11:40 07/02/24 12:40 07/02/24 13:40 Temperature 97.4 F L Temperature Source Temporal Pulse Rate 68 71 Respiratory Rate 19 H 18 Respiratory Effort Normal Non-Labored Respiratory Depth Normal Respiratory Pattern Normal Blood Pressure 133/81 H 128/88 H Blood Pressure Mean 98 101 Pulse Ox 98 99 Oxygen Delivery Method Room Air Room Air 07/02/24 14:00 Temperature 97.5 F L Temperature Source Pulse Rate 71 Respiratory Rate 18 Respiratory Effort Respiratory Depth Respiratory Pattern Blood Pressure 128/88 H Blood Pressure Mean 101 Pulse Ox 99 Oxygen Delivery Method [facility] <ROBERTO CARLOS Hernandez - Last Filed: 07/02/24 14:40> [facility] Narrative Medical decision making narrative: Patient presenting today due to a fall that occurred this morning. He slipped, fell, performed a split and then fell onto his bottom. He has pain in his bilateral groin and posterior aspect of his right leg. He is tender along his right hamstring and minimal pain to palpation to the bilateral groin. Examination is consistent with a right thumb sprain, groin strain, and hamstring strain. However, x-ray of the pelvis will be obtained to rule out fracture, x- ray of the right thumb will be obtained to rule out fracture. He was given Tylenol here for pain. X-rays are negative for fracture. He was given a thumb spica splint. I did offer crutches but he did not feel he needed them. I did give him a prescription for [place] for pain. I recommended that he follow-up closely with his PCP. RICE instructions were discussed. Patient discharged home in stable condition. I have personally performed a face to face assessment of the patient and have reviewed the JOSE LUIS Note. I performed a substantive portion of the visit including all aspects of the following. My montero findings include: History is [patient presents the emergency department after sustaining a fall. Patient states that he was try to hurt a cow and Went 1 [address] and he went to the other and slipped and fell, did the splits. Complains of pain in both groins and posterior aspect of his right leg and hamstring. Also injured his right thumb. Patient denies striking his head or loss consciousness. He is not any blood thinners. Denies neck pain or chest pain or abdominal pain.] Exam is [HEENT-PERRLA, EOMI. Cranial nerves II through XII grossly intact. TMs clear. Mucous membranes moist. No adenopathy. Cardiovascular-regular rate and rhythm without murmur or ectopy Lungs-clear to auscultation, chest wall stable without crepitus or subcu emphysema Abdomen-normoactive bowel sounds, soft, nontender, no rebound or rigidity, no peritoneal signs. Extremities-intact ?4. Right thumb-patient has tenderness palpation at the MCP joint and first metacarpal. Mild soft tissue swelling noted. Limited range of motion in flexion extension secondary to pain. Neurovascular intact distally. No broken skin. Right lower extremity-patient has tenderness palpation over the right hamstring at the insertion into the pelvis. Pain with range of motion. There is no ecchymosis or bruising noted. No hematoma. Mild tenderness in the right groin as well as the left groin. Medical Decison Making [patient had x-rays of the right thumb and pelvis which were unremarkable. At this point I suspect he may have a hamstring injury or tear. He will be offered crutches. I also suspect he likely sprained his thumb. Difficult to examine ligamentously as he has a lot of discomfort with co uld have injury to the ulnar collateral or radial collateral ligament of the thumb. We will place patient in a thumb spica splint. He will be offered naproxen or hydrocodone for pain. Will refer to orthopedics or his primary care physician for follow-up.] Other additions or changes: [None] Radiography X-Ray: Read by ED Physician Diagnostic Testing: Clinical Impression(s) from Imaging Studies Pelvis X-Ray 07/02/24 11:59 IMPRESSION: No evidence of displaced pelvic fracture. Electronically Signed: Saul Pascual MD at 13:41 EST Reading Location ID and State: [address] [place] [address] Tel , Service support , Finger X-Ray 07/02/24 12:30 IMPRESSION: No acute bone or joint abnormality. Electronically Signed: Saul Pascual MD at 13:42 EST , <Dr. Cheryl Smith, DO - Last Filed: 07/02/24 13:55> [facility] Narrative Medical decision making narrative: Patient presenting today due to a fall that occurred this morning. He slipped, fell, performed a split and then fell onto his bottom. He has pain in his bilateral groin and posterior aspect of his right leg. He is tender along his right hamstring and minimal pain to palpation to the bilateral groin. X-ray of the pelvis will be obtained to rule out fracture, x-ray of the right thumb will be obtained to rule out fracture. He was given Tylenol here for pain. I have personally performed a face to face assessment of the patient and have reviewed the JOSE LUIS Note. I performed a substantive portion of the visit including all aspects of the following. My montero findings include: History is [patient presents the emergency department after sustaining a fall. Patient states that he was try to hurt a cow and Went [address] and he went to the other and slipped and fell, did the splits. Complains of pain in both groins and posterior aspect of his right leg and hamstring. Also injured his right thumb. Patient denies striking his head or loss consciousness. He is not any blood thinners. Denies neck pain or chest pain or abdominal pain.] Exam is [HEENT-PERRLA, EOMI. Cranial nerves II through XII grossly intact. TMs clear. Mucous membranes moist. No adenopathy. Cardiovascular-regular rate and rhythm without murmur or ectopy Lungs-clear to auscultation, chest wall stable without crepitus or subcu emphysema Abdomen-normoactive bowel sounds, soft, nontender, no rebound or rigidity, no peritoneal signs. Extremities-intact ?4. Right thumb-patient has tenderness palpation at the MCP joint and first metacarpal. Mild soft tissue swelling noted. Limited range of motion in flexion extension secondary to pain. Neurovascular intact distally. No broken skin. Right lower extremity-patient has tenderness palpation over the right hamstring at the insertion into the pelvis. Pain with range of motion. There is no ecchymosis or bruising noted. No hematoma. Mild tenderness in the right groin as well as the left groin. Medical Decison Making [patient had x-rays of the right thumb and pelvis which were unremarkable. At this point I suspect he may have a hamstring injury or tear. He will be offered crutches. I also suspect he likely sprained his thumb. Difficult to examine ligamentously as he has a lot of discomfort with could have injury to the ulnar collateral or radial collateral ligament of the thumb. We will place patient in a thumb spica splint. He will be offered naproxen or hydrocodone for pain. Will refer to orthopedics or his primary care physician for follow-up.] Other additions or changes: [None] Radiography Diagnostic Testing: Clinical Impression(s) from Imaging Studies Pelvis X-Ray 07/02/24 11:59 IMPRESSION: No evidence of displaced pelvic fracture. Electronically Signed: Saul Pascual MD at 13:41 EST , Finger X-Ray 07/02/24 12:30 IMPRESSION: No acute bone or joint abnormality. Electronically Signed: Saul Pascual MD at 13:42 EST , Three-view x-rays of the right thumb obtained interpreted by myself as no evidence of fracture or dislocation. Radiology in agreement. 1 view x-ray of the pelvis obtained interpreted by myself as no evidence of fracture or dislocation and radiology was in agreement. Discharge Plan Triage Chief Complaint: Fall ED Midlevel Provider: Sumi Pierce ED Provider: Cheryl Smith Dx/Rx/DC Orders Clinical Impression: Hamstring muscle strain, Sprain of right thumb, Groin strain, Fall Instructions: ED Groin Strain, ED Finger Sprain, ED Muscle Strain, Extremity Prescriptions: New hydrocodone-acetaminophen 5-325 mg tablet 1 tab PO Q4H PRN PRN (Reason: Pain) 2 Days Qty: 8 0RF No Action multivitamin [Daily Multi-Vitamin] Tablet 1 tab PO DAILY nitroglycerin [Nitrostat] 0.4 mg tablet, sublingual 0.4 mg sublingual Q5-15M PRN (Reason: chest pain) Qty: 25 3RF Rx Instructions: do not exceed 3 doses per episode modafinil 200 mg tablet 400 mg PO DAILY Patient Comments: TAKE 2 TABLETS BY MOUTH EVERY DAY aspirin 81 mg tablet,delayed release (DR/EC) 81 mg PO QAM Qty: 90 3RF atorvastatin 40 mg tablet 40 mg PO QHS Qty: 90 3RF Brilinta 90 mg tablet 90 mg PO BID Qty: 180 3RF metoprolol succinate 25 mg tablet extended release 24 hr 25 mg PO DAILY Qty: 90 3RF isosorbide mononitrate 30 mg tablet extended release 24 hr 30 mg PO DAILY Qty: 90 3RF Primary Care Provider: Ho Clark Referrals: Ho Clark DO [Primary Care Provider] - 5-7 Days Activity Restrictions/Additional Instructions: Follow-up with your PCP. Print Language: [place] Disposition Disposition: Home, Self Care Discharge Date/Time: 07/02/24 14:08
--- NOTE | 2024-07-02 12:30 | RAD_ITS ---
EXAM: XR RIGHT FINGERS, 2 OR MORE VIEWS CLINICAL INDICATION: R thumb pain TECHNIQUE: Frontal, lateral and oblique views of the fingers of the right hand. COMPARISON: No relevant prior studies available. FINDINGS: BONES/JOINTS: No acute fracture or subluxation. SOFT TISSUES: 3 views of the right demonstrate prominence of the soft tissues. No radiopaque foreign body. RAD/Finger(s) Min 2 Views IMPRESSION: No acute bone or joint abnormality. Electronically Signed: Saul Pascual MD at 13:42 EST ,
[2024-07-02] MEDS: Acetaminophen 500 MG Tablet 1000 MG PO (12:43)
[2024-07-02 13:40] VITALS: BP 128/88; PULSE 71; RESP 18; O2SAT 99
[2024-07-02 14:00] VITALS: BP 128/88; PULSE 71; RESP 18; TEMP 36.4; O2SAT 99
== END 2024-07-02 14:08 | disposition home or self-care (01) ==
PROVIDERS: Emergency Provider Emergency Medicine; PCP Family Medicine; Referring Provider Emergency Medicine; Visit Provider Emergency Medicine
DX: S76.811A Strain of other specified muscles, fascia and tendons at thigh level, right thigh, initial encounter (principal); I25.10 Atherosclerotic heart disease of native coronary artery without angina pectoris; S63.601A Unspecified sprain of right thumb, initial encounter; I10 Essential (primary) hypertension; Y93.89 Activity, other specified; Z85.828 Personal history of other malignant neoplasm of skin; Z79.82 Long term (current) use of aspirin; Z79.899 Other long term (current) drug therapy; F17.210 Nicotine dependence, cigarettes, uncomplicated; Z95.5 Presence of coronary angioplasty implant and graft; W01.0XXA Fall on same level from slipping, tripping and stumbling without subsequent striking against object, initial encounter
CPT/HCPCS: 72170; 73140; 99283

== ENCOUNTER 2025-05-16 08:38 | Outpatient (CLI) | payer MEDICARE, SELFPAY ==
[2025-05-16 09:33] LABS: Hematocrit 44.6 % (40-54); Hemoglobin 14.5 g/dL (13.0-16.5); Immature Granulocytes Count 0.030 X10^3/uL (0.0-0.0); Mean Corp Hgb Conc 32.5 g/dL (32-36); Mean Corpuscular Volume 93.1 fL (80-94); Mean Platelet Vol. 9.4 fl (6.2-12.0); NRBC Flagged by Analyzer 0 % (0-5); Platelet Count 273 K/mm3 (150-450); RBC Distribution Width CV 13.5 % (11.6-14.6); RBC Distribution Width SD 46.2 fl (35.1-43.9); Red Blood Count 4.79 M/mm3 (4.6-6.2); White Blood Count 6.8 K/mm3 (4.4-11.0)
[2025-05-16 10:13] LABS: AST(SGOT) 28 U/L (<=37); Alanine Aminotransfer ALT/SGPT 38 U/L (<=46); Albumin, Serum 4.0 g/dL (3.4-4.8); Alkaline Phosphatase 64 U/L (40-129); Anion Gap 9 (5-15); BUN 11 mg/dL (4-19); BUN/Creat Ratio 12.3 RATIO (10-20); Calcium,Total 8.8 mg/dL (7.6-11.0); Carbon Dioxide 25.1 mmol/L (21.0-32.0); Chloride 107 mmol/L (98-108); Cholesterol 113 mg/dL (<=200); Globulin 2.3 g/dL (2.2-4.2); Glucose 133 mg/dL (70-99); Low Density Lipoprotein Calc. 56 mg/dL; Potassium 4.2 mmol/L (3.3-5.1); Pro- Brain NATRIURETIC PEPTIDE 79 pg/mL (<=900); Triglycerides 143 mg/dL; Very Low Density Lipoprotein 29 mg/dL (5-40); cholesterol:hdl ratio screen 3.98
== END 2025-05-16 23:59 | disposition home or self-care (01) ==
PROVIDERS: PCP Family Medicine; Referring Provider Nurse Practitioner Gerontology; Visit Provider Nurse Practitioner Gerontology
DX: R06.02 Shortness of breath (principal); R53.83 Other fatigue; I25.10 Atherosclerotic heart disease of native coronary artery without angina pectoris
CPT/HCPCS: 36415; 80053; 80061; 83880; 84443; 85025